=== PATIENT | female | born 1950 | race Caucasian/White ===

== ENCOUNTER 2020-01-21 17:21 | Inpatient (IN) | payer BC ==
[~2020-01-21] VITALS: Ht 154.9 cm; Wt 53.4 kg
[~2020-01-21 17:21] MED LIST: ADV250INH INH; AUGM875T27 PO; BISAC5TA PO; DOCU5LIQ PO; MAPA500T17 PO; MILK10SU PO; NICO21DI3 EXT; NO HISTORICAL MEDS; PERC5TAB PO; PROT1TAB2 PO; spiriva INH
[2020-01-21] MEDS ORDERED: methylPREDNISolone INJ 125 MG/2 ML VIAL (J2930) IV ONE (17:30)
[2020-01-21] MEDS: IPRATROPIUM 0.5MG/ALBUTEROL 2.5MG INH SOL UD 3ML (DUONEB)(J7620) NEB PRN ×2 (17:43→18:04)
[2020-01-21 17:52] LABS: HEMATOCRIT 43.1 % (36.0-47.0); HEMOGLOBIN 13.1 g/dl (12.0-15.5); MEAN CORPUSCULAR HEMOGLOBIN 28.8 pg (27.0-33.0); MEAN CORPUSCULAR HGB CONC 30.4 g/dl (32.0-36.5); MEAN CORPUSCULAR VOLUME 94.7 fl (80.0-96.0); PLATELET COUNT, AUTOMATED 448 10^3/uL (150-450); RED BLOOD COUNT 4.55 10^6/uL (4.00-5.40); WHITE BLOOD COUNT 15.3 10^3/uL (4.0-10.0)
[2020-01-21] MEDS: HumaLOG INSULIN (NovoLOG) PER UNIT SC SCH ×2 (18:00→23:24)
[2020-01-21] MEDS ORDERED: ETOMIDATE INJ 20MG/10ML VIAL IV STA (18:23)
[2020-01-21] MEDS ORDERED: SUCCINYLCHOLINE INJ 200 MG/10 ML VIAL (J0330) IV STA (18:23)
[2020-01-21 18:30] LABS: ALBUMIN 3.5 GM/DL (3.2-5.2); BILIRUBIN,DIRECT 0.1 MG/DL (0.0-0.2); BILIRUBIN,TOTAL 0.3 MG/DL (0.2-1.0); CALCIUM LEVEL 8.8 MG/DL (8.8-10.2); CK-MB VALUE MASS 3.2 NG/ML (<3.6); CREATININE FOR GFR 1.68 MG/DL (0.55-1.30); GLOMERULAR FILTRATION RATE 32.2 (>45); MB/CK RELATIVE INDEX 2.91 (< OR =4); POTASSIUM SERUM 4.9 MEQ/L (3.5-5.1); THYROID STIMULATING HORMONE 2.74 uIU/ML (0.358-3.740); TOTAL PROTEIN 7.4 GM/DL (6.4-8.2); TROPONIN I 0.06 NG/ML (< 0.10)
[2020-01-21] MEDS ORDERED: DOXYCYCLINE HYCLATE 100 MG in D5W MINI-BAG PLUS 100 ML IV ONE (18:30)
[2020-01-21] MEDS ORDERED: cefTRIAXone SOD 1 GM in D5W MINI-BAG PLUS 50 ML IV ONE (18:30)
[2020-01-21 18:41] LABS: LYMPHOCYTES 26 % (16-44); MONOCYTES 1 % (0-5); NEUTROPHILS 73 % (28-66)
[2020-01-21 18:42] LABS: PLATELET ESTIMATE INCREASED (NORMAL)
[2020-01-21] MEDS ORDERED: propofoL 1,000 MG in IV 1 EA IV SCH (18:45)
[2020-01-21] MEDS ORDERED: propofoL 200 MG/20 ML VIAL As Ordered ONE (18:52)
[2020-01-21] MEDS ORDERED: FUROSEMIDE 40MG/4ML VIAL (J1940) IV ONE (19:00)
[2020-01-21 19:13] LABS: ABG BASE EXCESS -9.4 (-2.0-2.0); ABG HCO3 19.8 MEQ/L (22.0-26.0); ABG O2 SATURATION 92.8 % (95.0-99.0); ABG PARTIAL PRESSURE O2 87.1 mmHg (75.0-100.0); ABG STANDARD HCO3 16.9 MEQ/L (22.0-26.0); ABG TOTAL CO2 21.5 MEQ/L (23.0-31.0)
[2020-01-21] MEDS ORDERED: propofoL 200 MG/20 ML VIAL IV ONE (19:15)
[2020-01-21 19:21] LABS: ABG pH (ARTERIAL) 7.158 UNITS (7.350-7.450)
[2020-01-21] MEDS ORDERED: DEXTROSE 50% 50 ML SYRINGE IV PRN (19:45)
[2020-01-21] MEDS ORDERED: GLUCAGON INJ 1MG VIAL SC PRN (19:45)
[2020-01-21] MEDS ORDERED: GLUCOSE 4GM CHEW TABLET PO PRN (19:45)
[2020-01-21 20:00] VITALS: BP 114/55
[2020-01-21] MEDS: propofoL 1,000 MG in IV 1 EA IV SCH (20:00)
[2020-01-21] MEDS: IPRATROPIUM 0.5MG/ALBUTEROL 2.5MG INH SOL UD 3ML (DUONEB)(J7620) NEB SCH (20:07)
[2020-01-21 20:15] VITALS: BP 113/58
[2020-01-21] MEDS: PANTOPRAZOLE 40MG VIAL (C9113 PER 1) IV SCH (20:20)
[2020-01-21] MEDS: CHLORHEXIDINE GLUCONATE 0.12 % 15ML UDC (PERIDEX ORAL RINSE) MT SCH (20:20)
[2020-01-21 20:30] VITALS: BP 112/57
[2020-01-21 21:00] VITALS: BP 127/64
[2020-01-21 21:08] LABS: ABG BASE EXCESS -6.4 (-2.0-2.0); ABG HCO3 19.7 MEQ/L (22.0-26.0); ABG PARTIAL PRESSURE CO2 41.5 mmHg (35.0-45.0); ABG PARTIAL PRESSURE O2 113.4 mmHg (75.0-100.0); ABG STANDARD HCO3 19.3 MEQ/L (22.0-26.0); ABG pH (ARTERIAL) 7.295 UNITS (7.350-7.450)
[2020-01-21 21:38] LABS: CK-MB VALUE MASS 4.7 NG/ML (<3.6); MB/CK RELATIVE INDEX 3.79 (< OR =4)
[2020-01-21] MEDS: HEPARIN SOD (PORCINE) 5000UNITS/ML VIAL (J1644 PER 1000UNITS) SC SCH (21:52)
[2020-01-21 22:00] VITALS: BP 159/76
[2020-01-21] MEDS ORDERED: FUROSEMIDE 40 MG TAB PO ONE (22:00)
[2020-01-21] MEDS ORDERED: FUROSEMIDE 100MG/10ML VIAL (J1940) IV ONE (22:00)
--- NOTE | 2020-01-21 22:58 | REP ---
CHEST, SINGLE VIEW: Single view of the chest is performed and compared to prior study of 11/14/2015. There are diffuse bilateral infiltrates. Heart is not enlarged. Mediastinal silhouette is grossly unremarkable. There is mild elevation of the left hemidiaphragm. IMPRESSION: Diffuse bilateral infiltrates. Electronically Signed by Aureliano Forman MD 01/22/2020 10:51 A
[2020-01-21 23:00] VITALS: BP 146/74
--- NOTE | 2020-01-21 23:01 | REP ---
CHEST, SINGLE VIEW: Single view of the chest is performed and compared to prior exam of the same day. Endotracheal tube has been placed, and the tip is approximately 1 cm above the rob. Diffuse bilateral infiltrates are unchanged. Heart is normal in size. Electronically Signed by Aureliano Forman MD 01/22/2020 10:52 A
[2020-01-21] MEDS ORDERED: metOLazone 2.5 MG TAB PO ONE (23:15)
[2020-01-22] VITALS (25 sets, daily range): BP systolic 131–172; BP diastolic 60–82; O2SAT 93–94
[2020-01-22] MEDS: propofoL 1,000 MG in IV 1 EA IV SCH ×4 (00:08→21:07)
[2020-01-22 05:01] LABS: BASO % 0.1 % (0.0-1.0); EOS % 0.1 % (0.0-3.0); HEMATOCRIT 38.2 % (36.0-47.0); HEMOGLOBIN 11.7 g/dl (12.0-15.5); LYMPH # 0.5 10^3/uL (1.5-5.0); LYMPH % 4.2 % (24.0-44.0); MEAN CORPUSCULAR HEMOGLOBIN 29.3 pg (27.0-33.0); MEAN CORPUSCULAR HGB CONC 30.6 g/dl (32.0-36.5); MEAN CORPUSCULAR VOLUME 95.7 fl (80.0-96.0); MONO # 0.3 10^3/uL (0.0-0.8); MONO % 2.3 % (0.0-5.0); NEUTROPHILS # 11.5 10^3/uL (1.5-8.5); NEUTROPHILS % 92.7 % (36.0-66.0); RED BLOOD COUNT 3.99 10^6/uL (4.00-5.40); WHITE BLOOD COUNT 12.4 10^3/uL (4.0-10.0)
[2020-01-22] MEDS: HEPARIN SOD (PORCINE) 5000UNITS/ML VIAL (J1644 PER 1000UNITS) SC SCH ×4 (05:11→22:00)
[2020-01-22] MEDS: HumaLOG INSULIN (NovoLOG) PER UNIT SC SCH ×4 (05:11→23:47)
[2020-01-22 05:37] LABS: ALBUMIN 3.2 GM/DL (3.2-5.2); BILIRUBIN,TOTAL 0.3 MG/DL (0.2-1.0); CALCIUM LEVEL 8.7 MG/DL (8.8-10.2); CREATININE FOR GFR 2.75 MG/DL (0.55-1.30); GLOMERULAR FILTRATION RATE 18.2 (>45); PHOSPHORUS LEVEL 4.9 MG/DL (2.5-4.9); POTASSIUM SERUM 4.3 MEQ/L (3.5-5.1); TOTAL PROTEIN 6.6 GM/DL (6.4-8.2)
[2020-01-22 06:18] LABS: ABG HCO3 21.4 MEQ/L (22.0-26.0); ABG O2 SATURATION 91.1 % (95.0-99.0); ABG PARTIAL PRESSURE O2 60.2 mmHg (75.0-100.0); ABG STANDARD HCO3 21.8 MEQ/L (22.0-26.0); ABG TOTAL CO2 22.5 MEQ/L (23.0-31.0); ABG pH (ARTERIAL) 7.391 UNITS (7.350-7.450)
--- NOTE | 2020-01-22 06:53 | REP ---
Clinical: Endotracheal tube placement. History of pulmonary edema. Comparison: 01/21/2020. Findings: Endotracheal tube 1.5 cm above the rob. Nasogastric tube courses below left hemidiaphragm. The lung arroyo demonstrate improved aeration with decreased bibasilar atelectasis. Small layering left effusion is suggested. No pneumothorax. Cardiac silhouette is normal. Skeletal structures are intact. Impression: 1. Endotracheal tube 1.5 cm above the rob. 2. Improved aeration with significantly decreased infiltrates and minimal residual basilar atelectasis now noted. 3. Small left pleural effusion suggested. Electronically Signed by Loc Gallagher MD 01/22/2020 06:44 A
[2020-01-22] MEDS: IPRATROPIUM 0.5MG/ALBUTEROL 2.5MG INH SOL UD 3ML (DUONEB)(J7620) NEB SCH ×4 (07:28→19:39)
[2020-01-22] MEDS: CHLORHEXIDINE GLUCONATE 0.12 % 15ML UDC (PERIDEX ORAL RINSE) MT SCH ×2 (07:52→20:01)
[2020-01-22] MEDS ORDERED: FUROSEMIDE 100MG/10ML VIAL (J1940) IV ONE (08:45)
[2020-01-22] MEDS ORDERED: metOLazone 5 MG TAB PO ONE (09:00)
--- NOTE | 2020-01-22 09:01 | ECGEPIP ---
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
[2020-01-22 09:46] LABS: TROPONIN I 8.03 NG/ML (< 0.10)
[2020-01-22] MEDS: MIDAZOLAM INJ 2MG/2ML VIAL (J2250 PER 1MG) IV PRN ×2 (11:25→20:00)
--- NOTE | 2020-01-22 11:26 | REP ---
URINARY TRACT SONOGRAPHY WITH RENAL ARTERY DOPPLER ASSESSMENT: HISTORY: Hypertension. Acute kidney insufficiency. Question arterial stenosis. Comparison renal sonography May 27, 2013 showed moderate left-sided hydronephrosis and bilateral intrarenal nephrolithiasis. SONOGRAPHIC FINDINGS: Scanning at the level of the urinary bladder shows that the bladder is empty with Shukla catheter in place. Renal cortical echogenicity pattern is increased bilaterally. Right kidney measures 8.6 x 4.6 x 4.3 cm. Left renal dimensions are 8.4 x 4.3 x 4.6 cm. The kidneys are felt to be somewhat atrophic. There is moderate hydronephrosis again noted on the left. No hydronephrosis is seen on the right. There is an 18 mm shadowing echogenic focus at the hilum of the left kidney consistent with a calculus. There is a 1.1 cm cyst in the upper pole of the right kidney. Renal artery Doppler Assessment: Exam quality is markedly diminished with the exam done portably in the OR and the patient on a ventilator. We were not able to measure Doppler flow velocity in the abdominal aorta. Main renal arteries are obscured bilaterally. A single intralobar are arterial wave form was acquired from the mid pole position of the right kidney showing increased resistive index of 0.85. This could correlate with renal artery stenosis but the study is quite suboptimal. This is the only Doppler data we could achieved. IMPRESSION: Moderate left-sided hydronephrosis with a large renal pelvic calculus on the left. Small cyst right kidney. Bilateral atrophic hyperechoic kidneys. Severely limited Doppler assessment data as above. Electronically Signed by Raymond Spivey MD 01/22/2020 03:20 P
--- NOTE | 2020-01-22 12:19 | REP ---
CT ABDOMEN AND PELVIS WITHOUT CONTRAST: CT abdomen and pelvis performed without oral or IV contrast. Sagittal and coronal reconstruction image are performed. Small bilateral pleural effusions and bibasilar atelectasis/infiltrate is noted. There is a small amount of pericardial fluid or thickening. The heart is not enlarged. There is a nasogastric tube traversing into the stomach. The liver is grossly unremarkable. The gallbladder is mild to moderately distended and contains as stone which measures about 2 cm in diameter. There is no evidence of gallbladder wall thickening. The spleen is normal in size with no gross abnormality. The adrenal glands are normal. Pancreas is grossly unremarkable. The right kidney demonstrates mild diffuse cortical thinning. There is no right hydroureteronephrosis. There are diffuse ill-defined calcifications throughout the cortical medullary region of the right kidney likely vascular. There may be an intrarenal calculus in the lower pole of the right kidney 5 mm in diameter. There are also a few cortical calcifications in the lower pole of the left kidney. Cystic structures are seen in both the upper and lower poles of the left kidney. There does appear to be at least mild dilatation of the left pelvicaliceal system. There is a large calculus in the left renal pelvis which measures 1.9 cm in diameter. Left ureter is not dilated. Urinary bladder contains a Shukla catheter with small amount of air and fluid. There is moderate atherosclerotic calcification of the abdominal aorta without aneurysm. There is no adenopathy. There is no free air or free fluid. The appendix is normal. There is no evidence of bowel wall thickening. No gross pelvic mass is seen. There are degenerative changes of the spine. IMPRESSION: There is a calculus in the left renal pelvis, 1.9 cm in diameter. There is at least mild and possibly moderate left hydronephrosis. There are cystic structures in the upper and lower poles of the left kidney but it is difficult to determine whether these represent cysts or dilated calices. In both lung bases, there are small effusions with mild adjacent atelectasis/infiltrate. There is a small amount of pericardial fluid/thickening. Gallstone in the gallbladder, which is mild to moderately distended with no definite gallbladder wall thickening or edema. Electronically Signed by Aureliano Forman MD 01/22/2020 12:37 P
--- NOTE | 2020-01-22 13:12 | CCN ---
DATE OF ADMISSION: 01/21/2020 The patient is seen in the intensive care unit intubated, mechanically ventilated, critically ill. Over the course of the evening, she was given high-dose diuretics. Little urine output resulted. Blood pressure has been better since admission due, no doubt, to sedation. At bedside, she is ill-appearing, sedate. Pemberton level 2-3. Temperature is 98, pulse rate 90, respirations 20, blood pressure 156/74. Intake and output (I and O): For the past 24 hours, 354 in, 0 out. Since midnight, 142 in, 5 out. On physical examination, HEENT: Her pupils are midplane and responsive. The neck is supple. There is an orogastric and endotracheal tube in good position, 22 cm at the lip line. Jugular veins do appear distended, perhaps 6 cm. The carotid upstroke is sluggish. Heart sounds are regular, somewhat distant. Breath sounds are diminished with some dullness in the bases. There is no accessory muscle use. She is taking occasional spontaneous breaths over the mechanically ventilated, mechanically delivered breaths. Abdomen: Soft with a prominent bruit. There is no palpable mass. Bowel sounds are appreciated. Extremities are cool. Pulses are diminished. DIAGNOSTIC STUDIES: Her white cell count is 12.4, hemoglobin is 11.7, hematocrit 38.2, platelet count was unable to be determined as the platelets clotted. It was felt to be elevated. Differential white cell count shows 92.7% neutrophils. Electrolytes are sodium 141, potassium 4.3, chloride 109, CO2 21, BUN is 38, creatinine is up to 2.75 from 1.68, glucose is 128, her lactic acid was 4.8 last evening, calcium is 8.7 with an albumin of 3.2, AST 62, ALT 27, LDH is 105, CPK is 347, the troponin was 8.03. Arterial blood gases show a pH of 7.39, PCO2 of 36, pO2 of 60. Chest x-ray shows significant improvement in the interstitial infiltrates appreciated yesterday. Blood cultures are pending times two. On medications review, she is receiving propofol drip to maintain sedation, DuoNebs, subcutaneous heparin, Protonix, and insulin coverage. She has received large doses of Lasix. The primary problem requiring critical attention is acute respiratory failure. Arterial blood gases are much improved. Will continue with intermittent mechanical ventilation (IMV) 400 times 20, PEEP of 5, PSV of 14, and follow gas exchange with oximetry and capnography. Pulmonary edema. Her chest x-ray has improved. I am questioning whether the episode was related to hypertension as her brain natriuretic peptide (BNP) was very high, and she has cleared no urine. Acute oliguric kidney failure. We will attempt additional doses of diuretics. I am, however, concerned about the possibility of renal artery stenosis as a precipitant, the event of admission. If no response is appreciated, we will consult with nephrology. Will also obtain a renal ultrasound to assess for renal artery stenosis and in light of a prior history of nephrolithiasis. Cardiac ischemic event. The electrocardiogram is nonspecific. Enzymes are positive. Will check an echocardiogram. Chronic obstructive pulmonary disease by history. The patient is receiving beta agonist by nebulized therapy. Nutritional support will be addressed with tube feedings. The patient's mixed acidosis has now resolved. Deep venous thrombosis (DVT) prophylaxis is being addressed with subcutaneous heparin. Ulcer prophylaxis is being addressed with Protonix. She is at high risk being critically ill and on mechanical ventilation. Glycemic control is acceptable. Will continue with fingerstick blood sugars and coverage as we are starting nutritional support. The patient's condition is critical. Prognosis is guarded. 1 hour and 29 minutes was spent in the provision of bedside critical care and coordination.
--- NOTE | 2020-01-22 13:37 | HPE ---
DATE: 01/20/2010 I was called to see this patient in the emergency department, a 69-year-old female with acute hypoxemic hypercarbic respiratory failure. She presented to the emergency department with dyspnea, deteriorated during her evaluation and required an endotracheal tube to be placed. On my arrival, she is sedate with an endotracheal tube in place on mechanical ventilation. She has a past history per the medical record of lung cancer, status post resection of her left upper lobe in 2013 for stage III A (T4N1) disease. She was lost to followup after that time. She has a 50 pack-year smoking history. At bedside, her temperature is 96, pulse rate 126, respirations 24, blood pressure 184/90. HEENT: Her pupils are small, sluggish. Neck is supple. No meningismus. Jugular veins are grossly distended. Carotid upstroke sluggish. Heart sounds are regular, somewhat distant. Breath sounds are diminished with diffuse rales bilaterally. Abdomen is soft, obese, with bowel sounds in the right lower quadrant. Extremities show muscle wasting. Pulses are palpable times four. Diagnostic Studies: Her white cell count is 15.3, hemoglobin 13.1, hematocrit 43.1, and platelet count is 448,000. Differential white cell count shows 73% neutrophils and 26% lymphocytes. Her sodium is 139, potassium 4.9, chloride 106, CO2 21, BUN 26, creatinine is 1.68, and glucose 335. Her calcium is 8.8 with an albumin is 3.5, bilirubin 0.3, AST 27, ALT 26, alkaline phosphatase is 123. A serum lactate is pending. Troponin I is 0.06. Beta natriuretic peptide 31,008. Her total protein is 7.3. The TSH is 2.74. An arterial blood gas performed on admission revealed a pH of 7.19, pCO2 52 and pO2 68. COVID-19 testing was negative. Her chest x-ray shows diffuse interstitial infiltrates consistent with pulmonary edema. Electrocardiogram shows a possible inferior injury. The primary problem requiring critical attention is acute hypoxic hypercarbic respiratory failure. Will initiate mechanical ventilation, increase minute ventilation and recheck arterial blood gas. Pulmonary edema. The patient has received a dose of IV Lasix. A Shukla catheter will be placed and will monitor ins and outs closely. Hypertension. If her blood pressure does not respond after sedation has had a chance to take effect, I will add intravenous nitroglycerin. Mixed acidosis. We will increase minute ventilation and check a serum lactate. Abnormal electrocardiogram. There is a possibility of an acute myocardial injury. Troponin is currently negative. Will recheck a troponin. The patient is not a candidate for transfer for cardiac intervention at this time. Advanced chronic obstructive pulmonary disease is suspected related to 50 pack-years of cigarette smoking. Will administer scheduled nebulized beta agonist anticholinergic therapy. Acute kidney injury. The patient's baseline creatinine was less than 1. Current creatinine is 1.6. This may reflect ongoing renal dysfunction. Deep vein thrombosis (DVT) prophylaxis will be addressed with subcutaneous heparin. Ulcer prophylaxis will be addressed with Protonix. Glycemic control will be addressed with fingerstick blood sugars and coverage. The patient's condition is very critical. Prognosis is guarded to poor. 2 hours and 17 minutes was spent in provision of bedside critical care and coordination in excess of any procedure time. I have reviewed the case now with the emergency department physicians and the ICU nursing team will facilitate transfer now to the intensive care unit for continued resuscitative efforts.
--- NOTE | 2020-01-22 15:42 | ECHO ---
DATE OF PROCEDURE: 01/22/2020 DATE OF : 1950 AGE: 69 GENDER: Female. HEIGHT: 61 inches WEIGHT: 125 pounds BODY SURFACE AREA: 1.55 m2 INPATIENT: ICU Room 3205 REFERRING PHYSICIAN: Nallely Xavier INDICATION: Heart failure. MEASUREMENTS: 2-D Measurements: RV: 2.8 cm LV: 4.8 cm Septum: 1.2 cm Posterior wall: 1.1 cm Aortic root: 3.2 cm LA: 3.6 cm LVEF: 25% Doppler Measurements: AV: 1.08 m/sec LVOT: 0.76 m/sec LVOT diameter: 1.8 cm MV: Superimposition of both early and late diastolic filling patterns, unable to evaluate LV diastolic function and LA pressure. PV: 0.6 m/sec Pulmonary artery acceleration time: 92 ms RVSP: 45-50 mmHg IVC: 1.8 cm COMMENTS: Sinus tachycardia without intraventricular conduction disturbance. M-mode and two-dimensional echocardiography was performed with pulsed, continuous wave, color flow and tissue Doppler studies. Borderline concentric left ventricular hypertrophy with global moderately-severe hypokinesis resulting in severe impairment of global systolic function. Left atrial size upper limits of normal. Unable to define LV diastolic function or estimate mean left atrial pressure in light of superimposition of both early and late diastolic filling patterns. Normal right heart chamber sizes and adequate right ventricular free wall motion with Doppler evidence of at least moderate pulmonary hypertension. IVC size upper limits of normal with markedly reduced respiratory collapse in keeping with elevated central venous pressure/right heart failure. Normal aortic dimensions. Mild to moderate aortic valvular sclerosis without stenosis and only trace insufficiency. Mild mitral annular calcification with very mild mitral insufficiency. Normal-appearing tricuspid valve with mild tricuspid insufficiency. No apparent intracardiac mass. Minuscule posterior pericardial effusion measuring 2 mm.
[2020-01-22 17:42] LABS: APPEARANCE, URINE CLOUDY (CLEAR); BACTERIA, URINE AUTO 3+ (NEGATIVE); BILIRUBIN, URINE AUTO NEGATIVE (NEGATIVE); BLOOD, URINE BLOOD 2+ (NEGATIVE); COLOR, URINE YELLOW (YELLOW); GLUCOSE, URINE (UA) AUTO NEGATIVE (NEGATIVE); KETONE, URINE AUTO NEGATIVE (NEGATIVE); LEUKOCYTE ESTERASE, URINE AUTO 3+ (NEGATIVE); MUCUS, URINE SMALL (NEGATIVE); NITRITE, URINE AUTO NEGATIVE (NEGATIVE); PROTEIN, URINE AUTO 2+ mg/dL (NEGATIVE); RBC, URINE AUTO 19 /HPF (0-3); SQUAMOUS EPITHELIAL CELL UR AU 0 /HPF (0-6); TRANSITIONAL EPITHELIAL AUTO <1 /HPF; UROBILINOGEN, URINE AUTO 0.2 mg/dL (0.0-2.0); WBC, URINE AUTO 80 /HPF (0-3)
--- NOTE | 2020-01-22 17:42 | CR ---
DATE OF CONSULTATION: 01/22/2020 REQUESTING PHYSICIAN: Dr. Bryan Fisher CONSULTING PHYSICIAN: Dr. Ryan REASON FOR CONSULTATION: Management of acute anuric renal failure. CHIEF COMPLAINT: The patient presented to the hospital yesterday with progressive shortness of breath. HISTORY OF PRESENT ILLNESS: Note, history was obtained from the medical team and from the patient's chart and previous records. The patient is unable to provide any reliable history because she is intubated. Nevaeh Saavedra she is a 69-year-old female with past medical history of kidney stones. Most likely she has chronic kidney disease, stage III; however, baseline renal function is not known. She does not follow up with nephrology service. Her baseline creatinine from 2013 was 0.9. She has history of chronic obstructive pulmonary disease (COPD), history of adenocarcinoma of the left upper lobe, status post left upper lobectomy many years ago. She presented to the hospital yesterday with progressive shortness of breath. In the emergency room, her shortness of breath got worse, and because of dyspnea she ended up getting intubated and placed on the ventilator. Imaging showed that the patient had diffuse pulmonary edema. It is not clear whether the patient has history of hypertension; however, yesterday in the emergency room the patient was very hypertensive with blood pressure 230/112. She was transferred to the intensive care unit (ICU) and admitted under pulmonary critical care service. Because of cholo pulmonary edema, the patient was given intravenous (IV) diuretics to diurese; however, the patient did not respond to the IV diuretic dose. The patient made minimal amount of urine. Her creatinine on admission was 1.6, which has bumped up to 2.7 today. Nephrology service was called for further help in the management of this patient. I saw and evaluated the patient today morning in the bedside. She is still intubated, sedated with propofol. Currently her blood pressures are better controlled, and she is not requiring any IV medications for her blood pressure. PAST MEDICAL HISTORY: 1. Kidney stones. Most likely has chronic kidney disease (CKD), stage III, at baseline. Not sure if the patient has hypertension. 2. 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 The patient was lost in followup. PAST SURGICAL HISTORY 1. Status post left upper lobe lung resection in [address] Canseco. 2. She has history of mild left-sided hydronephrosis with left-sided renal stone. She was supposed to followup with urology. I am not sure whether she had any procedure done to the left kidney or not. ALLERGIES: No known drug allergies. FAMILY HISTORY: No known family history. SOCIAL HISTORY: Patient has a 50 pack-year history of smoking as per previous records. It is not known whether the patient takes any drugs. REVIEW OF SYSTEMS: I was unable to do any reliable review of systems because the patient is intubated and sedated. PHYSICAL EXAMINATION: GENERAL: The patient is intubated, sedated, lying in bed. Eyes are closed. VITAL SIGNS: Temperature is 98.5 degrees Fahrenheit, blood pressure 145/67, pulse is 119, respiratory of 23, saturating 94% on the ventilator with 20% FiO2. Intake and output: Urine output recorded is only 25 mL since overnight. HEAD AND NECK: Pupils are equally round and reactive to light. Mucous membranes are moist. Patient has an endotracheal tube. Neck is supple. There is no jugular venous distention (JVD). CARDIOVASCULAR: S1, S2, tachycardia. No edema of the bilateral lower extremities. RESPIRATORY: Chest is clear to auscultation bilaterally. There are no rales or rhonchi. ABDOMEN: Soft. The patient has a bruit in the renal artery area. Right is worse than the left. GENITOURINARY: Patient has an indwelling Shukla catheter. A very small amount of urine, less than 10 mL on the bag, is noted. MUSCULOSKELETAL: No clubbing or cyanosis. Pulses are 2+. SKIN: No rashes or ulcers. CENTRAL NERVOUS SYSTEM: The patient is intubated and sedated. She moves extremities on painful stimuli. LABORATORY REVIEW: CBC showed WBC of 12.4, hemoglobin 11.7, platelets are 448. ABG done today morning showed pH of 7.39, pCO2 of 36, pO2 of 60.2, bicarbonate is 21.4, oxygen saturation is 91%. BMP showed sodium 141, potassium 4.3, chloride 109, bicarbonate 21, BUN 38, creatinine is 2.7; it was 1.6 yesterday. Glucose is 128. Lactic acid was 4.8 on arrival; it is 1.8 now. Calcium 8.7. LDH is 390. Total creatine kinase is 347, troponin is 8.03. Albumin 3.2. COVID-19 is negative. Microbiology: Blood cultures are pending. IMAGING STUDIES: CT scan of the abdomen and pelvis without contrast was done, which showed a calculus in the left renal pelvis. It was 1.9 cm in diameter. Mild to moderate left-sided hydronephrosis. Cystic structures in the upper and lower poles of the kidney. Not sure whether they are cysts or dilated calyces. Right kidney was mildly atrophic. There were small effusions in both lungs. There was gallstone in the gallbladder. Renal ultrasound was also done in the morning, which showed moderate left-sided hydronephrosis. Small cyst in the right kidney. Bilateral atrophic hyperechoic kidneys. Severely limited Doppler because of the bowel-gas pattern. Chest x-ray done today morning showed endotracheal tube above the rob. Improved aeration with significantly decrease infiltrates and minimal residual basilar active atelectasis. CURRENT INPATIENT MEDICATIONS: The patient is currently on IV doxycycline, IV propofol infusion. Rocephin 1 gram IV was given yesterday. DuoNebs for times a day. She was given three doses of Lasix 40 mg, 80 mg, 100 mg. She is on Solu-Medrol 125 mg IV times one dose yesterday. She was given two doses of metolazone as well. Prednisone 40 mg IV daily. ASSESSMENT: A 69-year-old female with history of kidney stones, most likely baseline chronic obstructive pulmonary disease (COPD) and chronic kidney disease (CKD) III, admitted at this time to intensive care unit (ICU) with acute hypoxic and hypercapnic respiratory failure. Currently ventilator dependent, and she has acute anuric renal failure. PLAN: 1. Acute anuric renal failure. Unknown etiology at this time. Urinalysis is not available. I have ordered the urinalysis to be done. Hydronephrosis on the left side is mild and is chronic, and the stone in the left pelvis is chronic and is not severe enough to cause acute oligoanuric renal failure. I have discussed the Dopplers and the CT scan findings with interventional radiology as well, and the decision was made to do a nuclear medicine scan with renal flow study, and if there is any evidence of severe renal artery stenosis, then the patient will get angiogram and stenting done. Patient is oliguric. I believe the creatinine will keep on going up, and if she remains anuric for the next 24-48 hours, we might have to start the patient on dialysis. At this point, volume status is optimal, and electrolytes are within the acceptable range. 2. Acute hypoxic and hypercapnic respiratory failure. The patient had flash pulmonary edema on arrival. There is a high likelihood that it might be associated with renal artery stenosis. After the intubation, chest x-ray is showing improvement in the aeration. Ventilator management is as per pulmonary team. The patient is getting empiric antibiotics as well. 3. Flash pulmonary edema. As mentioned above, there is a possibility it might be secondary to renal artery stenosis. A renal perfusion scan will be done tomorrow morning. The patient did not respond to the IV diuretics. 4. Elevated troponin. Most likely this is stress-induced ischemia secondary to flash pulmonary edema. Continue to cycle the troponins. 5. Left-sided intrarenal calculus with moderate hydronephrosis. The patient is known to have calculus previously as well. Not sure if she ever followed up with urology. This calculus in the left side is not obstructing the ureteropelvic junction. Unlikely that it is causing anuric renal failure at this time. Further decision to do any intervention will be done after the patient gets the nuclear renal scan tomorrow morning. Thank you for involving me in the care of this patient. I shall be happy to follow the patient along with you tomorrow morning. Total critical care time spent in the management of this patient today morning in the ICU was 1 hour and 15 minutes.
[2020-01-22] MEDS: PANTOPRAZOLE 40MG VIAL (C9113 PER 1) IV SCH (20:00)
[2020-01-22] MEDS: ACETAMINOPHEN 325 MG/10.15 ML UDC GT PRN (21:06)
[2020-01-23] VITALS (39 sets, daily range): BP systolic 128–185; BP diastolic 60–88; O2SAT 95–97
[2020-01-23] MEDS: MIDAZOLAM INJ 2MG/2ML VIAL (J2250 PER 1MG) IV PRN ×3 (03:28→22:19)
[2020-01-23] MEDS: propofoL 1,000 MG in IV 1 EA IV SCH ×4 (04:31→23:43)
[2020-01-23 05:12] LABS: BASO % 0.1 % (0.0-1.0); HEMATOCRIT 32.8 % (36.0-47.0); HEMOGLOBIN 10.8 g/dl (12.0-15.5); LYMPH # 1.6 10^3/uL (1.5-5.0); LYMPH % 6.5 % (24.0-44.0); MEAN CORPUSCULAR HEMOGLOBIN 29.3 pg (27.0-33.0); MEAN CORPUSCULAR HGB CONC 32.9 g/dl (32.0-36.5); MEAN CORPUSCULAR VOLUME 89.1 fl (80.0-96.0); MONO # 1.5 10^3/uL (0.0-0.8); MONO % 5.9 % (0.0-5.0); NEUTROPHILS # 21.2 10^3/uL (1.5-8.5); NEUTROPHILS % 86.8 % (36.0-66.0); PLATELET COUNT, AUTOMATED 274 10^3/uL (150-450); RED BLOOD COUNT 3.68 10^6/uL (4.00-5.40); WHITE BLOOD COUNT 24.4 10^3/uL (4.0-10.0)
[2020-01-23 05:34] LABS: ABG BASE EXCESS -2.2 (-2.0-2.0); ABG HCO3 21.5 MEQ/L (22.0-26.0); ABG O2 SATURATION 94.5 % (95.0-99.0); ABG PARTIAL PRESSURE O2 76.4 mmHg (75.0-100.0); ABG STANDARD HCO3 22.6 MEQ/L (22.0-26.0); ABG TOTAL CO2 22.5 MEQ/L (23.0-31.0); ABG pH (ARTERIAL) 7.431 UNITS (7.350-7.450)
[2020-01-23 05:55] LABS: ALBUMIN 2.9 GM/DL (3.2-5.2); ALT/SGPT 53 U/L (12-78); BILIRUBIN,TOTAL 0.3 MG/DL (0.2-1.0); BLOOD UREA NITROGEN 59 MG/DL (7-18); CALCIUM LEVEL 8.4 MG/DL (8.8-10.2); CARBON DIOXIDE LEVEL 24 MEQ/L (21-32); CHLORIDE LEVEL 103 MEQ/L (98-107); CHOLESTEROL LEVEL 162 MG/DL (< 200); CPK CREATINE PHOSPHOKINASE 1192 U/L (26-192); CREATININE FOR GFR 5.16 MG/DL (0.55-1.30); GLOMERULAR FILTRATION RATE 8.8 (>45); GLUCOSE, FASTING 140 MG/DL (70-100); LDH LACTATE DEHYDROGENASE 768 U/L (84-246); PHOSPHORUS LEVEL 4.6 MG/DL (2.5-4.9); POTASSIUM SERUM 4.4 MEQ/L (3.5-5.1); SODIUM LEVEL 138 MEQ/L (136-145); TOTAL PROTEIN 5.9 GM/DL (6.4-8.2); TRIGLYCERIDES LEVEL 195 MG/DL (<150)
[2020-01-23] MEDS: HEPARIN SOD (PORCINE) 5000UNITS/ML VIAL (J1644 PER 1000UNITS) SC SCH ×3 (06:06→22:11)
[2020-01-23] MEDS: HumaLOG INSULIN (NovoLOG) PER UNIT SC SCH ×4 (06:06→23:49)
--- NOTE | 2020-01-23 07:05 | REP ---
Clinical: Intubation. Pulmonary edema. Comparison: 01/22/2020. Findings: Endotracheal tube approximately 1 cm above the rob. Nasogastric tube courses below left hemidiaphragm. Mediastinum and cardiac silhouette are stable. Lung arroyo demonstrate chronic interstitial changes with possible retrocardiac atelectasis. No focal consolidation, obvious effusion or pneumothorax. Skeletal structures are stable. Impression: 1. Endotracheal tube 1 cm from the rob. 2. Trace left lower lobe/retrocardiac atelectasis. 3. Small pleural effusions identified on recent abdominal CT not visible by portable examination. Electronically Signed by Loc Gallagher MD 01/23/2020 06:56 A
[2020-01-23] MEDS: IPRATROPIUM 0.5MG/ALBUTEROL 2.5MG INH SOL UD 3ML (DUONEB)(J7620) NEB SCH ×4 (08:04→19:47)
--- NOTE | 2020-01-23 10:05 | REP ---
RENAL NUCLEAR SCAN WITH FLOW AND FUNCTION: Following the intravenous administration of 8.8 millicuries technetium 99M MAG3, flow images are obtained of the kidneys in the posterior projection. There relatively poor perfusion of the right kidney compared to the left. Delayed renal function images are performed every minute for a period of 30 minutes in the posterior projection. There is right renal atrophy. There is patchy parenchymal uptake bilaterally diffusely. Cortical uptake is gradual with no scintigraphic evidence of significant excretion into either pelvicaliceal system. Split function is 75.3% on the left and 24.7% on the right. Both renal function curves are type 3 with gradual cortical accumulation. There is a Shukla catheter in place. No significant activity is seen in the region of the urinary bladder. IMPRESSION: Poor flow to the right kidney may indicate renal artery stenosis. There is right renal atrophy. There is bilateral patchy, heterogeneous, cortical uptake diffusely with type 3 function curve and gradual cortical accumulation. No appreciable excretion is seen. Findings are compatible with renal failure. Electronically Signed by Aureliano Forman MD 01/23/2020 12:52 P
[2020-01-23] MEDS: CHLORHEXIDINE GLUCONATE 0.12 % 15ML UDC (PERIDEX ORAL RINSE) MT SCH ×2 (10:12→20:38)
[2020-01-23 10:50] LABS: HDL CHOLESTEROL 38 MG/DL (>40)
[2020-01-23] MEDS: MEROPENEM INJ 500 MG in IV 1 EA IV SCH (10:59)
[2020-01-23 11:04] LABS: HEMOGLOBIN A1c 6.4 %
[2020-01-23] MEDS ORDERED: SUCCINYLCHOLINE 100 MG/5 ML SYRINGE (J0330) ONE (11:38)
--- NOTE | 2020-01-23 12:10 | IPN ---
DATE OF SERVICE: 01/23/2020 SUBJECTIVE: Ms. Saavedra was seen and examined this morning during bedside rounds. She is resting comfortably in her bed. Early this morning, she went to nuclear medicine for a renal artery flow study. There were no overnight events reported. The patient continues not to have any urine output. They irrigated the bladder this morning to check for obstruction, which was negative. There were no other events were reported by nursing or tele changes. PHYSICAL EXAMINATION: Vitals: Temperature 98.0, pulse 103, blood pressure 163/74, pulse oximetry 95% on ventilator on FiO2 of 21. Intake and Output: For the last 24 hours, intake total 740 mL, output today 45 mL, balance of positive 695 mL. Weight on admission was 56.7 kg, current weight is 58.1 kg. General: This is a 69-year-old female who is laying comfortably with the head of the bed at a 30 degrees angle. HEENT: Atraumatic, normocephalic. Endotracheal (ET) tube at 22 cm at the lip. Poor dentition. Jugular vein noted about 7 cm from the sternal notch. Trachea is midline. Cardiovascular: Tachycardic rate, regular rhythm, with no audible murmurs, rubs or gallops. Carotid bruit appreciated bilaterally as well as abdominal bruit. Lungs: Clear to auscultate bilaterally. Breath sounds are equal bilaterally. No wheezing or rhonchi is appreciated. Abdomen: Hypoactive bowel sounds. Soft. Nontender. Nondistended. No rebound or guarding. Abdominal bruit is appreciated. No skin breakdown noted. Extremities: No lower extremity edema or calf tenderness noted. LABORATORIES: WBC 24.4, hemoglobin 10.8, hematocrit 32.8, platelets 274. Chemistries: Sodium 138, potassium 4.4, chloride 103, carbon dioxide 24, anion gap 11, BUN 59, creatinine 5.16, GFR 8.8, fasting glucose 140, calcium 8.4, phosphorus 4.6, total bilirubin 0.3, AST 99, ALT 53, alkaline phosphatase 89, lactate dehydrogenase 768, total creatinine kinase 1182. Troponin from yesterday 8.03. Total protein 5.9. Triglycerides 195. Blood Gas: ABG pH 7.431, pCO2 33.0, pO2 76.4. Microbiology: Blood culture time two negative for growth for 24 hours. IMAGING: Renal scan nuclear medicine study official report still pending. Draft states poor flow of the right kidney may indicate renal artery stenosis with right renal atrophy. There is bilateral patchy heterogeneous cortical uptake diffusely with type 3 function curve and gradual cortical accumulation. No appreciable excretion is seen. Findings are compatible with renal failure. Chest x-ray from this morning was reviewed by Dr. Fihser and I which shows the endotracheal tube is roughly about 1 vertebral body from the rob with trace atelectasis and possible small pleural effusion with blunting of the costophrenic angles. ASSESSMENT AND PLAN: This is a 69-year-old female who has not been to a provider for multiple years with a pertinent history of multiple kidney stones, history of a lobectomy multiple years prior, who was presented to our emergency room (ER) for shortness of breath. The patient was found to be in acute hypoxic and hypercarbic respiratory failure in the ER and was intubated for flash pulmonary edema on arrival. At the current time, she is day two of hospitalization and intubation. 1. Acute respiratory failure with hypoxia and hypercarbia. The patient has flash pulmonary edema possibly secondary to acute renal stenosis. She is currently on ventilator SIMV with a respiration rate of 20, tidal volumes of 400, with a PEEP of 5, pressure support of 14, with a FiO2 of 21%. Her ABG this morning shows that she is compensating very well and tolerating it. Our plan is to keep her intubated for another 24 hours pending if the patient is getting a possible angioplasty versus a dialysis catheter placement versus a nephrostomy tube based on recommendations from interventional radiology. 2. Acute oliguric kidney failure. Renal ultrasound yesterday did show multiple kidney stones with a right atrophic kidney as well as a kidney stone in the left renal pelvis causing a mild hydronephrosis. Nephrology and interventional radiology was consulted. Interventional radiology did request nuclear medicine kidney flow study this morning which shows that she does have renal artery stenosis. At the current time, she continues to make no urine so the plan is to possibly put in a dialysis catheter in to possibly start dialysis versus doing a renal artery angioplasty. We will refer to the nephrology and interventional radiologist for these recommendations. 3. Cardiac ischemic event with an elevated troponin. Troponin was 8.0. Will get a repeat cardiac marker this morning. Possibly exacerbated from the pulmonary edema event that she had upon admission. I do believe the troponin will still be elevated as the patient is not renally clearing anything. At the current time, will have to address the underlying problem of acute oliguric kidney failure. No antiplatelet therapy at this current time started on the fact of a possible catheter placement. 4. History of chronic obstructive pulmonary disease (COPD). Continue beta agonist by nebulizer. 5. Nutritional support. The patient does have tube feeds running. Will continue while intubated. 6. Deep vein thrombosis (DVT) prophylaxis. Heparin. 7. Gastrointestinal (GI) prophylaxis. Protonix. 8. Currently nothing by mouth because of mechanical ventilation. Have started her on tube feeds, so will have finger sticks and with insulin coverage while intubated. addendum: I was present and participated in the evaluation of this patient and examination. She remains very critically ill and her prognosis is guarded. CRITICAL CARE TIME: one hour and thirty seven minutes exclusive of procedure time. MTDD
--- NOTE | 2020-01-23 13:39 | ROOPDOC ---
[facility] Report Of Operation Report of Operation DATE OF PROCEDURE: 01/23/2020 PREPROCEDURE DIAGNOSES:Acute Renal Failure requiring Dialysis access POSTPROCEDURE DIAGNOSES: Acute Renal Failure requiring Dialysis access PROCEDURE: Right IJ Dialysis line placement Performed by: Dr. Nallely Mancini Attending: Dr. Bryan Fisher ANESTHESIA: Local ESTIMATED BLOOD LOSS: Approximately 0 mL. COMPLICATIONS: none PROCEDURE NOTE:Consent was obtained prior to the procedure but HCP over the phone. Procedure was performed at bedside in ICU. DESCRIPTION OF PROCEDURE: The patient was placed in the supine position. The right chest region and neck was prepped with chlorhexidine scrub. The patient was draped in the typical sterile fashion using a full drape. Ultrasonography was employed at bedside. A sterile probe cover was placed over the ultrasound. The medial and lateral head of the sternocleidomastoid were identified, as was the carotid pulse. The internal jugular vein was identified using ultrasound. Anesthesia was achieved over the internal jugular vein on the right using a 1% lidocaine solution. Once anesthetized, an introducer needle was inserted into the internal jugular vein. Venous blood was withdrawn, syringe was removed and a guidewire was advanced on to the introducer needle. The guidewire was visualized in the internal jugular vein by ultrasound. An incision was made in the skin surface with a scalpel, and the introducer needle was exchanged for a dilator over the guidewire. After appropriate dilation was obtained, the dilator was exchanged over the wire for a dialysis venous catheter. The wire was removed, and the catheter was sutured in place. A sterile bandage was placed over the catheter site. The patient tolerated the procedure well without any hemodynamic compromise. At the time of procedure completion, all ports were aspirated and flushed properly. Postprocedure x-ray was performed, which demonstrated adequate positioning of the dialysis venous catheter in the right internal jugular vein. NALLELY MANCINI DO January 23, 2020 13:39
--- NOTE | 2020-01-23 14:17 | REP ---
CHEST, SINGLE VIEW: Single view of the chest is performed and compared to a prior study of 01/23/2020 earlier today. There is right central venous catheter placed with the tip in the superior vena cava. There is no pneumothorax. Endotracheal tube and nasogastric tube are again seen. The lungs, heart and mediastinum are unchanged. Electronically Signed by Aureliano Forman MD 01/23/2020 03:40 P
--- NOTE | 2020-01-23 20:35 | ECGEPIP ---
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 MILD IVCD POSSIBLE LEFT ATRIAL ENLARGEMENT NONSPECIFIC ST/T-WAVE ABNORMALITY Possible prior anteroseptal infarct Right ventricular conduction delay Prior tracing on 01/21/2020 at 19:10. No significant changes Electronically Signed on 01-23-2020 20:35:35 EDT by Terrence Payne
[2020-01-23] MEDS: PANTOPRAZOLE 40MG VIAL (C9113 PER 1) IV SCH (20:38)
[2020-01-24] VITALS (36 sets, daily range): BP systolic 106–165; BP diastolic 53–81; O2SAT 94
[2020-01-24] MEDS: MIDAZOLAM INJ 2MG/2ML VIAL (J2250 PER 1MG) IV PRN ×3 (01:46→16:17)
[2020-01-24 05:14] LABS: BASO % 0.2 % (0.0-1.0); EOS % 0.1 % (0.0-3.0); HEMATOCRIT 31.5 % (36.0-47.0); HEMOGLOBIN 10.3 g/dl (12.0-15.5); LYMPH # 1.3 10^3/uL (1.5-5.0); LYMPH % 7.9 % (24.0-44.0); MEAN CORPUSCULAR HEMOGLOBIN 28.9 pg (27.0-33.0); MEAN CORPUSCULAR HGB CONC 32.7 g/dl (32.0-36.5); MEAN CORPUSCULAR VOLUME 88.5 fl (80.0-96.0); MONO % 6.2 % (0.0-5.0); NEUTROPHILS # 14.3 10^3/uL (1.5-8.5); PLATELET COUNT, AUTOMATED 244 10^3/uL (150-450); RED BLOOD COUNT 3.56 10^6/uL (4.00-5.40); WHITE BLOOD COUNT 16.9 10^3/uL (4.0-10.0)
[2020-01-24 05:38] LABS: ABG HCO3 22.1 MEQ/L (22.0-26.0); ABG O2 SATURATION 92.1 % (95.0-99.0); ABG PARTIAL PRESSURE CO2 35.2 mmHg (35.0-45.0); ABG PARTIAL PRESSURE O2 65.8 mmHg (75.0-100.0); ABG STANDARD HCO3 22.7 MEQ/L (22.0-26.0); ABG TOTAL CO2 23.2 MEQ/L (23.0-31.0); ABG pH (ARTERIAL) 7.416 UNITS (7.350-7.450)
[2020-01-24 05:58] LABS: ALBUMIN 2.7 GM/DL (3.2-5.2); BILIRUBIN,TOTAL 0.5 MG/DL (0.2-1.0); CALCIUM LEVEL 8.5 MG/DL (8.8-10.2); CREATININE FOR GFR 5.42 MG/DL (0.55-1.30); GLOMERULAR FILTRATION RATE 8.3 (>45); PHOSPHORUS LEVEL 4.9 MG/DL (2.5-4.9); POTASSIUM SERUM 4.5 MEQ/L (3.5-5.1); TOTAL PROTEIN 5.9 GM/DL (6.4-8.2)
--- NOTE | 2020-01-24 06:07 | IPN ---
DATE: 01/23/2020 SUBJECTIVE: Patient was seen and examined at the bedside today morning. She remains intubated and sedated. She is still anuric, and there is no improvement in the renal function. Patient actually had a nuclear medicine study done today morning, which is consistent with renal failure. Details are mentioned below. She did have a fever spike last night with a maximum temperature (Tmax) of 100.2 degrees Fahrenheit. Leukocytosis is getting worse. Blood cultures are negative so far. OBJECTIVE: Vital signs: Temperature is 99.4 degrees Fahrenheit, blood pressure 157/74, pulse is 107, respiratory rate of 22, saturating 92% on the vent with 21% FiO2. Intake and output: Urine output recorded is only 10 mL since overnight. Weight on the bed scale is 58.1 kg. PHYSICAL EXAMINATION: General: Patient is intubated, sedated, laying in the bed, saturating well on the vent with 21% FiO2. Head and neck exam: Pupils are equally round and reactive to light. Eyes are closed, and she has an endotracheal tube. Neck is supple. Mildly elevated jugular venous distention (JVD). Cardiovascular: S1, S2, regular rate. No edema of the bilateral lower extremities. Respiratory: Mildly decreased breath sounds at the bases. Otherwise, no active rales or rhonchi. Abdomen: Soft. Positive bowel sounds. Nontender. Genitourinary: She has an indwelling Shukla catheter. Musculoskeletal: No clubbing or cyanosis. Pulses are 2+. Central nervous system (MANAGER CARD): She is sedated. Otherwise, moves extremities to painful stimuli. LAB REVIEW: CBC showed a WBC of 24.4, hemoglobin is 10.8, platelets are 274. Urinalysis done yesterday showed it was cloudy with 2+ blood, 3+ leukocyte esterase, WBCs are 80, 3+ bacteria. ABG done today morning showed pH of 7.43, pCO2 of 33, pO2 of 76, bicarbonate is 21, oxygen saturation is 94%. BMP showed sodium 138, potassium 4.4, chloride 103, bicarbonate 24, BUN 59, creatinine is 5.1. A1c is 6.4. Calcium is 8.4, AST 99, ALT 53, LDH of 768, albumin is 2.9. Hepatitis B and C serologies pending. Microbiology: Blood cultures are negative so far in 24 hours. Urine culture is pending. IMAGING: A nuclear medicine renal scan was done, which showed poor flow to the right kidney, which may indicate renal artery stenosis. There is right renal atrophy, bilateral patchy heterogeneous cortical uptake diffusely with a type 3 function curve and gradual cortical accumulation. No appreciable excretion was seen. Findings are compatible with renal failure. Split renal function was 75% on the left and 24% on the right. CURRENT INPATIENT MEDICATIONS: Patient is currently getting intravenous (IV) propofol. I have started the patient on meropenem 500 mg IV daily because of leukocytosis. Assess patient for a stone-associated pyelonephritis on the left side. No other change in the medications today as compared with yesterday. ASSESSMENT AND PLAN: 1. Acute renal failure superimposed on chronic kidney disease, most likely secondary to combination of right renal artery stenosis, left-sided stone with chronic hydronephrosis, and possibility of left-sided pyelonephritis. Patient is anuric at this time. She will need placement of her dialysis catheter and initiation of hemodialysis today. I have talked to patient's daughter, Shanna, at phone number [phone], and she agreed for placement of dialysis catheter and initiation of hemodialysis. 2. Acute hypoxic and hypercapnic respiratory failure. Patient had pulmonary edema. I will try to remove at least 1 liter of fluid during dialysis and, if needed, she will get another session of dialysis tomorrow as well. I am hopeful that after dialysis, we should be able to extubate the patient. 3. Elevated troponin. Most likely, patient has stress-induced ischemia. There is no repeat troponin ordered. I am going to order another set of troponins. 4. Left-sided intrarenal calculus with moderate hydronephrosis. Hydronephrosis is chronic. However, urinalysis (UA) is dirty and patient had fever spike and she has leukocytosis as well. I have started the patient on meropenem 500 mg IV daily. If leukocytosis does not improve, patient might need left-sided percutaneous nephrostomy for stone-associated left-sided hydronephrosis. 5. Right renal artery stenosis. Patient is currently intubated in acute renal failure. Once patient is clinically more stable, she would be sent to interventional radiology to try renal angiogram and renal artery stenting if needed. That will help prevent future episodes of flash pulmonary edema. Total critical care time spent in the management of this patient today morning in the intensive care unit (ICU) was 50 minutes. This critical care time spent does not include any procedures.
[2020-01-24] MEDS: HEPARIN SOD (PORCINE) 5000UNITS/ML VIAL (J1644 PER 1000UNITS) SC SCH ×3 (06:25→22:33)
[2020-01-24] MEDS: HumaLOG INSULIN (NovoLOG) PER UNIT SC SCH ×4 (06:25→23:57)
[2020-01-24] MEDS: IPRATROPIUM 0.5MG/ALBUTEROL 2.5MG INH SOL UD 3ML (DUONEB)(J7620) NEB SCH ×4 (07:13→19:41)
--- NOTE | 2020-01-24 07:38 | REP ---
Clinical: Intubation. Comparison: 01/23/2020. Findings: Endotracheal tube approximately 3 cm above the rob. Nasogastric tube courses below left hemidiaphragm. Right IJ line with tip in the SVC. Mediastinum and cardiac silhouette are stable. Lung arroyo demonstrate chronic-appearing interstitial changes. No focal consolidation, obvious effusion or pneumothorax. Findings are essentially unchanged. Impression: 1. Lines and tubes in satisfactory position. 2. No significant change from prior examination. 3. No new acute mediastinal or pleuroparenchymal process appreciated. Electronically Signed by Loc Gallagher MD 01/24/2020 07:30 A
[2020-01-24] MEDS: CHLORHEXIDINE GLUCONATE 0.12 % 15ML UDC (PERIDEX ORAL RINSE) MT SCH ×2 (09:32→20:48)
[2020-01-24 09:56] LABS: HEPATITIS B SURFACE ANTIBODY NEGATIVE (POSITIVE)
[2020-01-24 10:06] LABS: HEPATITIS B SURFACE ANTIGEN NEGATIVE (NEGATIVE)
--- NOTE | 2020-01-24 10:11 | IPN ---
DATE OF SERVICE: 01/24/2020 SUBJECTIVE: Ms. Saavedra was seen and examined this morning during bedside rounds. She was on sedation vacation, tolerating 30 mcg of propofol really well. There were no overnight events reported. She currently has tube feeds running and is tolerating her meropenem. She had dialysis and had 1 liter removed yesterday. No telemetry changes noted. Her SIMV mode rate was reduced from 20 to 12, which she tolerated very well by breathing over with 17. PHYSICAL EXAMINATION: Vitals: Temperature 98.9, pulse 96, respiratory rate 22, blood pressure 159/74 (102), pulse oximetry 93% on SIMV with on FiO2 of 21. General: This is a very pleasant, 69-year-old female who does not appear in acute distress, laying comfortably in bed, currently intubated. HEENT: Atraumatic, normocephalic. Endotracheal (ET) tube at 22 cm at the lip. Poor dentition. Trachea midline. Cardiovascular: Tachycardic rate, regular rhythm. No audible murmurs, rubs or gallops. Carotid bruit appreciated bilaterally as well as an abdominal bruit more favorable on the right so possible renal artery bruit. Lungs: Clear to auscultate bilaterally. Breath sounds are equal bilaterally as well. No wheezing or rhonchi is appreciated. Abdomen: Soft. Nondistended. No rebound. No guarding. Extremities: No lower extremity edema, no wincing with calf palpation. LABORATORIES: WBC 16.9, hemoglobin 10.3, hematocrit 31.5, platelets 244. Chemistries: Sodium 135, potassium 4.5, chloride 101, carbon dioxide 23, anion gap 11, BUN 53, creatinine 5.83, hemoglobin A1c of 6.4, calcium 8.5, phosphorus 4.9, AST 66, ALT 45, alkaline phosphatase 81, lactate dehydrogenase 644, triglycerides 181. ABG: pH 7.416, pCO2 35.2, pO2 65.8, oxygen saturation 92.1. IMAGING: Chest x-ray was reviewed by me and Dr. Enciso which shows ET tube approximately 3 cm above the rob. Today the patient looks draped. Right IJ dialysis catheter in satisfactory position as well as NG tube below the left hemidiaphragm. 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 She is currently on day 3 of hospitalization and intubation. 1. Acute respiratory failure with hypoxia and hypercarbia. This is flash pulmonary secondary to possible acute renal stenosis. She is currently on ventilator SIMV with a respiration rate decreased down to 12, tidal volumes of 400, PEEP of 5, on a pressure support of 14, with a FiO2 of 21%. ABG continues to show compensating very well and tolerating her current mechanical ventilation settings. She will get another session of dialysis today so she will be intubated until after this dialysis and will plan to extubate her in the next 24 hours. Will continue with the current mechanical ventilation settings. 2. Urinary tract infection. Urinalysis (UA) showed 3+ leukocytes with WBCs. Urine culture is currently pending. Her WBC came down to 16 this morning. She was started on meropenem which is renally safe and she is tolerating it very well. We will deescalate antibiotics pending culture and her renal function. No pressors are needed at this current. 3. Acute oliguric kidney failure secondary to renal artery stenosis. Yesterday, she had a dialysis catheter placed and she tolerated one liter removed and will have another session today. At this current time, we will continue with nephrology's recommendations. For her underlying renal artery stenosis, when she is extubated and she is more stable, will refer to interventional radiology about possible renal artery angioplasty for her stenosis. 4. Cardiac ischemic event with elevated troponin. Initial troponin was elevated at 8.0. For some reason, there was no repeat. Will get a repeat this morning to see if it continues elevated. I believe it will be down for the fact that she did get dialysis yesterday and will have another dialysis session today. There are no telemetry changes noted since she has been admitted and will continue to monitor on telemetry. No antiplatelet therapy at this time as she did have a catheter placed yesterday and will possibly go for an angioplasty and so will continue to monitor. 5. History of chronic obstructive pulmonary disease (COPD). Currently stable. Will continue with nebulizer treatment. 6. History of Stage III A lung cancer status post lobectomy. 7. Nutritional support. Continue with tube feeds while intubated. 8. Deep vein thrombosis (DVT) prophylaxis. Heparin for she is at high risk for pulmonary embolism and DVT. 9. Gastrointestinal (GI) prophylaxis. Continue with Protonix. CRITICAL CARE TIME: I was physically present for the entire interview and exam.Agree with above assessment and plan Start time 0810 Stop time 0851 A total of 41 minutes of critical care time delivered at the bedside not including procedures MTDD
[2020-01-24 10:35] LABS: HEPATITIS B CORE ANTIBODY IGM NEGATIVE (NEGATIVE)
[2020-01-24 10:51] LABS: CHOLESTEROL LEVEL 162 MG/DL (<200)
[2020-01-24 10:52] LABS: CHOLESTEROL RISK RATIO 4.263 (<5); NON-HDL-C 124 MG/DL
[2020-01-24] MEDS: MEROPENEM INJ 500 MG in IV 1 EA IV SCH (13:02)
[2020-01-24] MEDS: propofoL 1,000 MG in IV 1 EA IV SCH ×2 (13:15→20:50)
[2020-01-24] MEDS: PANTOPRAZOLE 40MG VIAL (C9113 PER 1) IV SCH (20:48)
[2020-01-25] VITALS (18 sets, daily range): BP systolic 114–193; BP diastolic 62–89; O2SAT 96–97
[2020-01-25] MEDS: propofoL 1,000 MG in IV 1 EA IV SCH (04:52)
[2020-01-25 05:01] LABS: BASO # 0.1 10^3/uL (0.0-0.2); BASO % 0.5 % (0.0-1.0); EOS # 0.1 10^3/uL (0.0-0.5); EOS % 0.4 % (0.0-3.0); HEMATOCRIT 32.4 % (36.0-47.0); HEMOGLOBIN 10.6 g/dl (12.0-15.5); LYMPH # 1.8 10^3/uL (1.5-5.0); LYMPH % 11.9 % (24.0-44.0); MEAN CORPUSCULAR HEMOGLOBIN 29.1 pg (27.0-33.0); MEAN CORPUSCULAR HGB CONC 32.7 g/dl (32.0-36.5); MONO # 1.4 10^3/uL (0.0-0.8); MONO % 9.2 % (0.0-5.0); NEUTROPHILS # 11.3 10^3/uL (1.5-8.5); NEUTROPHILS % 76.8 % (36.0-66.0); PLATELET COUNT, AUTOMATED 262 10^3/uL (150-450); RED BLOOD COUNT 3.64 10^6/uL (4.00-5.40); WHITE BLOOD COUNT 14.7 10^3/uL (4.0-10.0)
[2020-01-25 05:36] LABS: ALBUMIN 2.8 GM/DL (3.2-5.2); BILIRUBIN,TOTAL 0.4 MG/DL (0.2-1.0); CALCIUM LEVEL 8.6 MG/DL (8.8-10.2); CREATININE FOR GFR 5.06 MG/DL (0.55-1.30); PHOSPHORUS LEVEL 6.3 MG/DL (2.5-4.9); TOTAL PROTEIN 6.3 GM/DL (6.4-8.2); TROPONIN I 3.28 NG/ML (< 0.10)
[2020-01-25] MEDS: HumaLOG INSULIN (NovoLOG) PER UNIT SC SCH (05:40)
[2020-01-25 05:44] LABS: ABG BASE EXCESS -2.8 (-2.0-2.0); ABG HCO3 20.2 MEQ/L (22.0-26.0); ABG O2 SATURATION 93.8 % (95.0-99.0); ABG PARTIAL PRESSURE CO2 29.7 mmHg (35.0-45.0); ABG PARTIAL PRESSURE O2 70.7 mmHg (75.0-100.0); ABG TOTAL CO2 21.1 MEQ/L (23.0-31.0); ABG pH (ARTERIAL) 7.451 UNITS (7.350-7.450)
[2020-01-25] MEDS: HEPARIN SOD (PORCINE) 5000UNITS/ML VIAL (J1644 PER 1000UNITS) SC SCH ×2 (05:46→16:08)
[2020-01-25] MEDS: IPRATROPIUM 0.5MG/ALBUTEROL 2.5MG INH SOL UD 3ML (DUONEB)(J7620) NEB SCH ×4 (07:35→19:59)
[2020-01-25] MEDS: CHLORHEXIDINE GLUCONATE 0.12 % 15ML UDC (PERIDEX ORAL RINSE) MT SCH (08:28)
--- NOTE | 2020-01-25 08:33 | IPN ---
DATE OF SERVICE: 01/24/2020 SUBJECTIVE: The patient was seen and examined at the bedside today morning. Last 24-hour events were noted. The patient is afebrile. She is hemodynamically stable. She is still intubated and sedated, requiring minimal oxygen at this time. The patient continues to be anuric. Her leukocytosis is significantly better after starting meropenem yesterday. She was dialyzed for the first time yesterday. She tolerated the hemodialysis procedure well, and the patient is being dialyzed again today at the bedside in the intensive care unit (ICU), and she is tolerating the second session of hemodialysis, as well. OBJECTIVE: Vital signs: Temperature is 98 degrees Fahrenheit, blood pressure 157/70, pulse is 97, respiratory rate of 18, saturating 98% on the vent with 21% FIO2. Intake and output: Urine output recorded since overnight is 40 mL. Ultrafiltration with hemodialysis was 1 liter. Weight in the bed scale is 58.5 kg. PHYSICAL EXAMINATION: General: The patient is intubated, sedated. Eyes are closed. She has a nasogastric tube (NGT) and endotracheal tube. Neck is supple. She has a right internal jugular (vein) (IJ) nontunneled hemodialysis catheter, which is being used for dialysis at this time. Cardiovascular: S1, S2, regular rate. No edema of the bilateral lower extremities. Respiratory: Chest is clear to auscultation bilaterally. Bilateral equal air entry. No rales or rhonchi. Abdomen: Soft. Positive bowel sounds. I cannot appreciate the renal bruit that I heard on the first day. Genitourinary: She has an indwelling Shukla catheter. A very small amount of dark urine is present in the bag. Musculoskeletal: No clubbing or cyanosis. Pulses are 2+. Central nervous system (RESTAURANT TEAM MEMBER): The patient is intubated and sedated. She moved extremities on painful stimuli. Skin: No rashes or ulcers. LABORATORY REVIEW: Complete blood count (CBC) showed a WBC of 16.9, hemoglobin is 10.3, platelets are 244. Arterial blood gas (ABG) done today morning showed a pH of 7.41, pCO2 of 35, pO2 of 65, bicarbonate 22, oxygen (O2) saturation is 92%. Basic metabolic profile (BMP) today morning showed sodium 135, potassium 4.5, chloride 101, bicarbonate 23, BUN 53, creatinine is 5.4, calcium 8.5, troponin is 5. IMAGING: A chest x-ray was done today morning, which showed lines and tubes in satisfactory position. No new acute mediastinal or pleuroparenchymal changes. CURRENT INPATIENT MEDICATIONS: The patient's medications were all reviewed by me. She continues to be on IV meropenem. She is on insulin sliding scale. No other significant change in the medications today as compared with yesterday. ASSESSMENT AND PLAN: 1. Acute anuric renal failure superimposed on chronic kidney disease. Baseline renal function is not known. The patient has right-sided renal artery stenosis and left-sided staghorn stone with chronic hydronephrosis. She is dialysis dependent. She was dialyzed for the first time yesterday. Second session is being done today. 2 liters of fluid will be removed. Electrolytes are within the acceptable range. 2. Acute hypoxic and hypercapnic respiratory failure. The patient is vent dependent. She had flash pulmonary edema on arrival. Fluid status is being optimized with dialysis. Hopefully, we should be able to extubate her over the next 24 hours. 3. Elevated troponin. It was secondary to stress-induced ischemia. Repeat troponin levels are improving. 4. Left-sided intrarenal calculus with moderate hydronephrosis. The patient has chronic hydronephrosis. Cultures are pending. Urinalysis (UA) was dirty. She is currently on IV meropenem. Leukocytosis is getting better. She will need to be evaluated by urology. 5. Right-sided renal artery stenosis. Once the patient is clinically stable and extubated, she will be sent down to interventional radiology (IR) for a renal angiogram. Total critical care time spent in the management of this patient today morning in the ICU was 45 minutes, excluding all the procedures.
[2020-01-25] MEDS ORDERED: CARVedilol 6.25 MG TAB PO SCH (09:00)
--- NOTE | 2020-01-25 11:03 | REP ---
REASON: Followup. COMPARISON: Multiple, the latest 01/24/2020. The technique utilized in obtaining the radiograph has magnified the cardiac silhouette and accentuated the interstitial markings. The nasogastric and endotracheal tubes remain in satisfactory position. The tip of the right-sided internal jugular central venous catheter remains in the superior vena cava. There is no change in appearance of the lung arroyo or imaged osseous structures. No acute patchy parenchymal opacities or pleural effusions have developed. IMPRESSION: No significant change. Electronically Signed by Ace Betancourt DO 01/25/2020 12:57 P
[2020-01-25] MEDS: **hydrALAZINE HCL** 25 MG TAB PO SCH ×3 (12:15→20:53)
[2020-01-25] MEDS: MEROPENEM INJ 500 MG in IV 1 EA IV SCH (12:16)
--- NOTE | 2020-01-25 13:17 | CR ---
DATE OF CONSULTATION: 01/24/2020 REFERRING PHYSICIAN: Marco Antonio Enciso MD REASON FOR THE CONSULTATION: Abnormal serum troponin. HISTORY OF PRESENT ILLNESS: A 69-year-old woman with a long history of smoking and has not been seeing a physician for a long time. She also has a history of lung cancer, left upper lobe, for which she had surgery in 2013 for stage IIIA/T4N1 disease, kidney stones involving the left kidney with mild hydronephrosis, chronic obstructive pulmonary disease (COPD). She presented to the emergency room (ER) 01/21/2020 with shortness of breath and was found to be in respiratory failure secondary to hypoxemic hypercapnic respiratory failure. Her blood pressure on arrival was 149/94. At one point, it was markedly elevated, reported up to 238/112. Her pulse was up 130-135 beats per minute, and her temperature on admission was 96.4 degrees Fahrenheit. She was intubated, then admitted to intensive care unit (ICU)/critical care unit (CCU) for further management and monitoring. Her laboratories initially revealed a blood urea nitrogen (BUN) and creatinine of 26 and 1.68, respectively; and her serum lactic acid level was up to 4.8, then decreased to 1.8 about 6 hours later. Her serum proBNP was up to 31,000, and her initial serum troponin was 0.06 with a CK of 110. She was not anemic but with a WBC of 15.3. She was tested negative for COVID-19 by PCR. Initial arterial blood gas (ABG) revealed a pH of 7.15 with a pCO2 of 57, and a pO2 of 87, with an oxygen saturation of 92%. She was then treated in the ER with intravenous (IV) Lasix. Serum creatinine on 01/22/2020 was reported to be 2.5; and on 01/23/2020, it was 5.16. She was started on hemodialysis. Subsequent serum troponin was 8.03 on 01/22/2020 and today 5.05. Her electrocardiogram (EKG) also was abnormal consistent with underlying structural heart disease. She had an echocardiogram on 01/22/2020, reported by Dr. Amaya, and the left ventricular ejection fraction (LVEF) was estimated at 25% and mild to moderate valvular heart disease. The inferior vena cava (IVC) was normal in size. There was moderate pulmonary hypertension. Cardiology consult was called earlier today because of the abnormal serum troponin. Also reported an abdominal bruit, and renal scan revealed poor flow to the right kidney that may indicate renal artery stenosis with underlying right renal atrophy. Split renal function was reported to be 75.3% on the left and 24.7% on the right. An abdominal CT without contrast was done, and it revealed a calculus in the left renal pelvis with mild to moderate left hydronephrosis and cystic structures in the left upper and lower poles of the left kidney. Incidentally, a small bilateral pleural effusion was noted associated with atelectasis/infiltrate and a small amount of pericardial fluid. There was a gallstone in the gallbladder, which was mildly to moderately distended with no definite gallbladder wall thickening or edema. Chest x-ray revealed diffuse bilateral infiltrates. When I saw Mrs. Nevaeh aSavedra this evening, she was intubated and sedated, not responding to questions; but according to her nurse earlier during the day, she was interacting. Vital signs were stable when I saw her, mildly tachycardiac, with a blood pressure of 114/64, pulse 108, and a respiratory rate that varied between 16 and 20 per minute. Temperature was 98.8 degrees Fahrenheit. Examination of the head: Atraumatic. Fundus examination was not done. Neck is supple, and I could not appreciate any carotid bruits. Neck examination did not reveal any jugular venous distention (JVD). The lungs revealed bilateral rhonchi but no wheezing. The heart examination revealed irregular heart sounds, mild tachycardia. The point of maximal impulse (PMI) is slightly displaced inferiorly. There is no rub. There is a systolic murmur grade 1/6 at the lower sternal border and at the apex without any significant radiation. Abdomen is soft, and there is a bruit noted just below the umbilicus. Extremities revealed no pedal edema. Peripheral pulses, dorsalis pedis was +1 at the ankle. Neurological examination was not done. CURRENT MEDICATIONS: - meropenem 500 mg IV every 24 hours - Tylenol suspension 650 mg every 6 hours as needed via nasogastric (NG) tube - heparin subcutaneous 5000 units every 8 hours - Peridex oral swab - pantoprazole 40 mg IV daily - propofol - DuoNeb - midazolam - regular insulin coverage with lispro - also on D50, glucose, and glucagon as needed Basic metabolic profile (BMP) this morning revealed a sodium of 135, potassium 4.5, chloride 101, CO2 23, BUN 53, creatinine 5.42, GFR 8.3, fasting glucose 159, and calcium 8.5. Liver enzymes reveal a total bilirubin of 0.5, AST 66, ALT 48, alkaline phosphatase 81, LDH 644, total protein 5.9, albumin 2.7. Serum troponin today was 5.05 with a total CPK of 1807. Lipid profile on 01/23/2020 revealed a total cholesterol of 162, LDL 85, HDL 38, and triglyceride 195. Total cholesterol/HDL ratio was 4.26. Serum TSH on admission was 2.74. CBC today revealed WBC of 16.9, hemoglobin 10.3, hematocrit 31.5, and platelet 244,000. Yesterday, CBC revealed WBC of 24.4. Arterial blood gas (ABG) this morning revealed a pH of 7.41, pCO2 35.2, pO2 65.8, with an oxygen saturation of 92.1, on ventilator. Urinalysis was cloudy with +3 leukocyte esterase, 80 WBC, and 19 RBCs, and +3 bacteria. COVID-19 PCR on admission was negative, 01/21/2020. Urine culture is pending. Blood culture appeared negative since 01/21/2020. Electrocardiogram (EKG) on 01/21/2020 at 1910 revealed sinus tachycardia at 108 beats per minute, left atrial abnormality, right ventricular conduction delay, LVH, and ST-T abnormalities, mild intraventricular conduction defect (IVCD). There is also poor R wave progression in the right precordial leads that may be related to prior anterior wall infarct. Prior tracing on 06/03/2014; and at that time, heart rate was 82 beats per minute, and there was better R wave progression. There were no ST-T abnormalities. EKG on 01/22/2020 at 915 revealed sinus tachycardia at 109 beats per minute, left atrial abnormalities, possible prior anteroseptal infarct, mild IVCD, and ST-T abnormalities has improved. Chest x-ray done today revealed no significant changes from prior studies. No focal consolidation but chronic-appearing interstitial changes. No pneumothorax. Echocardiogram, as stated above, revealed LVEF estimated at 25% and mild to moderate valvular heart disease. The study was reviewed, and there was diffuse hypokinesis. There was preserved left ventricular wall thickness. IMPRESSION: 1. Abnormal serum troponin, probably related to a cim-PB-ukfoheo myocardial infarction (non-STEMI) in this 69-year-old woman with a long history of smoking and hypertension. She probably had an event between 2013 and 2019 based on her EKG. There were significant changes. Her echocardiogram, however, revealed no focal abnormalities but diffuse hypokinesis but underlying coronary artery disease (CAD) cannot be ruled out. Blood pressure today has been good but mildly tachycardiac. She has been tolerating hemodialysis well. I doubt her serum troponin is related to only demand ischemia. I was about to start her on IV Lopressor this evening, but her blood pressure is running low on the low side and will wait until tomorrow when she is extubated. In that case, she may be started on a small dose of short-acting beta timmy with metoprolol tartrate such as 12.5 mg by mouth twice a day, aspirin, and long-acting nitrate with isosorbide mononitrate/Imdur starting at 30 mg by mouth daily. She can be loaded with Plavix at 300 mg on one day and the next day dropping to 75 mg by mouth daily. She should be on a statin, and she can be started on atorvastatin at 40 mg by mouth daily or generic Crestor/rosuvastatin at 20 mg by mouth daily. She is not a candidate at this present time for an angiotensin-converting enzyme (HERMINIA) inhibitor or angiotensin receptor timmy (ARB) or Entresto. I would stay away from hydralazine. She probably has some underlying CAD. Prognostic overall basically from a cardiac point of view is at this present time guarded, but hopefully she will turn the corner. Will continue with hemodialysis, and hopefully renal function will come back to normal, because at one point, she will benefit from the a cardiac catheterization. Regarding her renal artery stenosis, the case will be discussed with the vascular team in [place], [place], if nobody available in town. I doubt her pulmonary edema is related only to her renal artery stenosis. This most likely is multifactorial. 2. Respiratory failure, acute, secondary to hypercapnic hypoxemic respiratory failure and currently intubated and sedated, and she is being monitored by dray truck driver. 3. Acute renal failure, currently on hemodialysis. She probably will respond; that was probably related to the diuretics. She was not on HERMINIA inhibitor or ARB or Entresto. She is being monitored by nephrology, on hemodialysis. It was a pleasure to participate in the care of Mrs. Nevaeh Saavedra for her underlying cardiac condition. Dr. Amaya is second operator, and the case will be discussed with him for coverage over the weekend. On Monday, Dr. Jimenez will be seeing her when he is back. Please do not hesitate to call if any questions. SATURNINO
--- NOTE | 2020-01-25 15:02 | IPN ---
DATE OF SERVICE: 01/25/2020 SUBJECTIVE: The patient was seen and examined at the bedside today morning in the intensive care unit (ICU). The patient was extubated today morning. She was dialyzed yesterday, and 2 liters of fluid was removed. She tolerated the hemodialysis procedure well. The patient remains afebrile. Leukocytosis is improving. She remains oliguric. No significant improvement in the renal function. Her blood pressures are currently at elevated, and she is not on any antihypertensive regimen so far. The patient is otherwise awake and alert, and she is feeling thirsty, and she wants to start drinking and eating some food. OBJECTIVE: Vital signs: Temperature is 98.3 degrees Fahrenheit, blood pressure is 157/68, pulse is 105, respiratory rate of 18, saturating 96% on the aerosol mask. Intake and output: Urine output recorded is 49 mL since overnight. Ultrafiltration with hemodialysis was 2 liters. Weight in the bed scale was 58.5 kg yesterday. PHYSICAL EXAMINATION: General: The patient is awake, alert, oriented times two, laying in bed, no apparent distress. Head and neck examination: Extraocular muscles intact. Pupils equally round and reactive to light. Mucous membranes are moist. Neck is supple. There is no jugular venous distention (JVD). Cardiovascular: S1, S2, regular rate. Mildly elevated JVD. No edema of the bilateral lower extremities. Respiratory: Chest is clear to auscultation bilaterally. Bilateral equal air entry. No rales or rhonchi. Abdomen is soft. Positive bowel sounds. Nontender. No organomegaly. Genitourinary: She has an indwelling Shukla catheter. There is very cloudy urine in the bag at this time. Musculoskeletal: No clubbing or cyanosis. Pulses are 2+. Central nervous system (FURNACE FILLER): No focal deficit. Power is 5/5 in all extremities. Skin: No rashes or ulcers. LABORATORY REVIEW: Complete blood count (CBC) showed a WBC of 14.7, hemoglobin is 10.6, platelets are 262. Basic metabolic profile (BMP) today morning showed sodium 136, potassium 5, chloride 101, bicarbonate 25, BUN 42, creatinine is 5, calcium 8.6, phosphorus 6.3, AST 52, LDH is 568, total creatinine kinase is 1364, troponin has trended down to 3.2, albumin is 2.8. MICROBIOLOGY: Urine culture from 01/22/2020 came back positive for Escherichia (E.) coli which is sensitive to meropenem that the patient is receiving at this time. CURRENT INPATIENT MEDICATIONS: The patient continues to be on IV meropenem. I have started her on Coreg 6.25 mg by mouth twice a day and hydralazine 25 mg by mouth three times a day. No other significant change in the medications today as compared with yesterday. ASSESSMENT AND PLAN: 1. Acute oliguric renal failure superimposed on chronic kidney disease. The patient is still dialysis dependent. She has minimal urine output, which is very cloudy. She has left-sided pyelonephritis and right-sided renal artery stenosis. Continue antibiotics. Get urology on board for evaluation of left-sided stone and hydronephrosis. 2. Acute hypoxic and hypercapnic respiratory failure. It has resolved now. The patient was extubated successfully today morning. Fluid status will be managed with dialysis. 3. Elevated troponins. It was secondary to flash pulmonary edema and stress ischemia. Troponin level is improving. 4. Left-sided intrarenal calculus with moderate hydronephrosis. The patient has chronic hydronephrosis and stones on the left side. However, looks like the stone is the nidus of infection. She needs to be evaluated by urology for further management of the stone and hydronephrosis. 5. Right-sided renal artery stenosis. The patient will be referred to interventional radiology for a renal angiogram and possible stenting of the right renal artery if needed. 6. Left-sided pyelonephritis. The patient is growing E. coli in the urine cultures. She is currently getting meropenem, which adequately covers the infection. 7. Renovascular hypertension. Blood pressures are elevated. She has a global hypokinesis of the left ventricle. Left ventricle ejection fraction is 20%. I have started her on carvedilol and hydralazine. If needed, isosorbide will be added. I would avoid using angiotensin-converting enzyme (HERMINIA) inhibitors or angiotensin receptor blockers in this patient with renal artery stenosis and acute renal failure. 8. Chronic systolic congestive heart failure. The patient's latest echocardiogram showed a depressed left ventricle (LV) ejection fraction of 20%. Volume status will be managed with dialysis. Antihypertensive regimen is as mentioned above. Total critical care time spent in the management of this patient today morning in the ICU was 50 minutes, excluding all the procedures.
--- NOTE | 2020-01-25 15:53 | IPN ---
DATE: 01/25/2020 at 2:[address] Guillermo providing weekend coverage for Dr. Terrence Payne, who is the patient's toll patrolman. Patient's current electronic medical record (EMR) medical record from this hospitalization was reviewed. SUBJECTIVE: Patient was extubated this morning. At the moment, she has no shortness of breath or orthopnea in bed. She has not yet ambulated. No chest pain or chest discomfort. No leg or ankle swelling. PHYSICAL EXAMINATION: A pleasant woman who appears her chronologic age who is not in any respiratory or psychologic distress. Temperature 98.3, pulse 104 (regular), respiratory rate 15, blood pressure (BP) 180/73, oxygen saturation 96% on aerosol mask with FiO2 of 28%. Weight today not yet listed in the EMR. She was net negative 886.3 mL for the 24 hours of 01/24/2020. Jugular venous pulsations were at 3 cm. First heart sound normal. Second heart sound was physiologically split with a loud A2 and a loud P2. No S3 or S4 appreciated. Grade 1 systolic ejection murmur, right 2nd interspace. Respiratory expansion effort was fair. No crackles or wheezes. No peripheral edema. Abdomen was soft and nontender with normal bowel sounds. Speech was normal. Mood and affect were normal. Laboratory work 01/25/2020 was reviewed. WBC 14.7, hemoglobin 10.6, hematocrit 32.4, platelets 262. Sodium 136, potassium 5.0, chloride 101, CO2 of 25, BUN 42, creatinine 5.06, glucose 94, calcium 8.6, phosphorus 6.3. AST elevated at 52, ALT normal, alkaline phosphatase normal. LDH 568. CPK 1364. Troponin I 3.28. Total protein 6.3, albumin 2.8. Total cholesterol 168. ASSESSMENT AND PLAN: 1. Heart failure, acute on chronic. At this point, it is not known whether her cardiomyopathy is ischemic versus nonischemic cardiomyopathy. I suspect she has hypertensive cardiomyopathy. Certainly other etiologies are possible. Once she is stabilized, she should be considered for assessment of the coronary circulation, such as diagnostic coronary angiography to distinguish between ischemic verus nonischemic cardiomyopathy. I will leave that with Dr. Payne or Dr. Jimenez. She was just extubated this morning. I have independently visualized the patient's portable upright AP chest x-ray acquired 01/25/2020 at 6:43 a.m. It shows a right internal jugular central access line, a gastric tube, and endotracheal tube. No pulmonary vascular distribution. No interstitial or alveolar edema. Elevated left hemidiaphragm and reduced lung volume on the left. Costophrenic angles are clear. At this point, the patient continues to be in significant kidney failure and is under the care of nephrology with dialysis. Because of acute kidney failure, she is not a good candidate at the moment for use of angiotensin-converting enzyme (HERMINIA) inhibitor, angiotensin receptor timmy (ARB) or Entresto. Agree with carvedilol and hydralazine. Her blood pressure is significantly elevated, and her heart rate is over 70 beats per minute (BPM). Continue hydralazine at the current dosage. I will increase the dose of carvedilol to 12.5 mg twice a day. I will not use loop diuretic or mineralocorticoid receptor antagonist at this time because fluid balance is being managed with dialysis for fluid removal. 2. Diabetic cardiomyopathy. As per heart failure category above. 3. Acute non-IG-aakyhmlmr myocardial infarction (NSTEMI). I believe this is most likely a secondary phenomenon due to severe acute heart failure with hypoxic respiratory failure. She should at some point undergo cardiac catheterization to clarify between ischemic cardiomyopathy versus nonischemic cardiomyopathy. I will for now, at least, add a low dose of aspirin. 4. Abnormal ECG, stable. 5. Systemic hypertension. Uncontrolled systemic hypertension. Agree with hydralazine. I will increase the dosage of carvedilol to 12.5 mg twice a day.
[2020-01-25] MEDS: ASPIRIN 81 MG ENTERIC TAB PO SCH (16:07)
--- NOTE | 2020-01-25 17:47 | IPNPDOC ---
Text Note Date of Service The patient was seen on 01/25/20. NOTE Subjective: Patient was successfully extubated today. Now she complains of some mild hoarseness of her voice, no neck pain or swallowing difficulty. No chest pain or SOB. Physical Exam: VItals: as below General: appears her stated age, laying in bed at 30 degree in no acute d istress, alert and oriented HEENT: normocephalic and atraumatic, moist mucous membranes, anicteric eyes. Neck with Jugular venous pulsations were at 3 cm. CVS: Normal S1, S2, regular rhythm , soft systolic murmur in the second space, no gallop or rub Resp: Respiratory expansion effort was fair. No crackles or wheezes. Extremities: No peripheral edema. Abdomen : soft and nontender with normal bowel sounds. Abdominal bruit heard in right lumber region. Neuro: No focal neurodeficits, speech normal Psych: alert, oriented x3, mood normal. Labs and radiology: reviewed. Assessment and Plan: 69 year old female with PMH COPD, Emphysema, former smoker, renal stones, of Lung cncer of left upper lobe adenocarcinoma in 2012, stage III A (T4N1) disease s/p lobectomy, pulmonary artery resection and reconstruction was advised adjuvent radiation/chemo but was lost to followup, presented to the ED on 01/21/20 with sudden onset dyspnea which happened after she came back from work and was sitting in a chair at home. On presentation to the ED she was in hypertensive emergency with acute hypoxic respiratory failure and bilateral pulmonary edema. She was urgently intubated in the ED . She was also noted to have CATHERINE. She was admitted for Hypertensive emergency, flash pulmonary edema and acute hypoxic and hypercarbic respiratory failure. Echo done showed LVH, LVEF of 25%, moderate pulmonary hypertension Acute hypoxic and hypercarbic respiratory failure due to flash pulmonary edema felt to be due to right renal artery stenosis along with very low EF with acute CHF. resolved Acute anuric renal failure on chronic kidney disease. presumed to be due to renal artery stenosis left-sided pyelonephritis Renal ultrasound showed bilateral atrophic kidneys as well as a kidney stone in the left renal pelvis causing a mild hydronephrosis. Nuclear medicine kidney flow study shows right renal artery stenosis. Split function is 75.3% on the left and 24.7% on the right. Started on HD planned for renal artery angiogram and possible stenting Left sided complicated pyelonephritis left stone probably nidus of infection. urine culture with Ecoli On meropenem. will need urology evaluation for the left stone and hydronephrosis. Hypertensive emergency resolved has renovascular hypertension. restarted on coreg and hydralazine for blood pressure control. Acute Systolic congestive heart failure due to dilated cardiomyopathy ischemic vs nonischemic s/p flash pulmonary edema At present appears Euvolemic fluid status management with HD. Type 2 AMI due to demand ischemia from acute hypoxia and acute CHF. and some elevation may be due to CATHERINE peak troponin was 8.0 now at 3 She should at some point undergo cardiac catheterization to clarify between ischemic cardiomyopathy versus nonischemic cardiomyopathy. Dr Payne. Advanced COPD with emphysema wit moderated pulmonary hypertension duonebs not on any meds at home Left Intrarenal Nephrolithiasis mild left-sided hydronephrosis stone is 1.9 cm. will need urology evaluation. VS,Fishbone, I+O VS, Fishbone, I+O Laboratory Tests 01/25/20 04:33 Vital Signs Date Time Temp Pulse Resp B/P (MAP) Pulse Ox O2 Delivery O2 Flow Rate FiO2 01/25/20 12:16 104 180/73 01/25/20 12:04 97.3 19 93 Room Air 01/25/20 10:00 28 01/21/20 18:10 28.0 I&O- Last 24 Hours up to 6 AM 01/25/20 07:00 Intake Total 1014.7 ml Output Total 2095 ml Balance -1080.3 ml DIANA LARSON MD January 25, 2020 16:32
[2020-01-25] MEDS: PANTOPRAZOLE 40MG VIAL (C9113 PER 1) IV SCH (20:51)
[2020-01-25] MEDS: CARVedilol 12.5 MG TAB PO SCH (20:53)
[2020-01-26] VITALS (15 sets, daily range): BP systolic 119–166; BP diastolic 56–75
[2020-01-26] MEDS: HEPARIN SOD (PORCINE) 5000UNITS/ML VIAL (J1644 PER 1000UNITS) SC SCH ×4 (02:02→21:05)
[2020-01-26] MEDS: ACETAMINOPHEN 325 MG/10.15 ML UDC GT PRN (04:26)
[2020-01-26 04:35] LABS: BASO # 0.1 10^3/uL (0.0-0.2); BASO % 0.5 % (0.0-1.0); EOS # 0.2 10^3/uL (0.0-0.5); EOS % 1.7 % (0.0-3.0); HEMATOCRIT 31.3 % (36.0-47.0); HEMOGLOBIN 10.3 g/dl (12.0-15.5); LYMPH # 1.6 10^3/uL (1.5-5.0); LYMPH % 15.2 % (24.0-44.0); MEAN CORPUSCULAR HEMOGLOBIN 29.3 pg (27.0-33.0); MEAN CORPUSCULAR HGB CONC 32.9 g/dl (32.0-36.5); MEAN CORPUSCULAR VOLUME 89.2 fl (80.0-96.0); MONO # 0.9 10^3/uL (0.0-0.8); MONO % 8.9 % (0.0-5.0); NEUTROPHILS # 7.5 10^3/uL (1.5-8.5); NEUTROPHILS % 72.5 % (36.0-66.0); PLATELET COUNT, AUTOMATED 253 10^3/uL (150-450); RED BLOOD COUNT 3.51 10^6/uL (4.00-5.40); WHITE BLOOD COUNT 10.4 10^3/uL (4.0-10.0)
[2020-01-26 05:18] LABS: ALBUMIN 2.8 GM/DL (3.2-5.2); BILIRUBIN,TOTAL 0.5 MG/DL (0.2-1.0); CALCIUM LEVEL 8.5 MG/DL (8.8-10.2); CREATININE FOR GFR 6.76 MG/DL (0.55-1.30); GLOMERULAR FILTRATION RATE 6.5 (>45); PHOSPHORUS LEVEL 6.8 MG/DL (2.5-4.9); POTASSIUM SERUM 5.5 MEQ/L (3.5-5.1)
[2020-01-26 05:57] LABS: ABG BASE EXCESS -3.5 (-2.0-2.0); ABG HCO3 20.1 MEQ/L (22.0-26.0); ABG O2 SATURATION 95.3 % (95.0-99.0); ABG PARTIAL PRESSURE CO2 31.6 mmHg (35.0-45.0); ABG STANDARD HCO3 21.5 MEQ/L (22.0-26.0); ABG TOTAL CO2 21.1 MEQ/L (23.0-31.0); ABG pH (ARTERIAL) 7.422 UNITS (7.350-7.450)
[2020-01-26] MEDS: IPRATROPIUM 0.5MG/ALBUTEROL 2.5MG INH SOL UD 3ML (DUONEB)(J7620) NEB SCH ×4 (07:46→19:53)
[2020-01-26] MEDS: ASPIRIN 81 MG ENTERIC TAB PO SCH (08:21)
[2020-01-26] MEDS: **hydrALAZINE HCL** 25 MG TAB PO SCH ×3 (08:21→20:16)
[2020-01-26] MEDS: CARVedilol 12.5 MG TAB PO SCH ×2 (08:22→20:17)
--- NOTE | 2020-01-26 09:42 | ECGEPIP ---
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
[2020-01-26] MEDS: MEROPENEM INJ 500 MG in IV 1 EA IV SCH (10:07)
[2020-01-26] MEDS: ISOSORBIDE MONONITRATE 10MG TABLET PO SCH ×2 (10:29→18:54)
[2020-01-26] MEDS: CALCIUM ACETATE 667MG GELCAP PO SCH ×2 (12:30→18:53)
--- NOTE | 2020-01-26 12:33 | IPNPDOC ---
Text Note Date of Service The patient was seen on 01/26/20. NOTE Subjective: Patient was successfully extubated today. Now she complains of some mild hoarseness of her voice, no neck pain or swallowing difficulty. No chest pain or SOB. Does complain of some cough from last night and difficulty in bringing it up. Physical Exam: VItals: as below General: appears her stated age, laying in bed at 30 degree in no acute distress, alert and oriented HEENT: normocephalic and atraumatic, moist mucous membranes, anicteric eyes. Neck with Jugular venous pulsations were at 3 cm. CVS: Normal S1, S2, regular rhythm , soft systolic murmur in the second space, no gallop or rub Resp: Respiratory expansion effort was fair. No crackles or wheezes. Extremities: No peripheral edema. Abdomen : soft and nontender with normal bowel sounds. Abdominal bruit heard in right lumber region. Neuro: No focal neurodeficits, speech normal Psych: alert, oriented x3, mood normal. Labs and radiology: reviewed. Assessment and Plan: 69 year old female with PMH COPD, Emphysema, former smoker, renal stones, of Lung cncer of left upper lobe adenocarcinoma in 2012, stage III A (T4N1) disease s/p lobectomy, pulmonary artery resection and reconstruction was advised adjuvent radiation/chemo but was lost to followup, presented to the ED on 01/21/20 with sudden onset dyspnea which happened after she came back from work and was sitting in a chair at home. On presentation to the ED she was in hypertensive emergency with acute hypoxic respiratory failure and bilateral pulmonary edema. She was urgently intubated in the ED . She was also noted to have CATHERINE. She was admitted for Hypertensive emergency, flash pulmonary edema and acute hypoxic and hypercarbic respiratory failure. Echo done showed LVH, LVEF of 25%, moderate pulmonary hypertension Acute hypoxic and hypercarbic respiratory failure due to flash pulmonary edema felt to be due to right renal artery stenosis along with very low EF with acute CHF. resolved Acute anuric renal failure on chronic kidney disease. presumed to be due to renal artery stenosis left-sided pyelonephritis Renal ultrasound showed bilateral atrophic kidneys as well as a kidney stone in the left renal pelvis causing a mild hydronephrosis. Nuclear medicine kidney flow study shows right renal artery stenosis. Split function is 75.3% on the left and 24.7% on the right. Started on HD planned for renal artery angiogram and possible stenting Left sided complicated pyelonephritis left stone probably nidus of infection. urine culture with Ecoli On meropenem. will need urology evaluation for the left stone and hydronephrosis. Hypertensive emergency resolved has renovascular hypertension. restarted on coreg and hydralazine for blood pressure control. Acute Systolic congestive heart failure due to dilated cardiomyopathy ischemic vs nonischemic s/p flash pulmonary edema At present appears Euvolemic fluid status management with HD. Type 2 AMI due to demand ischemia from acute hypoxia and acute CHF. and some elevation may be due to CATHERINE peak troponin was 8.0 now at 3 She should at some point undergo cardiac catheterization to clarify between ischemic cardiomyopathy versus nonischemic cardiomyopathy. Dr Payne. Advanced COPD with emphysema wit moderated pulmonary hypertension duonebs not on any meds at home Left Intrarenal Nephrolithiasis mild left-sided hydronephrosis stone is 1.[address] Otto. Possible stenting today. VS,Fishbone, I+O VS, Fishbone, I+O Laboratory Tests 01/26/20 04:19 Vital Signs Date Time Temp Pulse Resp B/P (MAP) Pulse Ox O2 Delivery O2 Flow Rate FiO2 01/26/20 10:29 119/56 01/26/20 10:00 74 20 97 Room Air 01/26/20 08:00 99.2 01/25/20 10:00 28 01/21/20 18:10 28.0 I&O- Last 24 Hours up to 6 AM 01/26/20 06:00 Intake Total 760 ml Output Total 289 ml Balance 471 ml DIANA LARSON MD January 26, 2020 12:33
[2020-01-26] MEDS ORDERED: SOD POLYSTYRENE SULFONATE SUSP 15 GM/60 ML UD PO ONE (14:00)
[2020-01-26] MEDS ORDERED: MIDAZOLAM INJ 2MG/2ML VIAL (J2250 PER 1MG) As Ordered ONE (16:16)
[2020-01-26] MEDS ORDERED: LIDOCAINE 2% 100MG/5ML SDV (FOR ANES.) As Ordered ONE (16:16)
[2020-01-26] MEDS ORDERED: fentaNYL 100 MCG/2 ML INJECTION (J3010) As Ordered ONE (16:16)
[2020-01-26] MEDS ORDERED: propofoL 200 MG/20 ML VIAL As Ordered ONE (16:16)
[2020-01-26] MEDS ORDERED: CONRAY-60 60% 50ML VIAL (Q9961) As Ordered ONE (16:35)
--- NOTE | 2020-01-26 16:45 | SMCUROLCON ---
Urology Consultation General Date of Consultation 01/26/20 Reason For Consultation This patient is seen for Acute Respiratory Failure. History of Present Illness This is a 69 y/o F w/ a PMH significant for COPD, nephrolithiasis, lung Ca s/p left upper lobectomy, admitted to the hospital on 01/21/20 for flash pulmonary edema requiring intubation in the ED, hypertensive emergency, and CATHERINE. She has since been extubated and transferred to the [facility] today. Her CATHERINE has not improved and she has been requiring HD. Her w/u is notable for an atrophic R kidney likely due to renal artery stenosis and a L kidney w/ mild to moderate hydronephrosis due to a 1.5cm kidney stone. Her urine culture is grew E coli. Urology has been consulted given the obstructed L kidney w/ CATHERINE and possible L pyelonephritis. Past Medical History Medical History see HPI Surgical Hstory vascular surgery, left upper lobectomy Medications Current Medications Current Medications Medications (Trade) Dose Ordered Sig/Armando Route PRN Reason Start Time Stop Time Status Last Admin Dose Admin Acetaminophen (Tylenol Suspension) 650 mg Q6HP PRN GT PAIN OR FEVER 01/22/20 20:45 01/26/20 04:26 Albuterol/ Ipratropium (Duoneb (Ipr 0.5mg/Alb 2.5mg)) 3 ml Q20M PRN NEB SHORTNESS OF BREATH 01/21/20 17:30 01/21/20 20:16 DC 01/21/20 18:04 Albuterol/ Ipratropium (Duoneb (Ipr 0.5mg/Alb 2.5mg)) 3 ml RQID NEB 01/21/20 20:00 01/26/20 07:46 Aspirin (Ecotrin) 81 mg DAILY PO 01/25/20 09:00 01/26/20 08:21 Calcium Acetate (Phoslo) 667 mg WM PO 01/26/20 12:30 Carvedilol (COReg) 6.25 mg BID PO 01/25/20 09:00 01/25/20 14:25 DC 01/25/20 12:16 Carvedilol (COReg) 12.5 mg BID PO 01/25/20 21:00 01/26/20 08:22 Chlorhexidine Gluconate (Peridex Oral Rinse) SWAB/BRUSH ORAL CAVITY BID MT 01/21/20 21:00 01/25/20 21:10 DC 01/25/20 08:28 Dextrose (Dextrose 50%) 25 ml ASDIRECTED PRN IV SEE LABEL COMMENTS 01/21/20 19:45 01/25/20 12:12 DC Etomidate (Amidate) 20 mg STAT STAT IV 01/21/20 18:23 01/21/20 18:25 DC 01/21/20 18:40 Glucagon (Glucagon) 1 mg ASDIRECTED PRN SC SEE LABEL COMMENTS 01/21/20 19:45 01/25/20 12:12 DC Glucose (Glucose) 16 GM ASDIRECTED PRN PO SEE LABEL COMMENTS 01/21/20 19:45 01/25/20 12:12 DC Heparin Sodium (Porcine) (Heparin) 5,000 units Q8H SC 01/21/20 22:00 01/26/20 14:40 Home Med (Med Rec Complete!) ASDIRECTED XX 01/21/20 18:00 01/21/20 17:56 DC Hydralazine HCl (Apresoline) 25 mg TID PO 01/25/20 09:00 01/26/20 08:21 Insulin Human Lispro (HumaLOG INSULIN) SEE PROTOCOL TABLE Q6H SC 01/21/20 18:00 01/25/20 12:12 DC 01/24/20 23:57 Isosorbide Mononitrate (Ismo, Monoket) 10 mg BID@07,17 PO 01/26/20 09:30 01/26/20 10:29 Meropenem 500 mg/ IV Miscellaneous Supplies 50 ml @ 100 mls/hr Q24H IV 01/23/20 11:00 01/31/20 09:00 01/26/20 10:07 Midazolam HCl (Versed) 2 mg Q15MP PRN IV AGITATION 01/21/20 19:15 01/25/20 09:03 DC 01/24/20 16:17 Pantoprazole Sodium (Protonix) 40 mg DAILY@2100 IV 01/21/20 21:00 01/25/20 20:51 Propofol 1000 mg/ IV Miscellaneous Supplies 100 ml @ 3.402 mls/ hr Q24H IV 01/21/20 20:00 01/25/20 08:56 DC 01/25/20 04:52 Propofol 1000 mg/ IV Miscellaneous Supplies 100 ml @ 8.505 mls/ hr [id number] IV 01/21/20 18:45 01/21/20 19:59 DC 01/21/20 18:45 Succinylcholine Chloride (Quelicin) 75 mg STAT STAT IV 01/21/20 18:23 01/21/20 18:25 DC 01/21/20 18:40 Allergies Allergies: Coded Allergies: No Known Allergies (Unverified , 05/27/13) Review of Systems General: Denies: Chills, Night Sweats Constitutional: Denies: Fever Pulmonary: Reports: Dyspnea Gastrointestinal: Denies: Nausea, Vomiting, Abdominal Pain Genitourinary: Reports: Incontinence; Denies: Hematuria Musculoskeletal: Denies: Neck Pain, Back Pain Psych: Reports: Mood Normal Physical Examination General Exam: Alert, Cooperative, No Acute Distress Chest Exam: Normal air movement Heart Exam: Regular Rhythm Abdomen Exam: Soft; No: Tenderness Skin Exam: Nl turgor and temperature Neuro Exam: Normal Speech Psych Exam: Mental status NL, Mood NL Vital Signs/I&O Vital Signs Date Time Temp Pulse Resp B/P (MAP) Pulse Ox O2 Delivery O2 Flow Rate FiO2 01/26/20 14:00 98.0 76 22 134/74 (94) 96 01/26/20 10:00 Room Air 01/25/20 10:00 28 01/21/20 18:10 28.0 I&O- Last 24 Hours up to 6 AM 01/26/20 05:59 Intake Total 760 ml Output Total 289 ml Balance 471 ml Laboratory Data 24H Labs Laboratory Tests 2 01/26/20 04:19: Immature Granulocyte % (Auto) 1.2, Neutrophils (%) (Auto) 72.5H, Lymphocytes (%) (Auto) 15.2L, Monocytes (%) (Auto) 8.9H, Eosinophils (%) (Auto) 1.7, Basophils (%) (Auto) 0.5, Neutrophils # (Auto) 7.5, Lymphocytes # (Auto) 1.6, Monocytes # (Auto) 0.9H, Eosinophils # (Auto) 0.2, Basophils # (Auto) 0.1, Nucleated Red Blood Cells % (auto) 0.0, Anion Gap 11, Glomerular Filtration Rate 6.5L, Calcium Level 8.5L, Phosphorus Level 6.8H, Total Bilirubin 0.5, Aspartate Amino Transf (AST/SGOT) 46H, Alanine Aminotransferase (ALT/SGPT) 38, Alkaline Phosphatase 79, Lactate Dehydrogenase 565H, Total Creatine Kinase 826H, Total Protein 6.0L, Albumin 2.8L, Albumin/Globulin Ratio 0.88L, Triglycerides Level 206H, Cholest valentin Level 174 01/26/20 05:40: Blood Gas Bicarbonate Standard 21.5L, Arterial Blood pH 7.422, Arterial Blood Partial Pressure CO2 31.6L, Arterial Blood Partial Pressure O2 80.0, Arterial Blood Total CO2 21.1L, Arterial Blood HCO3 20.1L, Arterial Blood Base Excess - 3.5L, Arterial Blood Oxygen Saturation 95.3 CBC/BMP Laboratory Tests 01/26/20 04:19 Microbiology Microbiology 01/22/20 Urine Culture - Final, Complete Escherichia Coli 01/21/20 Blood Culture - Preliminary, Resulted No Growth after 72 hours. All specime... 01/21/20 Blood Culture - Preliminary, Resulted No Growth after 72 hours. All specime... Assessment This is a 69 y/o F admitted w/ flash pulmonary edema and CATHERINE requiring HD, found to have a 1.5cm obstructing L kidney stone and a UTI. I recommended taking her to the OR today for cystoscopy and L ureteral stent placement. After a discussion of the risks and benefits of surgery, informed consent was signed. Plan - informed consent signed for cystoscopy and L ureteral stent placement - meropenem given this morning at 10am - NPO - plan for OR now TRANG AMBROCIO MD January 26, 2020 16:45
[2020-01-26] MEDS ORDERED: LIDOCAINE 2% 5ML JELLY UROJET As Ordered ONE (16:51)
[2020-01-26] MEDS ORDERED: ONDANSETRON 4MG/2ML VIAL IV PRN (18:30)
[2020-01-26] MEDS ORDERED: fentaNYL 100 MCG/2 ML INJECTION (J3010) IV PRN (18:30)
[2020-01-26] MEDS ORDERED: METOCLOPRAMIDE INJ 10MG/2ML VIAL (J2765 PER 1) IV PRN (18:30)
[2020-01-26] MEDS ORDERED: PERCOCET 5MG/325MG TAB PO PRN (18:30)
[2020-01-26] MEDS ORDERED: LR 1,000 ML IV SCH (18:30)
[2020-01-26] MEDS: PANTOPRAZOLE 40MG VIAL (C9113 PER 1) IV SCH (20:17)
[2020-01-27] VITALS (8 sets, daily range): BP systolic 130–141; BP diastolic 65–71
--- NOTE | 2020-01-27 00:14 | IPN ---
DATE: 01/26/2020 SUBJECTIVE: Patient was seen and examined at the bedside today morning. She is afebrile, hemodynamically stable. No significant improvement in the renal function. However, her urine output is slowly improving. Patient denies any shortness of breath. I discussed the patient's case myself with urology in the morning because of her left-sided stone and left-sided pyelonephritis. OBJECTIVE: Vital signs: Temperature is 97.7 degrees Fahrenheit, blood pressure 140/73, pulse is 83, respiratory rate of 20, saturating 99% on room air. Intake and output: Urine output recorded is 164 mL yesterday, 265 mL so far today since overnight. Weight on the bed scale is 53.2 kg. PHYSICAL EXAM: General: Patient is awake, alert, oriented times three, sitting up in the bed, in no apparent distress. Head and neck exam: Extraocular muscles intact. Pupils equally round and reactive to light. Mucous membranes are moist. Neck is supple. She has a right internal jugular (IJ) nontunneled hemodialysis catheter. Cardiovascular: S1, S2, regular rate. No edema of the bilateral lower extremities. Respiratory: Chest is clear to auscultation bilaterally. Bilateral equal air entry. No rales or rhonchi. Abdomen: Soft. Positive bowel sounds. Nontender. No organomegaly. Genitourinary: She has an indwelling Shukla catheter. Musculoskeletal: No clubbing or cyanosis. Pulses are 2+. 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 Power is 5/5 in all extremities. LAB REVIEW: CBC showed WBC 10.4, hemoglobin is 10.3, platelets are 253. BMP showed sodium 134, potassium 5.5, chloride 100, bicarbonate 23, BUN 66, creatinine is 6.7, calcium 8.5, phosphorus 6.8. CURRENT INPATIENT MEDICATIONS: Patient's medications were all reviewed by me. Because of mild persistent leukocytosis, I have restarted meropenem at 500 mg intravenous (IV) daily. I have started the patient on calcium acetate 667 mg by mouth with meals. She was started on isosorbide mononitrate 10 mg by mouth twice a day by cardiology, and carvedilol dose was increased to 12.5 mg by mouth twice a day by cardiology as well. I also gave the patient a dose of Kayexalate 15 grams by mouth times one dose. ASSESSMENT AND PLAN: 1. Acute oliguric renal failure. Patient remains oliguric. However, urine output is very slowly improving. She is still dialysis dependent. I have discussed with urology, and they will tried to do retrograde pyelogram and possible left-sided ureteral stent placement in the left kidney. Renal failure secondary to combination of left-sided hydronephrosis and left kidney stone and right-sided renal artery stenosis. 2. Elevated troponins. Troponins are trending down. Patient is asymptomatic. 3. Left-sided hydronephrosis and left-sided pyelonephritis. Continue current dose of meropenem. As mentioned above, urology is going to do the left-sided retrograde pyelogram. 4. Right-sided renal artery stenosis. Patient's blood pressures are better controlled now. Once patient is stable and infection free, she will be sent to interventional radiology (IR) for right-sided renal angiogram. 5. Renovascular hypertension. Blood pressure is better controlled. Continue current dose of Coreg, hydralazine, and isosorbide. Avoid use of angiotensin-converting enzyme (HERMINIA) and ARB at this time. 6. Chronic systolic congestive heart failure. Patient has a left ventricle (LV) ejection fraction of 20%, ischemic versus hypertensive cardiomyopathy. Management is as per cardiology. Fluid status will be managed with dialysis until her renal function improves. 7. Hyperkalemia. Patient was given a dose of Kayexalate in the morning. She will be dialyzed tomorrow morning with a 2K bath.
--- NOTE | 2020-01-27 05:43 | CCN ---
DATE: 01/25/2020 I again attended Nevaeh Saavedra. Patient has been examined, chart reviewed. I have spoken at length with the nurse at the bedside. She was dialyzed yesterday and tolerated it well. Just shy of a liter was removed. Maximum temperature (Tmax) overnight 98.5. Blood pressure this morning 114-140s. Heart rate generally between 90 and 100 with a sinus mechanism. Respiratory rate 14-20 without accessory muscle use. She remains on 21% FiO2. Laboratories show white blood cell count of 14.7, hemoglobin 10.6, platelet count of 262,000, 76.8% segmented neutrophils; no bands. Sodium 136, potassium (K) of 5.0, chloride 101, CO2 of 25, BUN 42, creatinine 5.06, glucose of 94. Troponin down to 3.28 this morning. Blood gas done this morning on an SIMV of 12, tidal volume 400, PEEP of 5, pressure support of 14, and FiO2 of 21% has a pH of 7.451, pCO2 of 29.7, pO2 of 70.7. Chest x-ray shows lines and tubes in good position. No infiltrates and no edema. EKG this morning compared to priors again shows the mild ST changes laterally in V4, V5, and V6 with reciprocal changes in V1. Much less pronounced than on 01/21/2020. She was seen by Dr. Payne yesterday. His official consult is still pending in the dictation bank. No new orders. On exam, she is easily awake, alert, and arousable. Follows commands. Pupils react. Sclerae clear. Trachea is midline. Oral endotracheal tube and nasogastric tube are noted. Right internal jugular (IJ) dialysis catheter is in place. Chest is clear to both auscultation and percussion. Symmetric expansion, and no significant focal adventitious breath sounds are identified. Cardiac exam is regular. Peripheral pulses are diminished but palpable. Abdomen soft, nontender with active bowel sounds. Her bruit is easily audible. Extremities without cyanosis or clubbing. Neurologically, she is awake, alert, and appropriate and moves all extremities. The most pressing problems requiring my presence at the bedside: 1. Respiratory failure, most likely secondary to flash pulmonary edema. 2. Cardiac dysfunction. 3. Abnormal troponins. 4. Renal artery stenosis with renal failure. 5. Renal failure.. 6. Hypertension. 7. Obstructive lung disease. RECOMMENDATIONS: At this point, she appears ready for endotracheal extubation, and we proceeded with that. She was extubated without difficulty. There is no stridor. She is quite comfortable. Oxygen saturation was 96% on 40% aerosol face mask. We will allow her some clear liquids this morning. We await final word from cardiology. Dialysis schedule will be per nephrology. She still may benefit from further investigation and manipulation by interventional radiology. She remains with multiorgan dysfunction but has made some strides. We await the upcoming above interventions. She remains on ulcer and deep venous thrombosis (DVT) prophylaxis. We will continue her empiric antimicrobials. Further recommendations will be made in the progress record as new information becomes available. SATURNINO
[2020-01-27] MEDS: HEPARIN SOD (PORCINE) 5000UNITS/ML VIAL (J1644 PER 1000UNITS) SC SCH ×3 (05:56→21:52)
[2020-01-27] MEDS: ISOSORBIDE MONONITRATE 10MG TABLET PO SCH ×2 (05:57→16:54)
[2020-01-27 06:44] LABS: BASO # 0.1 10^3/uL (0.0-0.2); BASO % 0.5 % (0.0-1.0); EOS # 0.3 10^3/uL (0.0-0.5); EOS % 2.7 % (0.0-3.0); HEMATOCRIT 30.8 % (36.0-47.0); HEMOGLOBIN 10.1 g/dl (12.0-15.5); LYMPH # 1.4 10^3/uL (1.5-5.0); MEAN CORPUSCULAR HEMOGLOBIN 29.2 pg (27.0-33.0); MEAN CORPUSCULAR HGB CONC 32.8 g/dl (32.0-36.5); MONO # 0.9 10^3/uL (0.0-0.8); MONO % 9.4 % (0.0-5.0); NEUTROPHILS # 6.9 10^3/uL (1.5-8.5); NEUTROPHILS % 71.2 % (36.0-66.0); PLATELET COUNT, AUTOMATED 280 10^3/uL (150-450); RED BLOOD COUNT 3.46 10^6/uL (4.00-5.40); WHITE BLOOD COUNT 9.7 10^3/uL (4.0-10.0)
[2020-01-27 07:07] LABS: CALCIUM LEVEL 8.4 MG/DL (8.8-10.2); CREATININE FOR GFR 7.98 MG/DL (0.55-1.30); GLOMERULAR FILTRATION RATE 5.3 (>45); POTASSIUM SERUM 5.1 MEQ/L (3.5-5.1)
--- NOTE | 2020-01-27 07:41 | REP ---
Clinical: Status post ureteral stent placement. Technique: Intraoperative fluoroscopic imaging. Findings: Multiple images demonstrate moderate left-sided hydronephrosis along with presumed left lower pole calculi and satisfactory left ureteral stent placement. Total fluoroscopic time 16 seconds. Findings: Satisfactory left ureteral stent placement with evidence for large lower pole calculus and moderate hydronephrosis. Electronically Signed by Loc Gallagher MD 01/27/2020 07:32 A
[2020-01-27] MEDS: IPRATROPIUM 0.5MG/ALBUTEROL 2.5MG INH SOL UD 3ML (DUONEB)(J7620) NEB SCH ×4 (07:52→19:10)
--- NOTE | 2020-01-27 08:10 | IPNPDOC ---
Subjective Review oF Systems Chief Complaint The patient is a 69-year-old female admitted with a reason for visit of Acute Respiratory Failure. Events since Last Encounter No acute events o/n. Denies L flank pain. Notes mild suprapubic pressure from the stent. No n/v. No f/c/ns. Objective Physical Examination General Exam: Alert, Cooperative, No Acute Distress ABDOMEN EXAM: Soft Skin Exam: Nl turgor and temperature Neuro Exam: Normal Speech Psych Exam: Mental status NL, Mood NL Other physical findings catheter draining pink urine Vital Signs/I&O Vital Signs Date Time Temp Pulse Resp B/P (MAP) Pulse Ox O2 Delivery O2 Flow Rate FiO2 01/27/20 06:00 97.9 83 18 134/71 (92) 96 Nasal Cannula 2.0 01/25/20 10:00 28 I&O- Last 24 Hours up to 6 AM 01/27/20 06:00 Intake Total 925 ml Output Total 370 ml Balance 555 ml Laboratory Data Labs 24H Laboratory Tests 2 01/27/20 06:29: Immature Granulocyte % (Auto) 2.2, Neutrophils (%) (Auto) 71.2H, Lymphocytes (%) (Auto) 14.0L, Monocytes (%) (Auto) 9.4H, Eosinophils (%) (Auto) 2.7, Basophils (%) (Auto) 0.5, Neutrophils # (Auto) 6.9, Lymphocytes # (Auto) 1.4L, Monocytes # (Auto) 0.9H, Eosinophils # (Auto) 0.3, Basophils # (Auto) 0.1, Nucleated Red Blood Cells % (auto) 0.0, Anion Gap 15, Glomerular Filtration Rate 5.3L, Calcium Level 8.4L CBC/BMP Laboratory Tests 01/27/20 06:29 Microbiology Microbiology 01/22/20 Urine Culture - Final, Complete Escherichia Coli 01/21/20 Blood Culture - Final, Complete NO GROWTH AFTER 5 DAYS 01/21/20 Blood Culture - Final, Complete NO GROWTH AFTER 5 DAYS Assessment/Plan Date Seen The patient was seen on 01/27/20. Patient Summary This is a 69 y/o F admitted w/ flash pulmonary edema and CATHERINE requiring HD, found to have a 1.5cm obstructing L kidney stone and a UTI, POD1 s/p cysto w/ L ureteral stent placement. She feels well. Her UOP has picked up, but her Cr is still trending up, now 8 this morning. Plan/VTE VTE Prophylaxis Ordered?: Yes VTE Exclusion Mechanical Proph: N/A:VTE Prophy Ordered VTE Exclusion Pharmacological: N/A:VTE Prophy Ordered Plan - ok to d/c catheter from urologic standpoint - discussed w/ the patient the need for L ureteroscopy w/ laser lithotripsy in a few wks to clear her stone - my office will call once patient is ready for discharge to arrange outpatient f/u to get patient set up for surgery TRANG AMBROCIO MD January 27, 2020 08:10
[2020-01-27] MEDS: ASPIRIN 81 MG ENTERIC TAB PO SCH (08:30)
[2020-01-27] MEDS: **hydrALAZINE HCL** 25 MG TAB PO SCH ×3 (08:30→21:52)
[2020-01-27] MEDS: CALCIUM ACETATE 667MG GELCAP PO SCH ×3 (08:30→16:54)
[2020-01-27] MEDS: CARVedilol 12.5 MG TAB PO SCH ×2 (08:31→21:51)
--- NOTE | 2020-01-27 08:32 | IPN ---
DATE: 01/27/2020 Mrs. Saavedra tells me that she is feeling great. She denies any significant dyspnea as long as he stays in bed. There has been no paroxysmal nocturnal dyspnea (PND). No chest pain. Telemetry monitoring also revealed no arrhythmias. She remained in sinus rhythm. There was single 6-beat run of supraventricular rhythm, possibly some form of atrial tachycardia. Vital signs this morning: Blood pressure was recorded as 134/71, heart rate has been in 70s and 80s. She is afebrile. Saturation is 96% on 2 liters of nasal cannula. Weight was recorded at 53.2 kg. She is alert and oriented appropriate. Her jugular venous pulse (JVP) does not look elevated. Lungs are relatively clear to auscultation even especially on the right side, there are occasional crackles and rhonchi. I do not appreciate any wheezing and air movement seems to be good. Heart exam reveals regular rhythm. I would do not appreciate any distinct gallop, rub or murmur. Abdomen is soft and nontender. Extremities are free of edema. Peripheral pulses are palpable. Neurologically she is intact. LABORATORY: Basic metabolic panel: Sodium 136, potassium 5.1, BUN 85, creatinine 8.0, glucose 97. CBC: Hemoglobin 10.1, hematocrit 30.8 and platelet count 280,000 ASSESSMENT/PLAN: Mrs. Saavedra is a 69-year-old female who is essentially a lifelong smoker with history of nephrolithiasis and Chronic obstructive pulmonary disease (COPD) and lung cancer treated with surgery only. She presented with fairly sudden onset of respiratory distress leading to respiratory failure and intubation. She, based on the history, was relatively asymptomatic, even few hours prior to the her intubation. Her troponin peaked at 8.0, we do not have any serial ECGs but there were only fairly nonspecific repolarization abnormalities on her initial ECGs. An echocardiogram revealed global left ventricular systolic dysfunction. The situation was complicated by development on acute on chronic renal failure. She had hydronephrosis and underwent urologic procedure. At this point from cardiac perspective, she is treated for underlying congestive heart failure (CHF) with combination of isosorbide, carvedilol, hydralazine. She is also on aspirin. She is not currently anticoagulated. She does not have Plavix on board I suspect due to underlying urologic intervention and still presence of blood in her urine but once that ceases we should put her back on dual antiplatelet therapy. As far as the heart failure is concerned, her blood pressure is well-controlled and she appears euvolemic but it is thanks to the dialysis. She was not dialyzed for two days in a row. The urine output on Monday was fairly minimal with only 164 mL of urine. She made about 510 mL of urine yesterday. I am hoping that there will be further increase in urine output. There is approximately 300 mL in her bag of bloody urine currently, but obviously management of this issue will remain with urology. From a cardiac perspective, she seems to be relatively stable but she will need coronary angiography once her condition stabilizes. I do believe it most likely will be arranged on outpatient basis. The most important variable is renal function. Depending on the trend, the timing will be arranged. I did not make any medication changes today but I requested followup electrocardiogram. I do not see her being on statin so I am going to add that to her medications.
[2020-01-27 10:26] LABS: PTH INTACT 219.8 PG/ML (18.5-88.0)
[2020-01-27] MEDS: MEROPENEM INJ 500 MG in IV 1 EA IV SCH (11:38)
--- NOTE | 2020-01-27 14:38 | IPNPDOC ---
Text Note Date of Service The patient was seen on 01/27/20. NOTE Subjective: Patient does complain of some cough and difficulty in bringing it up. denies any sore throat or chest pain or sob. No swelling. Could not get HD today as Shiley cath not functioning. Planned for Permcath by IR this afternoon then HD tomorrow. Physical Exam: VItals: as below General: appears her stated age, sitting up in bed, alert and oriented HEENT: normocephalic and atraumatic, moist mucous membranes, anicteric eyes. Neck with Jugular venous pulsations were at 3 cm. CVS: Normal S1, S2, regular rhythm , soft systolic murmur in the second space, no gallop or rub Resp: Respiratory expansion effort was fair. No crackles or wheezes. Extremities: No peripheral edema. Abdomen : soft and nontender with normal bowel sounds. Abdominal bruit heard in right lumber region. Neuro: No focal neurodeficits, speech normal Psych: alert, oriented x3, mood normal. Labs and radiology: reviewed. 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 On presentation to the ED she was in hypertensive emergency with acute hypoxic respiratory failure and bilateral pulmonary edema. She was urgently intubated in the ED . She was also noted to have CATHERINE. She was admitted for Hypertensive emergency, flash pulmonary edema and acute hypoxic and hypercarbic respiratory failure. Echo done showed LVH, LVEF of 25%, moderate pulmonary hypertension Acute hypoxic and hypercarbic respiratory failure due to flash pulmonary edema felt to be due to right renal artery stenosis along with very low EF with acute CHF. resolved Acute anuric renal failure on chronic kidney disease. On HD at present. presumed to be due to renal artery stenosis and left-sided pyelonephritis with obstruction Renal ultrasound showed bilateral atrophic kidneys as well as a kidney stone in the left renal pelvis causing a mild hydronephrosis. Nuclear medicine kidney flow study shows right renal artery stenosis. Split function is 75.3% on the left and 24.7% on the right. No improvement on renal function yet remains HD dependent planned for renal artery angiogram and possible stenting PermCath placement by IR. Left sided complicated pyelonephritis left stone probably nidus of infection. urine culture with Ecoli On meropenem. Hypertensive emergency resolved has renovascular hypertension. restarted on coreg and hydralazine for blood pressure control. Acute Systolic congestive heart failure EF 25% due to dilated cardiomyopathy ischemic vs nonischemic s/p flash pulmonary edema At present appears Euvolemic fluid status management with HD. Type 2 AMI due to demand ischemia from acute hypoxia and acute CHF. and some elevation may be due to CATHERINE peak troponin was 8.0 now at 3 She should at some point undergo cardiac catheterization to clarify between ischemic cardiomyopathy versus nonischemic cardiomyopathy. Dr Payne. Advanced COPD with emphysema wit moderated pulmonary hypertension duonebs not on any meds at home Left Intrarenal Nephrolithiasis mild to moderate left-sided hydronephrosis stone is 1.9 cm. Had cysto and ureteral stent placement on 01/26/20 VS,Harry, I+O VS, Harry, I+O Laboratory Tests 01/27/20 06:29 Vital Signs Date Time Temp Pulse Resp B/P (MAP) Pulse Ox O2 Delivery O2 Flow Rate FiO2 01/27/20 06:00 97.9 83 18 134/71 (92) 96 Nasal Cannula 2.0 01/25/20 10:00 28 I&O- Last 24 Hours up to 6 AM 01/27/20 06:00 Intake Total 925 ml Output Total 370 ml Balance 555 ml DIANA LARSON MD January 27, 2020 07:32
[2020-01-27] MEDS ORDERED: LIDOCAINE 1% MDV 20ML VIAL As Ordered ONE (15:10)
[2020-01-27] MEDS ORDERED: fentaNYL 100 MCG/2 ML INJECTION (J3010) As Ordered ONE (15:10)
[2020-01-27] MEDS ORDERED: MIDAZOLAM INJ 2MG/2ML VIAL (J2250 PER 1MG) As Ordered ONE (15:10)
[2020-01-27] MEDS ORDERED: diphenhydrAMINE 50MG/ML VIAL (J1200) As Ordered ONE (15:12)
[2020-01-27] MEDS ORDERED: ceFAZolin 1GM VIAL (J0690 PER 500MG) As Ordered ONE (15:26)
--- NOTE | 2020-01-27 16:09 | POST-OPPD ---
Postoperative Procedure Note Date Of Procedure: January 27, 2020 Time Of Procedure: 16:08 PREOPERATIVE DIAGNOSIS: RF POSTOPERATIVE DIAGNOSIS: same FINDINGS: patent right IJ PROCEDURE: right sided permacath placed. Ready to use. vascath removed. SURGEON: scar ANESTHESIA: mod sed ESTIMATED BLOOD LOSS: < 5 ml COMPLICATIONS: none POSTOPERATIVE CONDITION: stable TONYA CHILEL MD January 27, 2020 16:09
--- NOTE | 2020-01-27 16:13 | IRMSE ---
[facility] IR Moderate Sedation Eval. Date and Time Date: January 27, 2020 Time: 14:31 ASA Classification ASA Classification: III-Severe systemic dis. Mallampati Score: II, III NPO: Yes Obstructive Sleep Apnea: No Interval Plan: moderate sedation TONYA CHILEL MD January 27, 2020 16:13
[2020-01-27] MEDS: ATORVASTATIN 20 MG TAB PO SCH (21:50)
[2020-01-27] MEDS: PANTOPRAZOLE 40MG VIAL (C9113 PER 1) IV SCH (21:53)
--- NOTE | 2020-01-27 23:15 | RO ---
DATE OF PROCEDURE: 01/26/2020 PREPROCEDURE DIAGNOSIS: Left kidney stone. POSTPROCEDURE DIAGNOSIS: Left kidney stone. PROCEDURE: Cystoscopy, left ureteral stent placement, left retrograde pyelogram with intraoperative interpretation of images. SURGEON: Dr. Nathaniel Otto FLAME HARDENER: None. ANESTHESIA: Monitored anesthesia care (MAC). OPERATIVE INDICATIONS: This is a 69-year-old female who was found to have an obstructing 1-1/2 cm left kidney stone, as well as acute kidney injury requiring dialysis. She was brought to the operating room today for left ureteral stent placement. DESCRIPTION OF PROCEDURE: The patient was brought to the operating room and MAC anesthesia was administered. Culture-specific antibiotics had already been infused earlier in the day. She was then placed in the dorsal lithotomy position and prepped and draped in the usual sterile fashion. At this point, a rigid cystoscope was inserted into the urethral meatus and advanced into the bladder. A guidewire was advanced up the left collecting system. I then advanced a #5-Zimbabwean open-ended ureteral catheter over the wire into the left collecting system. The wire was removed, and then I aspirated approximately 30-40 mL of cloudy urine from the left kidney. This urine was sent for culture. After that was done, a retrograde pyelogram was performed and is notable for mild or moderate left hydronephrosis, as well as a large stone in the renal pelvis. I then advanced a wire back up the left collecting system. The ureteral catheter was removed, and then I utilized the wire to advance a #7-Zimbabwean x 22-32 cm JJ ureteral stent into the left collecting system. The wire was removed, and there were adequate curls of the stent in the left renal pelvis and in the bladder. The cystoscope was removed, and then I inserted a #16-Zimbabwean Shukla catheter into the bladder. The balloon was filled with 10 mL of sterile water, and the catheter was connected to gravity drainage. This marked the conclusion of the procedure. The patient was taken out of the dorsal lithotomy position, awakened from anesthesia and transported to the recovery room in stable condition. Estimated blood loss: 5 mL. Complications: None. Specimens: Urine from left kidney to culture. PLAN: The patient will be treated for acute kidney injury, as well as a urinary tract infection. We will ultimately bring her back to the operating room in a few weeks for cystoscopy, left ureteroscopy, laser lithotripsy, and basket extraction of her stones.
[2020-01-28] VITALS (8 sets, daily range): BP systolic 83–148; BP diastolic 44–70
[2020-01-28] MEDS: ISOSORBIDE MONONITRATE 10MG TABLET PO SCH ×2 (05:30→17:50)
[2020-01-28] MEDS: HEPARIN SOD (PORCINE) 5000UNITS/ML VIAL (J1644 PER 1000UNITS) SC SCH ×3 (05:30→20:56)
[2020-01-28] MEDS: ASPIRIN 81 MG ENTERIC TAB PO SCH (05:30)
[2020-01-28] MEDS: CARVedilol 12.5 MG TAB PO SCH ×2 (05:31→20:56)
[2020-01-28] MEDS: **hydrALAZINE HCL** 25 MG TAB PO SCH ×3 (05:31→20:56)
[2020-01-28 06:30] LABS: BASO # 0.1 10^3/uL (0.0-0.2); BASO % 0.6 % (0.0-1.0); EOS # 0.3 10^3/uL (0.0-0.5); EOS % 2.9 % (0.0-3.0); HEMATOCRIT 29.9 % (36.0-47.0); HEMOGLOBIN 9.8 g/dl (12.0-15.5); LYMPH # 1.4 10^3/uL (1.5-5.0); LYMPH % 13.5 % (24.0-44.0); MEAN CORPUSCULAR HEMOGLOBIN 29.2 pg (27.0-33.0); MEAN CORPUSCULAR HGB CONC 32.8 g/dl (32.0-36.5); MONO # 0.9 10^3/uL (0.0-0.8); MONO % 8.9 % (0.0-5.0); NEUTROPHILS # 7.4 10^3/uL (1.5-8.5); PLATELET COUNT, AUTOMATED 307 10^3/uL (150-450); RED BLOOD COUNT 3.36 10^6/uL (4.00-5.40); WHITE BLOOD COUNT 10.3 10^3/uL (4.0-10.0)
[2020-01-28] MEDS: CALCIUM ACETATE 667MG GELCAP PO SCH ×3 (06:44→17:45)
--- NOTE | 2020-01-28 06:59 | IPN ---
DATE OF SERVICE: 01/27/2020 SUBJECTIVE: Nevaeh was seen and examined this afternoon in the hemodialysis unit. Unfortunately, we could not complete her maintenance hemodialysis treatment because of the temporary hemodialysis catheter not working. She will be rescheduled for hemodialysis tomorrow. She denies any overnight events or complaints. She remains afebrile. OBJECTIVE: Vital Signs: Temperature 96.7, pulse 80, respiratory rate 19, blood pressure 141/69, saturating 93% on room air. Intake yesterday was 1265. Urine output yesterday was 510. Urine output thus far today is 550 mL. Weight in the bed scale today was not recorded. General: The patient is seen in the hemodialysis unit awake, alert, oriented, in no apparent distress. Extraocular muscles are intact. Sclerae are clear. Temporary dialysis catheter in the right internal jugular (IJ) is nonfunctional. Jugular veins are not elevated. Heart sounds S1, S2. Soft systolic murmur. There is trace leg edema. Lungs show symmetric air entry. No crackle or rale. Abdomen is soft and nontender. There is a Shukla catheter draining blood tinged urine present. Skin: Normal turgor and temperature. Psychiatric: Appropriate mood and affect. LABS: White count 9.7, hemoglobin 10.1, platelets 280, sodium 136, potassium 5.1, bicarbonate 21, BUN 85, creatinine 7.9, PTH 219. INPATIENT MEDICATIONS: Reviewed by myself. She was started on Lipitor 40 mg by mouth at bedtime by cardiology. Her remainder of medications are unchanged from prior. PROBLEMS: 1. Acute oliguric renal failure. The patient remains dialysis dependent at this time. She is status post left ureteral stent placement and urine output is only modestly improved. Her hemodialysis treatment today was not completed due to malfunctioning temporary dialysis catheter. She is planned for Perma-Cath placement this afternoon and we will dialyze her on Monday morning. We will continue to watch for signs of recovering renal function. 2. Status post flash pulmonary edema in this patient with right renal artery stenosis and congestive heart failure (CHF). She would probably benefit from renal artery stenting given the flash pulmonary edema on admission and the concomitant acute kidney injury. Blood pressures are nicely improved and will discuss with interventional radiology regarding renal artery stenting. 3. Left sided complicated pyelonephritis with moderate hydronephrosis. She is status post left ureteral stent placement and will need lithotripsy as an outpatient. Urine output is mildly improved. She continues on meropenem for E-coli pyelonephritis. 4. Hypertension. In this patient with a unilateral renal artery stenosis, blood pressures are well controlled on hydralazine, Imdur and carvedilol. 5. Systolic congestive heart failure, ejection fraction 25%, status post flash pulmonary edema. Fluid status regulated via hemodialysis. Will try to take off 1.5-2 liters tomorrow.
[2020-01-28 07:01] LABS: CALCIUM LEVEL 8.5 MG/DL (8.8-10.2); CREATININE FOR GFR 8.35 MG/DL (0.55-1.30); GLOMERULAR FILTRATION RATE 5.1 (>45); POTASSIUM SERUM 5.1 MEQ/L (3.5-5.1)
[2020-01-28] MEDS: IPRATROPIUM 0.5MG/ALBUTEROL 2.5MG INH SOL UD 3ML (DUONEB)(J7620) NEB SCH ×4 (07:13→19:27)
--- NOTE | 2020-01-28 08:11 | IPN ---
DATE: 01/28/2020 Mrs. Saavedra had a good night. She says she slept without difficulty. She denies any chest pain or shortness of breath. She had attempted dialysis yesterday, but apparently the dialysis catheter was not functioning properly and consequently it was abolished. She is scheduled to have dialysis this morning after tunneled catheter was placed by Dr. Hook yesterday afternoon. Vital Signs: Her blood pressure this morning is 134/70 and has been in this range or slightly higher overnight. She is afebrile. Saturation is 98% on room air. Heart rate is in 70s and 80s, sinus rhythm. She did not have any arrhythmias overnight. She made about 800 mL of urine yesterday and already about 300 mL today. She is alert, oriented and appropriate. I do not appreciate any distinct jugular venous pulse (JVP) elevation. Lungs are clear. Heart exam reveals a regular rhythm. There is a murmur at the apex, relatively faint. I do not appreciate any gallop. Abdomen is soft and nontender. Extremities are free of edema. Laboratories: WBC count 10.3, hemoglobin 9.8, hematocrit 29.9, platelet count 307,000. Basic metabolic panel with sodium 137, potassium 5.1, BUN 90, creatinine 8.3 and glucose 80. ASSESSMENT/PLAN: Mrs. Saavedra is a 69-year-old female who has cardiomyopathy of undetermined etiology that was further complicated by development of acute renal failure leading to respiratory failure. She is now hemodynamically well compensated. She is on appropriate medications for LV dysfunction. Unfortunately, because of renal failure she is not on any ARB/HERMINIA inhibitors or ARNI. Because there is I hope still a good chance of recovery of renal function, we will stay away from these medications for the foreseeable future. Her blood pressure is slightly elevated, but I am not going to advance her medications because she is due for dialysis today and it is likely that after the volume is removed that her blood pressure will actually be low. In the long horizon, she will need to have further cardiac evaluation as outlined in my note yesterday. No medication changes from me today. Dr. Payne should be back tomorrow.
[2020-01-28] MEDS: MEROPENEM INJ 500 MG in IV 1 EA IV SCH (12:12)
--- NOTE | 2020-01-28 19:06 | ECGEPIP ---
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
[2020-01-28] MEDS: PANTOPRAZOLE 40MG VIAL (C9113 PER 1) IV SCH (20:56)
[2020-01-28] MEDS: ATORVASTATIN 20 MG TAB PO SCH (20:56)
[2020-01-29 06:00] VITALS: BP 135/67
[2020-01-29] MEDS: ISOSORBIDE MONONITRATE 10MG TABLET PO SCH ×2 (06:07→17:00)
[2020-01-29] MEDS: HEPARIN SOD (PORCINE) 5000UNITS/ML VIAL (J1644 PER 1000UNITS) SC SCH ×3 (06:07→22:13)
[2020-01-29 06:34] LABS: BASO # 0.1 10^3/uL (0.0-0.2); BASO % 0.5 % (0.0-1.0); EOS # 0.2 10^3/uL (0.0-0.5); EOS % 2.4 % (0.0-3.0); HEMATOCRIT 27.4 % (36.0-47.0); LYMPH # 1.6 10^3/uL (1.5-5.0); LYMPH % 16.3 % (24.0-44.0); MEAN CORPUSCULAR HEMOGLOBIN 29.3 pg (27.0-33.0); MEAN CORPUSCULAR HGB CONC 32.8 g/dl (32.0-36.5); MEAN CORPUSCULAR VOLUME 89.3 fl (80.0-96.0); MONO # 1.2 10^3/uL (0.0-0.8); MONO % 11.9 % (0.0-5.0); NEUTROPHILS # 6.5 10^3/uL (1.5-8.5); NEUTROPHILS % 66.4 % (36.0-66.0); PLATELET COUNT, AUTOMATED 263 10^3/uL (150-450); RED BLOOD COUNT 3.07 10^6/uL (4.00-5.40); WHITE BLOOD COUNT 9.7 10^3/uL (4.0-10.0)
[2020-01-29 06:54] LABS: CALCIUM LEVEL 8.2 MG/DL (8.8-10.2); CREATININE FOR GFR 4.94 MG/DL (0.55-1.30); GLOMERULAR FILTRATION RATE 9.3 (>45); POTASSIUM SERUM 4.2 MEQ/L (3.5-5.1)
[2020-01-29] MEDS: IPRATROPIUM 0.5MG/ALBUTEROL 2.5MG INH SOL UD 3ML (DUONEB)(J7620) NEB SCH ×4 (07:09→19:57)
[2020-01-29] MEDS: **hydrALAZINE HCL** 25 MG TAB PO SCH ×3 (08:57→20:05)
[2020-01-29] MEDS: ASPIRIN 81 MG ENTERIC TAB PO SCH (08:57)
[2020-01-29] MEDS: CALCIUM ACETATE 667MG GELCAP PO SCH ×3 (08:57→17:11)
[2020-01-29] MEDS: CARVedilol 12.5 MG TAB PO SCH ×2 (08:57→20:06)
--- NOTE | 2020-01-29 09:30 | IPN ---
DATE: 01/29/2020 Mrs. Saavedra has been doing well. She had dialysis yesterday. She tolerated it without difficulty. There were no arrhythmias. She denies any chest pain or shortness of breath. On her vital signs this morning, blood pressure is 135/67. Heart rate has been in the 80s. She is afebrile. Saturation 94% on room air. Her fluid balance yesterday was recorded negative 200. She made about 850 mL of urine and 500 mL were dialyzed out. She already made 600 mL of urine today. She is alert, oriented and appropriate. Her lungs are clear. Heart exam reveals a regular rhythm. I do not appreciate any gallop, rub or murmur. Abdomen is soft. She is free of edema. Laboratories: Basic metabolic panel with sodium 136, potassium 4.2, BUN 39, creatinine 4.9 and glucose 82. ASSESSMENT/PLAN: Mrs. Saavedra is a 69-year-old female who presented with heart failure and developed acute renal failure. Unfortunately, she is dialyzed and so far it does not seem that there has been a marked improvement in renal function even though she is making sufficient amount of urine. I am still somewhat hopeful that there will be recovery of renal function and she will avoid long-term dialysis. From a cardiac perspective, she is on appropriate medications for left ventricle (LV) dysfunction. We are holding off administration of HERMINIA inhibitors, ARBs or ARNIs because I am still hopeful that renal function will get better. I did not make any medication changes. She will remain in the hospital awaiting outpatient dialysis arrangements. In the long run, she will need heart catheterization to evaluate her underlying coronary anatomy, but it very likely will be on an outpatient basis.
[2020-01-29] MEDS: MEROPENEM INJ 500 MG in IV 1 EA IV SCH (11:55)
--- NOTE | 2020-01-29 12:35 | IPN ---
DATE OF SERVICE: 01/28/2020 SUBJECTIVE: The patient denies any dyspnea, lightheadedness, chest pain, pressure or tightness, shortness of breath, despite blood pressure of 83/47. Currently on dialysis lying supine. Afebrile. No complaints of chills. No dysuria, urgency or frequency. Wondering if the bag can be removed. OBJECTIVE: PHYSICAL EXAMINATION: VITALS; Temperature 97.9, pulse 68, respiratory rate 23, blood pressure 83/47, 96% on room air. Generally, awake, alert, and oriented times three, answering questions appropriately. No use of respiratory accessory muscles. The patient has no jugular venous distention (JVD). Lungs are clear to auscultation. No wheezing, rales or rhonchi. Heart: S1, S2. Sinus rhythm. Abdomen: Soft. Nontender. Nondistended. Positive bowel sounds. No hepatosplenomegaly. No abdominal bruit. Extremities: No cyanosis, clubbing or pitting edema. LABORATORY DATA: White count 10.3, hemoglobin 9.8, hematocrit 29.9, platelet count 307. Sodium 137, potassium 5.1, chloride 101, bicarbonate 21, BUN 90, creatinine 0.35, glucose 80. E. Coli in the urine. ASSESSMENT AND PLAN: This is a 69-year-old female with history of left upper lobe adenocarcinoma in 2012, stage III A disease, with lobectomy, pulmonary artery resection and reconstruction, and status post adjuvant radiation and chemotherapy, lost to followup, former smoker, with emphysema, chronic obstructive pulmonary disease, and renal stones who presented 01/21/2020 with sudden onset of dyspnea found to have acute hypoxic respiratory failure with flash pulmonary edema, urgently intubated, found to have acute kidney injury secondary to renal artery stenosis. IMPRESSION: 1. Acute renal failure on chronic kidney disease. Requiring hemodialysis which is new secondary to renal artery stenosis, left sided pyelonephritis with obstructive uropathy. Renal ultrasound showed mild hydronephrosis, kidney stone in the left renal pelvis, bilateral atrophic kidney and right renal artery stenosis with function 7.3% on left and 24.7% on the right. The patient had no improvement and remains dialysis dependent. PermaCath placement by interventional radiology (IR) as well as renal artery stenting planned by interventional radiology. Urology consulted, Dr. Otto, status post cystoscopy, left ureteral stent placement, left retrograde pyelogram with intraoperative interpretation of images on 01/26/2020. 2. Flash pulmonary edema due to hypertensive emergency due to renal artery stenosis, resolved with dialysis. Patient has clear lungs currently. 3. Hypertensive emergency. On Coreg, hydralazine, isosorbide. Managed by cardiology. Because of renal failure, not on ARB or HERMINIA inhibitor or ARNI candidate. 4. Cardiomyopathy of unknown etiology. Hemodynamically stable currently. Holding parameters have been placed on her blood pressure medications. Patient will need angiogram at some point in the future to evaluate her coronary arteries. 5. Acute hypoxic hypercarbic respiratory failure due to flash pulmonary edema. Emergently intubated on admission. Currently stable on supplemental oxygen. Due to renal artery stenosis with low ejection fraction (EF) and acute congestive heart failure (CHF). 6. Congestive heart failure, systolic dysfunction, unknown etiology. Ejection fraction 25%. Outpatient followup for angiogram. Managed by cardiology. Appreciate Dr. Jimenez and Dr. Payne's input and management. 7. Type 2 acute myocardial infarction due to mediated ischemia from hypoxia and congestive heart failure with systolic dysfunction, low EF 25%, as well as slight elevation due to renal failure. Peak troponin was 8. Cardiac cath as outpatient. 8. Advanced COPD with emphysema and moderate pulmonary hypertension, currently on DuoNeb, not having any acute exacerbation. 9. Left intrarenal nephrolithiasis with stone measuring 1.9 cm, status post cystoscopy and ureteral stent placement on 01/26/2020. DISPOSITION:pending further cardiology and nephrology recommendations. SATURNINO
--- NOTE | 2020-01-29 13:16 | IPN ---
DATE OF SERVICE: 01/28/2020 SUBJECTIVE: Nevaeh was seen and examined this morning in the hemodialysis unit receiving her maintenance treatment. Yesterday, her temporary dialysis catheter was removed and a Perma-Cath was placed, which is in good use. Additionally, since her ureteral stent was placed her urine output does seem to be improving and she had minimal fluid removed with hemodialysis today. She denies any shortness of breath, nausea, vomiting, or diarrhea. She requests that the Shukla catheter be removed. Temperature 97.9, pulse 79, respiratory rate 16, blood pressure 134/70, saturating 98% on room air. Intake yesterday was 1125. Urine output was 800 mL. Net positive 300 mL. Weight in the bed scale today is not recorded. General: The patient is seen in the hemodialysis unit awake, alert, oriented, comfortable, in no apparent distress, receiving her maintenance treatment. Extraocular muscles are intact. Tongue is moist. Neck is supple. Jugular veins are not elevated. Lungs are clear to auscultation bilaterally. She is comfortable on room air. Heart sounds are regular, S1, S2. There is no edema in the extremities. There is a PermaCath in the right chest wall. Abdomen is soft and nontender. Extremities are negative for clubbing, cyanosis, or edema. Neurologic: Oriented times three, interactive and conversational. LABS: White count 10.3, hemoglobin 9.8, platelets 307. Sodium 137, potassium 5.1, bicarbonate 21, BUN 90, creatinine 8.3. INPATIENT MEDICATIONS: No medication changes are noted in the past 24 hours. PROBLEMS: 1. Acute renal failure. Patient has now converted from oliguric renal failure to nonoliguric renal failure. Since she had the left ureteral stent placed, her urine output has picked up. She made 800 mL in the past 24 hours. She was dialyzed today mostly for clearance with minimal fluid removal. She continues to have rise in interdialytic creatinine and as of yet remains hemodialysis dependent. We will continue to assess daily for ongoing signs of recovering renal function. Her newly placed PermaCath is in good use. 2. Left-sided complicated pyelonephritis with calculus and moderate hydronephrosis. She is receiving meropenem for Escherichia (E) coli pyelonephritis. White count has come down. She is afebrile. She is status post left ureteral stent placement with improving urine output and will need to followup with urology as an outpatient for subsequent lithotripsy and stone extraction. Her Shukla catheter can be discontinued. 3. Hypertension with unilateral renal artery stenosis. Blood pressures are adequately controlled and at present, I would hold off on angiogram and stenting in the hopes that her renal function will continue to recover. Continue hydralazine, Imdur, and Carvedilol. 4. Systolic congestive heart failure. Ejection fraction 25%. Fluid status is well optimized. Urine output is improving. Today, she had minimal fluid removed with dialysis and was dialyzed mainly for clearance.
--- NOTE | 2020-01-29 13:24 | REP ---
IR Permcath placement. IR ultrasound of the right neck. IR Permcath insertion under fluoroscopy and ultrasound guidance. IR moderate sedation. Clinical information: Renal failure. Needs residential dialysis. Physician: Dr. Licea. Procedure: The patient was advised of the benefits, risks and alternatives of the procedure and informed consent was obtained. The time-out was performed with verification of the patient's name, MRN, site of procedure and type of procedure to be performed. The patient was positioned in the supine position on the angiographic table. The site was prepped and draped in the usual sterile fashion. Moderate sedation was performed by the physician including the presence of an independent trained observer that assisted in monitoring the patient's level of consciousness and physiologic status. Following the administration of fentanyl and Versed , the physician spent 45 minutes of continuous face to face time with the patient. Ultrasound of the right neck reveals a patent and compressible right internal jugular vein. There is a temporary dialysis catheter in place. A government teacher radiograph reveals right-sided temporary dialysis catheter. The neck and anterior chest wall were anesthetized with lidocaine. The right internal jugular vein was accessed under ultrasound guidance, using a micro introducer needle, via a lateral approach. An 018 cope wire was advanced into the inferior vena cava. The right IJ temporary dialysis catheter was removed, pressure held and hemostasis achieved. Incision at the new internal jugular access site and anterior chest wall were made using a scalpel. The needle was removed and the tract was serially dilated under fluoroscopy guidance. A peel away sheath was advanced over the wire under fluoroscopy guidance into the Superior vena cava. The catheter was inserted through the subcutaneous tissues of the chest wall with a tunneling device. The catheter was then advanced through the peel-away sheath under fluoroscopy guidance to the right atrium. The peel-away sheath was removed. The catheter was positioned with the tip in the right atrium. The puncture site was closed. The catheter was secured in place using 2-0 Prolene. Both sites were cleansed and sterile dressings applied. At the conclusion of the procedure, the ports of the catheter aspirate and flush freely. The catheter was locked with high-dose heparin. The patient tolerated the procedure well and was returned to the PRU in stable condition. EBL: < 5 ml. Complications: None. Conclusion: 1. Successful placement of right sided Palindrome Permcath for dialysis. The catheter is ready for immediate use. 2. Successful removal of temporary dialysis catheter. Thank you this referral. Electronically Signed by Mercedes Licea MD 01/29/2020 01:23 P
[2020-01-29 14:00] VITALS: BP 119/49
--- NOTE | 2020-01-29 16:52 | IPN ---
DATE: 01/29/2020 Patient denies chest pain, pressure, or tightness, shortness of breath. Anxious to go home. "I feel really good today." Patient had dialysis yesterday. There was 500 mL removed. Blood pressure medications have holding parameters due to blood pressure of 83/47 yesterday but was asymptomatic. Per cardiology, patient is to be kept for 1-2 more days for titration of medications. At this time, she remains dialysis dependent. Dialysis has been arranged for Monday, Monday, Monday and according to social work may be discharged home on Monday. Creatinine remains at 4.94. Patient's urine output overnight was 850 and since midnight was 750 mL. VITAL SIGNS: Temperature 97.9, pulse 80, respiratory rate 17, blood pressure 135/67, 94% on room air. Intake and output: 1125 input, output 1350, -225 balance, 850 urine output. Dialysis was 500 mL. Two voids and two bowel movements. Since midnight patient has had 750 mL output. GENERAL: Patient is awake, alert, oriented times three. No jugular venous distention (JVD). No thyromegaly. No cervical lymphadenopathy. LUNGS: Diminished but clear to auscultation. No wheezes, rales, or rhonchi. HEART: S1, S2, sinus rhythm. ABDOMEN: Soft, nontender, nondistended. Positive bowel sounds. EXTREMITIES: No pitting edema. SKIN: Temporary dialysis catheter, right internal jugular. LABORATORY DATA: White count 9.7, hemoglobin 9, hematocrit 27, platelet count 263. Sodium 136, potassium 4.2, chloride 100, bicarbonate 26, BUN 39, creatinine 4.94, glucose 82. ASSESSMENT AND PLAN: This is a 69-year-old female with medical noncompliance, history of chronic obstructive pulmonary disease (COPD), emphysema, former smoker, left upper lobe adenocarcinoma with lung cancer in 2012, renal stones. Had lobectomy, pulmonary resection, and reconstruction. Received radiation and chemotherapy. Was lost to followup until January 20, when she had sudden onset of dyspnea. Patient was admitted for acute hypoxic respiratory failure and flash pulmonary edema with hypertensive emergency. Subsequently intubated in the emergency room (ER). Was noted to have acute kidney injury and was found to have renal artery stenosis and an obstructive stone. Echo showed ejection fraction (EF) of 25% with moderate pulmonary hypertension. She had worsened to the point where fluid status was managed by hemodialysis, which is new. IMPRESSION: 1. Cardiomyopathy of undetermined etiology, ejection fraction of 25%. Due to renal failure requiring hemodialysis, patient is unable to receive an angiotensin receptor timmy (ARB) or angiotensin-converting enzyme (HERMINIA) inhibitor. Blood pressure managed by cardiology. Still on isosorbide, carvedilol, and hydralazine, aspirin 81 daily, and atorvastatin 40 at bedtime. 2. Dialysis catheter placement on 01/27/2020 for new-onset acute renal failure requiring hemodialysis, new onset. Patient was anuric, requiring dialysis for fluid management. Presumed to be due to left-sided pyelonephritis with obstruction and renal artery stenosis. Renal ultrasound showed bilateral atrophic kidneys and kidney stone in left renal pelvis, causing mild hydronephrosis. Nuclear medicine kidney flow study showed a right renal artery stenosis. No improvement in renal function and remains hemodialysis dependent. Social work has been consulted for outpatient dialysis needs, which will be available on Monday. 3. Acute hypoxic hypercarbic respiratory failure secondary to flash pulmonary edema and heart failure. Systolic dysfunction due to right renal artery stenosis has resolved. 4. Left-sided complicated pyelonephritis with left stone. Urine culture grew out Escherichia (E) coli. Currently afebrile. Normal white count, on meropenem. 5. Hypertensive emergency, resolved, due to renovascular hypertension. Currently managed by cardiology. 6. Acute systolic congestive heart failure, resolved. EF of 25%. Unknown etiology. Cardiology to followup as outpatient. 7. Type 2 acute myocardial infarction (VA) due to demand-mediated ischemia from acute hypoxia and congestive heart failure (CHF). Defer to cardiology regarding timing of coronary angiogram. 8. Chronic obstructive pulmonary disease (COPD) with emphysema. History of moderate pulmonary hypertension and lung cancer (CA) status post lobectomy. Currently on DuoNeb. Status post extubation. Stable and currently at baseline. 9. Left-sided nephrolithiasis. Urology had been consulted. Currently on IV meropenem for Escherichia (E) coli in the urine with complicated pyelonephritis.
[2020-01-29] MEDS: PANTOPRAZOLE 40MG VIAL (C9113 PER 1) IV SCH (20:03)
[2020-01-29] MEDS: ATORVASTATIN 20 MG TAB PO SCH (20:03)
[2020-01-29 22:00] VITALS: BP 160/70
[2020-01-30 06:00] VITALS: BP 153/70
[2020-01-30 06:40] LABS: BASO # 0.1 10^3/uL (0.0-0.2); BASO % 0.5 % (0.0-1.0); EOS # 0.2 10^3/uL (0.0-0.5); HEMATOCRIT 27.7 % (36.0-47.0); HEMOGLOBIN 9.1 g/dl (12.0-15.5); LYMPH # 1.6 10^3/uL (1.5-5.0); LYMPH % 14.2 % (24.0-44.0); MEAN CORPUSCULAR HEMOGLOBIN 29.3 pg (27.0-33.0); MEAN CORPUSCULAR HGB CONC 32.9 g/dl (32.0-36.5); MEAN CORPUSCULAR VOLUME 89.1 fl (80.0-96.0); MONO # 1.3 10^3/uL (0.0-0.8); MONO % 11.9 % (0.0-5.0); NEUTROPHILS # 7.5 10^3/uL (1.5-8.5); NEUTROPHILS % 68.2 % (36.0-66.0); PLATELET COUNT, AUTOMATED 292 10^3/uL (150-450); RED BLOOD COUNT 3.11 10^6/uL (4.00-5.40)
[2020-01-30] MEDS: CALCIUM ACETATE 667MG GELCAP PO SCH ×3 (06:45→16:58)
[2020-01-30] MEDS: ASPIRIN 81 MG ENTERIC TAB PO SCH (06:45)
[2020-01-30] MEDS: HEPARIN SOD (PORCINE) 5000UNITS/ML VIAL (J1644 PER 1000UNITS) SC SCH ×3 (06:47→21:50)
[2020-01-30] MEDS: ISOSORBIDE MONONITRATE 10MG TABLET PO SCH ×2 (06:47→16:58)
[2020-01-30 07:01] LABS: CALCIUM LEVEL 8.2 MG/DL (8.8-10.2); CREATININE FOR GFR 5.99 MG/DL (0.55-1.30); GLOMERULAR FILTRATION RATE 7.4 (>45); POTASSIUM SERUM 4.4 MEQ/L (3.5-5.1)
--- NOTE | 2020-01-30 07:18 | IPN ---
DATE OF SERVICE: 01/29/2020 SUBJECTIVE: The patient was seen and examined at the bedside today morning. She is afebrile, hemodynamically stable. Her urine output is improving. She was dialyzed yesterday. She tolerated the hemodialysis procedure well. She denies any active complaints at this time. OBJECTIVE: Vital Signs: Temperature is 98.7 degrees Fahreneheit, blood pressure 136/64, pulse is 83, respiratory of 17, saturating 96% on room air. Intake and Output: Urine output recorded as 1 liter since overnight. Ultrafiltration hemodialysis was 500 mL. Weight in the bed scale is not available. PHYSICAL EXAMINATION: General: The patient is awake, alert, oriented x3, sitting up in the sofa, in no apparent distress. Head and Neck Exam: Extraocular muscles intact. Pupils equally round and reactive to light. Mucous membranes are moist. Neck is supple. There is no jugular venous distention (JVD). She has a right internal jugular (IJ) tunneled hemodialysis catheter. Cardiovascular: S1, S2. Regular rate. No edema of the bilateral lower extremities. Respiratory: Chest is clear to auscultation bilaterally. Bilateral equal air entry. No rales or rhonchi. Abdomen: Soft. Positive bowel sounds. Nontender. No organomegaly. Genitourinary: Shukla catheter has been removed. Musculoskeletal: No clubbing or cyanosis. Pulses are 2+. MINING CAPTAIN: No focal deficit. Power is 5/5 in all extremities. LAB REVIEW: CBC showed a WBC of 9.7, hemoglobin 9 and platelets are 263. BMP showed sodium 136, potassium 4.2, chloride 100, bicarb 26, BUN 39, creatinine 4.9. CURRENT INPATIENT MEDICATIONS: The patient's medications were all reviewed by myself. She continues to be on IV meropenem, last dose will be on January 29. No other significant change in the medications today as compared with yesterday. ASSESSMENT/PLAN: 1. Acute renal failure. The patient is nonoliguric at this time. She got a left-sided ureteral stent placed recently, urine output is improving. She is still dialysis dependent, last dialysis was done yesterday. Next hemodialysis will be done tomorrow morning and we will keep on following her labs to look for renal recovery 2. Acute left-sided pyelonephritis with left renal pelvic stone. The patient is status post left-sided ureteral stent placement. She is currently on meropenem for E-coli pyelonephritis. The rest of the stone removal will be done as outpatient by urology. 3. Hypertension with hypertensive heart disease. Blood pressure is very well-controlled with current dose of Coreg, hydralazine and isosorbide. 4. Right-sided renal artery stenosis. If needed, the patient will get renal angiogram as outpatient once the renal function improves. 5. Systolic congestive heart failure. Volume status is being optimized with dialysis. She continues to be on Coreg, hydralazine and isosorbide. 6. Secondary hyperparathyroidism. PTH is 219, which is optimal at this time. No need of calcitriol.
[2020-01-30] MEDS: IPRATROPIUM 0.5MG/ALBUTEROL 2.5MG INH SOL UD 3ML (DUONEB)(J7620) NEB SCH ×4 (07:30→19:17)
[2020-01-30] MEDS ORDERED: IRON SUCROSE 100MG 5ML VIAL (J1756 PER 1MG) IV SCH (09:00)
[2020-01-30] MEDS ORDERED: DARBEPOETIN 100 MCG/0.5 ML *DIALYSIS* SYRINGE (J0882) IV SCH (09:00)
[2020-01-30] MEDS ORDERED: CARV12.5 PO (11:41)
[2020-01-30] MEDS ORDERED: CALC1CAP PO (11:41)
[2020-01-30] MEDS ORDERED: HYDR25TA PO (11:41)
[2020-01-30] MEDS ORDERED: ISOS10TAB PO (11:41)
[2020-01-30] MEDS ORDERED: ATOR1TAB21 PO (11:41)
[2020-01-30] MEDS ORDERED: ASPI81TAEC PO (11:41)
[2020-01-30] MEDS ORDERED: SELF1KIT MC (11:42)
[2020-01-30] MEDS ORDERED: AUGM875T28 PO (11:49)
[2020-01-30] MEDS ORDERED: BACI1CAP PO (11:50)
[2020-01-30] MEDS: MEROPENEM INJ 500 MG in IV 1 EA IV SCH (12:22)
[2020-01-30] MEDS: CARVedilol 12.5 MG TAB PO SCH ×2 (12:23→20:40)
[2020-01-30] MEDS: **hydrALAZINE HCL** 25 MG TAB PO SCH ×3 (12:23→20:39)
[2020-01-30] MEDS ORDERED: ATOR40TA75 PO (12:41)
[2020-01-30 14:00] VITALS: BP 123/56
--- NOTE | 2020-01-30 19:24 | IPN ---
DATE: 01/30/2020 The patient has no new complaints. Denies fever, chills, flank pain, dysuria, urgency, frequency. Anxious to go home. Dialysis chair has been finalized. Patient will have outpatient dialysis Monday, Monday, Monday. She is concerned about not having transportation as her boyfriend works in the evening, and she will be unable to be dropped off and picked up when she gets outpatient dialysis. knockdown worker has been asked to assist in this matter. She currently denies any nausea, vomiting, abdominal pain. No shortness of breath, chest pain, pressure, tightness or cough. Temperature 99.2, pulse 87, respiratory rate 17, blood pressure is 153/70, 93% on room air. Generally, patient is awake, alert, oriented to person, place and time. Anicteric sclerae. No jaundice. No jugular venous distention (JVD) or thyromegaly. Patient has poor dentition with missing teeth, dental caries. No cervical lymphadenopathy or thyromegaly. Lungs are clear to auscultation. No wheezing, rales or rhonchi. Heart: S1, S2, sinus rhythm. Abdomen is soft, nontender, nondistended. Extremities: No cyanosis or clubbing. Skin: Right internal jugular tunneled hemodialysis catheter. No erythema, tenderness. LABORATORY DATA: White count 11, hemoglobin 9.1, hematocrit 27, platelet count 292. Sodium 133, potassium 4.4, chloride 98, bicarbonate 23, BUN 54, creatinine 5.99. Input 1220, output 1220 overnight. Current weight is 54.5 kg, admission weight of 56.7 kg. Microbiology: Urine culture - Escherichia (E) coli resistant to Levaquin, resistant to Bactrim, sensitive to ampicillin, ampicillin/sulbactam, cefazolin, nitrofurantoin, gentamicin. ASSESSMENT AND PLAN: This is a 69-year-old female with a history of left upper lobe adenocarcinoma 2012, status post radiation and chemotherapy, lobectomy with reconstruction, chronic obstructive pulmonary disease (COPD), emphysema, former smoker, medical noncompliance and was lost to followup, presented with sudden onset of dyspnea, admitted for acute hypoxic respiratory failure and flash pulmonary edema with hypertensive emergency. Patient's pulse was 130-135 beats per minute, emergency intubated and admitted to the intensive care unit (ICU), at which point she was found to have troponin leak due to demand-mediated ischemia and type 2 non-ST elevation myocardial infarction. Echocardiogram performed on 01/22/2020, read by Dr. Corona Amaya, showed ejection fraction of 25% with mild to moderate valvular heart disease, moderate pulmonary hypertension. Renal scan shows renal artery stenosis with underlying right renal atrophy with renal function of 75.3% on the left, 24.[address] abdomen and pelvis showed a calculus in the left renal pelvis with mild to moderate left hydronephrosis and cystic structure left upper and lower poles of the left kidney with small bilateral pleural effusions with associated atelectasis/infiltrate and gallstone in the gallbladder, which was mild to moderately distended with no definite gallbladder wall thickening. Patient was seen by both cardiology, pulmonary and nephrology during this admission. She required hemodialysis and was not a candidate for Entresto. Patient continued to have hemodialysis with resolution of her fluid overload and congestive heart failure, and was successfully extubated without difficulty on 01/25/[address] Enciso and was transferred to progressive care unit (PCU). Urology was consulted on 01/26/2020 as her acute kidney injury had not improved, notably with atrophy in the right kidney, most likely due to renal artery stenosis. Urology was consulted for obstructive left kidney with acute kidney injury and possible left-sided pyelonephritis. Urine culture grew out Escherichia coli and on 01/23/2020, she was started on intravenous meropenem. For her blood pressure, she was continued on Coreg 12.5 mg twice a day and isosorbide mononitrate 10 mg twice a day with hydralazine 25 mg three times a day. Remained stable with episodes of hypotension, holding parameters had been placed. She continued dialysis and had episode of hypernatremia, potassium of 5.5 on 01/26/2020. Patient underwent cystoscopy with left ureteral stent placement and left retrograde pyelogram with intraoperative interpretation of images on 01/26/2020 on the left kidney without significant improvement in patient's renal function. ACTIVE ISSUES: 1. Non-oliguric acute renal failure with right-sided renal artery stenosis, left ureteral stent placed by urology for left hydronephrosis but no significant improvement in patient's creatinine, but currently urinating more than a liter daily. Dialysis has been set up for Monday, Monday, Monday, but the patient is concerned that she will not be able to have transportation to and from as her boyfriend works in the evening. PFS has been consulted to assist in this matter. Patient has not had any episodes of hyperkalemia, currently comfortable with clear lungs. 2. Acute left-sided pyelonephritis with left renal pelvic stone and status post ureteral stent by urology, Dr. Otto. Patient has received meropenem, 7th day will be on 01/31/2020. We will continue for a 10-day course with outpatient Augmentin once she is released from the hospital. White count is slightly increased to 11,000 today. If she becomes febrile, may need to consider extending to 14 days total, to continue as an outpatient. 3. Hypertensive heart disease with hypertensive emergency and fluid overload with heart failure, currently on Coreg, hydralazine, isosorbide, unable to give angiotensin-converting enzyme (HERMINIA) inhibitor due to renal failure, right-sided renal artery stenosis. Renal angiogram as outpatient with Vinayak once renal function improves. At this time, she is requiring hemodialysis. 4. Systolic congestive heart failure. Appears to be euvolemic, which is optimized by dialysis. She is currently managed by cardiology who will decide when to evaluate her for ischemic cardiomyopathy. 5. Secondary hyperparathyroidism. Managed by nephrology. 6. History of adenocarcinoma of the lung, status post chemo, resection with lobectomy and radiation. Outpatient followup with her oncologist. 7. Type 2 acute MS due to demand-mediated ischemia from acute hypoxia and congestive heart failure (CHF).Patient is currently on aspirin, Coreg. Unable to give HERMINIA inhibitor due to renal dysfunction requiring dialysis for fluid management. DISPOSITION: Discharge home in the morning. PFS to assist in dialysis needs. [facility]
[2020-01-30] MEDS: PANTOPRAZOLE 40MG VIAL (C9113 PER 1) IV SCH (20:39)
[2020-01-30] MEDS: ATORVASTATIN 20 MG TAB PO SCH (20:40)
[2020-01-30] MEDS ORDERED: ACETAMINOPHEN TAB 650MG DOSE (2X325MG) PO PRN (21:30)
[2020-01-30 22:00] VITALS: BP 135/63
--- NOTE | 2020-01-31 04:51 | IPN ---
DATE: 01/30/2020 SUBJECTIVE: Patient was seen and examined at the bedside today morning. She is afebrile, hemodynamically stable. She is tolerating the hemodialysis procedure. She denies any active complaints. Her urine output is also improving now. OBJECTIVE: Vital signs: Temperature is 99.7 degrees Fahrenheit, blood pressure 123/56, pulse is 85, respiratory rate of 18, saturating 99% on room air. Intake and output: Urine output recorded is 1200 mL yesterday, 800 mL so far today since overnight. Weight on the bed scale is 54.5 kg. PHYSICAL EXAMINATION: General: Patient is awake, alert, oriented times three, laying in bed, in no apparent distress. Head and neck exam: Extraocular muscles are intact. Pupils equally round and reactive to light. Mucous membranes are moist. Neck is supple. She has a right internal jugular (IJ) tunneled hemodialysis catheter being used for dialysis. Cardiovascular: S1, S2, regular rate. No edema of the bilateral lower extremities. Respiratory: Chest is clear to auscultation bilaterally. Bilateral equal air entry. No rales. No rhonchi. Abdomen: Is soft. Positive bowel sounds. Nontender. No organomegaly. Genitourinary: There is no Shukla catheter noted. Musculoskeletal: No clubbing or cyanosis. Pulses are 2+. Central nervous system (BULLET ASSEMBLY PRESS SETTER OPERATOR): No focal deficit. Power is 5/5 in all extremities. LAB REVIEW: CBC showed a WBC of 11, hemoglobin 9.1, platelets are 292. BMP showed sodium 133, potassium 4.4, chloride 98, bicarbonate 23, BUN 54, creatinine is 5.9. CURRENT INPATIENT MEDICATIONS: Patient's medications were all reviewed by myself. Meropenem is going to end today. I have started the patient on Aranesp 100 mcg intravenous (IV) with hemodialysis and Venofer 100 mg IV with dialysis. No other change in the medications today. ASSESSMENT AND PLAN: 1. Acute renal failure. Patient is dialysis dependent. She is being dialyzed today. Ultrafiltration goal is 1 liter. Patient's urine output is improving. I am hopeful that patient's renal function will improve over the next few weeks. 2. Acute left-sided pyelonephritis with left renal pelvic stone. Patient is status post stent placement in the left ureter. 7 days of antibiotic is finishing today. She will need to followup with urology as outpatient. 3. Hypertension with hypertensive heart disease. Continue current dose of Coreg, hydralazine, and isosorbide. 4. Systolic congestive heart failure. Volume status is optimized. She is making urine, and blood pressure is controlled with Coreg, hydralazine, and isosorbide. 5. Anemia on renal failure. Patient has been started on Aranesp and Venofer with dialysis.
[2020-01-31 06:00] VITALS: BP 130/61
[2020-01-31] MEDS: ISOSORBIDE MONONITRATE 10MG TABLET PO SCH (06:24)
[2020-01-31] MEDS: HEPARIN SOD (PORCINE) 5000UNITS/ML VIAL (J1644 PER 1000UNITS) SC SCH (06:24)
[2020-01-31 07:17] LABS: BASO # 0.1 10^3/uL (0.0-0.2); BASO % 0.6 % (0.0-1.0); EOS # 0.2 10^3/uL (0.0-0.5); EOS % 2.2 % (0.0-3.0); HEMOGLOBIN 9.3 g/dl (12.0-15.5); LYMPH # 1.6 10^3/uL (1.5-5.0); LYMPH % 15.5 % (24.0-44.0); MEAN CORPUSCULAR HEMOGLOBIN 30.2 pg (27.0-33.0); MEAN CORPUSCULAR HGB CONC 33.2 g/dl (32.0-36.5); MEAN CORPUSCULAR VOLUME 90.9 fl (80.0-96.0); MONO # 1.2 10^3/uL (0.0-0.8); MONO % 12.2 % (0.0-5.0); NEUTROPHILS # 6.6 10^3/uL (1.5-8.5); NEUTROPHILS % 66.5 % (36.0-66.0); PLATELET COUNT, AUTOMATED 282 10^3/uL (150-450); RED BLOOD COUNT 3.08 10^6/uL (4.00-5.40)
[2020-01-31 07:42] LABS: CALCIUM LEVEL 8.6 MG/DL (8.8-10.2); CREATININE FOR GFR 4.48 MG/DL (0.55-1.30); GLOMERULAR FILTRATION RATE 10.4 (>45); POTASSIUM SERUM 4.7 MEQ/L (3.5-5.1)
[2020-01-31] MEDS: IPRATROPIUM 0.5MG/ALBUTEROL 2.5MG INH SOL UD 3ML (DUONEB)(J7620) NEB SCH (07:50)
[2020-01-31] MEDS: CALCIUM ACETATE 667MG GELCAP PO SCH (07:53)
[2020-01-31] MEDS: ASPIRIN 81 MG ENTERIC TAB PO SCH (07:53)
[2020-01-31 07:56] VITALS: BP 109/49
[2020-01-31] MEDS: **hydrALAZINE HCL** 25 MG TAB PO SCH (07:56)
[2020-01-31] MEDS: CARVedilol 12.5 MG TAB PO SCH (07:56)
--- NOTE | 2020-02-02 16:12 | DSES ---
DATE OF ADMISSION: 01/21/2020 DATE OF DISCHARGE: 01/31/2020 CONSULTANTS DURING THIS ADMISSION: Dr. Ryan, terminal make up operator, Dr. Catherine Antony DO, urologist, Dr. Nathaniel Otto, interventional radiologist, Dr. Mercedes Licea, addiction counselor, Dr. Terrence Payne, Dr. Jason Jimenez, Dr. Bryan Fisher, diamond polisher PRIMARY DISCHARGE DIAGNOSES: 1. Acute systolic congestive heart failure with moderately severe systolic function, ejection fraction 25%. 2. Moderate pulmonary hypertension. 3. Acute anuric renal failure require hemodialysis. 4. Acute hypoxic and hypercapnic respiratory failure requiring intubation and mechanical ventilation. 5. Demand mediated type 2 non-ST segment elevation myocardial infarction secondary to flash pulmonary edema. 6. Left-sided intrarenal calculus with moderate hydronephrosis. PROCEDURES DURING THIS ADMISSION: 1. Intubation with mechanical ventilation 01/26/2020, cystoscopy with left stent with pyelogram 01/27/2020, right-sided PermCath placement for dialysis, vascular catheter removed. 2. Dialysis catheter placement 01/27/2020 HOSPITAL COURSE: This is a 69-year-old female with history of left upper lobe adenocarcinoma in 2012, status post radiation chemotherapy, lobectomy with reconstruction, chronic obstructive pulmonary disease (COPD), emphysema, former smoker was lost to followup due to medical noncompliance, presented to the emergency room with acute hypoxic and hypercapnic respiratory failure, flash pulmonary edema with hypertensive emergency and acute systolic heart failure. The patient's pulse was 130 to 135 per minute. She was emergently intubated and admitted to the intensive care unit (ICU), managed by Dr. Bryan Fisher, pulmonary animal control specialist, for mechanical ventilation, was found to have a troponin leak due to demand mediated ischemia and type 2 non-ST segment elevation myocardial infarction. Echocardiogram performed on 01/22/[address] Corona Amaya, showed ejection fraction 25% with mild to moderate valvular heart disease, moderate pulmonary hypertension. The patient had acute auric renal failure for which terminal make up operator, Dr. Catherine Antony and Dr. yRan had been consulted. Renal scan showed renal artery stenosis with underlying right renal atrophy with renal function of 75.3% on the left and 24.7% on the right. CT abdomen and pelvis showed a calculus in the left renal pelvis with mild to moderate left hydronephrosis in cystic structure of left upper and lower poles in the left kidney with small bilateral pleural effusions, associated atelectasis, infiltrating gallstone in the gallbladder, which was mild to moderately distended with no definite gallbladder wall thickening. Urology was consulted for obstructive left kidney with acute kidney injury and possible left-sided pyelonephritis and the patient underwent a stent placement. Urine culture grew out Escherichia coli on 01/23/2020 and she was started on intravenous meropenem. Due to oliguric acute renal failure, the patient had a vascular dialysis catheter placed for emergent dialysis needs. Her blood pressure was managed with Coreg 12.5 mg twice a day, isosorbide 10 mg twice a day and hydralazine 25 mg three times a day. Despite stent placement in the left ureter, the patient's creatinine did not significantly improve and she was maintained on hemodialysis with signs of returning renal function and urine output of about a liter over the next few days. The patient was successfully extubated without difficulty on 01/25/[address] Enciso. The patient's addiction counselor managed her blood pressure. Fluid balance was managed by the terminal make up operator. She was continued on full supportive care until hospital discharge on 01/31/2020. She is to have dialysis Monday, Monday, Monday, which has arranged by [facility] as outpatient and continue Augmentin for her left-sided pyelonephritis, complicated by left renal pelvis stone, status post ureteral stent by urology. HERMINIA inhibitor and ARB could not be given for her systolic heart failure due to renal failure requiring hemodialysis. DISCHARGE INSTRUCTIONS: 1. The patient will need to be evaluated for ischemic cardiomyopathy in light of acute onset of systolic heart failure. Defer this to her addiction counselor, Dr. Terrence Payne as outpatient. 2. Renal artery stenosis. Dr. Mercedes Licea and Dr. Ryan will coordinate depending on the patient's renal function when a stent can be placed into the renal artery. 3. Hypertensive emergency requiring secondary to renal artery stenosis. She is currently on three different medications, hydralazine, Coreg and isosorbide. HERMINIA inhibitor could not be given due to renal artery stenosis. The patient does not want home care referral. She says that she will be going to dialysis three times weekly and will be monitored for blood pressure there. PHYSICAL EXAMINATION ON DISCHARGE: Temperature 97.9, pulse 85, respiratory rate 18, blood pressure 109/49, 96% on room air. GENERAL: The patient is awake, alert, and oriented times 3, answers questions appropriately in no respiratory distress. No cyanosis. No jugular venous distension (JVD). Right internal jugular tunnel hemodialysis catheter appears clean and dry without erythema or tenderness. Heart: S1, S2 sinus rhythm. Lungs are clear to auscultation. No wheezing, rales or rhonchi. Air entry is equal bilaterally. No rales. Inspiratory and expiratory ratio is 1:3. No conversational dyspnea. No tracheal deviation. No cyanosis. Abdomen: Soft, nontender, nondistended. Positive bowel sounds in all four quadrants. Extremities: No cyanosis, clubbing. LABORATORY DATA: On discharge, white count 10, hemoglobin 9.3, hematocrit 28, platelet count 282. Sodium 139, potassium 4.7, chloride 103, bicarbonate 27, BUN 28, creatinine 4.48, glucose of 87. MICROBIOLOGY: 01/21/2020, Escherichia coli resistance to Levaquin and Bactrim, sensitive to ampicillin, ampicillin sulbactam, aztreonam, cephazolin, cefepime, ceftazidime and ceftriaxone, ertapenem, gentamicin, meropenem, nitrofurantoin, Zosyn, tigecycline and tobramycin. TIME SPENT ON DISCHARGE: 30 minutes.
== END 2020-01-31 08:30 | disposition home or self-care (01) | DRG 130 ==
LOC: M ED 17:21 → EDBD 17:21 → M ED INP 19:03 → ENRESERV 19:17 → M ICU 19:55 → M MSPAV 01-26 11:41
PROVIDERS: ADMIT Internal Medicine Pulmonary Disease; ATTEND General Practice
PROC: 02HV33Z Insertion of Infusion Device into Superior Vena Cava, Percutaneous Approach (ICD-10-PCS; 2020-01-23)
PROC: 0JH63XZ Insertion of Tunneled Vascular Access Device into Chest Subcutaneous Tissue and Fascia, Percutaneous Approach (ICD-10-PCS; 2020-01-23)
PROC: 5A1955Z Respiratory Ventilation, Greater than 96 Consecutive Hours (ICD-10-PCS; 2020-01-25)
PROC: 0T778DZ Dilation of Left Ureter with Intraluminal Device, Via Natural or Artificial Opening Endoscopic (ICD-10-PCS; principal; 2020-01-26 11:45)
DX: J96.02 Acute respiratory failure with hypercapnia (principal); I21.A1 Myocardial infarction type 2; J81.0 Acute pulmonary edema; I50.23 Acute on chronic systolic (congestive) heart failure; N17.9 Acute kidney failure, unspecified; E87.4 Mixed disorder of acid-base balance; I70.1 Atherosclerosis of renal artery; I11.0 Hypertensive heart disease with heart failure; I27.20 Pulmonary hypertension, unspecified; E87.5 Hyperkalemia; N10 Acute pyelonephritis; J44.9 Chronic obstructive pulmonary disease, unspecified; I15.0 Renovascular hypertension; N18.3 Chronic kidney disease, stage 3 (moderate); I16.1 Hypertensive emergency; N13.2 Hydronephrosis with renal and ureteral calculous obstruction; Z87.891 Personal history of nicotine dependence; Z85.118 Personal history of other malignant neoplasm of bronchus and lung; Z91.19 Patient's noncompliance with other medical treatment and regimen; B96.29 Other Escherichia coli [E. coli] as the cause of diseases classified elsewhere; J96.01 Acute respiratory failure with hypoxia

== ENCOUNTER → 2020-02-11 | Outpatient (POV) | payer BC ==
[~2020-02-11] MED LIST changes: +ASPI81TAEC PO; +ATOR1TAB21 PO; +ATOR40TA75 PO; +AUGM875T28 PO; +BACI1CAP PO; +CALC1CAP PO; +CARV12.5 PO; +HYDR25TA PO; +ISOS10TAB PO; +SELF1KIT MC
--- NOTE | 2020-02-12 10:45 | IRCOV ---
[facility] IR Consult Office Visit IR Consult Office Visit DATE: February 11, 2020 Consent was given by the patient for this telephone call. Length of call was 20 minutes. REASON FOR CONSULTATION/CHIEF COMPLAINT: renal artery stenosis HISTORY OF PRESENT ILLNESS: 69 year old female recently admitted to the hospital acutely short of breath. She was diagnosed with and treated for acute respiratory failure, flash pulmonary edema, acute renal failure and possible NSTEMI. Her blood pressure was fluctuating between 150 to 210 systolic. Since discharge her breathing is improved and mentation is improved. However, her blood pressure remains around 154/80 despite compliance with therapy. She denies chest pain, shortness of breath, headache or vision changes. She is currently receiving hemodialysis and now making urine. She is hopeful she may get off dialysis. Denies leg swelling, orthopnea or PND. She is on hydralazine, ISMN and coreg for HTN. ALLERGIES: Please see below. HOME MEDICATIONS: Please see below. PAST MEDICAL HISTORY: lung cancer COPD left kidney stone HTN [place] RF PAST SURGICAL HISTORY: right permcath left lung lobectomy FAMILY HISTORY: non contributory SOCIAL HISTORY: smoker, quit within past month. denies alcohol or drugs REVIEW OF SYSTEMS: Otherwise negative PHYSICAL EXAMINATION: no video on patient side LABORATORY DATA: 01/31/20 hgb 9.3 hct 28 wbc 10 plt 282 Na 139 K 4.7 BUN 28 Cr 4.48 GFR 10.4 Imaging: I personally reviewed the CT abdomen without contrast from 01/22/20. Bilateral renal atrophy. Calcification proximal left renal artery. Bilateral renal stones. I personally reviewed the nuclear mag3 scan study performed in january 2020. Both kidneys function left > right. Report suggests right renal artery stenosis. ASSESSMENT/PLAN: 69 female with refractory hypertension and renal failure with recent flash pulmonary edema. I agree patient would benefit from renal angiogram and intervention if appropriate. We will schedule the patient for the procedure. I spent 25 minutes in consultation with the patient. Thank you for this referral. cc Dr. Ryan Allergies Coded Allergies: No Known Allergies (Unverified , 05/27/13) Home Medications Scheduled Amoxicillin/Potassium Clav (Augmentin 875-125 Tablet), 1 TAB PO BID Aspirin (Aspirin EC), 81 MG PO DAILY Atorvastatin Calcium (Atorvastatin Calcium), 40 MG PO DAILY Bacillus Coagulans (Bacid with Lactospore), 1 CAP PO WMHS Calcium Acetate (Calcium Acetate), 667 MG PO WM Carvedilol (Carvedilol), 12.5 MG PO BID Hydralazine HCl (Hydralazine HCl), 25 MG PO TID Isosorbide Mononitrate (Isosorbide Mononitrate), 10 MG PO BID@07,17 Durable Medical Equipment Blood Pressure Test Kit-Large (Self-Taking Blood Pressure), EACH MC BID, (DME) TONYA CHILEL MD February 12, 2020 10:45
== END ==
LOC: M TMIRPOV 14:23
PROVIDERS: ATTEND Radiology Diagnostic Radiology
DX: N20.0 Calculus of kidney (principal); I10 Essential (primary) hypertension; I25.2 Old myocardial infarction; N26.1 Atrophy of kidney (terminal); Z72.0 Tobacco use

== ENCOUNTER 2020-02-24 10:32 | Inpatient (IN) | payer BC, MEDICARE ==
[~2020-02-24] VITALS: Ht 160 cm; Wt 54.0 kg
[2020-02-24] MEDS: CARVedilol 12.5 MG TAB PO SCH ×2 (09:00→20:17)
[2020-02-24] MEDS ORDERED: dexameTHASONE 20MG/5ML VIAL (J1100 PER 1MG) IV ONE (11:00)
[2020-02-24] MEDS: IPRATROPIUM 0.5MG/ALBUTEROL 2.5MG INH SOL UD 3ML (DUONEB)(J7620) NEB PRN ×3 (11:02→11:55)
[2020-02-24 11:26] LABS: BASO # 0.2 10^3/uL (0.0-0.2); BASO % 0.7 % (0.0-1.0); EOS # 0.1 10^3/uL (0.0-0.5); EOS % 0.3 % (0.0-3.0); HEMATOCRIT 31.9 % (36.0-47.0); HEMOGLOBIN 9.9 g/dl (12.0-15.5); LYMPH % 14.5 % (24.0-44.0); MEAN CORPUSCULAR HEMOGLOBIN 29.8 pg (27.0-33.0); MEAN CORPUSCULAR VOLUME 96.1 fl (80.0-96.0); MONO # 1.2 10^3/uL (0.0-0.8); MONO % 5.8 % (0.0-5.0); NEUTROPHILS # 15.8 10^3/uL (1.5-8.5); NEUTROPHILS % 77.6 % (36.0-66.0); PLATELET COUNT, AUTOMATED 290 10^3/uL (150-450); RED BLOOD COUNT 3.32 10^6/uL (4.00-5.40); WHITE BLOOD COUNT 20.3 10^3/uL (4.0-10.0)
[2020-02-24] MEDS ORDERED: FUROSEMIDE 100MG/10ML VIAL (J1940) IV ONE (11:45)
[2020-02-24 11:58] LABS: ALBUMIN 3.5 GM/DL (3.2-5.2); BILIRUBIN,DIRECT 0.2 MG/DL (0.0-0.2); BILIRUBIN,TOTAL 0.6 MG/DL (0.2-1.0); CALCIUM LEVEL 8.8 MG/DL (8.8-10.2); CREATININE FOR GFR 3.25 MG/DL (0.55-1.30); POTASSIUM SERUM 5.6 MEQ/L (3.5-5.1); THYROID STIMULATING HORMONE 1.93 uIU/ML (0.358-3.740); TOTAL PROTEIN 7.4 GM/DL (6.4-8.2)
[2020-02-24] MEDS ORDERED: CALC1CAP PO (12:31)
[2020-02-24] MEDS ORDERED: SENN-52 PO (12:31)
[2020-02-24] MEDS ORDERED: HYDR25TA PO (12:31)
[2020-02-24] MEDS ORDERED: ASPI81TA85 PO (12:31)
[2020-02-24] MEDS ORDERED: ATOR40TA75 PO (12:31)
[2020-02-24] MEDS ORDERED: ISOS1TAB12 PO (12:31)
[2020-02-24] MEDS ORDERED: CARV12.5 PO (12:31)
[2020-02-24] MEDS ORDERED: IPRATROPIUM 0.5MG/ALBUTEROL 2.5MG INH SOL UD 3ML (DUONEB)(J7620) NEB PRN (13:00)
[2020-02-24] MEDS ORDERED: ACETAMINOPHEN TAB 650MG DOSE (2X325MG) PO PRN (13:00)
--- NOTE | 2020-02-24 13:24 | HPEPDOC ---
General Date of Admission 02/24/2020 Date of Service: Feb 24, 2020 Chief Complaint The patient is a 69-year-old female Who presented to the hospital with complaints of shortness of breath History of Present Illness Patient is a 69-year-old female with PMHx of COPD (not oxygen dependent), Systolic CHF (EF: 25%), HTN, DLP, CKD3 (recently progressed to ESRD on HD [MWF]), Hx of Kidney stones, Adenocarcinoma of the Lung (s/p Left upper lobectomy with Dr. Canseco) who was presented to the hospital with complaints of shortness of breath. Patient was recently admitted on 01/20 to 01/30 for shortness of breath, fluid overload, hypertensive emergency and was intubated and placed on mechanical ventilation. General hospitalization, patient was found to have renal artery stenosis (75% function on left and 25% on right) and was advised for outpatient follow up with Dr. Licea. Patient also was found to have CHF (EF: 25%) with NSTEMI Type II, was advised to follow up with Dr. Payne. Patient was also found to have moderate left-sided hydronephrosis and had a stent placed on 01/25. Urine cultures grew Escherichia coli, and she was placed on Meropenem. Patient has been continued with dialysis as scheduled Monday, Monday, Monday. She reported that on Monday she had worsening lower extremity edema that had resolved on Monday.. She had a repeated this to excessive ambulation. On Monday night, patient had difficulty sleeping because of her shortness of breath that progressed into Monday morning. This morning patient reported that her shortness of breath, but her to come to the emergency room for further evaluation. Patient denies any leg swelling at the moment, and denies chest pain, palpitations or productive cough. She does report a dry cough. Patient has not experienced any fevers or chills. However, at that time she had symptoms this morning. She did report excessive sweating. Patient denies any nausea, vomiting, abdominal pain, constipation, diarrhea, or urinary discomfort. Patient does report continuing to make urine. Upon arrival to emergency room, patient was found to be hypoxic and hypercapnic respiratory failure and was placed on BiPAP. Repeat ABG has shown normalization. Nephrology was contacted and she will be going for dialysis today. Hospice service was contacted for evaluation. Home Medications Scheduled Aspirin (Aspir 81) 81 Mg Tablet.dr, 81 MG PO DAILY, (Reported) Atorvastatin Calcium (Atorvastatin Calcium) 40 Mg Tablet, 40 MG PO QHS, (Reported) Calcium Acetate (Calcium Acetate) 667 Mg Capsule, 667 MG PO WM, (Reported) Carvedilol (Carvedilol) 12.5 Mg Tablet, 12.5 MG PO BID, (Reported) Hydralazine HCl (Hydralazine HCl) 25 Mg Tablet, 25 MG PO TID, (Reported) Isosorbide Mononitrate (Isosorbide Mononitrate) 10 Mg Tablet, 20 MG PO BID, (Reported) TAKES AT 0700/1700 Scheduled PRN Sennosides/Docusate Sodium (Senna Plus Tablet) 1 Each Tablet, 1 TAB PO 2XW PRN for CONSTIPATION, (Reported) Allergies Coded Allergies: No Known Allergies (Unverified , 05/27/13) Past Medical History Medical History COPD (not oxygen dependent), Systolic CHF (EF: 25%), HTN, DLP, CKD3 (recently progressed to ESRD on HD [MWF]), Hx of Kidney stones, Adenocarcinoma of the Lung (s/p Left upper lobectomy with Dr. Canseco) Surgical History Left upper lobectomy completed by Dr. 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 Review of Systems Other systems 10 point review of systems complete, all negative otherwise stated in HPI Vital Signs - Vitals: BP 109/49, HR 85, RR 18, Sat 96%RA, Temp 97.9F - General: Sitting up in bed, CPAP in place, speaking in full sentences, AAOx3 - HEENT: NC, AT, PERRLA, EOMI - CVS: Tachycardic, +S1S2, - Lungs: Fair air entry bilaterally, No wheezing / rhonchi, bilateral crackles can be appreciated - Abdomen: Soft, Non-distended, Non-tender - Extremities: No lower extremity edema, No calf tenderness - Neuro: No focal motor or sensory deficit - Skin: No visible rashes Laboratory Data Labs 24H Laboratory Tests 2 02/24/20 10:49: POC pH (Misc Panel) 7.224*L, POC Base Excess (Misc Panel) -5.0L, POC Saturated Percent O2 (Misc) 91L, POC pO2 (Misc Panel) 72.0L, POC pCO2 (Misc Panel) 54.5H, POC HCO3 (Misc Panel) 22.5, POC Total CO2 (Misc Panel) 24.0 02/24/20 10:51: POC Total CO2 (Misc Panel) 24.0, Immature Granulocyte % (Auto) 1.1, Neutrophils (%) (Auto) 77.6H, Lymphocytes (%) (Auto) 14.5L, Monocytes (%) (Auto) 5.8H, Eosinophils (%) (Auto) 0.3, Basophils (%) (Auto) 0.7, Neutrophils # (Auto) 15.8H, Lymphocytes # (Auto) 3.0, Monocytes # (Auto) 1.2H, Eosinophils # (Auto) 0.1, Basophils # (Auto) 0.2, Nucleated Red Blood Cells % (auto) 0.0, POC Glucose (Misc Panel) 174H, POC Sodium (Misc Panel) 136, POC Potassium (Misc Panel) 5.4H, POC Chloride (Misc Panel) 103, POC Blood Urea Nitrogen (Misc Panel 43H, POC Ionized Calcium (Misc Panel) 4.7, POC Creatinine (Misc Panel) 3.4H, POC Hematocrit (Misc Panel) 32.0L, Anion Gap 12, Glomerular Filtration Rate 15.0L, Calcium Level 8.8, Total Bilirubin 0.6, Direct Bilirubin 0.2, Aspartate Amino Transf (AST/SGOT) 35, Alanine Aminotransferase (ALT/SGPT) 27, Alkaline Phosphatase 92, Total Protein 7.4, Albumin 3.5, Albumin/Globulin Ratio 0.9L, Thyroid Stimulating Hormone (TSH) 1.930 02/24/20 10:56: POC Lactate (Misc Panel) 3.11*H 02/24/20 10:59: POC Troponin I (Misc) 0.03 02/24/20 12:13: POC pH (Misc Panel) 7.395, POC Base Excess (Misc Panel) -3.0L, POC Saturated Percent O2 (Misc) 98, POC pO2 (Misc Panel) 96.0, POC pCO2 (Misc Panel) 35.9, POC HCO3 (Misc Panel) 22.0, POC Total CO2 (Misc Panel) 23.0 CBC/BMP Laboratory Tests 02/24/20 10:51 Microbiology Microbiology 02/24/20 Blood Culture, Received Pending 02/24/20 Respiratory Virus Panel (PCR) (KONG) - Final, Complete 02/24/20 Blood Culture, Received Pending Plan / VTE VTE Prophylaxis Ordered?: Yes Plan Plan Acute hypoxic and hypercapnic respiratory failure - likely 2/2 pulmonary vascular congestion - possibly 2/2 decompensated systolic CHF (EF: 25%) in the setting of ESRD on HD (MWF) - Presented to the ER with complaints of shortness of breath - Was placed on BiPAP initially; ABG has shown resolution of hypoxia and hypercapnia - Currently, patient reports significant improvement of her breathing - Physical with bilateral crackles appreciated at lower lung arroyo - She is hemodynamically stable and afebrile - Leukocytosis noted; mild lactic acidosis at 3.11 - CXR 02/23: interstitial infiltrates/edema - Patient has received a dose of furosemide 100 mg in the emergency room - Nephrology, Dr. Antony has been contacted for likely dialysis today Decompensated systolic CHF (EF: 25%) - Patient reports that she is compliant with her medications and dialysis - EKG was reviewed with some T-wave inversions noted in V4, 5, 6 - Troponin first set negative; will continue to trend - c/w Telemetry monitoring; will repeat EKG - c/w ASA, Atorvastatin Lactic acidosis - Possibly 2/2 work of breathing, less likely 2/2 infectious etiology - Appears fluid overloaded on imaging - Will be going for HD today Leukocytosis - possibly 2/2 reactive etiology, less likely 2/2 infectious etiology - Review of systems is negative - Hemodynamically stable / afebrile - Will check Blood cultures / UA with reflex culture - Will hold off on antibiotics at this time Hyperkalemia - Will go for HD today Macrocytic anemia - Hg appears to be at baseline - No evidence of bleeding COPD - Patient is not oxygen dependent - Auscultation is without any wheezing - c/w inhaled therapy as ordered HTN - BP moderately elevated - Will receive HD today - Will c/w Isosorbide Mononitrate, Carvedilol and Hydralazine with holding parameters DLP - c/w ASA, Atorvastatin Hx of Kidney stones Adenocarcinoma of the Lung - s/p Left upper lobectomy with Dr. Canseco - Patient reported that she had refused chemotherapy and radiation - As failed to follow up with any providers as an outpatient DVT prophylaxis - Will start Heparin PHAN SMITH MD Feb 24, 2020 13:24
[2020-02-24] MEDS ORDERED: SENOKOT S TAB PO PRN (13:30)
[2020-02-24] MEDS: HEPARIN SOD (PORCINE) 5000UNITS/ML VIAL (J1644 PER 1000UNITS) SC SCH ×2 (14:00→21:15)
[2020-02-24] MEDS: IPRATROPIUM 0.5MG/ALBUTEROL 2.5MG INH SOL UD 3ML (DUONEB)(J7620) NEB SCH ×2 (14:01→20:01)
[2020-02-24 14:27] LABS: CK-MB VALUE MASS 4.2 NG/ML (<3.6); MB/CK RELATIVE INDEX 6.36 (< OR =4); TROPONIN I 1.36 NG/ML (< 0.10)
--- NOTE | 2020-02-24 14:49 | REP ---
CHEST, SINGLE VIEW: Single view of the chest is performed and compared to prior study of 01/25/2020. There are diffuse bilateral interstitial infiltrates which may represent pulmonary edema. Heart is not significantly enlarged. Mediastinal silhouette is unremarkable. Right central venous catheter is seen with the tip at the junction of the superior vena cava and right atrium. Electronically Signed by Aureliano Forman MD 02/24/2020 11:02 P
[2020-02-24] MEDS: **hydrALAZINE HCL** 25 MG TAB PO SCH ×2 (16:00→20:17)
[2020-02-24 18:00] VITALS: BP 139/66
[2020-02-24] MEDS ORDERED: SLF 3 ML SYR IV PRN (18:30)
[2020-02-24] MEDS: cefTRIAXone SOD 2 GM in D5W MINI-BAG PLUS 50 ML IV SCH (18:38)
[2020-02-24] MEDS: ASPIRIN 81 MG ENTERIC TAB PO SCH (18:38)
[2020-02-24 18:52] LABS: BASO % 0.2 % (0.0-1.0); HEMATOCRIT 32.2 % (36.0-47.0); HEMOGLOBIN 10.6 g/dl (12.0-15.5); LYMPH # 0.7 10^3/uL (1.5-5.0); LYMPH % 3.5 % (24.0-44.0); MEAN CORPUSCULAR HEMOGLOBIN 29.9 pg (27.0-33.0); MEAN CORPUSCULAR HGB CONC 32.9 g/dl (32.0-36.5); MEAN CORPUSCULAR VOLUME 90.7 fl (80.0-96.0); MONO # 0.2 10^3/uL (0.0-0.8); MONO % 0.9 % (0.0-5.0); NEUTROPHILS % 94.7 % (36.0-66.0); PLATELET COUNT, AUTOMATED 238 10^3/uL (150-450); RED BLOOD COUNT 3.55 10^6/uL (4.00-5.40)
[2020-02-24] MEDS: CALCIUM ACETATE 667MG GELCAP PO SCH (19:23)
[2020-02-24 19:38] LABS: CALCIUM LEVEL 8.6 MG/DL (8.8-10.2); CK-MB VALUE MASS 6.6 NG/ML (<3.6); CREATININE FOR GFR 1.46 MG/DL (0.55-1.30); GLOMERULAR FILTRATION RATE 37.8 (>45); MAGNESIUM LEVEL 1.9 MG/DL (1.8-2.4); MB/CK RELATIVE INDEX 7.76 (< OR =4); POTASSIUM SERUM 3.6 MEQ/L (3.5-5.1); TROPONIN I 2.36 NG/ML (< 0.10)
[2020-02-24 20:00] VITALS: BP 122/62
[2020-02-24] MEDS ORDERED: CLOPIDOGREL 300 MG TAB (PLAVIX) PO STA (20:02)
[2020-02-24] MEDS: ISOSORBIDE MONONITRATE 10MG TABLET PO SCH (20:17)
[2020-02-24] MEDS: ATORVASTATIN 20 MG TAB PO SCH (20:17)
--- NOTE | 2020-02-24 21:04 | ECGEPIP ---
[facility] - ED Test Date: 2020-02-24 Pat Name: JAY JAY KEATING Department: Room: - Gender: Female Sensory Scientist: kristina : 1950 Requested By: Wisam Singh Order Number: [id number] Reading MD: Jackelyn Santiago Measurements Intervals [place] Rate: 97 P: 68 RI: 132 QRS: 47 QRSD: 90 T: 124 QT: 343 QTc: 437 Interpretive Statements SINUS RHYTHM POSSIBLE LEFT ATRIAL ENLARGEMENT POSSIBLE RIGHT VENTRICULAR CONDUCTION DELAY ST DEVIATION AND MODERATE T-WAVE ABNORMALITY, CONSIDER ISCHEMIA INCREASED RATE 01/27/20 Electronically Signed on 02-24-2020 21:04:01 EDT by Jackelyn Santiago
[2020-02-24] MEDS: SLF 3 ML SYR IV SCH (21:16)
--- NOTE | 2020-02-24 22:06 | REPVR ---
PROCEDURE INFORMATION: Exam: US Retroperitoneal Limited, Kidneys Exam date and time: 02/24/2020 9:47 PM Age: 69 years old Clinical indication: Condition or disease; Kidney or ureter condition; Calculus (stone) in kidney; Additional info: Evaluate for hydronephrosis TECHNIQUE: Imaging protocol: Real-time ultrasound of the retroperitoneum with image documentation. Examination was focused on the kidneys. COMPARISON: RENAL US 01/22/2020 9:46 AM FINDINGS: Right kidney: Right kidney measures 9.6 x 4.1 x 4.6 cm. Echogenic renal parenchyma. Two small exophytic right renal cysts in the upper pole measure 1.2 x 0.8 x 0.8 cm and 1.1 x 0.9 x 0.9 cm. No follow-up suggested. Multiple echogenic shadowing foci likely correspond to calcifications demonstrated in the cortical medullary junction on prior CT most likely vascular. Thinning of the renal parenchyma. Left kidney: Left kidney measures 10.9 x 5.2 x 5.2 cm. Echogenic renal parenchyma. Stent demonstrated in the left kidney. Shadowing focus in the mid left kidney measuring 1.2 cm consistent with a nonobstructive calculus. Previously demonstrated cyst in the upper pole of the left kidney not visualized. Thinning of the renal parenchyma. Bladder: Urinary bladder unremarkable. Distal component of the ureteral stent demonstrated within the urinary bladder. IMPRESSION: 1. Two small exophytic right renal cysts in the upper pole measure 1.2 x 0.8 x 0.8 cm and 1.1 x 0.9 x 0.9 cm. No follow-up suggested. 2. Stent demonstrated in the left kidney. 3. Distal component of the ureteral stent demonstrated within the urinary bladder. 4. Shadowing focus in the mid left kidney measuring 1.2 cm consistent with a nonobstructive calculus. 5. Echogenic renal parenchyma bilaterally consistent with age related changes versus an underlying medical renal disorder. Renal cortical atrophy. Electronically signed by: Martín Smith On 02/24/2020 22:06:40 PM
[2020-02-25] VITALS: BP 132/62
--- NOTE | 2020-02-25 00:36 | ECGEPIP ---
[facility] Test Date: 2020-02-24 Pat Name: JAY JAY KEATING Department: Room: 01 Gender: Female Computer Operations Specialist: DENILSON : 1950 Requested By: PHAN SMITH Order Number: [id number] Reading MD: Bryan Romero Measurements Intervals [place] Rate: 93 P: 51 NE: 160 QRS: 51 QRSD: 94 T: 126 QT: 363 QTc: 453 Interpretive Statements SINUS RHYTHM POSSIBLE LEFT ATRIAL ENLARGEMENT LEFT VENTRICULAR HYPERTROPHY AND ST-T CHANGE Baseline artifact but similar to tracing done same day at 12:23 Electronically Signed on 02-25-2020 0:35:45 EDT by Bryan Romero
[2020-02-25 01:09] LABS: CK-MB VALUE MASS 4.8 NG/ML (<3.6); MB/CK RELATIVE INDEX 7.16 (< OR =4); TROPONIN I 2.03 NG/ML (< 0.10)
[2020-02-25] MEDS: IPRATROPIUM 0.5MG/ALBUTEROL 2.5MG INH SOL UD 3ML (DUONEB)(J7620) NEB SCH ×4 (01:17→19:24)
[2020-02-25 04:00] VITALS: BP 142/67
[2020-02-25] MEDS: HEPARIN SOD (PORCINE) 5000UNITS/ML VIAL (J1644 PER 1000UNITS) SC SCH ×3 (05:09→21:01)
[2020-02-25] MEDS: SLF 3 ML SYR IV SCH ×3 (05:09→21:01)
[2020-02-25 05:41] LABS: BASO % 0.2 % (0.0-1.0); HEMATOCRIT 26.5 % (36.0-47.0); HEMOGLOBIN 8.5 g/dl (12.0-15.5); LYMPH % 5.2 % (24.0-44.0); MEAN CORPUSCULAR HEMOGLOBIN 28.9 pg (27.0-33.0); MEAN CORPUSCULAR HGB CONC 32.1 g/dl (32.0-36.5); MEAN CORPUSCULAR VOLUME 90.1 fl (80.0-96.0); MONO # 1.1 10^3/uL (0.0-0.8); MONO % 5.7 % (0.0-5.0); NEUTROPHILS # 16.4 10^3/uL (1.5-8.5); PLATELET COUNT, AUTOMATED 211 10^3/uL (150-450); RED BLOOD COUNT 2.94 10^6/uL (4.00-5.40); WHITE BLOOD COUNT 18.6 10^3/uL (4.0-10.0)
[2020-02-25 06:14] LABS: CALCIUM LEVEL 7.9 MG/DL (8.8-10.2); CK-MB VALUE MASS 3.8 NG/ML (<3.6); CREATININE FOR GFR 2.56 MG/DL (0.55-1.30); GLOMERULAR FILTRATION RATE 19.8 (>45); MAGNESIUM LEVEL 2.1 MG/DL (1.8-2.4); MB/CK RELATIVE INDEX 6.44 (< OR =4); POTASSIUM SERUM 3.9 MEQ/L (3.5-5.1); TROPONIN I 1.76 NG/ML (< 0.10)
[2020-02-25] MEDS: ISOSORBIDE MONONITRATE 10MG TABLET PO SCH ×2 (06:26→16:33)
[2020-02-25 08:00] VITALS: BP 145/78
[2020-02-25 08:57] LABS: PERCENT SATURATION 14.9 % (13.2-45.0)
[2020-02-25] MEDS: CALCIUM ACETATE 667MG GELCAP PO SCH ×3 (09:21→16:34)
[2020-02-25] MEDS: ASPIRIN 81 MG ENTERIC TAB PO SCH (09:21)
[2020-02-25] MEDS: **hydrALAZINE HCL** 25 MG TAB PO SCH ×3 (09:21→21:00)
[2020-02-25] MEDS: CARVedilol 12.5 MG TAB PO SCH ×2 (09:21→21:00)
[2020-02-25] MEDS ORDERED: MIRALAX *UNIT DOSE* 17GM PACKET PO PRN (09:30)
--- NOTE | 2020-02-25 09:39 | CR ---
DATE OF CONSULTATION: 02/24/2020 REASON FOR CONSULTATION: Shortness of breath in this lady with end-stage renal disease. HISTORY OF PRESENT ILLNESS: Mrs. Saavedra is a 69-year-old female with known history of chronic obstructive pulmonary disease (COPD), systolic congestive heart failure with ejection fraction 25%, hypertension, dyslipidemia, renal disease leading to end-stage renal disease, history of kidney stones and history of adenocarcinoma of the lung, status post left upper lobectomy in 2012. The patient presented to the emergency room today with shortness of breath and was found to be cyanosed on admission. She was felt to be volume overloaded in the setting of COPD and end-stage renal disease. She was placed on BiPap in the emergency room with improvement in her symptoms. She did receive her last dialysis on Monday and was due dialysis today. A nephrology consultation was requested for need for urgent dialysis. PAST MEDICAL HISTORY (Significant for): 1. COPD. 2. Systolic congestive heart failure with ejection fraction 25%. 2. Hypertension 3. Hyperlipidemia. 4. History of end-stage renal disease, recently started dialysis. 5. History of kidney stones. 6. History of adenocarcinoma of the lung, status post left upper lobectomy. 7. History of anemia. 8. History of possible coronary artery disease. PAST SURGICAL HISTORY (Significant for): 1. Left upper lobectomy. 2. Left ureteral stent placement. MEDICATIONS (Her home medications include): - aspirin 81 mg daily - atorvastatin 40 mg daily - calcium acetate 667 mg three times a day with meals - carvedilol 12.5 mg twice a day - hydralazine 25 mg three times a day - isosorbide 20 mg twice a day ALLERGIES: NO KNOWN DRUG ALLERGIES. PERSONAL AND SOCIAL HISTORY: The patient denies any alcohol or illicit drug use. She is an ex-smoker. FAMILY HISTORY: Significant for diabetes. There is no family history for end-stage renal disease. REVIEW OF SYSTEMS: At the time of my visit to the emergency room, the patient is on BiPap. She is able to talk through the mask. She reports shortness of breath that started on Monday night which progressed over last few hours and she was unable to breathe and became cyanosed. She denies any fever or chills. Ears, nose and throat are unremarkable. Cardiovascular system is significant for known history of systolic congestive heart failure with ejection fraction 25%. She denies any chest pain. She did have some mild leg edema reportedly on Monday, but no edema today. GI system is negative for vomiting or diarrhea. system is negative for dyspnea or hematuria. She has known history of kidney stones and ureteral stent in the past. Psychosocial system is negative for depression or anxiety. Neurological system is negative for seizures or stroke. Hematological system is negative for any long-term anticoagulation. Endocrine system is negative for diabetes or thyroid problems. PHYSICAL EXAMINATION: The patient is using BiPap at the time of my visit in the emergency room. Temperature is 98.6 degrees Fahrenheit, heart rate 95 per minute and respiratory rate 24 per minute. Blood pressure 153/75 mmHg and oxygen saturation 92%. Her head is atraumatic. Neck is supple and jugular venous distention (JVD) is markedly elevated. Oral mucosa is somewhat dry. Pupils equal and reactive to light and sclera is anicteric. Heart sounds are somewhat tachycardiac. Lungs have bibasilar rales. Abdomen: Soft and nontender. Bowel sounds are normal. Extremities: Without any cyanosis or clubbing. Neurologically, she is awake and able to answer simple questions. LABORATORY DATA: Shows WBC count 20.3, hemoglobin 9.9 and hematocrit 30.19, platelets 290. Sodium 137, potassium 5.6, CO2 21, BUN 47 and creatinine 3.25. Total protein 7.4 and albumin 3.5. TSH level is 1.93. Urinalysis showed 3+ leukocyte esterase, too numerous to count WBCs and 13 RBCs. Chest x-ray done in the emergency room showed diffuse bilateral interstitial infiltrates consistent with pulmonary edema. Right-sided central venous catheter with the tip at the junction of the superior vena cava and right atrium. PROBLEMS: 1. Shortness of breath. Seems to be mostly volume overload. She does have history of COPD and prior left upper lobectomy. Chest x-ray did not show any acute consolidation, but mostly pulmonary edema. The patient is due for dialysis today and we are arranging for urgent hemodialysis for her today. We will try to remove about 2.5 liters fluid as tolerated. She is likely to come off the BiPap once her volume status is corrected. 2. End-stage renal disease. The patient is on maintenance dialysis and she is due for dialysis today. Dialysis will be arranged as soon as it gets up on the floor. 3. Hyperkalemia. She has mild hyperkalemia related to end-stage renal disease. We will dialyze her with 2.0 mEq potassium bath which is likely to correct her hyperkalemia. 4. Anemia. Her anemia is mild and stable at baseline. No urgent intervention is indicated. 5. Elevated troponin. Her initial troponin was slightly elevated at 1.36. A repeat one is still pending. She does not seem to be in any acute distress and denies any chest pain at present. Thank you for involving me in the care of Ms. Saavedra. I will follow her along with you.
--- NOTE | 2020-02-25 10:17 | CR ---
DATE OF CONSULTATION: 02/25/2020 HISTORY OF PRESENT ILLNESS: Nevaeh Saavedra is a 69-year-old female with a past medical history of chronic obstructive pulmonary disease (COPD), systolic congestive heart failure (CHF) with a last known ejection fraction (EF) of 25%, in January of 2020 end-stage renal disease with recent initiation of dialysis on Monday, Monday, Monday, hypertension, and history of adenocarcinoma of the lung who presented to the hospital with complaints of shortness of breath. Of note, the patient was recently admitted from 01/21/2020 to 01/31/2020 for shortness of breath. She was found to be hypoxic and was intubated and placed on mechanical ventilation. During that hospitalization, the patient was found to have renal artery stenosis and had a type 2 non-ST elevation myocardial infarction (NSTEMI). In addition, she was seen by Dr. Payne. She also had a dialysis line placed and was started on three times weekly dialysis. On this hospitalization, the patient reports that she went home on 01/31/2020 and was feeling well. She had followed up with Dr. Payne in the outpatient setting for a stress test, which will be explained below. She also was going to dialysis regularly and had not missed any sessions. She reported to the emergency department (ED) yesterday with profound shortness of breath found to be hypoxic and hypercapnic and was placed on bilevel positive airway pressure (BiPAP). Today, she denies any shortness of breath or dysuria symptoms. She reports that she is feeling much better. She denies any nausea, vomiting, diarrhea, or constipation at this time. HOME MEDICATIONS: Include: - aspirin 81 mg daily - atorvastatin 40 mg daily - calcium acetate 667 mg daily with meals - carvedilol 12.5 mg twice daily - hydralazine 25 mg three times a day - isosorbide mononitrate 20 mg twice a day ALLERGIES: NO KNOWN ALLERGIES. PAST MEDICAL HISTORY: Is significant for COPD not oxygen dependent, systolic congestive heart failure with an EF of 25%, type 2 NSTEMI on last hospitalization, hypertension, dyslipidemia, end-stage renal disease on hemodynamic Monday, Monday, Monday, history of kidney stones, history of adenocarcinoma of the lung, status post left upper lobectomy. SURGICAL HISTORY: Left upper lobectomy in 2102, left ureteral stent placement and dialysis catheter line placement. FAMILY HISTORY: Is significant for a mother with diabetes. SOCIAL HISTORY: The patient has a significant history of smoking more than 50 years at one pack per day, recently quit about a month ago. Denies any alcohol. No recent travel or sick contacts. Lives at home with her boyfriend. 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 REVIEW OF SYSTEMS: 10-point review of systems was completed and all were negative unless otherwise stated in the HPI. PHYSICAL EXAMINATION: Her vitals are temperature 97.7, pulse of 57, respiratory rate of 20, blood pressure of 145/78, pulse oximetry of 97% on room air. GENERAL: She is sitting up in bed. She is calm, cooperative, very pleasant. No acute distress. HEENT EXAM: She has moist mucous membranes. Pupils equally round and reactive to light. The extraocular movements are intact. NECK: Is supple with no thyromegaly, no lymphadenopathy. There is no elevated jugular venous distention (JVD) appreciated. RESPIRATORY: She has faint crackles at the bases bilaterally. Otherwise, no adventitious breath sounds are appreciated. CARDIOVASCULAR: She has a 3/6 crescendo-decrescendo murmur appreciated best at the right upper sternal border radiating to the apex. Otherwise, no other murmurs, rubs or gallops. She is regular rate and rhythm this morning. ABDOMEN: Is soft and nontender to palpation. Positive bowel sounds. No organomegaly. No lymphadenopathy. EXTREMITIES: She has no clubbing, cyanosis or edema in both upper and lower extremities. SKIN: She has chronic skin changes in her back and her leg. No new rashes or ulcers. LYMPHATICS: She has no enlarged lymph nodes in the neck or the groin. PSYCHIATRIC: She has a normal mood and normal affect. NEUROLOGIC: Her cranial nerves II-XII are intact with no obvious focal deficits. LABORATORY DATA: On admission, she was found to have a white blood cell count of 20.3, which has come to down 18.6. Her hemoglobin is 8.5 this morning with a recent baseline of about 10 or 11. Her hematocrit today is 26.5. Her platelet count is 211. On chemistries, she has a sodium of 135, a BUN of 33 and a creatinine of 2.56. She did have cardiac enzymes drawn on admission. Her troponin has trended from 1.36 up to 2.36 at its peak, down to 2.03 and now 1.76. In addition, her TSH was found to be 1.93. A procalcitonin is pending. Her urine was found to have too many to count white blood cells and 3+ leukocyte esterase. A urine and blood culture times two are pending. Respiratory viral panel is negative. INS AND OUTS: She did have 2000 mL removed with hemodialysis yesterday, and her current weight is 51.6 kg. On imaging, she did have a chest x-ray done on admission with the finding of diffuse bilateral interstitial infiltrate possibly representing pulmonary edema. The heart is not significantly enlarged. The mediastinal silhouette is unremarkable and there is a right central venous catheter in place. In the evening yesterday she did have a renal ultrasound done, which showed two small exophytic right renal cysts, a stent in the left kidney, distal component of the ureteral stent demonstrated in the urinary bladder, a shadowing focus in the mid left kidney and echogenic renal parenchyma bilaterally consistent with age-related changes. In addition, the patient's last echo was done on 01/22/2020, which demonstrated an left ventricular ejection fraction (LVEF) of 25%, RVSP of 45-50 mmHg. Was found to have borderline concentric left ventricular hypertrophy with global moderately-severe hypokinesis resulting in severe impairment of global systolic function. Her right-sided chamber sizes were normal with adequate right ventricle free wall motion with Doppler evidence of at least moderately pulmonary hypertension. She had a normal-appearing tricuspid valve with mild tricuspid insufficiency and she had a miniscule posterior pericardial effusion measuring 2 mm. In the outpatient setting, the patient underwent a stress test on 02/05/2020, which demonstrated an EF of 39%. There were findings of inferior and inferolateral infarct with ischemia, also anterolateral ischemia, which was read by Dr. Payne, who recommended the patient undergo heart catheterization. ASSESSMENT: This is a 69-year-old female with a history of chronic obstructive pulmonary disease, end-stage renal disease on dialysis, recent non-ST elevation myocardial infarction and congestive heart failure with an ejection fraction of 25% who presented with shortness of breath, found to have flipped T waves on EKG and elevated troponin concerning for type 2 myocardial infarction (PR). At this time, the patient will need to be transferred to [place] for heart catheterization. PLAN: Given that the patient's hemoglobin is low, I have ordered stool occult and iron studies to better determine whether this is an acute blood loss anemia versus anemia of chronic disease. As her white blood cell count was found to be 20,000 on admission, there is concern for acute infection. Therefore, we will wait and see what the blood and urine cultures grow to better identify the proper antibiotic. It is good that her white blood cell count has been trending down. In regards to her elevated troponins, this is most likely due to her findings of inferior and inferolateral ischemia as well as anterolateral ischemia found on her stress test, and we have discussed the possibility with her regarding the possible need for stent as I do believe that she ischemia in her coronary arteries. In addition, I have spoken with nephrology who will coordinate with us regarding her transfer to [place] for this catheterization. Otherwise, the patient's heart rate and blood pressure have been within normal limits. We will not make any medication changes at this time. She will be continued on the current regimen, continue the telemetry monitoring and we will continue to follow this patient. Addendum MD Trey: Patient was seen and examined with . We discussed the management. I agree with her note. SATURNINO
[2020-02-25 10:21] LABS: PERCENT SATURATION 20.3 % (13.2-45.0)
--- NOTE | 2020-02-25 10:42 | REP ---
CHEST, SINGLE VIEW: Single view of the chest is performed and compared to a prior study of 02/24/2020. Previously noted interstitial infiltrates significantly improved and has essentially resolved. There is a mild underlying interstitial fibrotic change, particularly in the left lung base, with mild elevation of the left hemidiaphragm. The heart is not enlarged. There is calcification of the thoracic aorta. Metallic clips are seen in the left hilar region. Right central venous catheter is again noted with the tip in the superior vena cava. Electronically Signed by Aureliano Forman MD 02/26/2020 10:12 P
[2020-02-25] MEDS: SENOKOT S TAB PO SCH ×2 (11:28→21:00)
[2020-02-25] MEDS: PANTOPRAZOLE 40MG TAB (PROTONIX) PO SCH ×2 (11:30→21:00)
[2020-02-25] MEDS: SUCRALFATE 1 GM TAB PO SCH ×2 (11:30→21:01)
[2020-02-25 12:00] VITALS: BP 149/78
[2020-02-25 14:41] LABS: CK-MB VALUE MASS 2.8 NG/ML (<3.6); MB/CK RELATIVE INDEX 4.67 (< OR =4); TROPONIN I 1.13 NG/ML (< 0.10)
[2020-02-25 16:00] VITALS: BP 144/67
--- NOTE | 2020-02-25 16:51 | IPN ---
DATE: 02/25/2020 Patient complaints of increasing shortness of breath this morning. Says that it is much more difficult to breathe. No chest pain, pressure or tightness, palpitations, lightheadedness, dizziness, or near syncope. Telemetry: Sinus rhythm, ventricular rate of 57 to 100. No nausea, vomiting, diaphoresis. PHYSICAL EXAM: Vital Signs: Temperature 97.7, pulse 57, respiratory rate 20, blood pressure 145/78, 97% on room air. Generally, patient is awake, alert, oriented to person, place and time, appears her stated age. No jugular venous distention (JVD) or thyromegaly. No cervical lymphadenopathy. Lungs: Air entry is equal bilaterally. Clear to auscultation with some crackles at the bilateral bases. Heart: S1, S2, sinus rhythm. Abdomen is soft, nontender, nondistended. Positive bowel sounds. Extremities: No cyanosis or clubbing. No lower extremity edema. LABORATORY DATA: White count 18.6, hemoglobin 8.5, hematocrit 26.5, platelet count 211. Sodium 135, potassium 3.9, chloride 99, bicarbonate 27, BUN 33, creatinine 2.56, glucose of 138. Total CK 3.8, relative index 6.44, troponin is 1.76. Urine culture pending. Blood culture pending. Respiratory panel negative. Renal ultrasound 02/24/2020: Two right renal cysts 1.2 x 0.8 x 0.8 cm, 1.1 x 0.9 x 0.9. No followup suggested. Distal ureteral stent within the urinary bladder, shadowing focus consistent with nonobstructive calculus 1.2 cm in mid left kidney. Age related medical renal disease and renal cortical atrophy. Chest x-ray 02/24/2020: Diffuse bilateral infiltrates representing pulmonary edema, right central venous catheter is seen at the tip of the superior vena cava. ASSESSMENT AND PLAN: This is a 69-year-old female with a history of end-stage renal disease requiring hemodialysis, systolic heart failure, ejection fraction (EF) 25%, follows with Dr. Terrence Payne, chronic obstructive pulmonary disease (COPD), not oxygen dependent, dyslipidemia, hypertension, history of kidney stones and left upper lobectomy due to adenocarcinoma of the lung, presented to the emergency room on 02/24/2020 due to worsening shortness of breath, found to be in fluid overload. She had a similar episode 01/21/2020 to 01/31/2020 due to hypertensive emergency, intubated, mechanically ventilated at that time, and was found to have renal artery stenosis. She also had type 2 non-ST elevation myocardial infarction (VA) and was asked to followup with Dr. Payne. She had a stress test done as an outpatient. Dr. Jimenez has been consulted due to abnormal cardiac markers. CURRENT ISSUES: 1. Urinary tract infection present on hospital admission - currently on IV ceftriaxone/sepsis. White count on admission was 20,000. She is currently 18.6, awaiting urine culture results. Blood cultures have also been sent. 2. Fluid overload congestive heart failure, acute on chronic exacerbation, systolic dysfunction, ejection fraction 25% with abnormal cardiac markers. The patient had a stress test that was done a week ago, reviewed by Dr. Jimenez with recommendations to transfer to [facility], after evaluation of severe anemia. Patient will need dialysis to be continued Mondays, Wednesdays, Fridays once transferred to [facility]. 3. Anemia. Patient is currently constipated, has not had a bowel movement. Will obtain a stool sample, place on anticoagulation, aspirin and Plavix. 4. Hypertension, stable. Hydralazine 25 mg three times a day, isosorbide 20 mg twice a day. DISPOSITION: Patient may be transferred to [facility] per Dr. Jimenez's recommendations. She is to have nephrology consulted for dialysis as she is expected to have a catheterization done. Continue to monitor cardiac markers. [facility] MEDICAL CENTERMikayla
--- NOTE | 2020-02-25 17:05 | IPN ---
DATE OF VISIT: 02/25/2020 Mrs. Saavedra is seen this morning on her bedside. She was admitted yesterday with severe shortness of breath, which was almost sudden. She was in pulmonary edema and improved with dialysis and fluid removal. She also had a slight increase in her troponin. Her symptoms are suggestive off coronary artery disease and she has been already seen by cardiology and being considered for cardiac cath tomorrow. This morning she feels much better and denies any dyspnea or chest pain. She has no fever or chills. On physical exam, temperature 97.7 degrees Fahrenheit, heart rate 58 per minute and respiratory rate 20 per minute. Blood pressure 145/78 mmHg and oxygen saturation 97% on room air. Head is atraumatic. Neck supple and without jugular venous distention (JVD) or thyroid enlargement. Heart sounds are regular and lungs with a few fine crackles at the bases. Abdomen soft and nontender and bowel sounds are normal. Extremities without any cyanosis or clubbing. Neurologically, she is awake, alert and oriented times three. Today's labs show WBC count down to 18.6, hemoglobin is 8.5 and hematocrit 26.5. Platelets are 211. Sodium 135, potassium 3.9, CO2 27, BUN 33 and creatinine 2.56. Glucose 138 and calcium 7.59. Iron level 29, saturation 14.9 and ferritin 868. Troponin was 2.36, 2.03 and now 1.76. PROBLEMS: 1. Shortness of breath related to acute pulmonary edema. Her volume status has improved with dialysis and 2.5 liters fluid removal. At this point, I do not feel that she needs another dialysis today. We are going to watch her and see how she does. 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 2. End-stage renal disease. Patient was dialyzed yesterday and next dialysis will be scheduled for tomorrow. We can try to dialyze her before she gets transferred to [place]. 3. Coronary artery disease. Patient is being considered for transfer to [facility] for cardiac cath tomorrow. I do not think we need to worry too much about her kidney function at this point as she is already on dialysis. We will dialyze her prior to procedure in order to optimize her volume status and certainly she can be dialyzed even after cardiac cath in order to remove the dye. 4. Anemia. Anemia did get worse. Probably this is all related to her acute pulmonary edema and congestive heart failure. I do not feel that she has any gastrointestinal (GI) bleed at this point. Iron deficiency is most likely chronic. Her stool can be certainly checked for occult blood. 5. Hypertension. Blood pressure is very well controlled at this time and does not need any change in her medications.
[2020-02-25] MEDS: cefTRIAXone SOD 2 GM in D5W MINI-BAG PLUS 50 ML IV SCH (18:58)
[2020-02-25 20:00] VITALS: BP 160/68
--- NOTE | 2020-02-25 20:51 | CR ---
DATE OF CONSULTATION: 02/25/2020 Addendum to the consultation that was dictated earlier today by Rufina Knight MD I was asked by Dr. Rodríguez to see Mrs. Saavedra for new ECG abnormalities, pulmonary edema and troponin elevation. Please see Dr. Knight's note for details of the patient's history. I saw the patient with Dr. Knight. We reviewed her prior records, examined her and formulated the plan. Briefly, she is a very pleasant, 69-year-old female who has likely underlying COPD, history of lung cancer and also newly diagnosed with renal failure for which she has been on dialysis for several weeks. She presented with pulmonary edema that was associated with no significant fluid retention by physical exam. She did not have any chest discomfort but did have ischemic abnormalities on ECG and had elevated troponin. Her recent hospitalization in January of this year revealed severe left ventricular systolic dysfunction by echocardiogram that was felt to be global. She subsequently underwent a pharmacologic SPECT on 02/06/[address] Payne. It revealed left ventricle ejection fraction of 38%, inferolateral infarct with surrounding ischemia and also possible anterolateral ischemia. In this setting the presentation with pulmonary edema without obvious systemic volume overload is highly suspicious for ischemic etiology. The suspicion is further aggravated by elevated troponin, transient ECG abnormalities and also evidence for vascular disease in the other territories. I recommend that the patient pursues coronary angiography. I explained the rationale, potential scenarios including potential open heart surgery resulting from results of coronary angiography to the patient. She wants to proceed. We did not transfer the patient today because she has an extremely elevated white cell count, even though she does not give any symptoms of systemic infection. In my opinion it is most likely urinary tract infection. She already received ceftriaxone and cultures so far have been negative but it is a little too soon. Provided her white cell count is trending down tomorrow and she will not have any fever, there will be tentative plan to transfer her tomorrow. We coordinated the plan with Dr. Coleman and it was discussed with Dr. Antony by Dr. Knight. SATURNINO
[2020-02-25] MEDS: ATORVASTATIN 20 MG TAB PO SCH (21:00)
[2020-02-25 22:20] LABS: MB/CK RELATIVE INDEX 4.55 (< OR =4); TROPONIN I 0.91 NG/ML (< 0.10)
[2020-02-26] VITALS: BP 176/89
[2020-02-26 01:00] VITALS: BP 162/80
[2020-02-26] MEDS: IPRATROPIUM 0.5MG/ALBUTEROL 2.5MG INH SOL UD 3ML (DUONEB)(J7620) NEB SCH ×3 (01:23→13:09)
[2020-02-26 04:00] VITALS: BP 167/77
[2020-02-26 05:09] LABS: BASO # 0.1 10^3/uL (0.0-0.2); BASO % 0.5 % (0.0-1.0); EOS # 0.1 10^3/uL (0.0-0.5); EOS % 0.5 % (0.0-3.0); HEMATOCRIT 25.4 % (36.0-47.0); HEMOGLOBIN 8.3 g/dl (12.0-15.5); LYMPH # 2.1 10^3/uL (1.5-5.0); LYMPH % 16.3 % (24.0-44.0); MEAN CORPUSCULAR HEMOGLOBIN 29.6 pg (27.0-33.0); MEAN CORPUSCULAR HGB CONC 32.7 g/dl (32.0-36.5); MEAN CORPUSCULAR VOLUME 90.7 fl (80.0-96.0); MONO % 7.6 % (0.0-5.0); NEUTROPHILS # 9.6 10^3/uL (1.5-8.5); NEUTROPHILS % 74.4 % (36.0-66.0); PLATELET COUNT, AUTOMATED 228 10^3/uL (150-450)
[2020-02-26 05:48] LABS: CK-MB VALUE MASS 2.3 NG/ML (<3.6); CREATININE FOR GFR 3.04 MG/DL (0.55-1.30); GLOMERULAR FILTRATION RATE 16.2 (>45); MB/CK RELATIVE INDEX 5.48 (< OR =4); POTASSIUM SERUM 3.7 MEQ/L (3.5-5.1); TROPONIN I 0.87 NG/ML (< 0.10)
[2020-02-26] MEDS: ISOSORBIDE MONONITRATE 10MG TABLET PO SCH (06:04)
[2020-02-26] MEDS: SLF 3 ML SYR IV SCH (06:05)
[2020-02-26] MEDS: HEPARIN SOD (PORCINE) 5000UNITS/ML VIAL (J1644 PER 1000UNITS) SC SCH (06:05)
[2020-02-26] MEDS ORDERED: PANT40TA3 PO (07:23)
[2020-02-26] MEDS ORDERED: SUCR1TA PO (07:23)
[2020-02-26] MEDS ORDERED: FLEET ENEMA PR ONE (07:30)
[2020-02-26 07:31] VITALS: BP 145/67
[2020-02-26] MEDS: CALCIUM ACETATE 667MG GELCAP PO SCH ×2 (08:00→12:13)
[2020-02-26 08:28] LABS: HEMATOCRIT 25.1 % (36.0-47.0); HEMOGLOBIN 8.3 g/dl (12.0-15.5)
--- NOTE | 2020-02-26 09:09 | IPN ---
DATE OF SERVICE: 02/26/2020 Ms. Saavedra was seen and examined today at the bedside. She was getting ready to go to dialysis. She denies any shortness of breath or difficulty ambulating. She reports that she was urinating a lot yesterday and she feels as though she has been urinating more than usual. She denies any dysuria symptoms. I spoke with her about the plan for today for transfer to [facility] for heart catheterization as soon as a bed becomes available and she was in agreement with this plan. All of her questions were answered. Otherwise, no new issues. No issues overnight. No further complaints. OBJECTIVE: Her vitals are temperature 97.7, pulse of 83 - regular, respiratory rate of 18, blood pressure of 145/67, pulse oximetry 99% on room air. Ins and Outs: She currently has an overall net negative balance of 200 mL. Yesterday, she urinated 550 mL and had 1 bowel movement. As far as her weight, she was admitted with the weight of 50 kg and is now weighing at 54 kg. PHYSICAL EXAMINATION: Generally, she is sitting up in the wheelchair. She is calm, cooperative and very pleasant, in no acute distress. HEENT EXAM: She has moist mucous membranes. Pupils equally round and reactive to light. Extraocular movements are intact. NECK: Supple with no thyromegaly. No lymphadenopathy. There is no elevated jugular venous distention (JVD) appreciated. RESPIRATORY: She has faint crackles at the bases bilaterally. Otherwise, no adventitious breath sounds appreciated. CARDIOVASCULAR: She has a 3/6 crescendo-decrescendo murmur appreciated best at the right upper sternal border radiating to the apex. Otherwise, no other murmurs, rubs or gallops. She has a regular rate and rhythm this morning. ABDOMEN: Soft and nontender to palpation. Positive bowel sounds. No organomegaly. No lymphadenopathy. EXTREMITIES: She has no clubbing, cyanosis or edema in both upper and lower extremities. SKIN: She has chronic skin changes in her back and her legs. No new rashes or ulcers. LYMPHATICS: She has no enlarged lymph nodes in the neck or the groin. PSYCHIATRIC: She has a normal mood and normal affect. NEUROLOGIC: Cranial nerves II-XII are intact with no obvious focal deficits. LABORATORY DATA: Today, white blood cell count is 13,000, hemoglobin 8.3, hematocrit 25.4, platelet count 228. She did have a reticulocyte percentage measured at 1.4 and reticulocyte hemoglobin equivalent of 34.2, which were both normal. On chemistries, her sodium was 139, potassium 3.7, chloride 102, BUN 52, and creatinine 3.04. Glucose is 88. Troponins ended up trending down from yesterday, 1.76 to 1.13, 0.91 and now it is 0.87. On microbiology, she did not grow anything in her blood cultures or her urine culture thus far. She did have a peripheral smear done yesterday which showed normocytic, normochromic anemia, leukocytosis associated with an increase in neutrophils and monocytes. Otherwise, she also had a chest x-ray that was done yesterday which showed previously noted interstitial infiltrates significantly improved and essentially resolved. ASSESSMENT: This is a 69-year-old female with history of chronic obstructive pulmonary disease (COPD), end stage renal disease on dialysis, recent NSTEMI, and congestive heart failure with an ejection fraction of 25% who presented with shortness of breath and found to have flipped T waves on her electrocardiogram, and elevated troponins concerning for type 2 myocardial infarction. At this time, the patient will be transferred to [place] for heart catheterization. PLAN: The patient will undergo dialysis this morning and pending availability of a bed in [place] she will be transferred down to [place] to [facility] for a heart catheterization to further characterize her coronary artery disease. Will continue to follow this patient. Feel free to call us with any questions. Addendum MD Trey: Patient was seen and examined with . She is doing well and will be transferred later today for coronary angiography. [facility]ITAL[facility]
[2020-02-26 12:00] VITALS: BP 143/72
[2020-02-26] MEDS: ASPIRIN 81 MG ENTERIC TAB PO SCH (12:13)
[2020-02-26] MEDS: SENOKOT S TAB PO SCH (12:13)
[2020-02-26 12:14] VITALS: BP 143/72
[2020-02-26] MEDS: SUCRALFATE 1 GM TAB PO SCH (12:14)
[2020-02-26] MEDS: CARVedilol 12.5 MG TAB PO SCH (12:14)
[2020-02-26] MEDS: PANTOPRAZOLE 40MG TAB (PROTONIX) PO SCH (12:14)
[2020-02-26] MEDS: **hydrALAZINE HCL** 25 MG TAB PO SCH (12:14)
--- NOTE | 2020-02-26 14:43 | IPN ---
DATE OF VISIT: 02/26/2020 Mrs. Saavedra is seen this morning during hemodialysis. She is feeling well and denies any dyspnea or chest pain. She does have some cough but denies any fever or chills. She slept well last night. On physical exam, temperature 97.7 degrees Fahrenheit, heart rate 82 per minute and respiratory rate 18 per minute. Blood pressure 145/67 mmHg and oxygen saturation 99% on room air. Head is atraumatic. Neck is supple and jugular venous distention (JVD) not abnormally elevated. Hemodialysis catheter in right internal jugular vein is intact. Heart sounds are regular and lungs sound clear to auscultation. Abdomen soft and nontender. Bowel sounds are normal. Extremities without any cyanosis or clubbing. Neurologically, she is awake, alert and oriented times three. Today's labs show WBC count 13.0, hemoglobin 8.3 and hematocrit 25.4. Platelets of 228. Sodium 139, potassium 3.7, CO2 of 26, BUN 52 and creatinine 3.04. Calcium 8.0 and magnesium 2.0. Troponin is 0.87. Her CPK has been 59, 60, 44 and 42 respectively. PROBLEMS: 1. End-stage renal disease. Patient was dialyzed on Monday and she is being dialyzed again today. She is tolerating dialysis treatment very well. Electrolytes are within normal range. 2. Congestive heart failure. Her volume status is reasonably well-compensated and we are trying to remove 1.5 liters of fluid today. She does not have any peripheral edema or elevated neck veins at this time. 3. Anemia. Her anemia seems to be stable and there was no obvious bleeding noted at all. This is probably related to her end-stage renal disease. 4. Cough and leukocytosis. She is being treated with antibiotic and currently afebrile. Probably she has bronchitis. 5. Hypertension. Blood pressure has been reasonably well-controlled and she remains her chronic antihypertensive meds.
--- NOTE | 2020-02-26 17:49 | DSES ---
DATE OF ADMISSION: 02/24/2020 DATE OF DISCHARGE: 02/26/2020 She has been transferred to [facility] in [place]. Please call [facility] to fax the patient's discharge summary. Phone number to [facility] is [phone] transfer center. The patient has been transferred to [facility] for coronary angiogram. CONSULTANTS DURING THIS ADMISSION: 1. Lock Fitter, Dr. Guadalupe Antony. 2. Dental Associate, Dr. Jason Jimenez. PRIMARY DISCHARGE DIAGNOSES: 1. Acute systolic congestive heart failure, ejection fraction of 30%. 2. Newly diagnosed oliguric renal failure requiring hemodialysis. 3. History of lung cancer. 4. Chronic obstructive pulmonary disease (COPD). 5. Urinary tract infection. 6. Anemia of chronic disease with negative hemoccult positive stool. 7. Hypertension. DISCHARGE MEDICATIONS: - Protonix 40 twice a day - Carafate 1 gram twice a day - aspirin 81 daily - atorvastatin 40 at bedtime - calcium 667 mg with meals - Coreg 12.5 twice a day - hydralazine 25 three times a day - isosorbide 20 mg twice a day - Senokot one tablet two times weekly as needed for constipation HOSPITAL COURSE: This is a 69-year-old female with history of chronic obstructive pulmonary disease (COPD) and lung cancer, non-oxygen dependent, recent diagnosis of systolic heart failure, ejection fraction 25%, dyslipidemia, hypertension, chronic kidney disease which progressed over the past few weeks into end-stage renal disease on maintenance dialysis now on Monday, Monday and Monday, history of kidney stones, left upper lobectomy due to adenocarcinoma of the lung who presented to the emergency room on 02/24/2020 with complaints with worsening shortness of breath. The patient had a previous admission on 01/21/2020 until 01/31/2020 for fluid overload and hypertensive emergency and was intubated and mechanically ventilated. She was found to have renal artery stenosis, 75% function on the left, 25% on the right, and was advised to followup with Dr. Licea as outpatient, interventional radiology. The patient was found to have left-sided hydronephrosis. Stent was placed on 01/26/2020. She had a urinary tract infection with Escherichia (E) coli which was treated with meropenem. Despite stent placement, she continued to have worsening renal dysfunction, subsequently succumbing to end-stage renal disease requiring hemodialysis, for which she receives maintenance dialysis Monday, Monday, Monday. The patient had worsening shortness of breath on Monday with dyspnea on exertion prompting her to come into the emergency room. In the emergency room (ER), she was found to have acute hypoxic hypercapnic respiratory failure and treated with bilevel positive airway pressure (BiPAP). Lock Fitter was consulted for dialysis needs with significant improvement. Dr. Jimenez was consulted due to abnormal cardiac markers. She peaked with a troponin of 2.36, chest pain-free but complained of shortness of breath as well as a relative index of 7.76. EKG showed left atrial enlargement, left ventricular hypertrophy (LVH). Due to severe systolic dysfunction, ischemic heart disease was to be ruled out by transferring to [facility] for coronary angiogram. The patient was found to be anemic with presenting hemoglobin of 9.9, down to 8.3 without overt gastrointestinal (GI) bleed. She had two episodes of hematuria which did not persist. She did not require red blood cell (RBC) transfusion. Urine culture was contaminated. She was treated with IV ceftriaxone with decrease in white blood cell count from a peak of 20.3 on hospital admission to 13,000 on hospital discharge. The patient's admission weight was 50.9 kg, discharge weight is 54 kg. She was dialyzed on 02/24/2020, two liters out and again on 03/07/2020 with one and a half liters out. She had no metabolic acidosis or any hyperkalemia. The patient is transferred in stable condition to rule out ischemic heart disease as a cause for her acute onset of systolic congestive heart failure. PHYSICAL EXAMINATION ON DISCHARGE: Temperature 97.9, pulse 91, respiratory rate 18, blood pressure 143/72, 97% on room air. GENERAL: Awake, alert and oriented to person, place and time, answering questions appropriately. She has a dialysis catheter without any erythema on the right internal jugular. No jugular venous distention is noted. HEART: S1, S2, sinus rhythm. No murmurs, rubs, or gallops. LUNGS: Clear to auscultation. No wheezing, rales, or rhonchi. ABDOMEN: Soft, nontender, nondistended. EXTREMITIES: No clubbing, cyanosis, or any pitting edema. DISCHARGE LABORATORY DATA: White count 13, hemoglobin 8.3, hematocrit 25, platelet count is 228. Iron of 39, TIBC 192, ferritin 868. Sodium 139, potassium 3.7, chloride 102, bicarbonate 26, BUN 52, creatinine 3.04, glucose of 88, troponin 0.87, relative index 5.48, MB-fraction 2.3, and total CK of 42. Hemoccult stool was negative on 02/25/2020. Urine culture contaminated. Two sets of blood cultures negative. Respiratory panel was negative for COVID-19 and negative for all viruses. Chest x-ray on 02/25/2020: Previously noted interstitial infiltrates improved, essentially resolved, heart is not enlarged, mild elevation of left hemidiaphragm, metallic clips in the left hilar region, right central venous catheter noted at the tip of the superior vena cava. Renal ultrasound 02/24/2020: Two small exophytic right renal cysts in the upper pole. No followup suggested. Nonobstructive calculus in the mid left kidney, age-related bilateral medical renal disease, renocortical atrophy. TIME SPENT ON DISCHARGE: 30 minutes. [facility]
== END 2020-02-26 14:00 | disposition short-term general hospital (02) | DRG 194 ==
LOC: EDBD 10:32 → M ED 10:32 → M ED INP 12:53 → ENRESERV 13:05 → M PCU 18:19
PROVIDERS: ADMIT Internal Medicine; ATTEND Internal Medicine
DX: I13.2 Hypertensive heart and chronic kidney disease with heart failure and with stage 5 chronic kidney disease, or end stage renal disease (principal); N17.9 Acute kidney failure, unspecified; E87.2 Acidosis; Z99.81 Dependence on supplemental oxygen; N18.6 End stage renal disease; I70.1 Atherosclerosis of renal artery; E87.5 Hyperkalemia; J44.9 Chronic obstructive pulmonary disease, unspecified; N39.0 Urinary tract infection, site not specified; Z87.442 Personal history of urinary calculi; E78.5 Hyperlipidemia, unspecified; Z79.899 Other long term (current) drug therapy; Z79.82 Long term (current) use of aspirin; Z85.118 Personal history of other malignant neoplasm of bronchus and lung; Z99.2 Dependence on renal dialysis; D53.9 Nutritional anemia, unspecified; D72.829 Elevated white blood cell count, unspecified; I25.10 Atherosclerotic heart disease of native coronary artery without angina pectoris; I25.2 Old myocardial infarction; Z87.891 Personal history of nicotine dependence; K59.00 Constipation, unspecified; I50.21 Acute systolic (congestive) heart failure

== ENCOUNTER → 2020-03-13 | Outpatient (REF) | payer BC ==
[~2020-03-13] MED LIST changes: +ASPI81TA85 PO; +ISOS1TAB12 PO; +PANT40TA3 PO; +SENN-52 PO; +SUCR1TA PO
[2020-03-13 15:16] LABS: CREATININE, SERUM 2.9 MG/DL (0.6-1.0)
[2020-03-13 15:45] LABS: CREATININE CLEARANCE, URINE 15.3 ML/MIN (75-115); CREATININE, URINE 45.7 MG/DL
== END ==
LOC: M LAB REF 12:42
PROVIDERS: ATTEND Internal Medicine Nephrology
DX: N17.9 Acute kidney failure, unspecified (principal)

== ENCOUNTER → 2020-03-18 | Outpatient (REF) | payer BC ==
[~2020-03-18] MED LIST changes: +CLOP75TA2; +HYDR-3911 PO; +TORS20TA2
== END ==
LOC: M LAB REF 16:52
PROVIDERS: ATTEND Internal Medicine Nephrology
DX: N13.2 Hydronephrosis with renal and ureteral calculous obstruction (principal)

== ENCOUNTER → 2020-03-26 | Outpatient (CLI) | payer BC ==
[~2020-03-26] MED LIST changes: -ASPI81TA85 PO; +ASPI81TA86 PO; +CLONI1TA PO; -CLOP75TA2; +CLOP75TA2 PO; +HYDR-3910 PO; +LIDOCAINE 1% MDV 20ML VIAL As Ordered ONE; +NITR100C2 PO; +PANT40TA29 PO; -PANT40TA3 PO; -TORS20TA2; +TORS20TA2 PO
--- NOTE | 2020-03-26 12:27 | POST-OPPD ---
Postoperative Procedure Note Date Of Procedure: Mar 26, 2020 Time Of Procedure: 12:26 PREOPERATIVE DIAGNOSIS: RF improved. No further dialysis. POSTOPERATIVE DIAGNOSIS: same FINDINGS: right sided PermCath PROCEDURE:The PermCath site was prepped and draped in the usual sterile fashion. Lidocaine was used for local anesthesia. The catheter cuff was dissected out of the soft tissues using blunt dissection. The catheter was removed in it's entirety. Patient tolerated the procedure well, hemostasis achieved and a sterile dressing was applied to the site. This is the entire report of procedure. SURGEON: Vinayak ANESTHESIA: local ESTIMATED BLOOD LOSS: < 5 ml COMPLICATIONS: none POSTOPERATIVE CONDITION: stable TONYA CHILEL MD Mar 26, 2020 12:27
[2020-03-26 12:30] VITALS: BP 172/76
== END ==
LOC: M IRPRO 11:37
PROVIDERS: ATTEND Radiology Diagnostic Radiology
DX: Z45.2 Encounter for adjustment and management of vascular access device (principal); N17.9 Acute kidney failure, unspecified

== ENCOUNTER 2020-04-06 12:56 | Emergency (ER) | payer BC ==
[~2020-04-06] VITALS: Ht 160 cm; Wt 51.7 kg
[~2020-04-06 12:56] MED LIST changes: -CLONI1TA PO; -CLOP75TA2 PO; -HYDR-3910 PO; -HYDR-3911 PO; -LIDOCAINE 1% MDV 20ML VIAL As Ordered ONE; -NITR100C2 PO; -TORS20TA2 PO
[2020-04-06] MEDS ORDERED: CLOP75TA2 PO (13:08)
[2020-04-06] MEDS ORDERED: TORS20TA2 PO (13:08)
[2020-04-06 13:28] LABS: BASO % 0.5 % (0.0-1.0); EOS # 0.2 10^3/uL (0.0-0.5); EOS % 2.3 % (0.0-3.0); HEMATOCRIT 37.9 % (36.0-47.0); HEMOGLOBIN 12.1 g/dl (12.0-15.5); LYMPH # 1.2 10^3/uL (1.5-5.0); LYMPH % 14.8 % (24.0-44.0); MEAN CORPUSCULAR HEMOGLOBIN 29.2 pg (27.0-33.0); MEAN CORPUSCULAR HGB CONC 31.9 g/dl (32.0-36.5); MEAN CORPUSCULAR VOLUME 91.3 fl (80.0-96.0); MONO # 0.5 10^3/uL (0.0-0.8); MONO % 6.4 % (0.0-5.0); NEUTROPHILS % 75.5 % (36.0-66.0); PLATELET COUNT, AUTOMATED 328 10^3/uL (150-450); RED BLOOD COUNT 4.15 10^6/uL (4.00-5.40); WHITE BLOOD COUNT 7.9 10^3/uL (4.0-10.0)
--- NOTE | 2020-04-06 13:35 | REP ---
Clinical: Chest pain . Comparison: 02/25/2020 . Findings: The mediastinum and cardiac silhouette are stable and within normal limits for portable technique. The lung arroyo demonstrate chronic emphysematous changes and postsurgical changes without acute consolidation, effusion, or pneumothorax. Skeletal structures are intact. Impression: No acute cardiopulmonary process appreciated. Electronically Signed by Loc Gallagher MD 04/06/2020 01:26 P
[2020-04-06 13:58] LABS: CK-MB VALUE MASS 4.8 NG/ML (<3.6); MB/CK RELATIVE INDEX 6.58 (< OR =4); TROPONIN I 0.04 NG/ML (< 0.10)
[2020-04-06] MEDS ORDERED: HYDR-3911 PO (16:21)
[2020-04-06 16:45] VITALS: BP 157/70
--- NOTE | 2020-04-07 07:30 | ECGEPIP ---
[facility] - ED Test Date: 2020-04-06 Pat Name: JAY JAY KEATING Department: Room: - Gender: Female Torch Brazer: carmella stoll : 1950 Requested By: Wisam Singh Order Number: [id number] Reading MD: Bryan Romero Measurements Intervals [place] Rate: 69 P: 74 NC: 152 QRS: 48 QRSD: 94 T: 152 QT: 408 QTc: 439 Interpretive Statements SINUS RHYTHM POSSIBLE LEFT ATRIAL ENLARGEMENT POSSIBLE RIGHT VENTRICULAR CONDUCTION DELAY Nonspecific T wave abnormality Similar to tracing done 02-24-20 Electronically Signed on 04-07-2020 7:30:19 EDT by Bryan Romero
--- NOTE | 2020-04-07 07:51 | ECGEPIP ---
[facility] - ED Test Date: 2020-04-06 Pat Name: JAY JAY KEATING Department: Room: - Gender: Female Medical Practice Assistant: : 1950 Requested By: Wisam Singh Order Number: [id number] Reading MD: Bryan Romero Measurements Intervals [place] Rate: 69 P: 72 DE: 162 QRS: 46 QRSD: 93 T: 145 QT: 413 QTc: 444 Interpretive Statements SINUS RHYTHM Possible Left atrial enlargement POSSIBLE RIGHT VENTRICULAR CONDUCTION DELAY MODERATE T-WAVE ABNORMALITY, CONSIDER LATERAL ISCHEMIA Similar to tracing done 13:15 on same date Electronically Signed on 04-07-2020 7:51:34 EDT by Bryan Romero
== END 2020-04-06 16:58 | disposition home or self-care (01) ==
LOC: M ED 12:56
DX: R07.89 Other chest pain (principal); I13.2 Hypertensive heart and chronic kidney disease with heart failure and with stage 5 chronic kidney disease, or end stage renal disease; R94.31 Abnormal electrocardiogram [ECG] [EKG]; E78.5 Hyperlipidemia, unspecified; I25.10 Atherosclerotic heart disease of native coronary artery without angina pectoris; Z79.82 Long term (current) use of aspirin; Z79.899 Other long term (current) drug therapy

== ENCOUNTER → 2020-04-27 | Outpatient (CLI) | payer BC ==
[~2020-04-27] MED LIST changes: +CLONI1TA PO; +CLOP75TA2 PO; +HYDR-3910 PO; +HYDR-3911 PO; +NITR100C2 PO; +TORS20TA2 PO
== END ==
LOC: M LABSMTC 12:10
PROVIDERS: ATTEND Anesthesiology
DX: Z01.812 Encounter for preprocedural laboratory examination (principal); Z20.828 Contact with and (suspected) exposure to other viral communicable diseases

== ENCOUNTER → 2020-04-27 | Outpatient (CLI) | payer BC | LOC: M LABSMTC 12:10 | PROVIDERS: ATTEND Anesthesiology | DX: Z01.818 Encounter for other preprocedural examination (principal); Z11.59 Encounter for screening for other viral diseases | CPT/HCPCS: C9803; U0002 ==

== ENCOUNTER 2020-04-30 13:20 | Day surgery (SDC) | payer BC ==
[~2020-04-30 13:20] MED LIST changes: -CLONI1TA PO; -HYDR-3910 PO; -NITR100C2 PO
[2020-04-30] MEDS ORDERED: ceFAZolin 2 GM/D5W 50 ML IV BAG (J0690 PER 500MG) As Ordered ONE (14:04)
[2020-04-30] MEDS ORDERED: ceFAZolin 2 GM/D5W 50 ML IV BAG (J0690 PER 500MG) ONE (14:04)
[2020-04-30] MEDS ORDERED: propofoL 200 MG/20 ML VIAL As Ordered ONE (15:16)
[2020-04-30] MEDS ORDERED: MIDAZOLAM INJ 2MG/2ML VIAL (J2250 PER 1MG) As Ordered ONE (15:16)
[2020-04-30] MEDS ORDERED: LIDOCAINE 2% 100MG/5ML SDV (FOR ANES.) As Ordered ONE (15:16)
[2020-04-30] MEDS ORDERED: fentaNYL 100 MCG/2 ML INJECTION (J3010) As Ordered ONE (15:16)
[2020-04-30] MEDS ORDERED: CONRAY-60 60% 50ML VIAL (Q9961) As Ordered ONE (16:32)
[2020-04-30] MEDS ORDERED: KETOROLAC 60MG 2ML VIAL As Ordered ONE (16:43)
[2020-04-30] MEDS ORDERED: dexameTHASONE 4 MG/ML 1ML VIAL (J1100 PER 1MG) As Ordered ONE (16:43)
[2020-04-30] MEDS ORDERED: ONDANSETRON 4MG/2ML VIAL As Ordered ONE (16:43)
[2020-06-10 15:12] LABS: CA Oxalate Dihy 20 % (.); Ca Ox Monohydrate 70 % (.)
--- NOTE | 2020-06-12 10:30 | REP ---
C-ARM VIEWS DURING LEFT URETERAL STENT PLACEMENT TECHNIQUE: Three C-arm views performed of abdomen and pelvis during placement of a left ureteral stent. FINDINGS: Contrast partially opacifies a dilated left pelvicalyceal system. Left ureteral stent is placed. The proximal end is coiled in the left lower pole collecting system. The distal end is coiled in the urinary bladder. There were 31 seconds of fluoroscopy time utilized. MTDD
--- NOTE | 2020-06-25 14:00 | RO ---
DATE OF OPERATION: April 30, 2020 PRE-PROCEDURE DIAGNOSIS: Left kidney stone. POST-PROCEDURE DIAGNOSIS: Left kidney stone. PROCEDURES: * Cystoscopy. * Left ureteroscopy with laser lithotripsy and basket extraction of stone. * Left retrograde pyelogram with intraoperative interpretation of images. * Left ureteral stent exchange. SURGEON: Nathaniel Otto MD. PATIENT SUPPORT SPECIALIST: None. ANESTHESIA: General. OPERATIVE INDICATIONS: This is a 69-year-old female who was seen approximately three months ago for an obstructing, greater than 2 cm, left ureteropelvic junction stone and a UTI. She had a left ureteral stent placed at that time. She is brought back to the operating room today to fragment and remove her stone. DESCRIPTION OF PROCEDURE: The patient was brought to the operating room and general anesthesia was induced. Prophylactic antibiotics were infused. She was placed in the dorsal lithotomy position, prepped, and draped in the usual sterile fashion. A rigid cystoscope was inserted into the urethral meatus and advanced to the bladder. The previously placed left ureteral stent was seen and grasped. It was withdrawn until the end was protruding from the urethral meatus. A guidewire was then advanced up to the left collecting system up the stent. The stent was then removed intact. A ureteral access sheath was advanced up the left collecting system. I then went up the access sheath with the flexible ureteroscope and within the left renal pelvis, a large stone was seen. The stone was then fragmented into smaller pieces using an Excalibur laser fiber. The majority of the stone was dusted so that the stone fragments could pass. Once that was done, a basket was inserted and was utilized to retrieve some of the stones and this was sent for analysis. After that, I confirmed that her remaining stone fragments were all small enough to pass. At this point, a retrograde pyelogram was performed and was notable for [id number] left hydronephrosis with no extravasation. I then withdrew the ureteroscope along with the access sheath and no distal stones were seen inside the ureter. I then utilized the wire to advance a 7-Honduran x 22-32 cm JJ ureteral stent into the left collecting system. The wire was removed with an adequate curl of the stent in the left renal pelvis and in the bladder. The bladder was emptied of all fluids. This marked the conclusion of the procedure. The patient was then taken out of the dorsal lithotomy position, awakened from anesthesia, and transferred to the recovery room in stable condition. ESTIMATED BLOOD LOSS: 5 mL. COMPLICATIONS: None. SPECIMEN: Kidney stone fragments. PLAN: The patient will follow up in the clinic in approximately 3-4 weeks for cystoscopy and stent removal. I will get a KUB prior to removing her stent. SATURNINO
== END 2020-04-30 19:40 | disposition home or self-care (01) ==
LOC: M SDC 13:20
PROVIDERS: ATTEND Urology
DX: N20.0 Calculus of kidney (principal); I10 Essential (primary) hypertension; E78.5 Hyperlipidemia, unspecified; N18.9 Chronic kidney disease, unspecified; Z79.82 Long term (current) use of aspirin; Z79.01 Long term (current) use of anticoagulants; Z79.899 Other long term (current) drug therapy; Z85.118 Personal history of other malignant neoplasm of bronchus and lung; J44.9 Chronic obstructive pulmonary disease, unspecified; Z87.891 Personal history of nicotine dependence; Z98.61 Coronary angioplasty status; I25.2 Old myocardial infarction
CPT/HCPCS: 52356; 74420; 82365; 88300; C1769; C1894; C2617; J0690; J1100; J1885; J2250; J2405; J3010; Q9961

== ENCOUNTER 2020-05-14 18:56 | Emergency (ER) | payer BC ==
[~2020-05-14] VITALS: Ht 154.9 cm; Wt 53.1 kg
[2020-05-14] MEDS ORDERED: **hydrALAZINE** 50 MG TAB PO ONE (20:30)
[2020-05-14 22:10] VITALS: BP 201/94
[2020-05-14] MEDS ORDERED: cloNIDine 0.2 MG TAB PO ONE (22:15)
--- NOTE | 2020-05-14 22:27 | ED PDOC ---
Post-Departure Follow-Up Addendum Note: Pt upset that there were no magazines in the room and the TV didn 't work. Pt was yelling at nurse over this. Her recorded Sys BP would go from 170 to 200 when this occurred. She was given a dose of Clonidine to address this. CHRISTOPHER HORNE DO May 14, 2020 22:27
[2020-05-14 23:03] VITALS: BP 166/82
== END 2020-05-14 23:04 | disposition home or self-care (01) ==
LOC: M ED 18:56
DX: I11.0 Hypertensive heart disease with heart failure (principal); I50.9 Heart failure, unspecified; N18.9 Chronic kidney disease, unspecified; J44.9 Chronic obstructive pulmonary disease, unspecified; Z79.82 Long term (current) use of aspirin; Z79.899 Other long term (current) drug therapy; Z87.891 Personal history of nicotine dependence

== ENCOUNTER 2020-05-27 21:08 | Emergency (ER) | payer BC ==
[~2020-05-27] VITALS: Ht 160 cm; Wt 52.6 kg
[2020-05-27] MEDS ORDERED: HYDR-3910 PO (21:15)
[2020-05-27 22:17] LABS: BASO # 0.1 10^3/uL (0.0-0.2); BASO % 0.6 % (0.0-1.0); EOS # 0.4 10^3/uL (0.0-0.5); EOS % 3.7 % (0.0-3.0); HEMATOCRIT 34.5 % (36.0-47.0); HEMOGLOBIN 11.1 g/dl (12.0-15.5); LYMPH # 1.5 10^3/uL (1.5-5.0); LYMPH % 14.6 % (24.0-44.0); MEAN CORPUSCULAR HEMOGLOBIN 29.1 pg (27.0-33.0); MEAN CORPUSCULAR HGB CONC 32.2 g/dl (32.0-36.5); MEAN CORPUSCULAR VOLUME 90.6 fl (80.0-96.0); MONO # 0.8 10^3/uL (0.0-0.8); MONO % 8.1 % (0.0-5.0); NEUTROPHILS # 7.3 10^3/uL (1.5-8.5); NEUTROPHILS % 72.6 % (36.0-66.0); PLATELET COUNT, AUTOMATED 280 10^3/uL (150-450); RED BLOOD COUNT 3.81 10^6/uL (4.00-5.40)
[2020-05-27 22:28] LABS: INR 1.06; PROTHROMBIN TIME 14.1 SECONDS (11.8-14.0)
[2020-05-27 22:29] LABS: PARTIAL THROMBOPLASTIN TIME 34.9 SECONDS (25.0-38.4)
--- NOTE | 2020-05-27 22:31 | REPVR ---
PROCEDURE INFORMATION: Exam: XR Chest, 1 View Exam date and time: 05/27/2020 10:07 PM Age: 69 years old Clinical indication: Other: Chest pain TECHNIQUE: Imaging protocol: XR of the chest Views: 1 view. COMPARISON: CR PORTABLE CHEST X-RAY 04/06/2020 1:14 PM FINDINGS: Lungs: There is no evidence of localized infiltrate. Pleural space: There is no evidence of pneumothorax or pleural effusion. Heart/Mediastinum: The heart is normal in size. Vasculature: There are surgical clips at the aortic arch. Bones/joints: There is no evidence of bony abnormality. IMPRESSION: Clear appearing lungs. Electronically signed by: Kalin Palacios On 05/27/2020 22:31:00 PM
[2020-05-27 22:58] LABS: ALBUMIN 3.6 GM/DL (3.2-5.2); ALT/SGPT 15 U/L (12-78); BILIRUBIN,DIRECT < 0.1 MG/DL (0.0-0.2); BILIRUBIN,TOTAL 0.3 MG/DL (0.2-1.0); BLOOD UREA NITROGEN 35 MG/DL (7-18); CALCIUM LEVEL 8.7 MG/DL (8.8-10.2); CARBON DIOXIDE LEVEL 25 MEQ/L (21-32); CHLORIDE LEVEL 107 MEQ/L (98-107); CPK CREATINE PHOSPHOKINASE 71 U/L (26-192); CREATININE FOR GFR 1.94 MG/DL (0.55-1.30); GLOMERULAR FILTRATION RATE 27.2 (>45); GLUCOSE, FASTING 87 MG/DL (70-100); LIPASE 221 U/L (73-393); MB/CK RELATIVE INDEX 5.63 (< OR =4); NT-PRO BNP 9272 PG/ML (<125); POTASSIUM SERUM 3.1 MEQ/L (3.5-5.1); SODIUM LEVEL 140 MEQ/L (136-145); TROPONIN I 0.04 NG/ML (< 0.10)
[2020-05-27 23:15] VITALS: BP 160/72
--- NOTE | 2020-06-02 20:48 | ECGEPIP ---
[facility] - ED Test Date: 2020-05-27 Pat Name: JAY JAY KEATING Department: Room: - Gender: Female Marketing Communications Leader: nancy : 1950 Requested By: ESTEBAN ZAMARRIPA Order Number: [id number] Reading MD: Wisam Rodriguez Measurements Intervals [place] Rate: 67 P: 75 NC: 170 QRS: 51 QRSD: 103 T: 117 QT: 419 QTc: 443 Interpretive Statements SINUS RHYTHM INC. RBBB PRIOR INFERIOR INFARCCT NSTTW CHANGES SEE SCANNED DOWNTIME REPORT
== END 2020-05-27 23:41 | disposition home or self-care (01) ==
LOC: M ED 21:08
DX: I11.0 Hypertensive heart disease with heart failure (principal); N18.9 Chronic kidney disease, unspecified; E78.5 Hyperlipidemia, unspecified; F41.9 Anxiety disorder, unspecified; I25.2 Old myocardial infarction; Z79.82 Long term (current) use of aspirin; Z79.899 Other long term (current) drug therapy

== ENCOUNTER → 2020-06-04 | Outpatient (CLI) | payer BC ==
[~2020-06-04] MED LIST changes: +CLONI1TA PO; +HYDR-3910 PO; +NITR100C2 PO
[2020-06-04 15:22] LABS: HEMATOCRIT 38.3 % (36.0-47.0); HEMOGLOBIN 12.3 g/dl (12.0-15.5); MEAN CORPUSCULAR HEMOGLOBIN 29.1 pg (27.0-33.0); MEAN CORPUSCULAR HGB CONC 32.1 g/dl (32.0-36.5); MEAN CORPUSCULAR VOLUME 90.8 fl (80.0-96.0); PLATELET COUNT, AUTOMATED 313 10^3/uL (150-450); RED BLOOD COUNT 4.22 10^6/uL (4.00-5.40)
[2020-06-04 15:28] LABS: CALCIUM LEVEL 9.7 MG/DL (8.8-10.2); CREATININE FOR GFR 2.12 MG/DL (0.55-1.30); GLOMERULAR FILTRATION RATE 24.6 (>45); POTASSIUM SERUM 3.6 MEQ/L (3.5-5.1)
== END ==
LOC: M PLALAB 12:33
PROVIDERS: ATTEND Urology
DX: Z01.818 Encounter for other preprocedural examination (principal); N20.0 Calculus of kidney; N39.0 Urinary tract infection, site not specified

== ENCOUNTER → 2020-06-06 | Outpatient (CLI) | payer BC | LOC: M LABSMTC 11:11 | PROVIDERS: ATTEND Anesthesiology | DX: Z20.828 Contact with and (suspected) exposure to other viral communicable diseases (principal) | CPT/HCPCS: C9803; U0003 ==

== ENCOUNTER 2020-06-18 19:04 | Emergency (ER) | payer BC ==
[~2020-06-18] VITALS: Ht 160 cm; Wt 52.1 kg
[~2020-06-18 19:04] MED LIST changes: -CLONI1TA PO; -NITR100C2 PO
[2020-06-18] MEDS ORDERED: NITR100C2 PO (19:18)
[2020-06-18 20:01] LABS: BASO # 0.1 10^3/uL (0.0-0.2); BASO % 0.6 % (0.0-1.0); EOS # 0.2 10^3/uL (0.0-0.5); EOS % 2.5 % (0.0-3.0); HEMATOCRIT 35.7 % (36.0-47.0); HEMOGLOBIN 11.6 g/dl (12.0-15.5); LYMPH # 1.4 10^3/uL (1.5-5.0); LYMPH % 14.8 % (24.0-44.0); MEAN CORPUSCULAR HEMOGLOBIN 29.2 pg (27.0-33.0); MEAN CORPUSCULAR HGB CONC 32.5 g/dl (32.0-36.5); MEAN CORPUSCULAR VOLUME 89.9 fl (80.0-96.0); MONO # 0.8 10^3/uL (0.0-0.8); MONO % 8.5 % (0.0-5.0); NEUTROPHILS # 6.9 10^3/uL (1.5-8.5); NEUTROPHILS % 73.3 % (36.0-66.0); PLATELET COUNT, AUTOMATED 262 10^3/uL (150-450); RED BLOOD COUNT 3.97 10^6/uL (4.00-5.40); WHITE BLOOD COUNT 9.3 10^3/uL (4.0-10.0)
[2020-06-18 20:20] LABS: INR 1.07; PARTIAL THROMBOPLASTIN TIME 30.4 SECONDS (24.2-38.5); PROTHROMBIN TIME 14.1 SECONDS (12.5-14.3)
[2020-06-18 20:46] LABS: ALBUMIN 3.9 GM/DL (3.2-5.2); ALT/SGPT 18 U/L (12-78); BILIRUBIN,DIRECT < 0.1 MG/DL (0.0-0.2); BILIRUBIN,TOTAL 0.4 MG/DL (0.2-1.0); BLOOD UREA NITROGEN 33 MG/DL (7-18); CALCIUM LEVEL 9.4 MG/DL (8.8-10.2); CARBON DIOXIDE LEVEL 29 MEQ/L (21-32); CHLORIDE LEVEL 102 MEQ/L (98-107); CK-MB VALUE MASS 3.8 NG/ML (<3.6); CPK CREATINE PHOSPHOKINASE 112 U/L (26-192); CREATININE FOR GFR 2.02 MG/DL (0.55-1.30); GLUCOSE, FASTING 104 MG/DL (70-100); LIPASE 201 U/L (73-393); MB/CK RELATIVE INDEX 3.39 (< OR =4); NT-PRO BNP 10505 PG/ML (<125); SODIUM LEVEL 138 MEQ/L (136-145); TOTAL PROTEIN 7.1 GM/DL (6.4-8.2)
--- NOTE | 2020-06-18 22:06 | REPVR ---
PROCEDURE INFORMATION: Exam: XR Chest, 1 View Exam date and time: 06/18/2020 8:42 PM Age: 69 years old Clinical indication: Other: Chest pain TECHNIQUE: Imaging protocol: XR of the chest Views: 1 view. COMPARISON: CR PORTABLE CHEST X-RAY 05/27/2020 10:07 PM FINDINGS: Lungs: Well inflated lungs consistent with COPD. Pleural space: Unremarkable. No pleural effusion. No pneumothorax. Heart/Mediastinum: Unremarkable. No cardiomegaly. Bones/joints: Osteoporosis. IMPRESSION: 1. Well inflated lungs consistent with COPD. 2. No acute findings. Electronically signed by: Martín Smith On 06/18/2020 22:06:10 PM
[2020-06-18 23:28] VITALS: BP 168/64
--- NOTE | 2020-06-19 09:18 | ECGEPIP ---
[facility] - ED Test Date: 2020-06-18 Pat Name: JAY JAY KEATING Department: Room: - Gender: Female End Worker: brenna : 1950 Requested By: ESTEBAN ZAMARRIPA Order Number: [id number] Reading MD: Jackelyn Santiago Measurements Intervals [place] Rate: 70 P: 65 SD: 166 QRS: 47 QRSD: 98 T: 117 QT: 405 QTc: 437 Interpretive Statements SINUS RHYTHM POSSIBLE RIGHT VENTRICULAR CONDUCTION DELAY POSSIBLE INFERIOR MYOCARDIAL INFARCTION, PROBABLY OLD MODERATE T-WAVE ABNORMALITY, CONSIDER LATERAL ISCHEMIA LIMITED COMPARISON DUE TO ARTIFACT Electronically Signed on 06-19-2020 9:18:13 EDT by Jackelyn Santiago
--- NOTE | 2020-06-19 09:19 | ECGEPIP ---
[facility] - ED Test Date: 2020-06-18 Pat Name: JAY JAY KEATING Department: Room: - Gender: Female Well Drill Operator: LOREN : 1950 Requested By: ESTEBAN ZAMARRIPA Order Number: [id number] Reading MD: Jackelyn Santiago Measurements Intervals [place] Rate: 71 P: 65 [place]: 165 QRS: 35 QRSD: 102 T: 120 QT: 396 QTc: 430 Interpretive Statements SINUS RHYTHM POSSIBLE RIGHT VENTRICULAR CONDUCTION DELAY INFERIOR MYOCARDIAL INFARCTION, PROBABLY OLD MODERATE T-WAVE ABNORMALITY, CONSIDER LATERAL ISCHEMIA SIMILAR 20:01 Electronically Signed on 06-19-2020 9:19:42 EDT by Jackelyn Santiago
== END 2020-06-19 01:24 | disposition home or self-care (01) ==
LOC: M ED 19:04
DX: F43.0 Acute stress reaction (principal); E78.5 Hyperlipidemia, unspecified; J44.9 Chronic obstructive pulmonary disease, unspecified; F17.200 Nicotine dependence, unspecified, uncomplicated; K21.9 Gastro-esophageal reflux disease without esophagitis; I25.2 Old myocardial infarction; I11.0 Hypertensive heart disease with heart failure; I70.1 Atherosclerosis of renal artery; Z79.82 Long term (current) use of aspirin; Z79.899 Other long term (current) drug therapy

== ENCOUNTER → 2020-06-19 | Outpatient (CLI) | payer BC ==
[~2020-06-19] MED LIST changes: +CLONI1TA PO; +NITR100C2 PO
== END ==
LOC: M LABSMTC 10:39
PROVIDERS: ATTEND Anesthesiology
DX: Z01.812 Encounter for preprocedural laboratory examination (principal); Z20.828 Contact with and (suspected) exposure to other viral communicable diseases
CPT/HCPCS: C9803; U0003

== ENCOUNTER 2020-06-24 12:33 | Day surgery (SDC) | payer BC ==
[~2020-06-24] VITALS: Ht 160 cm; Wt 51.8 kg
[~2020-06-24 12:33] MED LIST changes: -CLONI1TA PO; +CONRAY-60 60% 50ML VIAL (Q9961) As Ordered ONE; +LR 1,000 ML IV ONE; +ceFAZolin SOD 2 GM in IV 1 EA IV ONE
[2020-06-24] MEDS ORDERED: LIDOCAINE 2% 100MG/5ML SDV (FOR ANES.) As Ordered ONE (12:46)
[2020-06-24] MEDS ORDERED: MIDAZOLAM INJ 2MG/2ML VIAL (J2250 PER 1MG) As Ordered ONE (12:46)
[2020-06-24] MEDS ORDERED: fentaNYL 100 MCG/2 ML INJECTION (J3010) As Ordered ONE (12:46)
[2020-06-24] MEDS ORDERED: propofoL 200 MG/20 ML VIAL As Ordered ONE (12:46)
[2020-06-24] MEDS ORDERED: CLONI1TA PO (13:01)
[2020-06-24] MEDS ORDERED: dexameTHASONE 4 MG/ML 1ML VIAL (J1100 PER 1MG) As Ordered ONE (13:30)
[2020-06-24] MEDS ORDERED: ACETAMINOPHEN 1000MG 100ML IV BTL (OFIRMEV) (J0131 PER 10MG) As Ordered ONE (13:32)
[2020-06-24] MEDS ORDERED: ONDANSETRON 4MG/2ML VIAL As Ordered ONE (13:40)
[2020-06-24] MEDS ORDERED: ePHEDrine SULFATE 25 MG/5 ML(5MG/ML) SYRINGE As Ordered ONE (13:52)
[2020-06-24] MEDS ORDERED: fentaNYL 100 MCG/2 ML INJECTION (J3010) IV PRN (15:00)
[2020-06-24] MEDS ORDERED: oxyCODONE 5MG TAB PO PRN (15:00)
[2020-06-24] MEDS ORDERED: ACETAMINOPHEN TAB 650MG DOSE (2X325MG) PO PRN (15:00)
[2020-06-24] MEDS ORDERED: LR 1,000 ML IV SCH (15:00)
[2020-06-24] MEDS ORDERED: ONDANSETRON 4MG/2ML VIAL IV PRN (15:00)
[2020-06-24 15:35] VITALS: BP 149/67
--- NOTE | 2020-06-29 09:49 | REP ---
RETROGRADE PYELOGRAM: 5-VIEWS HISTORY: Left ureteral stent. FLUROSCOPY TIME: 5 seconds reported. FINDINGS: A sequence of five [id number] fluoroscopically obtained spot radiographs of the abdomen document left ureteral cannulation, contrast injection, and double pigtail stent placement. MTDD
--- NOTE | 2020-06-30 09:49 | RO ---
DATE OF OPERATION: 06/24/2020. PREOPERATIVE DIAGNOSIS: Left kidney stones. POSTOPERATIVE DIAGNOSIS: Left kidney stones. PROCEDURES: Cystoscopy, left ureteroscopy with laser lithotripsy and basket extraction of stones, left retrograde pyelogram with intraoperative interpretation of images, left ureteral stent exchange. SURGEON: Nathaniel Otto MD. FUEL PILOT ENGINEER: None. ANESTHESIA: General. OPERATIVE INDICATIONS: This is a 69-year-old female who was brought to the Operating Room about two months ago for left ureteroscopy with laser lithotripsy and a stent was placed at the time. Follow-up KUB was done, which showed a residual stone along side the stent in the mid ureter. She was brought to the Operating Room to remove the remainder of her stones. DESCRIPTION OF PROCEDURE: The patient was brought to the operating room and general anesthesia was induced. Prophylactic antibiotics were infused. She was then placed in the dorsal lithotomy position, prepped and draped in the usual sterile fashion. A rigid cystoscope was inserted into the urethral meatus and advanced into the bladder. The previously placed left ureteral stent was seen. The stent was withdrawn until the distal end was protruding from the urethral meatus. A guidewire was advanced up the stent into the left collecting system. The stent was then removed. I then went up the left collecting system with a short semi- rigid ureteroscope and within the mid ureter an approximately 5 to 6 mm size stone fragment was seen. The stone fragment was removed using a basket. I then withdrew the ureteroscope and advanced a ureteral access sheath over the wire. I went up the access sheath with flexible ureteroscope and then examined the proximal ureter, and no additional stones were seen. I then examined the left kidney thoroughly. Of note; inside a mid pole calyx, an approximately 8-9 mm stone fragment was seen. The stone was fragmented into smaller pieces using the 272 micron laser fiber. All the fragments were then removed using a basket. I then examined all the calyxes. The patient had a moderate amount of smaller stone fragments in the lower pole calyx. The majority of these stones were removed using a basket. Once satisfied that only stone fragments small enough to pass remained, then she had a retrograde pyelogram. It was notable for moderate left hydronephrosis with no extravasation. I then withdrew the ureteroscope along with the access sheath and no additional stones were seen inside the ureter. I then utilized the guidewire to advance a 7-Lithuanian x 22-32 cm JJ ureteral stent into the left collecting system. The wire was removed and adequate curl of the stent in left renal pelvis and in the bladder. The bladder was emptied of all fluids and this marked conclusion of the procedure. The patient was taken out of the dorsal lithotomy position, awakened from anesthesia, and transferred to the recovery room in stable condition. ESTIMATED BLOOD LOSS: 5 mL. COMPLICATIONS: None. SPECIMEN: Kidney stones fragments. PLAN: Patient will follow-up in urology clinic in a few weeks for stent removal. SATURNINO
[2020-07-04 14:08] LABS: Ca Ox Monohydrate 80 % (.)
== END 2020-06-24 15:35 | disposition home or self-care (01) ==
LOC: M SDC 12:33
PROVIDERS: ATTEND Urology
DX: N20.0 Calculus of kidney (principal); I10 Essential (primary) hypertension; I25.2 Old myocardial infarction; I25.10 Atherosclerotic heart disease of native coronary artery without angina pectoris; Z98.61 Coronary angioplasty status; E78.5 Hyperlipidemia, unspecified; Z79.82 Long term (current) use of aspirin; Z79.02 Long term (current) use of antithrombotics/antiplatelets; J44.9 Chronic obstructive pulmonary disease, unspecified; Z85.118 Personal history of other malignant neoplasm of bronchus and lung; F17.218 Nicotine dependence, cigarettes, with other nicotine-induced disorders
CPT/HCPCS: 52356; 74420; 82365; 88300; C1769; C1894; C2617; J0131; J0690; J1100; J2250; J2405; J3010; Q9961

== ENCOUNTER 2020-07-09 23:29 | Emergency (ER) | payer BC ==
[~2020-07-09] VITALS: Ht 160 cm; Wt 52.1 kg
[~2020-07-09 23:29] MED LIST changes: +CLONI1TA PO; -CONRAY-60 60% 50ML VIAL (Q9961) As Ordered ONE; -LR 1,000 ML IV ONE; -ceFAZolin SOD 2 GM in IV 1 EA IV ONE
[2020-07-10 01:52] LABS: HEMATOCRIT 32.1 % (36.0-47.0); HEMOGLOBIN 10.4 g/dl (12.0-15.5); MEAN CORPUSCULAR HEMOGLOBIN 29.1 pg (27.0-33.0); MEAN CORPUSCULAR HGB CONC 32.4 g/dl (32.0-36.5); MEAN CORPUSCULAR VOLUME 89.7 fl (80.0-96.0); PLATELET COUNT, AUTOMATED 281 10^3/uL (150-450); RED BLOOD COUNT 3.58 10^6/uL (4.00-5.40); WHITE BLOOD COUNT 7.2 10^3/uL (4.0-10.0)
[2020-07-10 02:22] LABS: CALCIUM LEVEL 8.6 MG/DL (8.8-10.2); CREATININE FOR GFR 1.92 MG/DL (0.55-1.30); GLOMERULAR FILTRATION RATE 27.6 (>45); POTASSIUM SERUM 3.2 MEQ/L (3.5-5.1)
[2020-07-10 03:06] VITALS: BP 178/77
== END 2020-07-10 03:07 | disposition home or self-care (01) ==
LOC: M ED 23:29
DX: I10 Essential (primary) hypertension (principal); I25.10 Atherosclerotic heart disease of native coronary artery without angina pectoris; E78.5 Hyperlipidemia, unspecified; J44.9 Chronic obstructive pulmonary disease, unspecified; K21.9 Gastro-esophageal reflux disease without esophagitis; I25.2 Old myocardial infarction; Z79.82 Long term (current) use of aspirin; Z79.899 Other long term (current) drug therapy

== ENCOUNTER → 2020-07-21 | Outpatient (REF) | payer BC | LOC: M LAB REF 16:57 | PROVIDERS: ATTEND Internal Medicine Nephrology | DX: N13.2 Hydronephrosis with renal and ureteral calculous obstruction (principal) ==

== ENCOUNTER 2020-10-02 18:56 | Emergency (ER) | payer BC, MEDICARE ==
[~2020-10-02] VITALS: Ht 160 cm; Wt 53.6 kg
--- OUTSIDE RECORDS SUMMARY | 2020-10-02 19:05 | CCD ---
Author Author [facility] Organization [facility] Address Unknown Phone Unavailable Care Team Providers Care Overlay Plastician Name Role Phone Ryan Street Unavailable PROBLEMS Type Condition ICD9-CM Code [id number] Code Onset Dates Condition S tatus SNOMED Code Notes Problem Renal stones 592.0 Active 97008600 Problem COPD (chronic obstructive pulmonary disease) 496 Active 19342031 Problem History of tobacco use V15.82 Active 026541473 9103 Problem Adenocarcinoma, lung 162.9 Active 394916601 Problem Kidney stone N20.0 Active 40321117 Problem S/P lobectomy of lung V45.89 Active 19928627 Problem Renovascular hypertension I15.0 Active 430264 005 Problem Smoking F17.200 Active 05692057 Problem Chronic obstructive pulmonary disease, unspecified COPD ty pe J44.9 Active 28483823 Problem ASCVD (arteriosclerotic cardiovascular disease) I2 5.10 Active 07254653 Problem End stage renal disease N18.6 Active 32612558 4 Problem Chronic systolic congestive heart failure I50.22 Active 667357752 Problem Dependence on renal dialysis Z99.2 Active 105 968174 Problem Constipation, unspecified constipation type K59.00 Active 72127763 Problem Acute systolic congestive heart failure I50.21 Active 425964047 Problem History of adenocarcinoma of lung Z85.118 Active 142826856 Problem Stage 4 chronic kidney disease N18.4 Active 4 97304907 ALLERGIES No Known Allergies ENCOUNTERS from 1950 to 2020-07-23 Encounter Location Date Provider Diagnosis [facility] GME Resident [address] [facility] [place] [address] Jul, [address] IMMUNIZATIONS Vaccine Route Administration Date Status Pneumococcal Adult 0.5mL (Pneumovax 23) IM Intramuscular Jun 25, 2013 Administered Influenza (6mo & up) Fluzone IM Intramuscular Jun 25, 2013 Ad ministered SOCIAL HISTORY Tobacco Use: Social History Observation Description Date Details (start date - stop date) Former Smoker Sex Assigned At : Social History Observation Description Sex Assigned At Unknown Audit Question Answer Notes Total Score: 0 Interpretation: Alcohol Education Sexual Hx: Question Answer Notes Had sex in the last 12 months (vaginal, oral, or anal)? No Have you ever had an STD? No Drug and Alcohol Question Answer Notes Total Score: 0 Interpretation: No problems reported Tobacco Use: Question Answer Notes Are you a: former smoker How long has it been since you last smoked? < 1 month REASON FOR REFERRAL No Information VITAL SIGNS No information MEDICATIONS Medication SIG (Take, Route, Frequency, Duration) Start Date En d Date Status Plavix 75 MG 1 tablet Orally Once a day A ctive Tessalon Perles 100 mg 1 capsule as needed Orally T hree times a day for 15 day(s) Oct, Not-Taking Aspirin EC 81 MG 1 tablet Orally Once a day Active Bactrim DS 800-160 MG 1 tablet for your cystoscopy today Ora llvickie as directed Jun, Active Torsemide 10 MG 1 tablet Orally Once a day for 30 day(s) Active Isosorbide Mononitrate 10 MG 2 tablets Orally Twice a day for 30 Da ys Active CloNIDine 0.1 MG/24HR 1 patch to skin Transdermal Active HydrALAZINE HCl 50 MG 1 tablet with food Orally Three times a day Active Lipitor 40 MG 1 tablet Orally Once a day Active Carvedilol 12.5 MG 1 tablet with food Orally Twice a day Active Senna 8.6 MG 2 tablets at bedtime as needed Orally On ce a day for 30 day(s) January, Active Colace 100 MG 1 capsule as needed Orally Once a day for 30 day(s) Active PROCEDURES No Information RESULTS No Results REASON FOR VISIT stuffy nose MEDICAL (GENERAL) HISTORY Type Description Date Medical History Former Smoker Medical History COPD/ Emphysema Pulm- [facility] F/U 08/30 Medical History renal stones/nephrolithiasis-urology Dr Turner Medical History left upper lobe biopsy 05/31- moderately differentiated adenocarcinoma. S/P ALLISON Lobectomy with Pulmonary Artery resection and reconstruction 07/31. Lymph nodes neg. Stage [address] Paredes/Jazmín mei for adjuvant Radiation/chemotherapy which was recommended but Pt decided against. Medical History PET scan June 06, 2013- confluent multifocal hypermetabolic uptake left upper lobe lung mass consistent with neoplasm Medical History echocardiogram 05/31/13 kemar l LV size and systolic function, diastolic function ejection fraction 65% Medical History EKG 06/25/13 SR/ST-t abn, no priors. Medical History SPirometry Pulm 06/19/13 FVC 2.38/FEV1 1.48, moderate obstruction. Dr Brock Medical History 06/30 LDL 128. ASCVD Risk 6.2% Surgical History CT guided left lung biopsy- Dr Canseco 0 05/2013 Surgical History renal stent-to be removed next week 02/05 20 Surgical History CYSTO STENT 07/03/2020 Hospitalization History left upper lobe biopsy indic ating moderately differentiated adenocarcinoma 05/31 Hospitalization History CHF ([facility]) 01/2020 Hospitalization History heart stent and kidney stent at [facility]- clammped right kidney february Goals Section No Information Health Concerns No Information MEDICAL EQUIPMENT No Information MENTAL STATUS No Information FUNCTIONAL STATUS No Information ASSESSMENTS No Information PLAN OF TREATMENT Medication Medication Name Sig Start Date Stop Date Bactrim DS 800-160 MG 1 tablet for your cystoscopy today Ora lly as directed Jun, Next Appt Details Provider Name:Ryan Street, 03:15:00 PM, [address] [facility], [place], [address], Provider Name:Nathaniel Otto, 01:30:00 PM, [address], [place], [address], Insurance Providers Payer Name Payer Address Payer Phone Insured Name Patient Relati onship to Insured Coverage Start Date Coverage End Date BCBS [place] PPO [phone] [facility] [place] [address] JAY JAY KEATING self
--- OUTSIDE RECORDS SUMMARY | 2020-10-02 19:05 | CCD ---
Author Author [facility] Organization [facility] Address Unknown Phone Unavailable Care Team Providers Care Flight Test Shop Mechanic Name Role Phone Ryan Street Unavailable PROBLEMS Type Condition ICD9-CM Code [id number] Code Onset Dates Condition S tatus SNOMED Code Notes Problem Renal stones 592.0 Active 22125764 Problem COPD (chronic obstructive pulmonary disease) 496 Active 64211343 Problem History of tobacco use V15.82 Active 381917174 9103 Problem Adenocarcinoma, lung 162.9 Active 350153972 Problem Kidney stone N20.0 Active 46902331 Problem S/P lobectomy of lung V45.89 Active 75770575 Problem Renovascular hypertension I15.0 Active 178509 005 Problem Smoking F17.200 Active 95125361 Problem Chronic obstructive pulmonary disease, unspecified COPD ty pe J44.9 Active 43815771 Problem ASCVD (arteriosclerotic cardiovascular disease) I2 5.10 Active 65087672 Problem End stage renal disease N18.6 Active 40187858 4 Problem Chronic systolic congestive heart failure I50.22 Active 190199032 Problem Dependence on renal dialysis Z99.2 Active 105 440571 Problem Constipation, unspecified constipation type K59.00 Active 11960262 Problem Acute systolic congestive heart failure I50.21 Active 783415508 Problem History of adenocarcinoma of lung Z85.118 Active 078067048 Problem Stage 4 chronic kidney disease N18.4 Active 4 55666764 ALLERGIES No Known Allergies ENCOUNTERS from 1950 to 2020-07-11 Encounter Location Date Provider Diagnosis [address] [address] Jun, Ryan [address] IMMUNIZATIONS Vaccine Route Administration Date [...] Information RESULTS No Results REASON FOR VISIT clonidine and BP readings MEDICAL (GENERAL) HISTORY Type Description Date Medical History Former Smoker Medical History COPD/ Emphysema Pulm- [facility] F/U 08/30 Medical History renal stones/nephrolithiasis-urology Dr Turner Medical History left upper lobe biopsy 05/31- moderately differentiated adenocarcinoma. S/P ALLISON Lobectomy with Pulmonary Artery resection and reconstruction 11/13. Lymph nodes neg. Stage 3 disease. Seen [...] moderately differentiated adenocarcinoma 05/31 Hospitalization History CHF ([facility]) 01/2020 Hospitalization History heart stent and kidney stent at [facility]- clammped right kidney february Goals Section No Information Health Concerns No Information MEDICAL EQUIPMENT No Information MENTAL STATUS No Information FUNCTIONAL STATUS No Information ASSESSMENTS No Information PLAN OF TREATMENT Medication Medication Name Sig Start Date Stop Date Bactrim DS 800-160 MG 1 tablet for your cystoscopy today Ora lly as directed Jun, Next Appt Details Provider Name:Ryan Street, 03:15:00 PM, [address] [facility], [place], [address], Provider Name:Nathaniel Otto, 01:30:00 PM, [address], [place], [address], Insurance Providers Payer Name Payer Address Payer Phone Insured Name Patient Relati onship to Insured Coverage Start Date Coverage End Date [place]BS [place] PPO [phone] [facility] [place] [address] JAY JAY KEATING self
--- OUTSIDE RECORDS SUMMARY | 2020-10-02 19:05 | CCD ---
Author Author [facility] Organization [facility] Address Unknown Phone Unavailable Care Team Providers Care Internet Programmer Name Role Phone Ryan Street Unavailable PROBLEMS Type Condition ICD9-CM Code FIV09-ST Code Onset Dates Condition S tatus SNOMED Code Notes Problem COPD (chronic obstructive pulmonary disease) 496 Active 72058105 Problem Adenocarcinoma, lung 162.9 Active 541599557 Problem Renal stones 592.0 Active 39322472 Problem S/P lobectomy of lung V45.89 Active 59168570 Problem History of tobacco use V15.82 Active 523500443 9103 Problem Dependence on renal dialysis Z99.2 Active 105 224974 Problem Kidney stone N20.0 Active 19283993 Problem Smoking F17.200 Active 03869521 Problem Chronic obstructive pulmonary disease, unspecified COPD ty pe J44.9 Active 33316905 Problem Constipation, unspecified constipation type K59.00 Active 98709823 Problem Chronic systolic congestive heart failure I50.22 Active 023814769 Problem Renovascular hypertension I15.0 Active 139320 005 Problem Anxiety F41.9 Active 55103715 Problem End stage renal disease N18.6 Active 50898129 4 Problem Acute systolic congestive heart failure I50.21 Active 933869979 Problem History of adenocarcinoma of lung Z85.118 Active 806864481 Problem Stage 4 chronic kidney disease N18.4 Active 4 14086199 Problem ASCVD (arteriosclerotic cardiovascular disease) I2 5.10 Active 89693413 ALLERGIES No Known Allergies ENCOUNTERS from 1950 to 2020-09-02 Encounter Location Date Provider Diagnosis [facility] [address] [address] Aug, Ryan [address] ASCVD (arteriosclerotic cardiovascular d isease) I25.10 IMMUNIZATIONS Vaccine Route Administration Date Status Pneumococcal [...] MEDICATIONS Medication SIG (Take, Route, Frequency, Duration) Notes Start Da te End Date Status Aspirin EC 81 MG 1 tablet Orally Once a day Active HydrALAZINE HCl 50 MG 1 tablet with food Orally Three times a day Active Senna 8.6 MG 2 tablets at bedtime as needed Orally Once a day for 30 day(s) January, Active Plavix 75 MG 1 tablet Orally Once a day Active Torsemide 10 MG 1 tablet Orally Once a day for 30 day(s) Active Colace 100 MG 1 capsule as needed Orally Once a day for 30 day(s) Active Isosorbide Mononitrate ER 60 MG 1 tablet in the mornin g Orally Once a day for 30 day(s) Active Tessalon Perles 100 mg 1 capsule as needed Orally T hree times a day for 15 day(s) Oct, Not-Taking HydrOXYzine HCl 25 MG 1 tablet as needed Orally every 8 hrs for 30 day(s) Jul, Active Bactrim DS 800-160 MG 1 tablet for your cystoscopy today Orally as directed Jun, Active CloNIDine 0.1 MG/24HR 1 patch to skin Transdermal Active Lipitor 40 MG 1 tablet Orally Once a day for 30 Days Active Carvedilol 12.5 MG 1 tablet with food Orally Twice a day Active PROCEDURES No Information RESULTS No Results REASON FOR VISIT refill-lipitor MEDICAL (GENERAL) HISTORY Type Description Date Medical [...] moderately differentiated adenocarcinoma 05/31 Hospitalization History CHF ([facility]) 01/2020 Hospitalization History heart stent and kidney stent at [facility]- clammped right kidney february Goals Section No Information Health Concerns No Information MEDICAL EQUIPMENT No Information MENTAL STATUS No Information FUNCTIONAL STATUS No Information ASSESSMENTS Encounter Date Diagnosis Assessment Notes Treatment Notes Treatm ent Clinical Notes Aug, ASCVD (arteriosclerotic cardiovascular d isease) (ICD-10 - I25.10) PLAN OF TREATMENT Medication Medication Name Sig Start Date Stop Date HydrOXYzine HCl 25 MG 1 tablet as needed Orally every 8 hrs for 30 day(s) Jul, Lipitor 40 MG 1 tablet Orally Once a day for 30 Days Next Appt Details Provider Name:Nathaniel Otto, 01:30:00 PM, [address], [place], [address], Insurance Providers Payer Name Payer Address Payer Phone Insured Name Patient Relati onship to Insured Coverage Start Date Coverage End Date BCBS [place] PPO [phone] [facility] [place] [facility] [place] [address] JAY JAY KEATING
--- OUTSIDE RECORDS SUMMARY | 2020-10-02 19:05 | CCD ---
Author Author [facility] Organization [facility] Address Unknown Phone Unavailable Care Team Providers Care Slot Shift Manager Name Role Phone Ryan Street Unavailable PROBLEMS Type Condition ICD9-CM Code WKG80-SW Code Onset Dates Condition S tatus SNOMED Code Notes Problem Renal stones 592.0 Active 11046052 Problem COPD (chronic obstructive pulmonary disease) 496 Active 58151348 Problem History of tobacco use V15.82 Active 765067433 9103 Problem Adenocarcinoma, lung 162.9 Active 244813432 Problem Kidney stone N20.0 Active 96855459 Problem S/P lobectomy of lung V45.89 Active 80795661 Problem Renovascular hypertension I15.0 Active 847833 005 Problem Smoking F17.200 Active 17382395 Problem Chronic obstructive pulmonary disease, unspecified COPD ty pe J44.9 Active 52786547 Problem ASCVD (arteriosclerotic cardiovascular disease) I2 5.10 Active 64737884 Problem End stage renal disease N18.6 Active 90981179 4 Problem Chronic systolic congestive heart failure I50.22 Active 478246296 Problem Dependence on renal dialysis Z99.2 Active 105 386666 Problem Constipation, unspecified constipation type K59.00 Active 05157740 Problem Acute systolic congestive heart failure I50.21 Active 133506670 Problem History of adenocarcinoma of lung Z85.118 Active 470842740 Problem Stage 4 chronic kidney disease N18.4 Active 4 91116115 ALLERGIES No Known Allergies ENCOUNTERS from 1950 to 2020-07-08 Encounter Location Date Provider Diagnosis [address] [place] [address] Jun, [address] Renovascular hypertension I15.0 IMMUNIZATIONS Vaccine Route Administration Date Status Pneumococcal [...] RESULTS No Results REASON FOR VISIT clonidine MEDICAL (GENERAL) HISTORY Type Description Date Medical [...] moderately differentiated adenocarcinoma 05/31 Hospitalization History CHF ([facility]) 01/2020 Hospitalization History heart stent and kidney stent at [facility]- clammped right kidney february Goals Section No Information Health Concerns No Information MEDICAL EQUIPMENT No Information MENTAL STATUS No Information FUNCTIONAL STATUS No Information ASSESSMENTS Encounter Date Diagnosis Notes Jun, Renovascular hypertension (ICD-10 - I15. 0) PLAN OF TREATMENT Medication Medication Name Sig Start Date Stop Date Bactrim DS 800-160 MG 1 tablet for your cystoscopy today Orgracie shaffer as directed Jun, Next Appt Details Provider Name:Nathaniel Talbert Fam, 01:30:00 PM, [address], [place], [address], Insurance Providers Payer Name Payer Address Payer Phone Insured Name Patient Relati onship to Insured Coverage Start Date Coverage End Date BCBS [place] PPO [phone] [facility] [place] [address] JAY JAY KEATING self
--- OUTSIDE RECORDS SUMMARY | 2020-10-02 19:05 | CCD ---
Author Author [facility] Organization [facility] Address Unknown Phone Unavailable Care Team Providers Care Decal Cutter Name Role Phone Nathaniel Otto Unavailable PROBLEMS Type Condition ICD9-CM Code IWN22-XQ Code Onset Dates Condition S tatus SNOMED Code Notes Problem Renal stones 592.0 Active 37440759 Problem COPD (chronic obstructive pulmonary disease) 496 Active 55670870 Problem History of tobacco use V15.82 Active 963493331 9103 Problem Adenocarcinoma, lung 162.9 Active 399789098 Problem Kidney stone N20.0 Active 96387436 Problem S/P lobectomy of lung V45.89 Active 95773992 Problem Renovascular hypertension I15.0 Active 510289 005 Problem Smoking F17.200 Active 14477828 Problem Chronic obstructive pulmonary disease, unspecified COPD ty pe J44.9 Active 98468169 Problem ASCVD (arteriosclerotic cardiovascular disease) I2 5.10 Active 51326214 Problem End stage renal disease N18.6 Active 69145556 4 Problem Chronic systolic congestive heart failure I50.22 Active 139370703 Problem Dependence on renal dialysis Z99.2 Active 105 848472 Problem Constipation, unspecified constipation type K59.00 Active 59587609 Problem Acute systolic congestive heart failure I50.21 Active 764109260 Problem History of adenocarcinoma of lung Z85.118 Active 655235585 Problem Stage 4 chronic kidney disease N18.4 Active 4 69457099 ALLERGIES No Known Allergies ENCOUNTERS from 1950 to 2020-07-14 Encounter Location Date Provider Diagnosis [facility] Urology [address] [place] [address] Jun Nathaniel Otto Kidney stone N20.0 IMMUNIZATIONS Vaccine Route Administration Date Status Pneumococcal [...] REASON FOR REFERRAL No Information VITAL SIGNS Weight 117 lbs Jun, Height 62 in Jun, BMI 21.40 kg/m2 Jun, Heart Rate 72 /min Jun, Respiratory Rate 17 /min Jun, Temperature 97.8 degrees Fahrenheit Jun, Oximetry 99 Jun, Blood pressure systolic 122 mm Hg Jun, Blood pressure diastolic 68 MANUAL mm Hg Jun, MEDICATIONS Medication SIG (Take, Route, Frequency, Duration) [...] MG 1 tablet for your cystoscopy today Opal shaffer as directed Jun, Active Torsemide 10 MG [...] Information RESULTS No Results REASON FOR VISIT S/P L URS w. stent removal MEDICAL (GENERAL) HISTORY Type Description Date Medical History Former Smoker Medical History COPD/ Emphysema Pulm- Delmy F/U 08/30 Medical History renal stones/nephrolithiasis-urology Dr [...] moderately differentiated adenocarcinoma 05/31 Hospitalization History CHF ([facility]) 01/2020 Hospitalization History heart stent and kidney stent at [facility] right kidney february Goals Section No Information Health Concerns No Information MEDICAL EQUIPMENT No Information MENTAL STATUS No Information FUNCTIONAL STATUS No Information ASSESSMENTS Encounter Date Diagnosis Notes Jun, Kidney stone (ICD-10 - N20.0) PLAN OF TREATMENT Medication Medication Name Sig Start Date Stop Date Bactrim DS 800-160 MG 1 tablet for your cystoscopy today Ora lly as directed Jun, Treatment Notes Test Name Order Date Medication: Lidocaine HCl 2% Jelly 5mL Intravesically 2020-07-14 Future Test Test Name Order Date SMT ABDOMEN 1 VIEW (KUB) [id number] Next Appt Details 6 Months w/ KUB prior Reason:kidney ston es Provider Name:Ryan Street, 03:15:00 PM, [address] [place] [address], [place], [address], Provider Name:Nathaniel Otto 01:30:00 PM, [address], [place], [address], Follow Up:6 Months juan burch Insurance Providers Payer Name Payer Address Payer Phone Insured Name Patient Relati onship to Insured Coverage Start Date Coverage End Date BCBS [place] [facility] [id number] [facility] [place] [address] JAY JAY KEATING self
--- OUTSIDE RECORDS SUMMARY | 2020-10-02 19:06 | CCD ---
Author Author [facility] Organization [facility] Address Unknown Phone Unavailable Care Team Providers Care [facility] Name Role Phone Jad Ryan Unavailable PROBLEMS Type Condition ICD9-CM Code [id number] Code Onset Dates Condition S tatus SNOMED Code Notes Problem Renal stones 592.0 Active 16818906 Problem COPD (chronic obstructive pulmonary disease) 496 Active 65527641 Problem History of tobacco use V15.82 Active 304051389 9103 Problem Adenocarcinoma, lung 162.9 Active 753037311 Problem Kidney stone N20.0 Active 95554305 Problem S/P lobectomy of lung V45.89 Active 41474639 Problem Renovascular hypertension I15.0 Active 794132 005 Problem Smoking F17.200 Active 25887898 Problem Chronic obstructive pulmonary disease, unspecified COPD ty pe J44.9 Active 53181784 Problem ASCVD (arteriosclerotic cardiovascular disease) I2 5.10 Active 76815677 Problem End stage renal disease N18.6 Active 58971486 4 Problem Chronic systolic congestive heart failure I50.22 Active 779072851 Problem Dependence on renal dialysis Z99.2 Active 105 801408 Problem Constipation, unspecified constipation type K59.00 Active 43711111 Problem Acute systolic congestive heart failure I50.21 Active 086258902 Problem History of adenocarcinoma of lung Z85.118 Active 431240558 Problem Stage 4 chronic kidney disease N18.4 Active 4 76098153 ALLERGIES No Known Allergies ENCOUNTERS from 1950 to 2020-07-04 Encounter Location Date Provider Diagnosis [facility] Resident [address] [place] [address] Jun, [address] History of adenocarcinoma of lung Z85.118 ; Chronic systolic congestive heart failure I50.22 ; Stage 4 chronic kidney disease N18.4 ; Renovascular hypertension I15.0 ; ASCVD (arteriosclerotic cardiovascular disease) I25.10 ; Encounter for screening for malignant neoplasm of rectum Z12.12 and Encounter for screening for malignant neoplasm of colon Z12.11 IMMUNIZATIONS Vaccine Route Administration Date Status Pneumococcal [...] FOR REFERRAL No Information VITAL SIGNS Weight 116.6 lbs Jun, Height 62 in Jun, BMI 21.32 kg/m2 Jun, Heart Rate 75 /min Jun, Respiratory Rate 18 /min Jun, Temperature 98.1 degrees Fahrenheit Jun, Oximetry 98 Jun, Blood pressure systolic 186 mm Hg Jun, Blood pressure diastolic 88 mm Hg Jun, MEDICATIONS Medication SIG (Take, [...] Information RESULTS No Results REASON FOR VISIT 2 week follow up MEDICAL (GENERAL) HISTORY Type Description Date Medical [...] moderately differentiated adenocarcinoma 05/31 Hospitalization History CHF ([facility]) 01/2020 Hospitalization History heart stent and kidney stent at [facility]- clammped right kidney february Goals Section No Information Health Concerns No Information MEDICAL EQUIPMENT No Information MENTAL STATUS No Information FUNCTIONAL STATUS No Information ASSESSMENTS Encounter Date Diagnosis Notes Jun, Encounter for screening for malignant neoplasm of colon (ICD-10 - Z12.11) Jun, Renovascular hypertension (ICD-10 - I15. 0) Jun, Encounter for screening for malignant neoplasm of rectum (ICD-10 - Z12.12) Jun, ASCVD (arteriosclerotic cardiovascular d isease) (ICD-10 - I25.10) Jun, History of adenocarcinoma of lung (ICD-1 0 - Z85.118) Jun, Stage 4 chronic kidney disease (ICD-10 - N18.4) Jun, Chronic systolic congestive heart failur e (ICD-10 - I50.22) PLAN OF TREATMENT Medication Medication Name Sig Start Date Stop Date Bactrim DS 800-160 MG 1 tablet for your cystoscopy today Harshilgracie domínguezvickie as directed Jun, Treatment Notes Assessment Notes Clinical Notes History of adenocarcinoma of lung Patien serenity is a history of adenocarcinoma the lung status post lobe resection. She continues to smoke she stated that she has not had any low-dose CT lung cancer screening since her lobectomy. Due to her s moking history and current ongoing tobacco abuse patient is recommended for lung cancer screening. Patient was counseled on the risks and benefits of low-dose lung cancer screening. At this time the patient has declined low-dose CT lung cancer screening. She states that she would revisit this idea later on this year after she has her repeat echocardiogram in July. Chronic systolic congestive heart failure Patient systolic congestive heart failure. She had suffered an HI and had stents placed previously. She had originally developed hypertensive emergency and went into renal failure rquiring dialysis. She is currently off of dialysis. Most recent GFR is 29. Due to her reduced GFR she is not a candidate for ACEI or ARB. Patient had echocardiogram completed previously which demonstrated a LVEF of 25-29%. She is due for a repeat echocardiogram in [facility]. Patient currently follows with Dr. Jimenez Stage 4 chronic kidney disease Patient geraldine roberts with Nephrology. She has an appointment in [facility]. Most recent GFR 29. At this time will continue to avoid nephrotoxic drugs. 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 Her le ft kidney has renal artery stenosis which has failed stenting. Renovascular hypertension Patient has hy pertension which is at least in part due to her renal artery stenosis. Her BP has been labile. In the office previously her systolic BP was >180. She was started on a clonidine patch previously however has not been using this. Today in the office her SBP is 185. Patient is currently taking 50mg of hydralazine 3 times a day indoor 10 mg 2 tab lets twice a day and torsemide 10 mg once a day. Patient was advised to begin her clonidine patch. Goal blood pressure less than 140 over less than 90. Patient was advised take her blood pressure home she'll follow-up in 2 weeks for recheck. ASCVD (arteriosclerotic cardiovascular disease) Patient has a history of ASCVD. We'll continue her current therapy. She is not able to be on HERMINIA inhibitor or angiotensin receptor timmy due to her reduced GFR. Encounter for screening for malignant neoplasm of rectum Patient is due for a colonoscopy for colon cancer screening. She has declined this and states that she'll revisit this at a later date. Next Appt Details 2 Weeks; 3 months Reason:BP check; chron ic medical conditions Provider Name:Nathaniel Nitish Otto, 01:30:00 PM, [address], [place], [phone], Follow Up:2 Weeks; 3 monthsBP check; chronic medical conditions Insurance Providers Payer Name Payer Address Payer Phone Insured Name Patient Relati onship to Insured Coverage Start Date Coverage End Date BCBS MURALI DAWKINS PPO [phone] [facility] [id number]
--- OUTSIDE RECORDS SUMMARY | 2020-10-02 19:06 | CCD ---
Author Author [facility] Organization [facility] Address Unknown Phone Unavailable Care Team Providers Care Game Room Attendant Name Role Phone Andrea Canseco MD Unavailable Unavailable Andrea Canseco MD Unavailable Unavailable Andrea Canseco MD Unavailable Unavailable Andrea Canseco MD Unavailable Unavailable Andrea Canseco MD Unavailable Unavailable Andrea Canseco MD Unavailable Unavailable Ajith, Andrea Jose MD Unavailable Unavailable Ajith, Andrea Jose MD Unavailable Unavailable Ajith, Andrea Jose MD Unavailable Unavailable Ajith, Andrea Jose MD Unavailable Unavailable Ajith, Andrea Jose MD Unavailable Unavailable Ajith, Andrea Jose MD Unavailable Unavailable Ajith, Andrea Jose MD Unavailable Unavailable Ajith, Andrea Jose MD Unavailable Unavailable Ajith, Andrea Jose MD Unavailable Unavailable Ajith, Andrea Jose MD Unavailable Unavailable Ajith, Andrea Jose MD Unavailable Unavailable Ajith, Andrea Jose MD Unavailable Unavailable Ajith, Andrea Jose MD Unavailable Unavailable Ajith, Andrea Jose MD Unavailable Unavailable Ajith, Andrea Jose MD Unavailable Unavailable Ajith, Andrea Jose MD Unavailable Unavailable Ajith, Andrea Jose MD Unavailable Unavailable Ajith, Andrea Jose MD Unavailable Unavailable Ajith, Andrea Jose MD Unavailable Unavailable Ajith, Andrea Jose MD Unavailable Unavailable Ajith, Andrea Jose MD Unavailable Unavailable Ajith, Andrea Jose MD Unavailable Unavailable Ajith, Andrea Jose MD Unavailable Unavailable Ajith, Andrea Jose MD Unavailable Unavailable Ajith, Andrea Jose MD Unavailable Unavailable Ajith, Andrea Jose MD Unavailable Unavailable Ajith, Andrea Jose MD Unavailable Unavailable Ajith, Andrea Jose MD Unavailable Unavailable Ajith, Andrea Jose MD Unavailable Unavailable Ajith, Andrea Jose MD Unavailable Unavailable Ajith, Andrea Jose MD Unavailable Unavailable Ajith, Anrdea Jose MD Unavailable Unavailable JUANIS LYLES MD Unavailable Unavailable TRUPTI, JUANIS BRADLEY Unavailable Unavailable TRUPTI, JUANIS BRADLEY Unavailable Unavailable TRUPTIJUANIS MD Unavailable Unavailable TRUPTI, JUANIS BRADLEY Unavailable Unavailable TRUPTIJUANIS MD Unavailable Unavailable TRUPTIJUANIS MD Unavailable Unavailable TRUPTI, JUANIS BRADLEY Unavailable Unavailable TRUPTI, JUANIS BRADLEY Unavailable Unavailable TRUPTI, JUANIS BRADLEY Unavailable Unavailable TRUPTI, JUANIS BRADLEY Unavailable Unavailable TRUPTIJUANIS MD Unavailable Unavailable TRUPTIJUANIS MD Unavailable Unavailable TRUPTI, JUANIS BRADLEY Unavailable Unavailable TRUPTIJUANIS MD Unavailable Unavailable TRUPTIJUANIS MD Unavailable Unavailable TRUPTIJUANIS MD Unavailable Unavailable TRUPTIJUANIS MD Unavailable Unavailable TRUPTIJUANIS MD Unavailable Unavailable TRUPTI, JUANIS BRADLEY Unavailable Unavailable TRUPTIJUANIS MD Unavailable Unavailable TRUPTIJUANIS MD Unavailable Unavailable TRUPTIJUANIS MD Unavailable Unavailable TRUPTIJUANIS MD Unavailable Unavailable TRUPTIJUANIS MD Unavailable Unavailable TRUPTIJUANIS MD Unavailable Unavailable TRUPTIJUANIS MD Unavailable Unavailable TRUPTIJUANIS MD Unavailable Unavailable TRUPTIJUANIS MD Unavailable Unavailable TRUPTIJUANIS MD Unavailable Unavailable TRUPTIJUANIS MD Unavailable Unavailable TRUPTIJUANIS MD Unavailable Unavailable TRUPTIJUANIS MD Unavailable Unavailable TRUPTIJUANIS MD Unavailable Unavailable JUANIS LYLES MD Unavailable Unavailable TRUPTIJUANIS MD Unavailable Unavailable TRUPTI, JUANIS BRADLEY Unavailable Unavailable TRUPTI, JUANIS BRADLEY Unavailable Unavailable TRUPTI, JUANIS BRADLEY Unavailable Unavailable TRUPTI, JUANIS BRADLEY Unavailable Unavailable TRUPTI, OLIVAREZ MD Unavailable Unavailable TRUPTI, OLIVAREZ MD Unavailable Unavailable TRUPTI, OLIVAREZ MD Unavailable Unavailable TRUPTI, OLIVAREZ MD Unavailable Unavailable TRUPTI, OLIVAREZ MD Unavailable Unavailable TRUPTI, OLIVAREZ MD Unavailable Unavailable TRUPTI, OLIVAREZ MD Unavailable Unavailable TRUPTI, OLIVAREZ MD Unavailable Unavailable TRUPTI, OLIVAREZ MD Unavailable Unavailable TRUPTI, OLIVAREZ MD Unavailable Unavailable TRUPTI, OLIVAREZ MD Unavailable Unavailable TRUPTI, OLIVAREZ MD Unavailable Unavailable TRUPTI, OLIVAREZ MD Unavailable Unavailable TRUPTI, OLIVAREZ MD Unavailable Unavailable El-Khally, A Ziad MD Unavailable Unavailable El-Khally, A Ziad MD Unavailable Unavailable El-Khally, A Ziad MD Unavailable Unavailable El-Khally, A Ziad MD Unavailable Unavailable El-Khally, A Ziad MD Unavailable Unavailable El-Khally, A Ziad MD Unavailable Unavailable El-Khally, A Ziad MD Unavailable Unavailable El-Khally, A Ziad MD Unavailable Unavailable El-Khally, A Ziad MD Unavailable Unavailable El-Khally, A Ziad MD Unavailable Unavailable El-Khally, A Ziad MD Unavailable Unavailable El-Khally, A Ziad MD Unavailable Unavailable El-Khally, A Ziad MD Unavailable Unavailable El-Khally, A Ziad MD Unavailable Unavailable El-Khally, A Ziad MD Unavailable Unavailable El-Khally, A Ziad MD Unavailable Unavailable El-Khally, A Ziad MD Unavailable Unavailable El-Khally, A Ziad MD Unavailable Unavailable El-Khally, A Ziad MD Unavailable Unavailable El-Khally, A Ziad MD Unavailable Unavailable El-Khally, A Ziad MD Unavailable Unavailable El-Khally, A Ziad MD Unavailable Unavailable El-Khally, A Ziad MD Unavailable Unavailable El-Khally, A Ziad MD Unavailable Unavailable El-Khally, A Ziad MD Unavailable Unavailable El-Khally, A Ziad MD Unavailable Unavailable El-Khally, A Ziad MD Unavailable Unavailable El-Khally, A Ziad MD Unavailable Unavailable El-Khally, A Ziad MD Unavailable Unavailable El-Khally, A Ziad MD Unavailable Unavailable El-Khally, A Ziad MD Unavailable Unavailable El-Khally, A Ziad MD Unavailable Unavailable El-Khally, A Ziad MD Unavailable Unavailable El-Khally, A Ziad MD Unavailable Unavailable El-Khally, A Ziad MD Unavailable Unavailable El-Khally, A Ziad MD Unavailable Unavailable El-Khally, A Ziad MD Unavailable Unavailable El-Khally, A Joycelyn BRADLEY Unavailable Unavailable El-Khally, A Joycelyn BRADLEY Unavailable Unavailable Re-disclosure Warning The records that you are about to access may contain information from federally-assisted alcohol or drug abuse programs. If such information is present, then the following federally mandated warning applies: This information has been disclosed to you from records protected by federal confidentiality rules (42 CFR part 2). The federal rules prohibit you from making any further disclosure of this information unless further disclosure is expressly permitted by the written consent of the person to whom it pertains or as otherwise permitted by 42 CFR part 2. A general authorization for the release of medical or other information is NOT sufficient for this purpose. The Federal rules restrict any use of the information to criminally investigate or prosecute any alcohol or drug abuse patient.The records that you are about to access may contain highly sensitive health information, the redisclosure of which is protected by Article 27-F of the [facility] Public Health law. If you continue you may have access to information: Regarding HIV / AIDS; Provided by facilities licensed or operated by the [facility] Office of Mental Health; or Provided by the [facility] Office for People With Developmental Disabilities. If such information is present, then the following [facility] mandated warning applies: This information has been disclosed to you from confidential records which are protected by state law. State law prohibits you from making any further disclosure of this information without the specific written consent of the person to whom it pertains, or as otherwise permitted by law. Any unauthorized further disclosure in violation of state law may result in a fine or detention sentence or both. A general authorization for the release of medical or other information is NOT sufficient authorization for further disc losure. Encounters Encounter Providers Location Date Indications Data Source(s ) Unknown [address] [facility] [id number] 08/27/2020 12:00:00 AM EST eCW1 (Formerly [facility]) Unknown [address] [facility] [id number] 07/22/2020 12:00:00 AM EST eCW1 (Formerly [facility]) (Cysto1) Urology [address] [place] [address] 07/03/2020 12:00:00 AM EDT eCW1 ([facility]) [place] [address] [facility] [address] 07/02/2020 12:00:00 AM EDT eCW1 ([facility]) [place] [address] [facility] [address] 07/02/2020 12:00:00 AM EDT eCW1 ([facility]) [place] [address] [facility] [address] 06/22/2020 12:00:00 AM EDT eCW1 ([facility]) [place] [address] [facility] [address] 06/18/2020 12:00:00 AM EDT eCW1 ([facility]) Outpatient Attender: JUANIS LYLES MD SJP.NATHALIE-SJP.NATHALIE 0 12:00:00 AM EDT - 04/22/2020 11:35:42 AM EDT [facility] Unknown [address] [facility] [address] 04/08/2020 12:00:00 AM EDT eCW1 ([facility]) [place] [address] [facility] [address] 04/03/2020 12:00:00 AM EDT eCW1 ([facility]) [place] [address] [facility] [address] 03/30/2020 12:00:00 AM EDT eCW1 ([facility]) Outpatient Referrer: Jose Canseco MD 03/11/2020 06:12:00 AM EDT [facility] Outpatient Attender: JUANIS LYLES MD SJP.NATHALIE-SJP.NATHALIE 0 12:00:00 AM EDT - 03/11/2020 11:57:41 AM EDT [facility] Unknown [address] [facility] [address] 03/04/2020 12:00:00 AM EDT eCW1 ([facility]) Inpatient Attender: Joycelyn Gomez MDAdmitter: Joycelyn shaffer MD [id number] 02/26/2020 03:36:43 PM EDT - 02/29/2020 12:56:00 PM EDT [facility] Patient discharged. [place] [address] [facility] [address] 02/25/2020 12:00:00 AM EDT eCW1 ([facility]) [place] [address] [facility] [address] 02/25/2020 12:00:00 AM EDT eCW1 ([facility]) Outpatient [address] [facility] [place] [address] 02/17/2020 12:00:00 AM EDT eCW1 ([facility]) Outpatient Referrer: JUANIS LYLES MD SJELINA-SJP.NATHALIE 0 12:00:00 AM EDT - 02/14/2020 11:26:29 AM EDT [facility] Outpatient [address] [facility] [address] 02/13/2020 12:00:00 AM EDT eCW1 ([facility]) Outpatient Attender: JUANIS OWEN.NATHALIE-SJP.NATHALIE 0 12:00:00 AM EDT - 02/05/2020 09:30:35 AM EDT [facility] Outpatient Referrer: Jose Canseco MD 02/04/2020 06:04:00 AM EDT [facility] Radiology Imaging Medications Medication Brand Name Start Date Product Form Dose Route Admi nistrative Instructions Pharmacy Instructions Status Indications Reaction Description Data Source(s) 0.1 mg/24 hr 09/29/2020 12:00:00 AM EST patch weekly 4 APPLY 1 PATCH TO THE SKIN WEEKLY APPLY 1 PATCH TO THE SKIN WEEKLY SOLD: 09/30/2020 [facility] atorvastatin 40 MG Oral Tablet ATORVASTATIN CALCIUM 08/27/2020 1 2:00:00 AM EST tablet 30 TAKE 1 TABLET BY MOUTH NIGHTLY TAKE 1 TAB LET BY MOUTH NIGHTLY SOLD: 09/28/2020 [facility] atorvastatin 40 MG Oral Tablet ATORVASTATIN CALCIUM 08/27/2020 1 2:00:00 AM EST tablet 30 TAKE 1 TABLET BY MOUTH NIGHTLY TAKE 1 TAB LET BY MOUTH NIGHTLY SOLD: 08/30/2020 [facility] 25 mg 07/31/2020 12:00:00 AM EST tablet 90 TAKE ONE TABLET BY MOUTH EVERY 8 HOURS NEEDED TAKE ONE TABLET BY MOUTH EVERY 8 HOURS NEEDED SOLD: 08/01/2020 [facility] 25 mg 07/31/2020 12:00:00 AM EST tablet 90 TAKE ONE TABLET BY MOUTH EVERY 8 HOURS NEEDED TAKE ONE TABLET BY MOUTH EVERY 8 HOURS NEEDED SOLD: 09/21/2020 [facility] Hydroxyzine Hydrochloride 25 MG Oral Tablet HydrOXYzin e HCl 25 MG HydrOXYzine HCl 25 MG 07/30/2020 12:00:00 AM EST 1.0 {tablet_as_needed} active HydrOXYzine HCl 25 MG eCW1 ([facility]) 300 mg 07/23/2020 12:00:00 AM EST capsule 7 TAKE ONE CAPSULE BY MOUTH EVERY DAY FOR 7 DAYS TAKE ONE CAPSULE BY MOUTH EVERY DAY FOR 7 DAYS SOLD: 020 [facility] 60 mg 07/22/2020 12:00:00 AM EST tablet extended release 24 hr 90 TAKE ONE TABLET BY MOUTH EVERY DAY TAKE ONE TABLET BY MOUTH EVERY DAY SOLD: 07/23/2020 [facility] 20 mg 07/04/2020 12:00:00 AM EDT tablet 30 TAKE ONE TABLET BY MOUTH EVERY DAY TAKE ONE TABLET BY MOUTH EVERY DAY SOLD: 07/07/2020 [facility] 20 mg 07/04/2020 12:00:00 AM EDT tablet 30 TAKE ONE TABLET BY MOUTH EVERY DAY TAKE ONE TABLET BY MOUTH EVERY DAY SOLD: 08/07/2020 [facility] Sulfamethoxazole 800 MG / Trimethoprim 1 60 MG Oral Tablet [Bactrim] Bactrim DS 800-160 MG Bactrim DS 800-160 MG 07/03/2020 12:00:00 AM EDT active Bactrim DS 800-160 MG eCW1 ([facility]) Sulfamethoxazole 800 MG / Trimethoprim 1 60 MG Oral Tablet [Bactrim] Bactrim DS 800-160 MG Bactrim DS 800-160 MG 07/03/2020 12:00:00 AM EDT active Bactrim DS 800-160 MG eCW1 ([facility]) Sulfamethoxazole 800 MG / Trimethoprim 160 MG Oral Tab let 800-160 mg SULFAMETHOXAZOLE/TRIMETHOPRIM 07/03/2020 12:00:00 AM EDT tablet 1 TAKE ONE TABLET BY MOUTH FOR YOUR CYSTOSCOPY TODAY DIRECTED TAKE ONE TABLET BY MOUTH FOR YOUR CYSTOSCOPY TODAY DIRECTED SOLD: 07/03/2020 [facility] Sulfamethoxazole 800 MG / Trimethoprim 1 60 MG Oral Tablet [Bactrim] Bactrim DS 800-160 MG Bactrim DS 800-160 MG 07/03/2020 12:00:00 AM EDT active Bactrim DS 800-160 MG eCW1 ([facility]) Sulfamethoxazole 800 MG / Trimethoprim 1 60 MG Oral Tablet [Bactrim] Bactrim DS 800-160 MG Bactrim DS 800-160 MG 07/03/2020 12:00:00 AM EDT active Bactrim DS 800-160 MG eCW1 ([facility]) Sulfamethoxazole 800 MG / Trimethoprim 1 60 MG Oral Tablet [Bactrim] Bactrim DS 800-160 MG Bactrim DS 800-160 MG 07/03/2020 12:00:00 AM EDT active Bactrim DS 800-160 MG eCW1 ([facility]) Sulfamethoxazole 800 MG / Trimethoprim 1 60 MG Oral Tablet [Bactrim] Bactrim DS 800-160 MG Bactrim DS 800-160 MG 07/03/2020 12:00:00 AM EDT active Bactrim DS 800-160 MG eCW1 ([facility]) 10 mg 06/19/2020 12:00:00 AM EDT tablet 180 TAKE TWO TABLETS BY MOUTH TWICE A DAY TAKE TWO TABLETS BY MOUTH TWICE A DAY SOLD: 06/22/2020 [facility] 100 mg 06/10/2020 12:00:00 AM EDT capsule 28 TAKE ONE CAPSULE BY MOUTH TWICE A DAY TAKE ONE CAPSULE BY MOUTH TWICE A DAY SOLD: 06/10/2020 [facility] Hydralazine Hydrochloride 50 MG Oral Tablet HYDRALAZINE HCL 06/05/2020 12:00:00 AM EDT tablet 90 TAKE ONE TABLET BY MOUTH THR EE TIMES A DAY TAKE ONE TABLET BY MOUTH THREE TIMES A DAY SOLD: 08/07/2020 [facility] Hydralazine Hydrochloride 50 MG Oral Tablet HYDRALAZINE HCL 06/05/2020 12:00:00 AM EDT tablet 90 TAKE ONE TABLET BY MOUTH THR EE TIMES A DAY TAKE ONE TABLET BY MOUTH THREE TIMES A DAY SOLD: 09/21/2020 [facility] 50 mg 06/05/2020 12:00:00 AM EDT tablet 90 TAKE ONE TABLET BY MOUTH THREE TIMES A DAY TAKE ONE TABLET BY MOUTH THREE TIMES A DAY SOLD: 07/07/2020 [facility] 0.1 mg/24 hr 06/05/2020 12:00:00 AM EDT patch weekly 4 APPLY ONE PATCH TO THE SKIN ONCE WEEKLY APPLY ONE PATCH TO THE SKIN ONCE WEEKLY SOLD: 06/06/2020 [facility] 50 mg 06/05/2020 12:00:00 AM EDT tablet 90 TAKE ONE TABLET BY MOUTH THREE TIMES A DAY TAKE ONE TABLET BY MOUTH THREE TIMES A DAY SOLD: 06/06/2020 [facility] 0.1 mg/24 hr 06/05/2020 12:00:00 AM EDT patch weekly 4 APPLY ONE PATCH TO THE SKIN ONCE WEEKLY APPLY ONE PATCH TO THE SKIN ONCE WEEKLY SOLD: 09/03/2020 [facility] 0.1 mg/24 hr 06/05/2020 12:00:00 AM EDT patch weekly 4 APPLY ONE PATCH TO THE SKIN ONCE WEEKLY APPLY ONE PATCH TO THE SKIN ONCE WEEKLY SOLD: 07/07/2020 [facility] 0.1 mg/24 hr 06/05/2020 12:00:00 AM EDT patch weekly 4 APPLY ONE PATCH TO THE SKIN ONCE WEEKLY APPLY ONE PATCH TO THE SKIN ONCE WEEKLY SOLD: 08/07/2020 [facility] 20 mg 05/06/2020 12:00:00 AM EDT tablet 30 TAKE ONE TABLET BY MOUTH EVERY DAY TAKE ONE TABLET BY MOUTH EVERY DAY SOLD: 06/06/2020 [facility] 20 mg 05/06/2020 12:00:00 AM EDT tablet 30 TAKE ONE TABLET BY MOUTH EVERY DAY TAKE ONE TABLET BY MOUTH EVERY DAY SOLD: 05/07/2020 [facility] 250 mg 04/20/2020 12:00:00 AM EDT tablet 5 TAKE 1 TABLET BY MOUTH DAILY START 5 DAYS BEFORE THE UROLOGY PROCEDURE TAKE 1 TABLET BY MOUTH DAILY START 5 DAYS BEFORE THE UROLOGY PROCEDURE SOLD: 04/22/2020 [facility] 50 mg 04/06/2020 12:00:00 AM EDT tablet 90 TAKE ONE TABLET BY MOUTH THREE TIMES A DAY TAKE ONE TABLET BY MOUTH THREE TIMES A DAY SOLD: 04/08/2020 [facility] 250 mg 03/23/2020 12:00:00 AM EDT tablet 14 TAKE ONE TABLET BY MOUTH TWICE A DAY FOR 7 DAYS TAKE ONE TABLET BY MOUTH TWICE A DAY FOR 7 DAYS SOLD: 03/23/2020 [facility] 10 mg 03/10/2020 12:00:00 AM EDT tablet 180 TAKE TWO TABLETS BY MOUTH TWICE A DAY TAKE TWO TABLETS BY MOUTH TWICE A DAY SOLD: 03/10/2020 [facility] 10 mg 03/10/2020 12:00:00 AM EDT tablet 180 TAKE TWO TABLETS BY MOUTH TWICE A DAY TAKE TWO TABLETS BY MOUTH TWICE A DAY SOLD: 05/07/2020 [facility] 20 mg 03/10/2020 12:00:00 AM EDT tablet 30 TAKE ONE TABLET BY MOUTH EVERY DAY TAKE ONE TABLET BY MOUTH EVERY DAY SOLD: 04/08/2020 [facility] 20 mg 03/10/2020 12:00:00 AM EDT tablet 30 TAKE ONE TABLET BY MOUTH EVERY DAY TAKE ONE TABLET BY MOUTH EVERY DAY SOLD: 03/10/2020 [facility] calcium acetate 667 MG Oral Capsule CALCIUM ACETATE 03/05/2020 1 2:00:00 AM EDT capsule 90 TAKE ONE CAPSULE BY MOUTH THREE TIMES A DAY TAKE ONE CAPSULE BY MOUTH THREE TIMES A DAY SOLD: 03/06/2020 [facility] carvedilol 12.5 MG Oral Tablet carvedilol (COREG) tabl et 12.5 mg carvedilol (COREG) tablet 12.5 mg 02/29/2020 09:00:00 AM EDT 12.5 mg Oral active 12.5 mg, Oral, 2 times daily, First dose on 02/29/20 at 0900 [facility] Medication administered onsite carvedilol 12.5 MG Oral Tablet CARVEDILOL 02/29/2020 12:00:00 AM EDT tablet 60 TAKE ONE TABLET BY MOUTH TWICE A DAY TAKE ONE TABLET BY MOUT H TWICE A DAY SOLD: 09/28/2020 [facility] Hydralazine Hydrochloride 25 MG Oral Tablet HYDRALAZINE HCL 02/29/2020 12:00:00 AM EDT tablet 90 TAKE ONE TABLET BY MOUTH THR EE TIMES A DAY TAKE ONE TABLET BY MOUTH THREE TIMES A DAY SOLD: 02/29/2020 [facility] 40 mg 02/29/2020 12:00:00 AM EDT tablet 30 TAKE ONE TABLET BY MOUTH EVERY EVENING TAKE ONE TABLET BY MOUTH EVERY EVENING SOLD: 02/29/2020 [facility] 75 mg 02/29/2020 12:00:00 AM EDT tablet 30 TAKE ONE TABLET BY MOUTH EVERY DAY TAKE ONE TABLET BY MOUTH EVERY DAY SOLD: 03/23/2020 [facility] 75 mg 02/29/2020 12:00:00 AM EDT tablet 30 TAKE ONE TABLET BY MOUTH EVERY DAY TAKE ONE TABLET BY MOUTH EVERY DAY SOLD: 05/22/2020 [facility] Hydralazine Hydrochloride 25 MG Oral Tablet HYDRALAZINE HCL 02/29/2020 12:00:00 AM EDT tablet 90 TAKE ONE TABLET BY MOUTH THR EE TIMES A DAY TAKE ONE TABLET BY MOUTH THREE TIMES A DAY SOLD: 04/20/2020 [facility] carvedilol 12.5 MG Oral Tablet CARVEDILOL 02/29/2020 12:00:00 AM EDT tablet 60 TAKE ONE TABLET BY MOUTH TWICE A DAY TAKE ONE TABLET BY MOUT H TWICE A DAY SOLD: 08/30/2020 [facility] carvedilol 12.5 MG Oral Tablet CARVEDILOL 02/29/2020 12:00:00 AM EDT tablet 60 TAKE ONE TABLET BY MOUTH TWICE A DAY TAKE ONE TABLET BY MOUT H TWICE A DAY SOLD: 05/03/2020 [facility] carvedilol 12.5 MG Oral Tablet CARVEDILOL 02/29/2020 12:00:00 AM EDT tablet 60 TAKE ONE TABLET BY MOUTH TWICE A DAY TAKE ONE TABLET BY MOUT H TWICE A DAY SOLD: 08/01/2020 [facility] carvedilol 12.5 MG Oral Tablet CARVEDILOL 02/29/2020 12:00:00 AM EDT tablet 60 TAKE ONE TABLET BY MOUTH TWICE A DAY TAKE ONE TABLET BY MOUT H TWICE A DAY SOLD: 02/29/2020 [facility] 75 mg 02/29/2020 12:00:00 AM EDT tablet 30 TAKE ONE TABLET BY MOUTH EVERY DAY TAKE ONE TABLET BY MOUTH EVERY DAY SOLD: 04/20/2020 [facility] carvedilol 12.5 MG Oral Tablet CARVEDILOL 02/29/2020 12:00:00 AM EDT tablet 60 TAKE ONE TABLET BY MOUTH TWICE A DAY TAKE ONE TABLET BY MOUT H TWICE A DAY SOLD: 07/03/2020 [facility] 75 mg 02/29/2020 12:00:00 AM EDT tablet 30 TAKE ONE TABLET BY MOUTH EVERY DAY TAKE ONE TABLET BY MOUTH EVERY DAY SOLD: 02/29/2020 [facility] clopidogrel 75 MG Oral Tablet clopidogrel (PLAVIX) 75 MG tablet clopidogrel (PLAVIX) 75 MG tablet 02/29/2020 12:00:00 AM EDT 75 mg Oral active Take 1 tablet (75 mg total) by mouth daily [facility] atorvastatin 40 MG Oral Tablet ATORVASTATIN CALCIUM 02/29/2020 1 2:00:00 AM EDT tablet 30 TAKE ONE TABLET BY MOUTH EVERY E VENING TAKE ONE TABLET BY MOUTH EVERY EVENING SOLD: 07/02/2020 [facility] atorvastatin 40 MG Oral Tablet ATORVASTATIN CALCIUM 02/29/2020 1 2:00:00 AM EDT tablet 30 TAKE ONE TABLET BY MOUTH EVERY E VENING TAKE ONE TABLET BY MOUTH EVERY EVENING SOLD: 07/30/2020 [facility] 75 mg 02/29/2020 12:00:00 AM EDT tablet 30 TAKE ONE TABLET BY MOUTH EVERY DAY TAKE ONE TABLET BY MOUTH EVERY DAY SOLD: 08/19/2020 [facility] Hydralazine Hydrochloride 25 MG Oral Tablet HYDRALAZINE HCL 02/29/2020 12:00:00 AM EDT tablet 90 TAKE ONE TABLET BY MOUTH THR EE TIMES A DAY TAKE ONE TABLET BY MOUTH THREE TIMES A DAY SOLD: 05/22/2020 [facility] 75 mg 02/29/2020 12:00:00 AM EDT tablet 30 TAKE ONE TABLET BY MOUTH EVERY DAY TAKE ONE TABLET BY MOUTH EVERY DAY SOLD: 09/21/2020 [facility] 75 mg 02/29/2020 12:00:00 AM EDT tablet 30 TAKE ONE TABLET BY MOUTH EVERY DAY TAKE ONE TABLET BY MOUTH EVERY DAY SOLD: 06/22/2020 [facility] 40 mg 02/29/2020 12:00:00 AM EDT tablet 30 TAKE ONE TABLET BY MOUTH EVERY EVENING TAKE ONE TABLET BY MOUTH EVERY EVENING SOLD: 03/30/2020 [facility] 40 mg 02/29/2020 12:00:00 AM EDT tablet 30 TAKE ONE TABLET BY MOUTH EVERY EVENING TAKE ONE TABLET BY MOUTH EVERY EVENING SOLD: 04/27/2020 [facility] atorvastatin 40 MG Oral Tablet ATORVASTATIN CALCIUM 02/29/2020 1 2:00:00 AM EDT tablet 30 TAKE ONE TABLET BY MOUTH EVERY E VENING TAKE ONE TABLET BY MOUTH EVERY EVENING SOLD: 05/29/2020 [facility] carvedilol 12.5 MG Oral Tablet CARVEDILOL 02/29/2020 12:00:00 AM EDT tablet 60 TAKE ONE TABLET BY MOUTH TWICE A DAY TAKE ONE TABLET BY MOUT H TWICE A DAY SOLD: 06/04/2020 [facility] carvedilol 12.5 MG Oral Tablet CARVEDILOL 02/29/2020 12:00:00 AM EDT tablet 60 TAKE ONE TABLET BY MOUTH TWICE A DAY TAKE ONE TABLET BY MOUT H TWICE A DAY SOLD: 04/04/2020 [facility] 75 mg 02/29/2020 12:00:00 AM EDT tablet 30 TAKE ONE TABLET BY MOUTH EVERY DAY TAKE ONE TABLET BY MOUTH EVERY DAY SOLD: 07/21/2020 [facility] normal saline flush 0.9 % injection 3 mL [id number] 02/28/2020 10:00:00 PM EDT 3 mL Intravenous active 3 mL , Intravenous, PROTOCOL, First dose on Mon02/28/20 at 2200, Pre-op
flush per protocol, D/C Main IV fluid if appropriate
[facility] Medication administered onsite Hydralazine Hydrochloride 25 MG Oral Tab let hydrALAZINE (APRESOLINE) tablet 25 mg hydrALAZINE (APRESOLINE) tablet 25 mg 02/28/2020 10:00:00 PM EDT 25 mg Oral active 25 mg, Oral, E very 8 hours (scheduled), First dose on Mon02/28/20 at 2200 [facility] Medication administered onsite sodium chloride 0.9% (NS) infusion 2082-1838-42 02/28/2020 05:00:00 P M EDT Intravenous completed at 100 mL/hr, Intravenous, Continuous, Starting Mon02/28/20 at 1700, For 3 hours, Post-op [facility] Medication administered onsite Nitroglycerin 0.4 MG Sublingual Tablet n itroglycerin (NITROSTAT) SL tablet 0.4 mg nitroglycerin (NITROSTAT) SL tablet 0.4 mg 02/28/2020 04:28:14 P M EDT 0.4 mg Sublingual active 0.4 mg, S ublingual, Every 5 min PRN, chest pain, Starting Mon02/28/20 at 1628, Post-op
May administer every 5 minutes for 3 doses and call cardio lab MD.
[facility] Medication administered onsite iopamidol (ISOVUE-370) 76 % [id number] 02/28/2020 03:59:11 PM EDT active As needed, Starting Mon02/28/20 at 1559, Intra-Procedu re [facility] Medication administered onsite 1 ML heparin sodium, porcine 1000 UNT/ML Injection hep colin (porcine) injection heparin (porcine) injection 02/28/2020 03:36:44 PM EDT active As needed, Starting Mon02/28/20 at 1536, Intra-Procedure [facility] Medication administered onsite lidocaine 1 % injection [id number] 02/28/2020 03:26:45 PM EDT active As needed, Starting Mon02/28/20 at 1526, Intra-Procedure [facility] Medication administered onsite 2 ML Midazolam 1 MG/ML Injection midazolam (VERSED) in jection midazolam (VERSED) injection 02/28/2020 03:16:12 PM EDT active As needed, Starting Mon02/28/20 at 1516, Intra-Procedure [facility] Medication administered onsite fentaNYL Citrate (PF) (SUBLIMAZE) injection [id number] 02/28/2020 03:16:02 PM EDT active As neede d, Starting Mon02/28/20 at 1516, Intra-Procedure [facility] Medication administered onsite sodium chloride 0.9% (NS) infusion 4903-3380-91 02/28/2020 03:00:00 PM EDT 100 mL/h Intravenous aborted at 100 m L/hr, 100 mL/hr, Intravenous, Continuous, Starting Mon02/28/20 at 1500, Pre-op
Start two hours prior to scheduled start time
[facility] Medication administered onsite 10 ML Atropine Sulfate 0.1 MG/ML Prefill ed Syringe atropine sulfate injection 0.5 mg atropine sulfate injection 0.5 mg 02/28/2020 01:52:50 PM EDT 0.5 mg active 0.5 mg, Intrave nous Push, Every 5 min PRN, other, As needed, for heart rate less than 60 BPM and the patient is hemodynamically unstable and/or SBP is less than 90mmHg, Starting Mon02/28/20 at 1352, For 1 day, Pre-op
Not to exceed a total of 3 mg or 0.04 mg/kg.Max of 6 doses
[facility] Medication administered onsite Aspirin 81 MG Chewable Tablet aspirin chewable tablet 81 mg aspirin chewable tablet 81 mg 02/28/2020 09:00:00 AM EDT 81 mg Oral activ e 81 mg, Oral, Daily, First dose on Mon02/28/20 at 0900 [facility] Medication administered onsite atorvastatin 40 MG Oral Tablet atorvastatin (LIPITOR) 40 MG tablet atorvastatin (LIPITOR) 40 MG tablet 02/28/2020 12:00:00 AM EDT 40 mg Oral active Take 1 tablet (40 mg total) by mouth nightly [facility] Isosorbide Mononitrate 10 MG Oral Tablet isosorbide mononitrate (ISMO,MONOKET) 10 MG tablet isosorbide mononitrate (ISMO,MONOKET) 10 MG tablet 08/2020 12:00:00 AM EDT 20 mg Oral active Take 2 tablets (20 mg total) by mouth 2 (two) times a day [facility] carvedilol 12.5 MG Oral Tablet carvedilol (COREG) 12.5 MG tablet carvedilol (COREG) 12.5 MG tablet 02/28/2020 12:00:00 AM EDT 12.5 mg Oral active Take 1 tablet (12.5 mg total) by mouth 2 (two) times a day [facility] Hydralazine Hydrochloride 25 MG Oral Tab let hydrALAZINE (APRESOLINE) 25 MG tablet hydrALAZINE (APRESOLINE) 25 MG tablet 02/28/2020 12:00:00 AM EDT 25 mg Oral active Take 1 tablet (25 mg total) by mouth 3 (three) times a day [facility] Aspirin 325 MG Oral Tablet aspirin tablet 325 mg aspirin tab let 325 mg 02/27/2020 11:00:00 PM EDT 325 mg Oral completed 325 mg, Oral, Once, [facility] 02/27/20 at 2300, For 1 dose, Pre-op
Give if scheduled for cardiac or peripheral angioplasty/stent or carotid stenting.Administer AM dose prior to procedure if NOT taken at home.Max of 1 dose per day.
[facility] Medication administered onsite carvedilol 25 MG Oral Tablet carvedilol (COREG) tablet 25 mg carvedilol (COREG) tablet 25 mg 02/27/2020 09:00:00 PM EDT 25 mg Oral abort ed 25 mg, Oral, 2 times daily, First dose on Evelin 02/27/20 at 2100 [facility] Medication administered onsite carvedilol 12.5 MG Oral Tablet carvedilol (COREG) tabl et 12.5 mg carvedilol (COREG) tablet 12.5 mg 02/27/2020 01:00:00 PM EDT 12.5 mg Oral completed 12.5 mg, Oral, Once, Evelin 02/27/20 at 1300 , For 1 dose [facility] Medication administered onsite Acetaminophen 325 MG Oral Tablet acetaminophen (TYLENO L) 325 MG tablet 650 mg acetaminophen (TYLENOL) 325 MG tablet 650 mg 02/27/2020 10:41:55 AM EDT 650 mg Oral active 650 mg, Or al, Every 4 hours PRN, headaches, and non cardiac pain, Starting Evelin 02/27/20 at 1041, Post-op
"Maximum dose of acetaminophen is 4,000 mg from all sources in 24 hours."
[facility] Medication administered onsite clopidogrel 75 MG Oral Tablet clopidogrel (PLAVIX) tab let 75 mg clopidogrel (PLAVIX) tablet 75 mg 02/27/2020 09:00:00 AM EDT 75 mg Oral active 75 mg, Oral, Daily, First dose on Evelin 02/27/20 at 0900 [facility] Medication administered onsite Aspirin 325 MG Delayed Release Oral Tablet aspirin EC tablet 325 mg aspirin EC tablet 325 mg 02/27/2020 09:00:00 AM EDT 325 mg Oral comp leted 325 mg, Oral, Once, Evelin 02/27/20 at 0900, For 1 dose [facility] Medication administered onsite Magnesium Hydroxide 80 MG/ML Oral Suspen aubrey magnesium hydroxide (MILK OF MAGNESIA) 400 MG/5ML suspension 30 mL magnesium hydroxide (MILK OF MAGNESIA) 4 00 MG/5ML suspension 30 mL 02/27/2020 12:00:00 AM EDT 30 mL Oral active 30 mL, Oral, Daily PRN, constipation, Starting Evelin 02/27/20 at 0000
If senna- docusate is not effective
[facility] Medication administered onsite normal saline flush 0.9 % injection 3 mL [id number] 02/26/2020 10:00:00 PM EDT 3 mL Intravenous aborted 3 mL , Intravenous, PROTOCOL, First dose on Mon02/26/20 at 2200, Pre-op
flush per protocol, D/C Main IV fluid if appropriate
[facility] Medication administered onsite Docusate Sodium 100 MG Oral Capsule docusate sodium (C OLACE) capsule 100 mg docusate sodium (COLACE) capsule 100 mg 02/26/2020 09:00:00 PM EDT 100 mg Oral active 100 mg, Oral, 2 times daily, First dose on Mon02/26/20 at 2100
hold for loose stools
[facility] Medication administered onsite carvedilol 12.5 MG Oral Tablet carvedilol (COREG) tabl et 12.5 mg carvedilol (COREG) tablet 12.5 mg 02/26/2020 09:00:00 PM EDT 12.5 mg Oral aborted 12.5 mg, Oral, 2 times daily, First dose on Mon 0 at 2100 [facility] Medication administered onsite Isosorbide Mononitrate 20 MG Oral Tablet isosorbide mononitrate (ISMO,MONOKET) tablet 10 mg isosorbide mononitrate (ISMO,MONOKET) tablet 10 mg 06/2020 09:00:00 PM EDT 10 mg Oral active 10 mg, Oral, 2 times daily, First dose on Mon02/26/20 at 2100 [facility] Medication administered onsite atorvastatin 40 MG Oral Tablet atorvastatin (LIPITOR) tablet 40 mg atorvastatin (LIPITOR) tablet 40 mg 02/26/2020 09:00:00 PM EDT 40 mg Oral active 40 mg, Oral, Nightly, First dose on Mon02/26/20 at 2100 [facility] Medication administered onsite Albuterol 0.833 MG/ML / Ipratropium Brom karishma 0.167 MG/ML Inhalant Solution ipratropium-albuterol (DUO-NEB) 0.5-2.5 mg/mL nebulizer solution 3 mL ipratropium-albuterol (DUO-NEB) 0.5-2.5 mg/mL nebulizer solution 3 mL 02/26/2020 08:00:00 PM EDT 3 mL Inhalation active 3 mL, Inhalation, 3 times daily, First dose on Mon02/26/20 at 2000 [facility] Medication administered onsite sodium chloride 0.9% (NS) infusion [id number] 02/26/2020 06:00:00 PM EDT 100 mL/h Intravenous aborted at 100 m L/hr, 100 mL/hr, Intravenous, Continuous, Starting Mon02/26/20 at 1800, Pre-op
Start two hours prior to scheduled start time
[facility] Medication administered onsite normal saline flush 0.9 % injection 3 mL [id number] 02/26/2020 06:00:00 PM EDT 3 mL Intravenous active 3 mL , Intravenous, Every 8 hours (scheduled), First dose on Mon02/26/20 at 1800, Pre-op
Rapid push positive pressure flushing shall be performed with a 10 cc normal saline syringe to check the PATENCY of a PIV site prior to any infusion therapy initiation unless resistance is met.
[facility] Medication administered onsite clopidogrel 75 MG Oral Tablet clopidogrel (PLAVIX) tab let 75 mg clopidogrel (PLAVIX) tablet 75 mg 02/26/2020 06:00:00 PM EDT 75 mg Oral completed 75 mg, Oral, Once, Mon02/26/20 at 1800, For 1 dose [facility] Medication administered onsite Ceftriaxone 1000 MG Injection cefTRIAXone (ROCEPHIN) i njection 1 g cefTRIAXone (ROCEPHIN) injection 1 g 02/26/2020 06:00:00 PM EDT 1 g active Urinary Tract Infection 1 g, Intravenous Push, Every 24 hours (relative), 5 doses, First dose on Mon02/26/20 at 1800, Last dose on Mon03/01/20 at 1800 [facility] Urinary Tract Infection Medication administered onsite Hydralazine Hydrochloride 20 MG/ML Injec table Solution hydrALAZINE (APRESOLINE) injection 10 mg hydrALAZINE (APRESOLINE) injection 10 mg 02/26/2020 05 :04:47 PM EDT 10 mg Intravenous active 10 m g, Intravenous, Every 6 hours PRN, high blood pressure, SBP >160, Starting Mon02/26/20 at 1704
Tele II: May only be given by MD/clinical affiliate
Tele I and critical care units: May be giv en by nursing
[facility] Medication administered onsite ondansetron (ZOFRAN) injection 4 mg [id number] 02/26/2020 04:50:2 4 PM EDT 4 mg Intravenous active 4 mg, In travenous, Every 4 hours PRN, nausea, vomiting, Starting Mon02/26/20 at 1650 [facility] Medication administered onsite Bisacodyl 10 MG Rectal Suppository bisacodyl (DULCOLAX ) suppository 10 mg bisacodyl (DULCOLAX) suppository 10 mg 02/26/2020 04:49:55 PM EDT 10 mg Rectal active 10 mg, Rectal, Daily PRN, constipation, Starting Mon02/26/20 at 1649
Hold for BM.If senna-docusate and milk of magnesia are not effective
[facility] Medication administered onsite Senna 8.6 MG Senna 8.6 MG 02/13/2020 12:00:00 AM EDT 2 .0 {tablets_at_bedtime_as_needed} active S rodrigo 8.6 MG eCW1 ([facility]) Senna 8.6 MG Senna 8.6 MG 02/13/2020 12:00:00 AM EDT 2 .0 {tablets_at_bedtime_as_needed} active S rodrigo 8.6 MG eCW1 ([facility]) Senna 8.6 MG Senna 8.6 MG 02/13/2020 12:00:00 AM EDT 2 .0 {tablets_at_bedtime_as_needed} active S rodrigo 8.6 MG eCW1 ([facility]) Senna 8.6 MG Senna 8.6 MG 02/13/2020 12:00:00 AM EDT 2 .0 {tablets_at_bedtime_as_needed} active S rodrigo 8.6 MG eCW1 ([facility]) Senna 8.6 MG Senna 8.6 MG 02/13/2020 12:00:00 AM EDT 2 .0 {tablets_at_bedtime_as_needed} active S rodrigo 8.6 MG eCW1 ([facility]) Senna 8.6 MG Senna 8.6 MG 02/13/2020 12:00:00 AM EDT 2 .0 {tablets_at_bedtime_as_needed} active S rodrigo 8.6 MG eCW1 ([facility]) Senna 8.6 MG Senna 8.6 MG 02/13/2020 12:00:00 AM EDT 2 .0 {tablets_at_bedtime_as_needed} active S rodrigo 8.6 MG eCW1 ([facility]) Senna 8.6 MG Senna 8.6 MG 02/13/2020 12:00:00 AM EDT 2 .0 {tablets_at_bedtime_as_needed} active S rodrigo 8.6 MG eCW1 ([facility]) Senna 8.6 MG Senna 8.6 MG 02/13/2020 12:00:00 AM EDT 2 .0 {tablets_at_bedtime_as_needed} active S rodrigo 8.6 MG eCW1 ([facility]) Senna 8.6 MG Senna 8.6 MG 02/13/2020 12:00:00 AM EDT 2 .0 {tablets_at_bedtime_as_needed} active S rodrigo 8.6 MG eCW1 ([facility]) Senna 8.6 MG Senna 8.6 MG 02/13/2020 12:00:00 AM EDT 2 .0 {tablets_at_bedtime_as_needed} active S rodrigo 8.6 MG eCW1 ([facility]) Senna 8.6 MG Senna 8.6 MG 02/13/2020 12:00:00 AM EDT 2 .0 {tablets_at_bedtime_as_needed} active S rodrigo 8.6 MG eCW1 ([facility]) Senna 8.6 MG Senna 8.6 MG 02/13/2020 12:00:00 AM EDT 2 .0 {tablets_at_bedtime_as_needed} active S rodrigo 8.6 MG eCW1 ([facility]) Senna 8.6 MG Senna 8.6 MG 02/13/2020 12:00:00 AM EDT 2 .0 {tablets_at_bedtime_as_needed} active S rodrigo 8.6 MG eCW1 ([facility]) Senna 8.6 MG Senna 8.6 MG 02/13/2020 12:00:00 AM EDT 2 .0 {tablets_at_bedtime_as_needed} active S rodrigo 8.6 MG eCW1 ([facility]) Hydralazine Hydrochloride 25 MG Oral Tablet HYDRALAZINE HCL 01/31/2020 12:00:00 AM EDT tablet 90 TAKE 1 TABLET [25MG] BY MOUT H THREE TIMES A DAY TAKE 1 TABLET [25MG] BY MOUTH THREE TIMES A DAY SOLD: 01/31/2020 [facility] 1 billion cell 01/31/2020 12:00:00 AM EDT capsule 12 TAKE 1 CAPSULE BY MOUTH WITH MEAL, AT BEDTIME TAKE 1 CAPSULE BY MOUTH WITH MEAL, AT BEDTIME SOLD: 01/31/2020 [facility] 81 mg 01/31/2020 12:00:00 AM EDT tablet,delayed release (DR/EC) 30 TAKE 1 TABLET [81MG] BY MOUTH DAILY TAKE 1 TABLET [81MG] BY MOUTH DAILY SOLD: 01/31/2020 [facility] 40 mg 01/30/2020 12:00:00 AM EDT tablet 30 TAKE 1 TABLET [40MG] BY MOUTH DAILY TAKE 1 TABLET [40MG] BY MOUTH DAILY SOLD: 01/31/2020 [facility] carvedilol 12.5 MG Oral Tablet carvedilol (COREG) 12.5 MG tablet carvedilol (COREG) 12.5 MG tablet 01/30/2020 12:00:00 AM EDT 12.5 mg Oral aborted Take 12.5 mg by mouth 2 (two) times a day [facility] Hydralazine Hydrochloride 25 MG Oral Tab let hydrALAZINE (APRESOLINE) 25 MG tablet hydrALAZINE (APRESOLINE) 25 MG tablet 01/30/2020 12:00:00 AM EDT 25 mg Oral aborted Take 25 mg by mouth 3 (three) times a day [facility] calcium acetate 667 MG Oral Capsule Calcium Acetate, P hos Binder, 667 MG CAPS Calcium Acetate, Phos Binder, 667 MG CAPS 01/30/2020 12:00:00 AM EDT 667 mg Oral active Take 667 mg by mouth 3 (three) times a day with meals [facility] calcium acetate 667 MG Oral Capsule CALCIUM ACETATE 01/30/2020 1 2:00:00 AM EDT capsule 90 TAKE 1 CAPSULE [667MG] BY MOUTH WITH MEALS TAKE 1 CAPSULE [667MG] BY MOUTH WITH MEALS SOLD: 01/31/2020 [facility] Isosorbide Mononitrate 10 MG Oral Tablet isosorbide mononitrate (ISMO,MONOKET) 10 MG tablet isosorbide mononitrate (ISMO,MONOKET) 10 MG tablet 12:00:00 AM EDT 20 mg Oral aborted Take 20 mg by mouth 2 (two) times a day [facility] 10 mg 01/30/2020 12:00:00 AM EDT tablet 60 TAKE 1 TABLET [10MG] BY MOUTH TWO TIMES A DAY AT 7:00AM AND 5:00PM TAKE 1 TABLET [10MG] BY MOUTH TWO TIMES A DAY AT 7:00AM AND 5:00PM SOLD: 01/31/2020 [facility] 875-125 mg 01/30/2020 12:00:00 AM EDT tablet 6 TAKE 1 TABLET BY MOUTH TWO TIMES A DAY TAKE 1 TABLET BY MOUTH TWO TIMES A DAY SOLD: 01/31/2020 [facility] carvedilol 12.5 MG Oral Tablet CARVEDILOL 01/30/2020 12:00:00 AM EDT tablet 60 TAKE 1 TABLET [12.5MG] BY MOUTH TWO TIMES A DAY TAKE 1 TABLET [12.5MG] BY MOUTH TWO TIMES A DAY SOLD: 01/31/2020 [facility] atorvastatin 40 MG Oral Tablet atorvastatin (LIPITOR) 40 MG tablet atorvastatin (LIPITOR) 40 MG tablet 01/30/2020 12:00:00 AM EDT 40 mg Oral aborted Take 40 mg by mouth nightly [facility] Insurance Providers Payer name Policy type / Coverage type Policy ID Covered libertarian ID Covered libertarian's relationship to espinoza Policy Espinoza Plan Information [employer] [place] 302/307 [id number] SP [id number] [employer] [place]/307 [id number] SP [id number] [employer]CELLUS BCBS B [id number] S VYA MEDICARE C [id number] S [id number] [employer]BS [id number] Berta VYA [id number] INSURANCE COVID-19 COVID Berta C OVID MEDICARE [id number] Berta [id number] MEDICARE [id number] SP [id number] INSURANCE COVID-19 COVID Berta C OVID EXCELLUS H [id number] Self [id number] EXCELLUS BCBS [id number] MEDICARE [id number] MEDICARE [id number] SP [id number] [employer] [place] 302/307 [id number] SP [id number] EXCELLUS BCBS P [id number] S [id number] Problems, Conditions, and Diagnoses Code Display Name Description Problem Type Effective Dates Data Source(s) F41.9 [id number] Anxiety Problem 07/30/2020 12:00:00 AM ES T eCW1 ([facility]) I25.10 [id number] ASCVD (arteriosclerotic cardiovascular di sease) Problem 06/18/2020 12:00:00 AM EDT eCW1 ([facility]) N18.4 [id number] Stage 4 chronic kidney disease Problem 06/18/2020 12:00:00 AM EDT eCW1 ([facility]) I50.22 [id number] Chronic systolic congestive heart failure Problem 06/18/2020 12:00:00 AM EDT eCW1 ([facility]) Z85.118 [id number] History of adenocarcinoma of lung Problem 03/24/2020 12:00:00 AM EDT eCW1 ([facility]) I50.21 [id number] Acute systolic congestive heart failure P goran 03/24/2020 12:00:00 AM EDT eCW1 ([facility]) N18.6 [id number] End stage renal disease Problem 03/24/2020 1 2:00:00 AM EDT eCW1 ([facility]) J44.9 51996304 Chronic obstructive pulmonary di sease, unspecified COPD type Problem 03/24/2020 12:00:00 AM EDT eCW1 ([facility]) F17.200 [id number] Smoking Problem 03/24/2020 12:00:00 AM ED T eCW1 ([facility]) Z99.2 [id number] Dependence on renal dialysis Problem 020 12:00:00 AM EDT eCW1 ([facility]) R79.89 Elevated troponin Elevated troponin [id number] 02/26/2020 12:00:00 AM EDT [facility] I25.10 Coronary artery disease Coronary artery disease [id number] 02/26/2020 12:00:00 AM EDT [facility] N18.6 End stage renal disease End stage renal disease [id number] 02/26/2020 12:00:00 AM EDT [facility] N20.0 Kidney stone Kidney stone Problem 02/17/2020 12:00:00 A M EDT eCW1 ([facility]) I15.0 [id number] Renovascular hypertension Problem 02/13/2020 12:00:00 AM EDT eCW1 ([facility]) K59.00 [id number] Constipation, unspecified constipation ty pe Problem 02/13/2020 12:00:00 AM EDT eCW1 ([facility]) E78.5 Hyperlipidemia Hyperlipidemia [id number] 02/05/2020 12:00: 00 AM EDT [facility] I10 Essential hypertension Essential hypertension [id number] 02/05/2020 12:00:00 AM EDT [facility] C34.90 Adenocarcinoma of lung Adenocarcinoma of lung 18053270 02/04/2020 12:00:00 AM EDT [facility] J44.9 COPD (chronic obstructive pulmonary dise ase) COPD (chronic obstructive pulmonary disease) [id number] 02/04/2020 12:00:00 AM EDT [facility] I21.A1 Myocardial infarction type 2 Myocardial infarction typ e 2 [id number] 02/04/2020 12:00:00 AM EDT [facility] N13.30 Hydronephrosis Hydronephrosis [id number] 02/04/2020 12:00: 00 AM EDT [facility] N17.9 Acute renal failure Acute renal failure [id number] 0 02/04/2020 12:00:00 AM EDT [facility] I27.20 Pulmonary hypertension Pulmonary hypertension [id number] 02/04/2020 12:00:00 AM EDT [facility] I50.20 Systolic congestive heart failure Systolic conge stive heart failure [id number] 02/04/2020 12:00:00 AM EDT [facility] Z01.810 Encounter for preprocedural cardiovascul ar examination Encounter for preprocedural cardiovascul Diagnosis 04/22/2020 10:34:53 AM EDT [facility] I50.20 Unspecified systolic (congestive) heart failure Unspecified systolic (congestive) heart Diagnosis 04/22/2020 10:34:53 AM EDT [facility] I25.10 Atherosclerotic heart diseas e of algaaciq coronary artery without angina pectoris Atherosclerotic heart disease of algaaciq Diagnosis 04/22/2020 10:34:53 AM EDT [facility] I73.9 Peripheral vascular disease, unspecified Peripheral vascular disease, unspecified Diagnosis 03/11/2020 10:38:48 AM EDT [facility] N18.6 End stage renal disease End stage renal disease Diagno sis 03/11/2020 10:38:48 AM EDT [facility] C34.92 Malignant neoplasm of unspecified part o f left bronchus or lung Malignant neoplasm of unspecified part o Diagnosis 03/11/2020 10:38:48 AM EDT [facility] J44.9 Chronic obstructive pulmonary disease, u nspecified Chronic obstructive pulmonary disease, u Diagnosis 03/11/2020 10:38:48 AM EDT [facility] I27.20 Pulmonary hypertension, unspecified Pulmonary hy pertension, unspecified Diagnosis 03/11/2020 10:38:48 AM EDT [facility] E78.2 Mixed hyperlipidemia Mixed hyperlipidemia Diagnosis 03/11/2020 10:38:48 AM EDT [facility] I10 Essential (primary) hypertension Essential (primary) h ypertension Diagnosis 03/11/2020 10:38:48 AM EDT [facility] R79.89 Other specified abnormal findings of blo od chemistry Other specified abnormal findings of blo Diagnosis 02/26/2020 03:36:43 PM EDT [facility] I21.4 Non-ST elevation (NSTEMI) myocardial inf arction Non-ST elevation (NSTEMI) myocardial inf Diagnosis 02/26/2020 03:36:43 PM EDT [facility] N17.9 Acute kidney failure, unspecified Acute kidney f ailure, unspecified Diagnosis 02/05/2020 08:55:07 AM EDT [facility] E78.5 Hyperlipidemia, unspecified Hyperlipidemia, unspecifie d Diagnosis 02/05/2020 08:55:07 AM EDT [facility] I21.A1 Myocardial infarction type 2 Myocardial infarction typ e 2 Diagnosis 02/05/2020 08:55:07 AM EDT [facility] I50.22 Chronic systolic (congestive) heart fail ure Chronic systolic (congestive) heart fail Diagnosis 02/05/2020 08:55:07 AM EDT [facility] Surgeries/Procedures Procedure Description Date Indications Data Source(s) BLOOD COUNT COMPLETE AUTOMATED CBC Routine 02/29/2020 2:17 A M EDT 02/29/2020 06:17:00 AM EDT [facility] BASIC METABOLIC PANEL CALCIUM TOTAL BASIC METABOLIC PANEL Routi ne 02/29/2020 2:17 AM EDT 02/29/2020 06:17:00 AM EDT [facility] ECG ROUTINE ECG W/LEAST 12 LDS TRCG ONLY W/O I&R ECG 12-LEAD Routine 02/28/2020 4:31 PM EDT 02/28/2020 08:31:22 PM EDT [facility] CARDIAC CATHETERIZATION CARDIAC CATHETERIZATION Routine 02/28/2020 3:59 PM EDT End stage renal disease 02/28/2020 07:59:23 PM EDT End stage alonzo al disease [facility] End stage renal disease THROMBOPLASTIN TIME PARTIAL PLASMA/WHOLE BLOOD APTT Routine 02/28/2020 2:42 PM EDT 02/28/2020 06:42:00 PM EDT [facility] PROTHROMBIN TIME PROTIME-INR Routine 02/28/2020 2:42 PM EDT 02/28/2020 06:42:00 PM EDT [facility] BASIC METABOLIC PANEL CALCIUM TOTAL BASIC METABOLIC PANEL Routi ne 02/28/2020 2:42 PM EDT 02/28/2020 06:42:00 PM EDT [facility] KU2 PANEL KU2 PANEL STAT 02/28/2020 7:08 AM EDT 02/28/2020 11:08:00 AM EDT [facility] BLOOD COUNT COMPLETE AUTOMATED CBC STAT 02/28/2020 7:08 A M EDT 02/28/2020 11:08:00 AM EDT [facility] PHOSPHORUS INORGANIC PHOSPHORUS STAT 02/28/2020 7:08 AM EDT 02/28/2020 11:08:00 AM EDT [facility] ECG ROUTINE ECG W/LEAST 12 LDS TRCG ONLY W/O I&R ECG 12-LEAD Routine 02/28/2020 4:58 AM EDT 02/28/2020 08:58:41 AM EDT [facility] Hemodialysis (procedure) HEMODIALYSIS INPATIENT TX Routine 02/27/2020 6:00 PM EDT 02/27/2020 10:00:11 PM EDT [facility] Hemodialysis (procedure) HEMODIALYSIS INPATIENT TX Routine 02/27/2020 3:29 PM EDT 02/27/2020 07:29:22 PM EDT [facility] Hemodialysis (procedure) HEMODIALYSIS INPATIENT TX Routine 02/27/2020 3:29 PM EDT 02/27/2020 07:29:22 PM EDT [facility] ECG ROUTINE ECG W/LEAST 12 LDS TRCG ONLY W/O I&R ECG 12-LEAD Routine 02/27/2020 10:55 AM EDT 02/27/2020 02:55:27 PM EDT [facility] Hemodialysis (procedure) HEMODIALYSIS INPATIENT TX Routine 02/27/2020 10:43 AM EDT 02/27/2020 02:43:58 PM EDT [facility] CARDIAC CATHETERIZATION CARDIAC CATHETERIZATION Routine 02/27/2020 10:20 AM EDT Elevated troponin 02/27/2020 02:20:45 PM EDT Elevated troponin [facility] Elevated troponin BLOOD COUNT COMPLETE AUTOMATED CBC Routine 02/27/2020 2:21 A M EDT 02/27/2020 06:21:00 AM EDT [facility] BASIC METABOLIC PANEL CALCIUM TOTAL BASIC METABOLIC PANEL Routi ne 02/27/2020 2:21 AM EDT 02/27/2020 06:21:00 AM EDT [facility] ECG ROUTINE ECG W/LEAST 12 LDS TRCG ONLY W/O I&R ECG 12-LEAD Routine 02/26/2020 5:52 PM EDT 02/26/2020 09:52:15 PM EDT [facility] PROCALCITONIN (PCT) PROCALCITONIN Routine 02/26/2020 5:46 PM EDT 02/26/2020 09:46:00 PM EDT [facility] THROMBOPLASTIN TIME PARTIAL PLASMA/WHOLE BLOOD APTT Routine 02/26/2020 5:46 PM EDT 02/26/2020 09:46:00 PM EDT [facility] PROTHROMBIN TIME PROTIME-INR Routine 02/26/2020 5:46 PM EDT 02/26/2020 09:46:00 PM EDT [facility] [facility] HEMOGLOBIN GLYCOSYLATED A1C HEMOGLOBIN A1C Add-On 02/26/2020 5:46 PM EDT 02/26/2020 09:46:00 PM EDT [facility] LIPID PANEL LIPID PANEL Add-On 02/26/2020 5:46 PM EDT 02/26/2020 09:46:00 PM EDT [facility] LACTATE LACTIC ACID Timed 02/26/2020 5:45 PM EDT 02/26/2020 09:45:00 PM EDT [facility] 2019 NCOV AMPLIFIED 2019 NCOV AMPLIFIED STAT 02/26/2020 3:20 PM EDT 02/26/2020 07:20:00 PM EDT [facility] Results ID Date Data Source [id number] 06/19/2020 11:00:00 AM EDT [facility] Name Value Range Interpretation Code Description Data Mari rce(s) Supporting Document(s) SARS coronavirus 2 RNA [facility] This lab was ordered by [facility] and reported by [facility]. ID Date Data Source [id number] 06/06/2020 11:10:00 AM EDT [facility] Name Value Range Interpretation Code Description Data Mari rce(s) Supporting Document(s) SARS coronavirus 2 RNA [facility] This lab was ordered by [facility] and reported by [facility]. ID Date Data Source [id number] 05/22/2020 12:00:00 AM EDT [facility] oly Imaging Jason VANG Patient Name: JAY JAY [id number] Date [facility] : 1950[facility] [place] [address] Date of Exam: 05/22/2020#: Fax: [phone] EXAM: ABDOMEN AP (KUB) X-RAYCLINICAL INFORMATION: Renal calculi.There is a left ureteral stent. There is no right ureteral stent. There aremultiple calcifications in the left kidney adjacent to the proximal stentpigtail.There is a 5 mm calculus adjacent to the distal shaft of the stent.There are two tiny faintly visible calcifications projected over the rightrenal fossa. This could be superimposed bowel artifact.No other calcifications are identified. The bowel gas pattern is normal.Skeletal structures and soft-tissue otherwise are unremarkable.Aureliano oVra, MARIOJGeorgina/slmTruth you for referring JAY JAY SAAVEDRA to our office. Electronically Signed - AURELIANO VORA MD 05/22/20 14:30 Name Value Range Interpretation Code Description Data Mari rce(s) Supporting Document(s) ID Date Data Source [id number] 02/29/2020 08:21:34 AM EDT [facility] INFORMATIONPatient MRN Name Date of Age Gend*PT [id number] Jay Jay Saavedra 1950 69 years F IPPT Location Admission Date/Time Visit ID Attending [id number] 02/26/20 1536 --- Joycelyn Gomez MD([id number]) EPI ID [facility] Admitting Provider [id number] Joycelyn Gomez MD([id number])DISCHARGE SUMMARYAdmission Date: 02/26/2020Discharge date: 02/29/20PRINCIPAL DIAGNOSIS: Coronary artery disease. Left ventricular systolicdysfunction. Renovascular disease.CURRENT [id number] woman with recent onset congestive heart failure with an episode ofpulmonary edema in January started on hemodialysis after she went into acute kidneyfailure. She had a stress test that was abnormal. She presented to thespital again with acute pulmonary edema. Doppler study showed renal vasculardisease.HOSPITAL COURSECoronary angiography on admission here showed severe LAD stenosis and totallyoccluded left circumflex. There was mild to moderate left ventricular systolicdysfunction. She received stents to her LAD. She was brought back to the [facility] the next day for renal angiogram and that showed occluded right kidneyartery and subtotal occlusion of the left kidney artery. She received a stentto the left kidney. Today she feels well. She is making urine as usual. Hervitals under fair control. Groin access site and radial access site areunremarkable. She will get [place] today.TODAY'S PHYSICAL EXAM:BP 138/67 (BP Location: Left upper arm, Patient Position: Lying) | Pulse 71 |Temp 98.3 F (Oral) | Resp 18 | Ht 1.6 m (5' 3") | Wt 47.8 kg (105 lb 6.1 oz)Comment: post HD | LMP (LMP Unknown) | SpO2 99% | No | BMI18.67 kg/m Alert and oriented. Lungs are clear to auscultation and heart sounds arenormal.SIGNIFICANT DIAGNOSTIC DATA:Results from last 7 daysLab Units 02/1617WBC 10*3/uL 7.3HEMOGLOBIN g/dL 8.4*HEMATOCRIT % 25.2*PLATELETS 10*3/uL 242Results from last 7 daysLab Units 02/28/2002257385XMEIZU mmol/L 138POTASSIUM mmol/L 4.0CHLORIDE mmol/L 104CO2 mmol/L 29BUN mg/dL 22CREATININE mg/dL 1.99*GLUCOSE mg/dL 58*CALCIUM mg/dL 7.7*Results from last 7 daysLab Units 02/25/2017377430JUIAPVVXGMQ mg/dL 139TRIGLYCERIDES mg/dL 142HDL mg/dL 54DISCHARGE MEDICATION LIST Quentin Jay Jayaubrey Bonsd Medication Instructions AGUILAR:[id number] Printed on:02/29/20 0819Medication Informationaspirin (ASPIRIN 81) 81 MG EC tabletTake 81 mg by mouth dailyatorvastatin (LIPITOR) 40 MG tabletTake 1 tablet (40 mg total) by mouth nightlyCalcium Acetate, Phos Binder, 667 MG CAPSTake 667 mg by mouth 3 (three) times a day with mealscarvedilol (COREG) 12.5 MG tabletTake 1 tablet (12.5 mg total) by mouth 2 (two) times a dayclopidogrel (PLAVIX) 75 MG tabletTake 1 tablet (75 mg total) by mouth dailyHeparin Sodium, Porcine, (HEPARIN, PORCINE,) 1000 UNIT/ML injection1,600 Units catheter lock arterial red port every treatment at dialysisHeparin Sodium, Porcine, (HEPARIN, PORCINE,) 1000 UNIT/ML injection1,600 Units catheter lock venous blue port every treatment at dialysisHeparin Sodium, Porcine, (HEPARIN, PORCINE,) 1000 UNIT/ML injectionInfuse 2,000 Units into a venous catheter every treatment at dialysis (SystemicBolus)hydrALAZINE (APRESOLINE) 25 MG tabletTake 1 tablet (25 mg total) by mouth 3 (three) times a dayisosorbide mononitrate (ISMO,MONOKET) 10 MG tabletTake 2 tablets (20 mg total) by mouth 2 (two) times a daySignature: Joycelyn Gomez MDDate: February 29, 2020Time: 8:19 [facility]: Dr. Lyles. Dr. Antony.This document or parts of this document, were dictated using Mojostreet software. A reasonable attempt at proofreading has been made tominimize errors. Please call with any questions or corrections. Name Value Range Interpretation Code Description Data Mari rce(s) Supporting Document(s) ID Date Data Source [id number] 02/29/2020 07:27:42 AM EDT [facility] Name Value Range Interpretation Code Description Data Mari rce(s) Supporting Document(s) EKG [facility] HDMPTc1rQdJBWkTwi9ZgJhBlFXLiWA9bnpa3M2W9kTZlM5CsoQHwo6zvW8RmI0SvQRUpNKONZS1BbRZu jb2 [file] fusion operator+hJ72/tH2b37elCWKAJLuYNfvWfrYypLhAd1Nkxu/npQqM7rK3TuGc/04h+Bv+qzOSUuOGGzPW0vT [file] Dee Dee/b8GNBZwKNU/XyTERb8/pKteF3hzTtFJ18KpyxB/Rol6kO3dwthDfoHJ6hwxYoIbnfdr8ddEdq3z [file] 9fbIL3NMPtSauNDo6Qh8EueoQ1pgEeJsQ8KIuzVkAyZT9N ID Date Data Source [id number] 02/29/2020 03:54:42 AM EDT [facility] Name Value Range Interpretation Code Description Data Mari rce(s) Supporting Document(s) SODIUM 138 mmol/L (136-145) [facility] POTASSIUM 4.0 mmol/L (3.6-5.2) [facility] CHLORIDE 104 mmol/L (100-108) [facility] CO2 29 mmol/L (22-31) [facility] ANION GAP 5 mmol/L (7-16) L [facility] UREA NITROGEN 22 mg/dL (7-24) [facility] CREATININE 1.99 mg/dL (0.60-1.00) H [facility] BUN/CREAT RATIO 11.1 RATIO (10.0-20.0) [facility] GLUCOSE 58 mg/dL (70-99) L [facility] CALCIUM 7.7 mg/dL (8.4-10.2) L [facility] GFR 25 ml/min/1.73m2 (>59) L [facility] GFR ( AMER) 30 ml/min/1.73m2 (>59) L [facility] GFR INTERPRETATION [facility] --NORMAL KIDNEY FUNCTION OR MILD DISEASE - GFR >OR= 60CHRONIC KIDNEY DISEASE - GFR 15 - 59RENAL FAILURE - GFR <15 Est. GFR calculation based on the MDRDstudy equation, which assumes a steadystate for creatinine. Est. GFR should notbe used for medication dosing. ID Date Data Source [id number] 02/29/2020 03:26:57 AM EDT [facility] Name Value Range Interpretation Code Description Data Mari rce(s) Supporting Document(s) WBC 7.3 10*3/uL (4.1-11.0) [facility] RBC 2.82 10*6/uL (4.00-5.40) L [facility] HGB 8.4 g/dL (12.0-16.0) L [facility] HCT 25.2 % (36.0-47.0) L [facility] MCV 89.6 fL (80.0-95.0) [facility] MCH 29.7 pg (27.0-32.0) [facility] MCHC 33.2 g/dL (32.0-36.0) [facility] RDW 15.1 % (10.5-14.5) H [facility] PLT 242 10*3/uL (150-450) [facility] MPV 8.0 fL (7.1-10.7) [facility] ID Date Data Source [id number] 02/28/2020 04:16:30 PM EDT [facility] Name Value Range Interpretation Code Description Data Mari rce(s) Supporting Document(s) &PDF [facility] SIBTPx2yYhADIdQr78/GWFroUOYdh0BmTZoeMMd9PIfkRWGxP4ZgrMrtBHtTSM2PBABAI4YCSEewRAB7 [facility] [file] AgICAgICAgICAgICAgICAgICAgICAgICAgICAgICAgICAgICAgICAgICAgICAgICAgICAgICAgICAgIC AgICAgICAgICAgICAgICAgICAgICAgICAgICAgICAg ICANCiAgICAgICAgICAgICAgICAgICAgICAgICAgICAgICAgICAgICAgICAgICAgICAgICAgICAgICAg ICAgICAgICAgICAgICAgICAgICAgICAgICAgICAgICAgICAgICAgICAgICANCiAgICAgICAgICAgICAg ICAgICAgICAgICAgICAgICAgICAgICAgICAgICAgIC AgICAgICAgICAgICAgICAgICAgICAgICAgICAgICAgICAgICAgICAgICAgICAgICAgICAgICANCiAgIC AgICAgICAgICAgICAgICAgICAgICAgICAgICAgICAgICAgICAgICAgICAgICAgICAgICAgICAgICAgIC AgICAgICAgICAgICAgICAgICAgICAgICAgICAgICAg ICAgICANCiAgICAgICAgICAgICAgICAgICAgICAgICAgICAgICAgICAgICAgICAgICAgICAgICAgICAg ICAgICAgICAgICAgICAgICAgICAgICAgICAgICAgICAgICAgICAgICAgICAgICANCiAgICAgICAgICAg ICAgICAgICAgICAgICAgICAgICAgICAgICAgICAgIC AgICAgICAgICAgICAgICAgICAgICAgICAgICAgICAgICAgICAgICAgICAgICAgICAgICAgICAgICANCi AgICAgICAgICAgICAgICAgICAgICAgICAgICAgICAgICAgICAgICAgICAgICAgICAgICAgICAgICAgIC AgICAgICAgICAgICAgICAgICAgICAgICAgICAgICAg ICAgICAgICANCiAgICAgICAgICAgICAgICAgICAgICAgICAgICAgICAgICAgICAgICAgICAgICAgICAg ICAgICAgICAgICAgICAgICAgICAgICAgICAgICAgICAgICAgICAgICAgICAgICAgICANCiAgICAgICAg ICAgICAgICAgICAgICAgICAgICAgICAgICAgICAgIC AgICAgICAgICAgICAgICAgICAgICAgICAgICAgICAgICAgICAgICAgICAgICAgICAgICAgICAgICAgIC ANCiAgICAgICAgICAgICAgICAgICAgICAgICAgICAgICAgICAgICAgICAgICAgICAgICAgICAgICAgIC AgICAgICAgICAgICAgICAgICAgICAgICAgICAgICAg ICAgICAgICAgICANCjw/qUPgA5sqrVEflnH6Z5peUh9HSf9TAO8hv0GjDMMfMXglyaYhIdlQXdGwPIXp FexAEfx0NBccFW0VpHMdI1FzP4QsGAdmAP7HYXHuCXTkjQZiYTJuGWOcBgM7WDVuMQmpXI0RdVYzSObr GLJbHPApLhHrBYUgLG6BHEVaV149odDdId2CNg0TKw LmYN9bcw2LKtLzGTDsXadFUmm7UDblIH0VxEQmwFHmJkKoCIVTUdZyH6iss4QjPvXkKMKBBVwtAZ6Dq0 VudCAxDQo+Ic2FBA0ut8RuOWxqZsDtKQ8cgd4YHLwFHyGwX1CsoKfuBKxblJkpfzByGV3VKEWjUSTtxY CbFGgxBGIEWF6TFMsqCRF4GCguqeOipAOsOUnuMQ6P YXJlbnQgMjEgMCBSDQo+Nt7DZG6js3VaGLedKrUrVG2pqv8CDEhHUiXwU3J1fUQyZ1J4QOsxMl5VHXBx WZXwCJycJETFLRwyJE9QIO1zhaU9OU8HaDScZQFjORLalRSvOQe6K77pvNMqPPfqGA4NMZM+Monique+Pg0K YOGfAPCcEACsYtDjYXCFDdJmC8EzW6LTd0OpX2CaCT 18yPsvueKoOTpaGT8NSB8bITXrWWOEPH7OhAPnbK3bjaRxPVViEYMBKwNiB74whBWfOUEcQZSlROFwTu 5VYLPcQ0PuxaAlpGhrehVgGKQuXQFIPQ7HWGcrnbBqfVCltRxrBX99pRrlSR4JKs1DKjVzPQ7okm1YmY CeHr2EWMZyIG9HJPPwXTGsIVIoUZY2RLGsNqKyYGss EONnDFDzVSK8VQVhBOAcEG1IZcIyXWQxAXwnMOLpAIVnIZDctu4ZBWKeQYSsGZk5XkGiNCPzUZStBJlq CDRwZKZoRMibBJNbQZIsFD4IUrIoJWZpVDJoXUDcVQKuJKHbta4IVDPaHCMgNiN8WBSgPGHmLUArJPft RNCxLWI0BFZxPJPcPTLuHF7YFoSeRMVrNDA7PpBoGI IzWGLhtn2MFIHsQERnGwY8RNGjSXJhDHJmHBtjZQHfYDY6UYisWQVgMGXpBW8IMfSoRXSgNCmsOhGkVF CnIUGckq6DAXCnBJIxKBWtMCEaTNLhUXOiNPevGMIwBBK6ZmAdQEJgQFPxRQ3JBvDuAXWpNQg1IYOcSK WuKZYbnz2LFCKwRRNiBAS7LYFdTKYgDUTuUCxzDPXh CKA7UZS1LNMdBHQjPP0VUzHxSZAxFZy9ULXcMWWzFXFmsk5FUWFnOMKlZHa6DFCoPOOwXPYdLZsxGXHi JRS4CHuwHNHhNYWuLC7FWzZpWKZpDCc2SeUhWDCzQOCved0AHRWvXCMvGUJ6RkElXRUpIZUaVPeqWTCu GCLjBRS9WXCfJCDjKF0ATiBwVEIxAwXoGzAxVSZvLJ Fxim0NoTBgeAhkdb7PDOqOTt3XvVntLPK9EOfnKz3dhIItVlChDAPINm8GifLrJJCtGYFMFKuhBAUnWK ZzAkDwXkTeWLYfFfNeSKwdKeLzIZUwLdPwLbBcHnUhLeP3TpG3GOLtIxO2ZiW4HzOaAFRmBROsAONeR8 IyYTBmYmQ+KN7zBJl+Er4Mb2UeqsB4sqWmIDkgPXN7AN9HNZVDN3PHLw== ID Date Data Source [id number] 02/28/2020 04:08:24 PM EDT [facility] Name Value Range Interpretation Code Description Data Mari rce(s) Supporting Document(s) SODIUM 139 mmol/L (136-145) [facility] POTASSIUM 3.7 mmol/L (3.6-5.2) [facility] CHLORIDE 103 mmol/L (100-108) [facility] CO2 33 mmol/L (22-31) H [facility] ANION GAP 3 mmol/L (7-16) L [facility] UREA NITROGEN 9 mg/dL (7-24) [facility] CREATININE 1.45 mg/dL (0.60-1.00) H [facility] BUN/CREAT RATIO 6.2 RATIO (10.0-20.0) L [facility] GLUCOSE 111 mg/dL (70-99) H [facility] CALCIUM 8.1 mg/dL (8.4-10.2) L [facility] GFR 36 ml/min/1.73m2 (>59) L [facility] GFR ( AMER) 43 ml/min/1.73m2 (>59) L [facility] GFR INTERPRETATION [facility] --NORMAL KIDNEY FUNCTION OR MILD DISEASE - GFR >OR= 60CHRONIC KIDNEY DISEASE - GFR 15 - 59RENAL FAILURE - GFR <15 Est. GFR calculation based on the MDRDstudy equation, which assumes a steadystate for creatinine. Est. GFR should notbe used for medication dosing. ID Date Data Source [id number] 02/28/2020 03:55:03 PM EDT [facility] Name Value Range Interpretation Code Description Data Mari rce(s) Supporting Document(s) APTT 23.6 s (22.0-34.3) [facility] ID Date Data Source [id number] 02/28/2020 03:55:03 PM EDT [facility] Name Value Range Interpretation Code Description Data Mari rce(s) Supporting Document(s) PT 11.3 s (9.2-11.9) [facility] INR 1.08 [facility] SUGGESTED THERAPEUTIC RANGES USING INR F ORSTABILIZED ANTICOAGULATED PATIENTS:STANDARD DOSE THERAPY INR 2.0-3.0 DVT, PE, PREVENT DVT OR EMBOLISMHIGH DOSE THERAPY INR 2.5-3.5 PREVENT EMBOLISM FROM MECHANICAL HEART VALVE ID Date Data Source [id number] 02/28/2020 07:55:20 AM EDT [facility] Name Value Range Interpretation Code Description Data Mari rce(s) Supporting Document(s) EKG [facility] BKYYAf2qUzZFDfNja1NlRgEgIWXmNP1frhi2A4U3eBLfY3FylPYnv1uiA0MfU9OrKYPyORGRMT0PlGRh jb2 [file] on site nurse+pyx+62U5hb5maUawY2g7CpPmSbURnDh3wkGGn+X8J5L8gp79vyAXWQUw7cqsaLXjyB6b6EjKTT6S [file] Q7krZvNfVkEsZ8IiTbQP4R ID Date Data Source [id number] 02/28/2020 10:02:11 AM EDT [facility] Name Value Range Interpretation Code Description Data Mari rce(s) Supporting Document(s) PHOSPHORUS 3.0 mg/dL (2.5-4.5) [facility] ID Date Data Source [id number] 02/28/2020 10:02:11 AM EDT [facility] Name Value Range Interpretation Code Description Data Mari rce(s) Supporting Document(s) SODIUM 137 mmol/L (136-145) [facility] POTASSIUM 3.9 mmol/L (3.6-5.2) [facility] CHLORIDE 103 mmol/L (100-108) [facility] CO2 29 mmol/L (22-31) [facility] ANION GAP 5 mmol/L (7-16) L [facility] UREA NITROGEN 25 mg/dL (7-24) H [facility] CREATININE 2.04 mg/dL (0.60-1.00) H [facility] BUN/CREAT RATIO 12.3 RATIO (10.0-20.0) [facility] GLUCOSE 80 mg/dL (70-99) [facility] CALCIUM 8.2 mg/dL (8.4-10.2) L [facility] GFR 24 ml/min/1.73m2 (>59) L [facility] GFR ( AMER) 29 ml/min/1.73m2 (>59) L [facility] GFR INTERPRETATION [facility] --NORMAL KIDNEY FUNCTION OR MILD DISEASE - GFR >OR= 60CHRONIC KIDNEY DISEASE - GFR 15 - 59RENAL FAILURE - GFR <15 Est. GFR calculation based on the MDRDstudy equation, which assumes a steadystate for creatinine. Est. GFR should notbe used for medication dosing. ID Date Data Source [id number] 02/28/2020 09:24:48 AM EDT [facility] Name Value Range Interpretation Code Description Data Mari rce(s) Supporting Document(s) WBC 9.2 10*3/uL (4.1-11.0) [facility] RBC 2.91 10*6/uL (4.00-5.40) L [facility] HGB 8.6 g/dL (12.0-16.0) L [facility] HCT 26.1 % (36.0-47.0) L [facility] MCV 89.7 fL (80.0-95.0) [facility] MCH 29.4 pg (27.0-32.0) [facility] MCHC 32.8 g/dL (32.0-36.0) [facility] RDW 14.5 % (10.5-14.5) [facility] PLT 258 10*3/uL (150-450) [facility] MPV 8.3 fL (7.1-10.7) [facility] ID Date Data Source [id number] 02/27/2020 05:01:42 PM EDT [facility] NT INFORMATIONPatient MRN Name Date of Age Gend*PT [id number] Jay Jay Saavedra 1950 69 years F SDCXPT Location Admission Date/Time Visit ID Attending [id number] 02/26/20 1536 --- Joycelyn Gomez MD([id number]) EPI ID CSN Admitting Provider [id number] Joycelyn Gomez MD([id number]) Attestation signed by Joycelyn Gomez MD at 02/27/2020 5:01 PMSignature: MARIO Casianoate: February 27, 2020Time: 5:01 PM --Cardiology History and PhysicalName: Jay Jayaubrey Saavedra Gender: femaleDate of : 1950 Age: 69 yearsDate/Time of Admit: 02/26/2020 3:36 PM Code Status: Full CodePrimary Care ProviderReferring Physician: DRAKE Cooneyctmikie Complaint: Elevated TroponinHPI: Jay Jay Saavedra is a 69 year old female with a past medical historysignificant for:1. COPD2. Systolic Congestive Heart Failure with Ejection Fraction 25%3. Hypertension4. Hyperlipidemia5. End Stage Renal Disease on hemodialysis6. History of kidney stones7. Adenocarcinoma of the lung s/p left upper lobectomySumarian Kuldip Saavedra states that back on Monday she woke up and felt short of breathlike she was gasping for air. Ms. Saavedra called and was transferred [facility], while in the emergency department she receivedsteroids and was placed on CPAP which improved her breathing. In the emergencyroom she received blood work which revealed elevated cardiac enzymes and EKGchanges, she was told she was being transferred to [facility] for further cardiac work-up.During her hospitalization she developed an elevated white blood cell countwithout signs or symptoms of systemic infection. Chest x-ray revealed resolutionon previously noted interstitial infiltrates, mild underlying fibrotic change onthe left lung base with mild elevation of the left hemidiaphragm, the heart wasnot enlarged and there was significant calcification of the thoracic aorta.Renal ultrasound noted two small exophytic right renal cysts, stent wasdemonstrated in the left kidney and shadowing focus in the mid left kidneymeasuring 1.2 cm consistent with a non obstructive calculus. Urinalysis showedpositive urinary tract infection. Culture is pending. The patient was started onIV antibiotics which showed an improvement in her white blood cell count priorto admission.Of note, [facility]. [facility]aved[facility], [facility] hypertensive emergency and wasintubated and placed on mechanical ventilation. During her hospitalization shewas found to have renal artery stenosis (75% function on the left and 25% on theright). While in the hospital she developed deterioration of her kidney functionand was started on hemodialysis which she has continued 3 times a week onMonday, and Monday. Further work-up revealed a stone in the leftkidney and a stent was implanted. Echocardiogram performed on 01/22/20 revealed aseverely depressed global left ventricular systolic function estimated at 25%.She was found to have an abnormal serum troponin level and was referred to acardiologist for further work-up. Ms. Saavedra underwent pharmacological nuclearstress test on 02/14/20 which revealed an abnormal perfusion study; showinginfarction with win-infarction ischemia involving the inferior andinferolateral maurice of the left ventricle with possible ischemia involving theanterolateral wall. Wall motion study was also abnormal with a LVEF calculatedat 38% and cardiac catheterization to assess coronary anatomy was recommended.The patient did not receive her results of her nuclear stress test prior tobeing readmitted to [facility].On exam, Ms. Saavedra is sitting in bed talking with her daughter, she appears inno acute distress. She denies ever experiencing chest pain or palpitations. Shereports her breathing has improved. Denies known history of SD, heart failure,valve disease, CVA, abnormal bleeding, cancer, asthma, diabetes, or hepaticdisease. She denies recent weight gain, abdominal distension, edema, PND,orthopnea. She is a former 1 PPD smoker quitting in January of this year. Shedenies ETOH or illicit drug use. She reports a family history of diabetesmellitus and hypertension in her mother, otherwise denies known family historyof heart disease.Review of Systems:Negative for review of all 10 systems, except as noted above.HistoryPast Medical History:Diagnosis Date Acute renal failure 02/04/2020 Acute anuric require hemodialysis Adenocarcinoma 02/04/2020 Left upper lobe 2013 post radiation chemotherapy. COPD (chronic obstructive pulmonary disease) 02/04/2020 Emphysema 02/04/2020 Essential hypertension 02/05/2020 Hydronephrosis 02/04/2020 Left-side intrarenal calculus Hypercapnic respiratory failure 02/04/2020 Requiring intubation and mechanical ventilation. Hyperlipidemia 02/05/2020 Hypoxic 02/04/2020 Acute Hypoxic 02/04/2020 Acute Myocardial infarction type 2 02/04/2020 Secondary to flash pulmonary edema. Pulmonary hypertension 02/04/2020 Systolic congestive heart failure 02/04/2020Past Surgical History:Procedure Laterality Date CYSTOSCOPY 01/27/2020 w/ left syent w/ pyelogram LUNG LOBECTOMY Left 2012 upper PermCath Right placement for dialysis, vascular catherer removed.Social HistorySocioeconomic History Marital status: Spouse name: Not on file Number of children: Not on file Years of education: Not on file Highest education level: Not on fileOccupational History Not on fileSocial Needs Financial resource strain: Not on file Food insecurity: Worry: Not on file Inability: Not on file Transportation needs: Medical: Not on file Non-medical: Not on fileTobacco Use Smoking status: Former Smoker Types: Cigarettes Last attempt to quit: 01/21/2020 Years since quittin.0 Smokeless tobacco: Never UsedSubstance and Sexual Activity Alcohol use: Never Frequency: Never Drug use: Not on file Sexual activity: NeverLifestyle Physical activity: Days per week: Not on file Minutes per session: Not on file Stress: Not on fileRelationships Social connections: Talks on phone: Not on file Gets together: Not on file Attends baptist service: Not on file Active member of club or organization: Not on file Attends meetings of clubs or organizations: Not on file Relationship status: Not on file Intimate partner violence: Fear of current or ex partner: Not on file Emotionally abused: Not on file Physically abused: Not on file Forced sexual activity: Not on fileOther Topics Concern Not on fileSocial History Narrative Not on fileNo family history on file.Medications & AllergiesAllergies: No Known Drug AllergiesMedications:Medications Prior to AdmissionMedication Sig ASPIRIN 81 PO Take 1 tablet by mouth daily atorvastatin (LIPITOR) 40 MG tablet Take 1 tablet by mouth nightly Calcium Acetate, Phos Binder, 667 MG CAPS Take 1 capsule by mouth daily carvedilol (COREG) 12.5 MG tablet Take 1 tablet by mouth daily hydrALAZINE (APRESOLINE) 25 MG tablet Take 1 tablet by mouth daily isosorbide mononitrate (ISMO,MONOKET) 10 MG tablet Take 1 tablet by mouth 2(two) times a day Scheduled Meds:Continuous Infusions:PRN Meds:.PhysicalTemp (24hrs), Av.1 F, Min:98.1 F, Max:98.1 FBlood Pressure: BP: 173/78 Pulse: Heart Rate: 84Temperature: Temp: 98.1 F Respirations:Admission Weight: O2 Saturation: SpO2: 97 %Today's Weight: BMI: There is no height or weight on file to calculate BMI.No intake or output data in the 24 hours ending 02/26/20 1825Physical ExamPleasant, comfortable, not in acute distress.Awake, alert, oriented times 3.Moves all extremities.General appearance: alert, appears stated age and cooperativeNeck: no carotid bruit and no JVDLungs: Clear to auscultation bilaterally.Heart: regular rate and rhythm, S1, S2 normal, no murmur, click, rub or gallopAbdomen: Soft, nontender, bowel sounds present.Extremities: No edema.Pulses: 2+ and symmetricSkin: No rash or lumps.DiagnosticsLabs from outside facility:WBC 13.0Hgb 8.3Hct 25.4Plt 228Sodium 139Potassium 3.7Creatinine 3.04Glucose 88Calcium 8.0Magnesium 2.1CK 67, 59CKMB 4.8, 3.8, 2.8, 2.0, 2.3Troponin 2.03, 1.76, 1.13, 0.9, 0.87Blood Cultures showed no growth for 48 [id number] (COVID 19) NegativeECG: Sinus Rhythm with PACs, ST & T wave abnormality, consider anterior ischemiaAssessment and PlanPrincipal Problem: Elevated TroponinActive Problems: Systolic congestive heart failure COPD (chronic obstructive pulmonary disease) Adenocarcinoma of lung Essential hypertension Hyperlipidemia End stage renal disease1. Elevated Troponin/Likely Type II SD- Presented from outside facility withelevated troponin and abnormal nuclear stress test.Admit to telemetry.Currently without angina or equivalent symptoms.Troponin I peaked at 2.03 at outside facility and trended downward.EKG demonstrates sinus rhythm with PACs, ST and T wave abnormailty.Pt was loaded with 300 mg Plavix on 02/23 at outside facility.Lipid panel pending.Keep NPO after midnight.Plan is for cardiac catheterization tomorrow. Denies dye allergy.Continue ASA, bb, statin and nitro sl prnFurther plan pending outcome of cardiac cath.2. Systolic Congestive Heart Failure- Known ejection fraction of 25%Appears compensated on exam.Continue ischemic work up.3. COPD- Stable.Continue Duoneb4. Essential Hypertension- Blood pressure is elevated.Continue BB and nitratesStart PRN Hydralazine.5. Hyperlipidemia- Lipid panel pending.Continue statin therapy.6. End stage renal disease- Patient is on hemodialysis Monday, Monday andMonday.Obtain bilateral renal angiogram.Nephrology consult requested.7. Urinary Tract Infection- Urinalysis at outside facility revealed UTI, culturepending.Patient is asymptomatic and afebrile.IV Ceftriaxone started on 02/23.Continue IV Ceftriaxone to complete full 7 day antibiotic course.Patient follows with Dr. Lyles for outpatient cardiac care.Signature: Selena Benavidez NPDate: February 26, 2020Time: 6:25 PM Name Value Range Interpretation Code Description Data Mari rce(s) Supporting Document(s) ID Date Data Source [id number] 02/27/2020 11:22:14 AM EDT [facility] Name Value Range Interpretation Code Description Data Mari rce(s) Supporting Document(s) EKG [facility] BGTHPo0rEuZNDcQpt0EsTrRbZYJdAY4ofhp7B1G2xLFrH7MfdQGib3ltG5FrU5AfGJPkWMYZNN4RpNHn jb2 [file] i5sb1mn3w6uSQzXG4s618cTOJmd24xZ2l065vvQw2liHJzusBQjelKq+dbvk24V94uw7wHzuqGaq+Evangelist 5rXuEwv2ES0kB+VirYcG5tU8Xy53n+ekMrYlnAzY72 uwcvil9LEH2e6CAW/composer teaching artist+zxOYwKKYpBOoU6FUjeR0NY5Pcs/CHgcobG9x7/Vgr0xD1Cp6uP2vllnro87 5YcA6A+cBKziPw9GO78vK0ex1xnhP7Y+c4RLkoaNnsW+i8VEceut/X+67JjkcT87Q8jP3JyhPL5GJJS+ vtC+vtC+vtC+vtC+vwl2OJGbWKN/pqtZqXLaxfLaxf LWvABtyBB/BFlhZDHPWnh9QbbeSfzxK52ziFP/UOrs640W2N5VP5M/ZhbYYutP24WXKjtROJch18y4yq R9zpL6iwHaYdb+J+Z437a+C3YqxvHfwcvzuuO7b/eJI1Y9wAwxth17CW+qrp/7Yzrbar3eymJ1Y8jWsl 2tqkAAzhg6Z+9RkW4EI8ks+67pzXdK+/StetVbruHN nJwtcp7KFghT25VfBi+06lu4W08Su0V1KZrn652RXS4HDSv5frJ4oQmrTRqLOT0IbupRnRDNo/xqN4Hu DqR/EYcAce+X0885Y5IHHrUGuCA/NUjCtyHF6McWpG39RLzUChhpX7t2PknsNgwPpkgO6MqiiX94pqAU sMM6UBAcJLQMls+aJGeisY6Sw100dfvbqd7LKbgf25 B+J2gCzN1zR0D+BPbLowgmH7S6K/4X7F9P2Y1RGHshWd6p5grGWFZMqD0KkYYGKjouAHhsdYIx+LWfuh nqlgdKYehzbXy63G86ja+FVbbG6aA8qeuf0Sl59D+0jb6B9V4sqWAA+Ggtj10ZtXzqKMy224a7j0d0Gr uoiG/lnyYk3FHkuqEyNyUVNp/VMdWAc24ie0fGBqf3 63pgNo7th892DnPy960/k3iFu3U+XO/p1i4CrmjvzveV68yni0joCi9+sq4zL2fLreIo88su4fBr8iF/ mgC9d4uoQPG+9rGOnP82b/4Jo85DQrPp/AdintXwd4e7Ub55648nY5+4a+9hAh5W143Q4EMQUKr6obJ4 20S603G947H57fD87pcSR/teF/ugMdhm3Ogj9z0Ug/ G/otI58wA36o0qykqDc9rXuP0mZZ443oEstsxAR/0Fcb+mpDX+9UcRPs2Nq3tRIirtvbuLcn2VuG6E9w Ay/oVI9ovt6Dbg6/pl7ox1yOxyxS+/Csx6qH1+xaX29596NIkKszs+8V41E41oe3XdkySrflCuC6s5WS G/ecu0X4j9M/0I52K1em/Sf2dG60Bdv6aHTUpK/WNa Sq2ayas6dOTC+lz8WPgkSEX75f0sOdKAfVHa/v2g/e6fwqtMnOA8bONbl4hh/5VaT7ij1ZB6FcHosBjM 2sedbZCYBCYnlKCcqKysmVoNUoqfUELs2wUkRvHUu0i3nRD3odrFR8ML60rT91Aa2sPlzVg2BkwwLAjq eTm8JJpKVajhgH67IBJ/gg9pWmI3Kw3sHODDG2Efjb 6hYjKeoVbfS66jB/myaNZaA03iBMzYGOfgtXL3KMWz/QhDEXr7PlVQVR4OoFAb2lbYFtMKLmwHs0jTGd SNgO6G/7vRUF5tX+gj1FMBmH7A5eX+BlXvPXPC58uXtsbFv8RXgsdvpDJt1t6vT4jBRGkppht9ZX69nC E4tgUy0CSh5Wziv22z1WK+delivery sales worker+8nJglbYiwSvgUoN+ [file] b7x5JV7cKs3O4nCY6cXV8vkv/wWs9yCa18+vHTz5/+8f6Xj+9+Ea78hdyv+59++vD+i+Xb+0//human resources admin/5X/ [file] BSCgo+QjdmsDWjwEmzBWPDQWNxINVVDNSGD4O= ID Date Data Source [id number] 02/27/2020 10:28:53 AM EDT [facility] Name Value Range Interpretation Code Description Data Mari rce(s) Supporting Document(s) &PDF [facility] NMFJBi6cDaNQViQg18/FQQqkUWNpy8ScKByxCAf7BHbqZGJiJ3YxnKhmVRfESI2GGXEXD8FDKHetBLY5 FcG [file] ICAgICAgICAgICAgICAgICAgICAgICAgICAgICAgICAgICAgICAgICAgICAgICAgICAgICAgICAgICAg ICAgICAgICAgICAgICAgICAgICAgICAgDQogICAgIC AgICAgICAgICAgICAgICAgICAgICAgICAgICAgICAgICAgICAgICAgICAgICAgICAgICAgICAgICAgIC AgICAgICAgICAgICAgICAgICAgICAgICAgICAgICAgICAgDQogICAgICAgICAgICAgICAgICAgICAgIC AgICAgICAgICAgICAgICAgICAgICAgICAgICAgICAg ICAgICAgICAgICAgICAgICAgICAgICAgICAgICAgICAgICAgICAgICAgICAgDQogICAgICAgICAgICAg ICAgICAgICAgICAgICAgICAgICAgICAgICAgICAgICAgICAgICAgICAgICAgICAgICAgICAgICAgICAg ICAgICAgICAgICAgICAgICAgICAgICAgICAgDQogIC AgICAgICAgICAgICAgICAgICAgICAgICAgICAgICAgICAgICAgICAgICAgICAgICAgICAgICAgICAgIC AgICAgICAgICAgICAgICAgICAgICAgICAgICAgICAgICAgICAgDQogICAgICAgICAgICAgICAgICAgIC AgICAgICAgICAgICAgICAgICAgICAgICAgICAgICAg ICAgICAgICAgICAgICAgICAgICAgICAgICAgICAgICAgICAgICAgICAgICAgICAgDQogICAgICAgICAg ICAgICAgICAgICAgICAgICAgICAgICAgICAgICAgICAgICAgICAgICAgICAgICAgICAgICAgICAgICAg ICAgICAgICAgICAgICAgICAgICAgICAgICAgICAgDQ ogICAgICAgICAgICAgICAgICAgICAgICAgICAgICAgICAgICAgICAgICAgICAgICAgICAgICAgICAgIC AgICAgICAgICAgICAgICAgICAgICAgICAgICAgICAgICAgICAgICAgDQogICAgICAgICAgICAgICAgIC AgICAgICAgICAgICAgICAgICAgICAgICAgICAgICAg ICAgICAgICAgICAgICAgICAgICAgICAgICAgICAgICAgICAgICAgICAgICAgICAgICAgDQogICAgICAg ICAgICAgICAgICAgICAgICAgICAgICAgICAgICAgICAgICAgICAgICAgICAgICAgICAgICAgICAgICAg ICAgICAgICAgICAgICAgICAgICAgICAgICAgICAgIC AfDFt8C4htYQHfCUFjMZ6aXTk5Bg3+ZOoYAhIsOCB3ydCkoD3FOL1fg0SfTTzcUJFxa4ZyYZp2LR4DQS PsJZkoXE0UHDwuks3DCQLwEKKyaGRQn3atRkEpTZH9VTLvPeezKH2IIBXzQ0hmlrBvPRYqIHIHDDglTT YOAJhgFHACPBAmKXMmBsGjFyGtBNAxBGRyDCGSMQ9U FeYvY8GdxU94MTEOYq6+OYljqsArWfeYWpMaPHHlx9HpQKx3DB6YIRKmQksix3HaLdXqWEZHUMzeOP3H WDH6NCJjKXInXt0UHDZrJ793kqNxTT9NRh8RVdXqOP6uao2ZFqCtPRLcSnuQFdd7ZBvzZD8YtRJwFUcT dFAkDI72jbrSXhDxT3Qye2HbAwR6JPMaTwTuFUxgWB DaBuIsXA78fMjmUT2GFHPzNRVmPJ98OKJdTDIqEt1GQr1SKcVxIL3khn4FEaYdFDBnHdwYGts2KPqnMH 4YlJTyU7MpfUDde9qQUdVfN4TBJREiKSGuYk8JTNRbCuUeTMHqCCrmCR7tBFRuSENXxFpnqrF9WF0EBQ 1iecBfFS4KHfBtOu9vEv5KTsYrL9LvK8JmNHLiYPSM PHqaCI3HDDujHQ5dUJ1Yg9COfUVajQ0vdw8TFFJdRYMaUgdskh5SOvuqO8B0wNufMJBoEdZiLUNNZOul IH2FTQFdEUW9KBMuECXaXFBEWyRtI89bWF5SJ1Dbx32mUsM2DHRpYmWsORuaYP23qCaeqfUetMHpxHhz VP1VAb0+DQplbmRvYmoNCnhyZWYNCjAgMzUNCjAwMD YmJAJkWDMoDoQ8CdBrOz5MOTAtFYXfJXFjFeHuKHDcEBMwUFxlRKHqDVy0XjPzWHVkWIIzLE5QHaCbYP UiTLQ5JMNxPEAhXCNzxv7UHPLfZSLxWQP9QFZxHMJkGYVfUCwyFQChTBKiTAApZZTkIWXwNZ3ONyIaXP NaSACsBGKvYSVpNHGujm2PGKKtMSAeUFRiNjFqWJQy YDSqNXtcZHXkAKT3YKT0YJTtMNOoNB9GZoKxYRQgMNJ1SDNdXJTyEHTfnl0UVGPbUGDqBzc6BGQwNJXz KTRwLVkqSDVkJOJ7ViV2RXSjQLAvSD9MStFtYXWpQDt4HBGyPXMxVOGxpu9ASWTjWAJuZPb9MHKdQNNf OMBqWAfhYKVjXXOcORc9URUvSIFxIY4GJqHeHJOyQQ JuXaawFVPxXUJlad7ZLUTwAYUfNtR4LeUnKJXbGCOfGPgeEOVuRFDbKyTnCSOtYZPxEQ9XWcPhRBDrPJ O9ZmWuEZAvAYOwhx6BNFVoCEDbMtgqNvLgELRoGOTuJWufUHDcBDD9BgljETAsAPCmGA6BZtQyDDLmJL H3TcXaVHLfGHKklk9DALLgBNQdQKL3OlTpQYZpCIJq KBxsTZQwKLDiFJG6YHRfBEUrMM7HKtSmQSYnMnV5BEBfFEIdBBJncl4WPGDlHWOkOJM2DiXoOFRmSBJq GEejAUHzPMJ3TJrcGYNmIIUtAV4AWyMuQIUbOYR6OwYxEUNkWSKltq3LMIEoPTK8CMK2QMTrKOCrYRDq PGcqNCYmOSW7TUUyHOOxHQYdGG7HUwIxGEUaYUt9Gr uaVMZcKRFwff9IWUFxCNM2FNN8SRCtVYKkBEGdBBmfMRJoTDyfAeWuQBYdBVHxXU6OEmJtUYXhOGB0AS UoCBUhYYKrfx2JVKHeUSZ1KPq3CzHcXEOkCYHwSXw4foWazQMrQSj4IF6MA3RhkjVpIgLBEj6Gm706AP P9LWYjYq9FL9mlDj3bLFToAHOINc8ZCBl1F6VrXjIq CMTuXGXoOZp3TSHoDui5ETA1BiKzToR4SZR+ZCnlDdElSQZkAES2RjIhBJN6XGQfOen4PbJgJCQdKdah YB1dLKFEXc3+CWolgDNnlVkqLTXDUlttNNZ3IZdsLDAJPd7C ID Date Data Source [id number] 02/27/2020 09:50:19 AM EDT [facility] INFORMATIONPatient MRN Name Date of Age Gend*PT [id number] Jay Jay Saavedra 1950 69 years F SDCXPT Location Admission Date/Time Visit ID Attending [id number] 02/26/20 1536 --- Joycelyn Gomez MD([id number]) EPI ID CSN Admitting Provider [id number] Joycelyn Gomez MD([id number])Nephrology Consult NoteJune 2019Length of Stay:1Name: Jay Jay Saavedra Gender: femaleDOB: 1950 Age: 69 yearsDate of Admit: 02/26/2020 Code Status: Full CodeReason for consult: Patient was seen at the kind request of Dr. Jerry Mchugh.Jay Jay Saavedra is a 69 years old female who is hospitalized due to the followingproblems.Principal Problem: Elevated troponinActive Problems: Systolic congestive heart failure COPD (chronic obstructive pulmonary disease) Adenocarcinoma of lung Essential hypertension Hyperlipidemia End stage renal disease Coronary artery diseaseAssessment/Plan--ESRD. She recently [place] dialysis in [place] about a month ago. Plan forHD tomorrow. She was dialyzed yesterday. Her creatinine today is 1.98 and itappears that she may have recove red some renal function. She has a knownhistory of renal vascular disease which was diagnosed recently. Also, noted tohave hydronephrosis and needed left ureteral stent.--Non-STEMI. Going for cath today. Further plan per cardiology.--Hypertension. On carvedilol and isosorbide. May need further titration ofmedication. Will defer to cardiology.--Anemia. Likely due to CKD. Monitor and BRAD if needed.History of Present [id number] female with history of COPD, CHF, hypertension, kidney stones,adenocarcinoma of the lung [facility] She is going for cardiaccatheterization today. Her last hemodialysis was yesterday. She recentlystarted dialysis in early January. She is followed in [place] by Dr. Antony. Shewas not getting adequate predialysis nephrology care.She was [facility] on [facility] with shortness of breath,fluid overload and hypertensive emergency. She was intubated and neededmechanical ventilation. Her renal function got worse and started on dialysis.She also has renal vascular disease. She was noted to have a left kidney stoneand needed a stent. Noted to have a EF of around 25%. She had a pharmacologicnuclear stress test about 2 weeks ago which showed some ischemia.Past Medical History:Diagnosis Date Acute renal failure 02/04/2020 Acute anuric require hemodialysis Adenocarcinoma 02/04/2020 Left upper lobe 2013 post radiation chemotherapy. COPD (chronic obstructive pulmonary disease) 02/04/2020 Emphysema 02/04/2020 Essential hypertension 02/05/2020 Hydronephrosis 02/04/2020 Left-side intrarenal calculus Hypercapnic respiratory failure 02/04/2020 Requiring intubation and mechanical ventilation. Hyperlipidemia 02/05/2020 Hypoxic 02/04/2020 Acute Hypoxic 02/04/2020 Acute Myocardial infarction type 2 02/04/2020 Secondary to flash pulmonary edema. Pulmonary hypertension 02/04/2020 Systolic congestive heart failure 02/04/2020Past Surgical History:Procedure Laterality Date CYSTOSCOPY 01/27/2020 w/ left syent w/ pyelogram LUNG LOBECTOMY Left 2013 upper PermCath Right placement for dialysis, vascular catherer removed.Social HistoryTobacco Use Smoking status: Former Smoker Types: Cigarettes Last attempt to quit: 01/21/2020 Years since quittin.1 Smokeless tobacco: Never UsedSubstance Use Topics Alcohol use: Never Frequency: Never Drug use: Not on fileNo family history on file.Review of systems:General-has fatigue.HEENT-no rhinorrhea or epistaxisCardiac-currently denies any chest painPulmonary-no cough or hemoptysisGI-denies abdominal pain, nausea aikylqxhShlz-zugamxsgEP-ocqsesfwFF-no gross hematuria or dysuriaSkin-no rashNeuro-no seizures or syncopeCurrent MedicationsScheduled Meds: [START ON 02/28/2020] aspirin 81 mg Oral Daily aspirin EC 325 mg Oral Once atorvastatin 40 mg Oral Nightly carvedilol 12.5 mg Oral BID cefTRIAXone (ROCEPHIN) IV 1 g Intravenous Push Q24H clopidogrel 75 mg Oral Daily docusate sodium 100 mg Oral BID ipratropium-albuterol 3 mL Inhalation RTTID isosorbide mononitrate 10 mg Oral BID normal saline flush 3 mL Intravenous Q8H PERCY normal saline flush 3 mL Intravenous Per ProtocolContinuous Infusions: sodium chloridePRN Meds:.acetaminophen, atropine sulfate, bisacodyl, hydrALAZINE, magnesiumhydroxide, nitroglycerin, ondansetronNo Known Drug AllergiesPhysical ExamBlood Pressure: BP: 158/78 Pulse: Heart Rate: 79Temp erature: Temp: 98.3 F Respirations: Resp: 16Admission Weight: O2 Saturation: SpO2: 96 %Today's Weight: BMI: There is no height or weight on file to calculate BMI.Intake/Output Summary (Last 24 hours) at 02/27/2020 0856Last data filed at 02/27/2020 0539Gross per 24 hourIntake 0 mlOutput 0 mlNet 0 mlGeneral: Oriented x3. No acute distressHEENT: No pallor or icterusNeck: No JVD bruit or adenopath yLungs: Clear to auscultationHeart: S1-V0Osdbvbb: Soft, nondistended, nontenderExt: No edemaVascular: PermCath right chest site appears cleanLabs, Imaging, and other Diagnostics:Results from last 7 daysLab Units 02/26/2002444211BQHYZQ mmol/L 137POTASSIUM mmol/L 4.1CHLORIDE mmol/L 102CO2 mmol/L 29BUN mg/dL 29*CREATININE mg/dL 1.98*GLOM FILT RATE, EST SEE NOTESCALCIUM mg/dL 8.1*Lab ResultsComponent Value Date CREATININE 1.98 (H) 02/27/2020 CREATININE 4.48 (A) 01/31/2020No results found for: ALBUMINNo results found for: PHOSResults from last 7 daysLab Units 02/26/200221WBC 10*3/uL 9.3HEMOGLOBIN g/dL 9.1*HEMATOCRIT % 27.5*PLATELETS 10*3/uL 246Results from last 7 daysLab Units 02/25/201746INR 1.09Signature: Prieto Stephenson MDDate: February 27, 2020Time: 8:56 AMThis document or parts of this document, were dictated using [employer]. A reasonable attempt at proofreading has been made to minimize errors.Please call with any questions or corrections. Name Value Range Interpretation Code Description Data Mari rce(s) Supporting Document(s) ID Date Data Source [id number] 02/27/2020 07:08:17 AM EDT [facility] Name Value Range Interpretation Code Description Data Mari rce(s) Supporting Document(s) EKG [facility] YVCGAe9oPfSJLuKua6BsMdSzBOLqYW0ipmz6W6H5uNFnU8TdlAZww6gvG6UrQ6RqJFXkPICITX9XsOQh jb2 [file] 7D8d1N8pZMOgjpx8f1bL/BLPspSN++2AOZP9SAt [file] Destiny/0sLsa2W/u/erR784pvo4//4+70/Awp8mW87aqneeAe1Gk9vzQ/sRmd1Oe3rEq26qgbX+u3nVFU7 Im41PRSw0k50/n8E7bi743//zl6e/W741Jx2+vXl7e s4x1De0u271pted5aRp7+sXVf1/d/depsp8SDV4+harvest worker field crop//o0p9lpyhc87x/vy8sX1/XdfnP/43q08z3mb 0+Wr+6vq65hl7/Xd0+dXL68v/+Rowc/09q4Vb3qW42o5H219//jnwdXj4V046Xmm2Fg/miamSK26whn2 gwgb5z40DB479m7e076zx1d3+sXVn/zT8Qo8/unpp4 ///OnnDw8/nv7x++nFp39/gTs1d6JWw/96+Phw+v4/Q/7+r6dPH0/lqxC+3xmyWgjn3fu1Mf55k5Kk40 LHES1/+PDVL4+dlgqav4wPwi+5eqdb52Gu47A1/N/Q7MVVrVB/wmszMAnPH03Z248VN7wwNsAYYxf7zQ 2jufaa5bqASeZlKxGDH0Gehbsk0GPhQ8jRJtcc/ttm 411e9EDnd6K45SukjvCp3uuwzSKn3aIWR153/jgr06eCYa/PXUIJuiw4mj0w/7q2hVQ+P/rY+Ok38EWX Xx9+/t937//m1BKZGb0cbJ7qzcj65WSmc7i3wk7/O8f+06ePnx++F2J+hkolTi414d8ww+9/wPZzH2/Y mb0Xf4MJEO3roZ8/Z6OCtYqmWB10rx7f+r59b2W0vK hj2+snt0/uT+/+7+RZG07163SYtZTa0bgQZaj8hfJUS9zwo/7+r5/rNJ9Ulz13pCk+3WXkP17/+u63H9 559tP4h802uepM04+fPlw8O+e3f+lJF3AcJk2flW5t+WkwIcizB2tD9h1//M/Hn344/4fJ4lK3zgWMa/ 3y6/m2+tQOugt4f75yy2Hc4/3d3BPYp/152vCcdiF9 1s4Pz/new accounts clerk/l09ez+0vSgFnl571oWoCm0o0hJsmQxNIB+Z3eXT5+iD5kunxQZdIIv+dw4+c8D0xt5Ikns yaQrcBVgCB8YPM3fy0AyLhB4RGVsu0EbABpbFQz1eVKbIOonfzZtf4YeyuaiA1Xlg9HeUeLrAWLuGpDc Gob5TUJbUsI5cDIcEhGbHMYeG8FuIZIiFqO5KmCoKW PXLV0IDFKajyZxSvRkZDY+NjZjAF9vrvbpFAEeh6MrKCwxKUijQNUyQ2U9nWmaRCIoY3KzwO66WZAsB0 KmscS6VGG7SWJqLuTaKUHixNArGEYrHFH+TbTiZZ7wzqymIAAnn8HlOPlqHLV1uL0zKGuAMWRRAYzYQA ndCiJ5a00rfaCCZRZvSKMbYF6YcuVitXabymVojNHw FWQ0DmYvLEK0UUFdRfU4OZDGODIvCADkBBNrLZMpQ6GgmGdjVMfRYBNNMKnTZYbxXyLae5Y2NGOlboDN F9AFGurmU2MSEC6kSDZuGnw8AEHjLSLrY7FqbjXdtPYiRBBWQOmkHezeCIWbqG4jxPxpQ8TfUER3v8Rv QD9WN9HbTTIiBSTUXMR3z0OuTWMhvtuyhercFiLzUF MqVYZtJHPeHU3Dvk9cnKQltkXkIBGNUEqnHvfoQN2wuTluifoaI9PqfLFpWJJ+MpFaZI6bcw5+CjEgMC FaYdv7OXGjQSolACBdULSzPZFqB8vhWYUqFiPlYQXeLeBhBP3Bn4KulLApBy7obkSdAfwEjZNbRgffXK SlGDXqMUWhTpIXMXYrAQCrUFEmVBU2VYQtLFOiOWrn RUOlOOP3PmV4LVHhEXKbVN2rWsBsQNChWZQ4WLSfGXSxGXJvizTYQTDdNIO7CYR2YcVmOAYeDUXqPVos XGAqZIMnWOFqTIT3BUT2UHZpEnVcGPCaJGLgZKIeCRBfQMEqyjVULSFpNRUlGRC6QXEtBDZuQKCrUKee HEHkICKmGGnnBMChHXYiSX3xBkHgNMIrOAOaFDpgOI BtRJAapnHAVSTbUMUuNPQtJGCgDSFrYGDgBXfmOBZiAOPuHXOqIJBuTIJmAH5bJwVfVGHiLZT2SKFmYI XwCQCmlpLGKUUzJRXpNCm2XZScGIEnXUTkEDmfNDKtXRWlNEF9MACkLPSyFB5nIzZxLNVhKZJ7KgYaTM DyINNiisRNKFNlFPHuKUO0HyEoSDCfBXPbPWslTHCt WCFrCNtoVYQcFSEiAZ1sInKuATTqYHWpANbpEUNxXKQcjrOSYHVwDZOgDVInJrLrOIQbQMKfEBdxQPGu DBH3KeYcPDTrAOHjGD0rXjQfNAPjNKC4EAcyBDJwGPXmzbRSOQRaMAPbLJkaHSYiIQHgIOCvBVbpSKHh NKNhICB6PIYyOPEsZM5jFpEpCMGhYKUeVSZtUjV0Fh KwOrOGwRFwkGjdzkv3LZgiR1k9MDChOAutPS5mbnSeAMFbMjzuBi5ghKU2FHAcDaoYAb4Ld1XftuJ7qh LmCwF6YEI5OpDuEW1O ID Date Data Source [id number] 02/27/2020 04:31:59 AM EDT [facility] Name Value Range Interpretation Code Description Data Mari rce(s) Supporting Document(s) SODIUM 137 mmol/L (136-145) [facility] POTASSIUM 4.1 mmol/L (3.6-5.2) [facility] CHLORIDE 102 mmol/L (100-108) [facility] CO2 29 mmol/L (22-31) [facility] ANION GAP 6 mmol/L (7-16) L [facility] UREA NITROGEN 29 mg/dL (7-24) H [facility] CREATININE 1.98 mg/dL (0.60-1.00) H [facility] BUN/CREAT RATIO 14.6 RATIO (10.0-20.0) [facility] GLUCOSE 79 mg/dL (70-99) [facility] CALCIUM 8.1 mg/dL (8.4-10.2) L [facility] GFR 25 ml/min/1.73m2 (>59) L [facility] GFR ( AMER) 30 ml/min/1.73m2 (>59) L [facility] GFR INTERPRETATION [facility] --NORMAL KIDNEY FUNCTION OR MILD DISEASE - GFR >OR= 60CHRONIC KIDNEY DISEASE - GFR 15 - 59RENAL FAILURE - GFR <15 Est. GFR calculation based on the MDRDstudy equation, which assumes a steadystate for creatinine. Est. GFR should notbe used for medication dosing. ID Date Data Source [id number] 02/27/2020 03:39:56 AM EDT [facility] Name Value Range Interpretation Code Description Data Mari rce(s) Supporting Document(s) WBC 9.3 10*3/uL (4.1-11.0) [facility] RBC 3.08 10*6/uL (4.00-5.40) L [facility] HGB 9.1 g/dL (12.0-16.0) L [facility] HCT 27.5 % (36.0-47.0) L [facility] PERFORMED AT [address] [place] [address] [address] [place] [address] MCV 89.2 fL (80.0-95.0) [facility] MCH 29.7 pg (27.0-32.0) [facility] MCHC 33.2 g/dL (32.0-36.0) [facility] RDW 14.9 % (10.5-14.5) H [facility] PLT 246 10*3/uL (150-450) [facility] MPV 8.3 fL (7.1-10.7) [facility] ID Date Data Source [id number] 02/26/2020 09:56:45 PM EDT [facility] [place] Name Value Range Interpretation Code Description Data Mari rce(s) Supporting Document(s) CHOLESTEROL @ 139 mg/dL (0-200) [facility] TRIGLYCERIDE @ 142 mg/dL (30-200) [facility] HDL CHOLESTEROL @ 54 mg/dL (>40) [facility] PER NCEP ATP III GUIDELINES:RESULTS LOWE R THAN 40 MG/DL ARE SUGGESTIVEOF INCREASED RISK FOR CORONARY ARTERYDISEASE. RESULTS > OR = TO 60 MG/DL ARECONSIDERED A NEGATIVE RISK FACTOR. CHOL/HDL RATIO 2.6 RATIO [facility] [place] INTERPRETATION OF CHOL-HDL RATIO CHD RISK FEMALE MALEVERY HIGH >8.3 >14.3HIGH 5.6- 8.3 6.7- 14.3AVERAGE 3.7- 5.6 4.0- 6.7BELOW AVERAGE 2.5- 3.7 2.7- 4.0PROTECTED <2.5 <2.7 LDL CHOL (CALC) 57 mg/dL (<130) [facility] [place] PER NCEP ATP III GUIDELINES: OPTIMAL < 100 NEAR OPTIMAL 100 - 129BORDERLINE HIGH 130 - 159 HIGH 160 - 189 VERY HIGH > 189 ID Date Data Source [id number] 02/26/2020 08:02:14 PM EDT [facility] Name Value Range Interpretation Code Description Data Mari rce(s) Supporting Document(s) HEMOGLOBIN A1C @ 5.5 % (4.0-6.0) [facility] Performed using Siemens Anderson immunoassa y.Care must be taken when interpreting [id number] in patients with a hemoglobin variantor decreased erythrocyte lifespan. Values 5.7 - 6.4% suggest prediabetes.Values >=6.5% are diagnostic for diabetes.REFERENCE: DIABETES CARE 2018: 41(S13-S27).PERFORMED AT [address] [place] [id number] EST AVERAGE GLUCOSE 111 mg/dL Lab [facility] chanelle [place] ID Date Data Source [id number] 02/26/2020 07:02:23 PM EDT Lab [facility] Name Value Range Interpretation Code Description Data Mari rce(s) Supporting Document(s) PROCALCITONIN @ 15.51 ng/mL (<0.10) H [facility] [place] INTERPRETATION OF RESULT < 0.51 Sepsis is not likely.0.51-2.00 Sepsis is possible, but other conditions are known to elevate PCT.2.01-9.99 Sepsis is likely, unless other causes are known. > 9.99 Important systemic inflammatory response, almost exclusively due to severe bacterial sepsis or septic shock.PERFORMED AT [address] [place] [address] [id number] RESULTS ARE QUESTIONABLE/PLEASE RECOLLECT SAMPLE ID Date Data Source [id number] 02/26/2020 06:38:32 PM EDT [facility] Name Value Range Interpretation Code Description Data Mari rce(s) Supporting Document(s) PT 11.4 s (9.2-11.9) [facility] [place] leatha SHEN PERFORMED AT [address] [place] [address] N Y [address] INR 1.09 [facility] RANGES USING INR F ORSTABILIZED ANTICOAGULATED PATIENTS:STANDARD DOSE THERAPY INR 2.0-3.0 DVT, PE, PREVENT DVT OR EMBOLISMHIGH DOSE THERAPY INR 2.5-3.5 PREVENT EMBOLISM FROM MECHANICAL HEART VALVE ID Date Data Source [id number] 02/26/2020 06:38:32 PM EDT [facility] [place] Name Value Range Interpretation Code Description Data Mari rce(s) Supporting Document(s) APTT 51.9 s (22.0-34.3) H [facility] [place] [facility] LINNEA Kurtz PERFORMED AT [address] [facility] [place] [address] ID Date Data Source [id number] 02/26/2020 06:18:19 PM EDT [facility] [place] leatha SHEN Name Value Range Interpretation Code Description Data Mari rce(s) Supporting Document(s) LACTIC ACID 0.8 mmol/L (0.4-2.0) [facility] ID Date Data Source [id number] 02/26/2020 03:20:00 PM EDT Lab [facility] [place]MELNIDA Name Value Range Interpretation Code Description Data Mari rce(s) Supporting Document(s) SARS coronavirus 2 RNA [Presence] in Res piratory specimen by BERENICE with probe detection Lab [facility] This lab was reported by [facility]. ID Date Data Source [id number] 02/26/2020 06:20:24 PM EDT Lab [facility] HERMELINDA Name Value Range Interpretation Code Description Data Mari rce(s) Supporting Document(s) SPECIMEN DESCRIPTION Lab Allia nce [facility] COVID19 RESULT (NDET) Lab [facility] THIS ASSAY AMPLIFIES AND DETECTSTHE TARG ET RNA USING REAL-TIME PCR.NEGATIVE 2019_NCOV RT-PCR RESULTS DONOT PRECLUDE 2019_NCOV INFECTION ANDSHOULD NOT BE USED THE SOLE BASISFOR PATIENT MANAGEMENT DECISIONS. COMMENT Lab [facility] HERMELINDA UNDER AN EMERGENCY USE AUTHORIZATION(EUA ) FOR THE DETECTION AND/OR DIAGNOSISOF THE VIRUS THAT CAUSES COVID-19.RESULTS EMAILED TO [facility] AT 18:18 ON 02/26/20.12991 Procedure Social History Code Duration Value Status Description Data Source(s ) Smoking 07/30/2020 12:00:00 AM EST Former Smoker completed Former Smoker [email or web address] ([facility]) Smoking 07/03/2020 12:00:00 AM EDT Former Smoker completed Former Smoker [email or web address] ([facility]) Smoking 07/03/2020 12:00:00 AM EDT Former Smoker completed Former Smoker [email or web address] ([facility]) Smoking 07/03/2020 12:00:00 AM EDT Former Smoker completed Former Smoker [email or web address] ([facility]) Smoking 07/03/2020 12:00:00 AM EDT Former Smoker completed Former Smoker [email or web address] ([facility]) Smoking 07/03/2020 12:00:00 AM EDT Former Smoker completed Former Smoker [email or web address] ([facility]) Smoking 06/18/2020 12:00:00 AM EDT Former Smoker completed Former Smoker [email or web address] ([facility]) Smoking 03/30/2020 12:00:00 AM EDT Former Smoker completed Former Smoker eCW1 ([facility]) Smoking 03/30/2020 12:00:00 AM EDT Former Smoker completed Former Smoker eCW1 ([facility]) Smoking 03/30/2020 12:00:00 AM EDT Former Smoker completed Former Smoker [email or web address] ([facility]) Smoking 03/30/2020 12:00:00 AM EDT Former Smoker completed Former Smoker eCW1 ([facility]) Smoking 03/30/2020 12:00:00 AM EDT Former Smoker completed Former Smoker eCW1 ([facility]) Alcohol intake 02/28/2020 12:00:00 AM EDT Never completed [facility] Smoking 02/28/2020 12:00:00 AM EDT Former smoker completed Former smoker [facility] Smoking 02/17/2020 12:00:00 AM EDT Former Smoker completed Former Smoker eCW1 ([facility]) Smoking 02/17/2020 12:00:00 AM EDT Former Smoker completed Former Smoker eCW1 ([facility]) 01/21/2020 12:00:00 AM EDT Cigarette Smoker completed Cig arette Smoker [facility] 01/21/2020 12:00:00 AM EDT Current smoker completed Curre nt smoker [facility] Vital Signs ID Date Data Source UNK Name Value Range Interpretation Code Description Data Source(s) Diastolic blood pressure mm[Hg] eCW1 ([facility]) Systolic blood pressure 122 mm[Hg] 122 mm[Hg] e CW1 ([facility]) Body temperature 97.8 [degF] 97.8 [degF] eCW1 ( [facility]) Respiratory rate 17 /min 17 /min eCW1 ([facility]) Heart rate 72 /min 72 /min eCW1 ([facility]) Body mass index (BMI) [Ratio] 21.40 kg/m2 21.40 kg/m2 eCW1 ([facility]) Body height 62 [in_i] 62 [in_i] eCW1 (Count includes the [facility]) Body weight 117 [lb_av] 117 [lb_av] eCW1 ([facility]) Body weight 116.6 [lb_av] 116.6 [lb_av] eCW1 ([facility]) Diastolic blood pressure 60 mm[Hg] 60 mm[Hg] eCW1 ([facility]) Systolic blood pressure 142 mm[Hg] 142 mm[Hg] e CW1 ([facility]) Body mass index (BMI) [Ratio] 21.32 kg/m2 21.32 kg/m2 eCW1 ([facility]) Body height 62 [in_i] 62 [in_i] eCW1 (Count includes the [facility]) Diastolic blood pressure 88 mm[Hg] 88 mm[Hg] eCW1 ([facility]) Systolic blood pressure 186 mm[Hg] 186 mm[Hg] e CW1 ([facility]) Body temperature 98.1 [degF] 98.1 [degF] eCW1 ( [facility]) Respiratory rate 18 /min 18 /min eCW1 ([facility]) Heart rate 75 /min 75 /min eCW1 ([facility]) Body mass index (BMI) [Ratio] 21.32 kg/m2 21.32 kg/m2 eCW1 ([facility]) Body height 62 [in_i] 62 [in_i] eCW1 (Count includes the [facility]) Body weight 116.6 [lb_av] 116.6 [lb_av] eCW1 ([facility]) Diastolic blood pressure 84 mm[Hg] 84 mm[Hg] eCW1 ([facility]) Systolic blood pressure 132 mm[Hg] 132 mm[Hg] e CW1 ([facility]) Body temperature 98.3 [degF] 98.3 [degF] eCW1 ( [facility]) Respiratory rate 18 /min 18 /min eCW1 ([facility]) Heart rate 73 /min 73 /min eCW1 ([facility]) Body mass index (BMI) [Ratio] 20.67 kg/m2 20.67 kg/m2 eCW1 ([facility]) Body height 62 [in_i] 62 [in_i] eCW1 (Count includes the [facility]) Body weight 113 [lb_av] 113 [lb_av] eCW1 ([facility]) Oxygen saturation in Arterial blood by Pulse oximetry 100 % 100 % [facility] Respiratory rate 14 /min 14 /min [facility] Body temperature 36.61 Camryn 36.61 Camryn [facility] Diastolic blood pressure 62 mm[Hg] 62 mm[Hg] [facility] Systolic blood pressure 122 mm[Hg] 122 mm[Hg] [facility] Heart rate 78 /min 78 /min [facility] Body mass index (BMI) [Ratio] 18.67 kg/m2 18.67 kg/m2 [facility] Body weight 47.8 kg 47.8 kg [facility] post HD Body height 160 cm 160 cm [facility] Diastolic blood pressure mm[Hg] eCW1 ([facility]) Systolic blood pressure 187 mm[Hg] 187 mm[Hg] e CW1 ([facility]) Body temperature 97.9 [degF] 97.9 [degF] eCW1 ( [facility]) Respiratory rate 18 /min 18 /min eCW1 ([facility]) Heart rate 75 /min 75 /min eCW1 ([facility]) Body mass index (BMI) [Ratio] 21.58 kg/m2 21.58 kg/m2 eCW1 ([facility]) Body height 62 [in_i] 62 [in_i] eCW1 (Count includes the [facility]) Body weight 118 [lb_av] 118 [lb_av] eCW1 ([facility]) Diastolic blood pressure 74 mm[Hg] 74 mm[Hg] eCW1 ([facility]) Systolic blood pressure 122 mm[Hg] 122 mm[Hg] e CW1 ([facility]) Body temperature 97.6 [degF] 97.6 [degF] eCW1 ( [facility]) Respiratory rate 18 /min 18 /min eCW1 ([facility]) Heart rate 81 /min 81 /min eCW1 ([facility]) Body mass index (BMI) [Ratio] 20.89 kg/m2 20.89 kg/m2 eCW1 ([facility]) Body height 62 [in_i] 62 [in_i] eCW1 (Count includes the [facility]) Body weight 114.2 [lb_av] 114.2 [lb_av] eCW1 ([facility]) Patient Treatment Plan of Care Planned Activity Planned Date Details Description Data Source (s) Hydroxyzine Hydrochloride 25 MG Oral Tablet 07/30/2020 12:00:00 AM EST eCW1 ([facility]) Sulfamethoxazole 800 MG / Trimethoprim 160 MG Oral Tab let [Bactrim] 07/03/2020 12:00:00 AM EDT eCW1 ([facility]) Sulfamethoxazole 800 MG / Trimethoprim 160 MG Oral Tab let [Bactrim] 07/03/2020 12:00:00 AM EDT eCW1 ([facility]) Sulfamethoxazole 800 MG / Trimethoprim 160 MG Oral Tab let [Bactrim] 07/03/2020 12:00:00 AM EDT eCW1 ([facility]) Sulfamethoxazole 800 MG / Trimethoprim 160 MG Oral Tab let [Bactrim] 07/03/2020 12:00:00 AM EDT eCW1 ([facility]) Sulfamethoxazole 800 MG / Trimethoprim 160 MG Oral Tab let [Bactrim] 07/03/2020 12:00:00 AM EDT eCW1 ([facility]) clopidogrel 75 MG Oral Tablet 02/29/2020 12:00:00 AM EDT [facility] Hydralazine Hydrochloride 25 MG Oral Tablet 02/28/2020 12:00:00 AM EDT [facility] carvedilol 12.5 MG Oral Tablet 02/28/2020 12:00:00 AM EDT [facility] Isosorbide Mononitrate 10 MG Oral Tablet 02/28/2020 12:00:00 AM EDT [facility] atorvastatin 40 MG Oral Tablet 02/28/2020 12:00:00 AM EDT [facility] Isosorbide Mononitrate 10 MG Oral Tablet 01/30/2020 12:00:00 AM EDT [facility] Hydralazine Hydrochloride 25 MG Oral Tablet 01/30/2020 12:00:00 AM EDT [facility] carvedilol 12.5 MG Oral Tablet 01/30/2020 12:00:00 AM EDT [facility] calcium acetate 667 MG Oral Capsule 01/30/2020 12:00:00 AM EDT [facility] atorvastatin 40 MG Oral Tablet 01/30/2020 12:00:00 AM EDT [facility]
[2020-10-02] MEDS ORDERED: HYDR-3363 (19:07)
[2020-10-02] MEDS ORDERED: ISOS1TAB36 (19:07)
[2020-10-02] MEDS ORDERED: HYDR-3911 (19:07)
[2020-10-02] MEDS ORDERED: LABETALOL 100MG/20ML VIAL IV STA ×2 (19:38→21:06)
--- NOTE | 2020-10-02 20:17 | REP ---
INDICATION: CHEST PAIN. COMPARISON: None. TECHNIQUE: SINGLE PORTABLE AP VIEW OF THE CHEST WAS PERFORMED. FINDINGS: THERE IS NO ACUTE INFILTRATE OR PULMONARY EDEMA. LUNGS ARE CLEAR. HEART IS NOT SIGNIFICANTLY ENLARGED. MEDIASTINAL SILHOUETTE IS UNREMARKABLE. THE VISUALIZED OSSEOUS STRUCTURES ARE INTACT. IMPRESSION: NO ACUTE PULMONARY DISEASE. <Electronically signed by Aureliano Forman > 10/02/202013
--- OUTSIDE RECORDS SUMMARY | 2020-10-02 20:18 | CCD ---
Author Author [facility] Organization [facility] Address Unknown Phone Unavailable Care Team Providers [employer] Manager Name Role Phone Andrea Canseco MD Unavailable [...] Unavailable Ajith, Anrdea Jose MD Unavailable Unavailable Ajith, Andrea Jose [...] Unavailable Ajith, Andrea Jose MD Unavailable Unavailable JUANIS LYLES MD [...] is protected by Article 27-F of the [facility] Public Health law. If you continue you may have access to information: Regarding HIV / AIDS; Provided by facilities licensed or operated by the [facility] Office of Mental Health; or Provided by the [facility] Office for People With Developmental Disabilities. If such information is present, then the following [facility] mandated warning applies: This information has been [...] law may result in a fine or fci sentence or both. A general authorization for the release of medical or other information is NOT sufficient authorization for further disc losure. Encounters Encounter Providers Location Date Indications Data Source(s ) Unknown [address] [facility] [address] 08/27/2020 12:00:00 AM EST eCW1 ([facility]) Unknown [address] [facility] [address] 07/22/2020 12:00:00 AM EST eCW1 ([facility]) (Cysto1) Urology [address] [place] [address] 07/03/2020 12:00:00 AM EDT eCW1 ([facility]) [place] [address] [facility] [address] 07/02/2020 12:00:00 AM EDT eCW1 ([facility]) [place] [address] [facility] [address] 07/02/2020 12:00:00 AM EDT eCW1 ([facility]) [place] [address] [facility] [address] 06/22/2020 12:00:00 AM EDT eCW1 ([facility]) [place] [address] [facility] [address] 06/18/2020 12:00:00 AM EDT eCW1 ([facility]) Outpatient Attender: JUANIS LYLES MD SJP.NATHALIE-SJP.NATHALIE 0 12:00:00 AM EDT - 04/22/2020 11:35:[address] [facility] [place] [address] [facility] [address] 04/08/2020 12:00:00 AM EDT eCW1 ([facility]) [place] [address] [facility] [address] 04/03/2020 12:00:00 AM EDT eCW1 ([facility]) [place] [address] [facility] [address] 03/30/2020 12:00:00 AM EDT eCW1 ([facility]) Outpatient Referrer: Jose Canseco MD 03/11/2020 06:12:00 AM EDT [facility] Outpatient Attender: JUANIS LYLES MD SJP.NATHALIE-SJP.NATHALIE 0 12:00:00 AM EDT - 03/11/2020 11:57:[address] [facility] [place] [address] [facility] [address] 03/04/2020 12:00:00 AM EDT eCW1 ([facility]) Inpatient Attender: Joycelyn Gomez MDAdmitter: Joycelyn shaffer MD [id number] 02/26/2020 03:36:43 PM EDT - 02/29/2020 12:56:00 PM EDT [facility] Patient discharged. [place] [address] [facility] [address] 02/25/2020 12:00:00 AM EDT eCW1 ([facility]) [place] [address] [facility] [address] 02/25/2020 12:00:00 AM EDT eCW1 ([facility]) Outpatient [address] [facility] [place] [address] 02/17/2020 12:00:00 AM EDT eCW1 ([facility]) Outpatient Referrer: JUANIS LYLES MD SJELINA-SJP.NATHALIE 0 12:00:00 AM EDT - 02/14/2020 11:26:[address] [facility] Outpatient [address] [facility] [address] 02/13/2020 12:00:00 AM EDT eCW1 ([facility]) Outpatient Attender: JUANIS OWEN.NATHALIE-SJP.NATHALIE 0 12:00:00 AM EDT - 02/05/2020 09:30:[address] [facility] Outpatient Referrer: Jose Canseco MD 02/04/2020 06:04:00 AM EDT [facility] Radiology Imaging Medications Medication Brand Name Start Date Product Form Dose Route Admi nistrative Instructions Pharmacy Instructions Status Indications Reaction Description Data Source(s) 0.1 mg/24 hr 09/29/2020 12:00:00 AM EST patch weekly 4 APPLY 1 PATCH TO THE SKIN WEEKLY APPLY 1 PATCH TO THE SKIN WEEKLY SOLD: 09/30/2020 [employer] atorvastatin 40 MG Oral Tablet ATORVASTATIN CALCIUM 08/27/2020 1 2:00:00 AM EST tablet 30 TAKE 1 TABLET BY MOUTH NIGHTLY TAKE 1 TAB LET BY MOUTH NIGHTLY SOLD: 09/28/2020 [employer] atorvastatin 40 MG Oral Tablet ATORVASTATIN CALCIUM [...] {tablet_as_needed} active HydrOXYzine HCl 25 MG eCW1 ([facility]) 300 mg 07/23/2020 12:00:00 AM EST capsule [...] EDT active Bactrim DS 800-160 MG eCW1 ([facility]) Sulfamethoxazole 800 MG / Trimethoprim 1 60 MG Oral Tablet [Bactrim] Bactrim DS 800-160 MG Bactrim DS 800-160 MG 07/03/2020 12:00:00 AM EDT active Bactrim DS 800-160 MG eCW1 ([facility]) Sulfamethoxazole 800 MG / Trimethoprim 160 [...] EDT active Bactrim DS 800-160 MG eCW1 ([facility]) Sulfamethoxazole 800 MG / Trimethoprim 1 60 MG Oral Tablet [Bactrim] Bactrim DS 800-160 MG Bactrim DS 800-160 MG 07/03/2020 12:00:00 AM EDT active Bactrim DS 800-160 MG eCW1 ([facility]) Sulfamethoxazole 800 MG / Trimethoprim 1 60 MG Oral Tablet [Bactrim] Bactrim DS 800-160 MG Bactrim DS 800-160 MG 07/03/2020 12:00:00 AM EDT active Bactrim DS 800-160 MG eCW1 ([facility]) Sulfamethoxazole 800 MG / Trimethoprim 1 60 MG Oral Tablet [Bactrim] Bactrim DS 800-160 MG Bactrim DS 800-160 MG 07/03/2020 12:00:00 AM EDT active Bactrim DS 800-160 MG eCW1 ([facility]) 10 mg 06/19/2020 12:00:00 AM EDT [...] daily, First dose on 02/29/20 at 0900 [facility] Medication administered onsite carvedilol 12.5 MG [...] tablet (75 mg total) by mouth daily [facility] atorvastatin 40 MG Oral Tablet ATORVASTATIN [...] BY MOUTH EVERY DAY SOLD: 07/21/2020 [facility] normal saline flush 0.9 % injection 3 mL [id number] 02/28/2020 10:00:00 PM EDT 3 mL Intravenous active 3 mL , Intravenous, PROTOCOL, First dose on Mon02/28/20 at 2200, Pre-op
flush per protocol, D/C Main IV fluid if appropriate
[facility] Medication administered onsite Hydralazine Hydrochloride 25 MG Oral Tab let hydrALAZINE (APRESOLINE) tablet 25 mg hydrALAZINE (APRESOLINE) tablet 25 mg 02/28/2020 10:00:00 PM EDT 25 mg Oral active 25 mg, Oral, E very 8 hours (scheduled), First dose on Mon02/28/20 at 2200 [facility] Medication administered onsite sodium chloride 0.9% (NS) infusion 3053-6669-51 02/28/2020 05:00:00 P M EDT Intravenous completed at 100 mL/hr, Intravenous, Continuous, Starting Mon02/28/20 at 1700, For 3 hours, Post-op [facility] Medication administered onsite Nitroglycerin 0.4 MG Sublingual Tablet n itroglycerin (NITROSTAT) SL tablet 0.4 mg nitroglycerin (NITROSTAT) SL tablet 0.4 mg 02/28/2020 04:28:14 P M EDT 0.4 mg Sublingual active 0.4 mg, S ublingual, Every 5 min PRN, chest pain, Starting Mon02/28/20 at 1628, Post-op
May administer every 5 minutes for 3 doses and call cardio lab MD.
[facility] Medication administered onsite iopamidol (ISOVUE-370) 76 % [id number] 02/28/2020 03:59:11 PM EDT active As needed, Starting Mon02/28/20 at 1559, Intra-Procedu re [facility] Medication administered onsite 1 ML heparin sodium, porcine 1000 UNT/ML Injection hep colin (porcine) injection heparin (porcine) injection 02/28/2020 03:36:44 PM EDT active As needed, Starting Mon02/28/20 at 1536, Intra-Procedure [facility] Medication administered onsite lidocaine 1 % injection [id number] 02/28/2020 03:26:45 PM EDT active As needed, Starting Mon02/28/20 at 1526, Intra-Procedure [facility] Medication administered onsite 2 ML Midazolam 1 MG/ML Injection midazolam (VERSED) in jection midazolam (VERSED) injection 02/28/2020 03:16:12 PM EDT active As needed, Starting Mon02/28/20 at 1516, Intra-Procedure [facility] Medication administered onsite fentaNYL Citrate (PF) (SUBLIMAZE) injection 9940-1505-81 02/28/2020 03:16:02 PM EDT active As neede d, Starting Mon02/28/20 at 1516, Intra-Procedure [facility] Medication administered onsite sodium chloride 0.9% (NS) infusion 3360-0428-96 02/28/2020 03:00:00 PM EDT 100 mL/h Intravenous aborted at 100 m L/hr, 100 mL/hr, Intravenous, Continuous, Starting Mon02/28/20 at 1500, Pre-op
Start two hours prior to scheduled start time
[facility] Medication administered onsite 10 ML Atropine [...] mg or 0.04 mg/kg.Max of 6 doses
[facility] Medication administered onsite Aspirin 81 MG Chewable Tablet aspirin chewable tablet 81 mg aspirin chewable tablet 81 mg 02/28/2020 09:00:00 AM EDT 81 mg Oral activ e 81 mg, Oral, Daily, First dose on Mon02/28/20 at 0900 [facility] Medication administered onsite atorvastatin 40 MG Oral Tablet atorvastatin (LIPITOR) 40 MG tablet atorvastatin (LIPITOR) 40 MG tablet 02/28/2020 12:00:00 AM EDT 40 mg Oral active Take 1 tablet (40 mg total) by mouth nightly [facility] Isosorbide Mononitrate 10 MG Oral Tablet isosorbide mononitrate (ISMO,MONOKET) 10 MG tablet isosorbide mononitrate (ISMO,MONOKET) 10 MG tablet 08/2020 12:00:00 AM EDT 20 mg Oral active Take 2 tablets (20 mg total) by mouth 2 (two) times a day [facility] carvedilol 12.5 MG Oral Tablet carvedilol (COREG) 12.5 MG tablet carvedilol (COREG) 12.5 MG tablet 02/28/2020 12:00:00 AM EDT 12.5 mg Oral active Take 1 tablet (12.5 mg total) by mouth 2 (two) times a day [facility] Hydralazine Hydrochloride 25 MG Oral Tab let hydrALAZINE (APRESOLINE) 25 MG tablet hydrALAZINE (APRESOLINE) 25 MG tablet 02/28/2020 12:00:00 AM EDT 25 mg Oral active Take 1 tablet (25 mg total) by mouth 3 (three) times a day [facility] Aspirin 325 MG Oral Tablet aspirin tablet 325 mg aspirin tab let 325 mg 02/27/2020 11:00:00 PM EDT 325 mg Oral completed 325 mg, Oral, Once, [facility] 02/27/20 at 2300, For 1 dose, Pre-op
Give if scheduled for cardiac or peripheral angioplasty/stent or carotid stenting.Administer AM dose prior to procedure if NOT taken at home.Max of 1 dose per day.
[facility] Medication administered onsite carvedilol 25 MG Oral Tablet carvedilol (COREG) tablet 25 mg carvedilol (COREG) tablet 25 mg 02/27/2020 09:00:00 PM EDT 25 mg Oral abort ed 25 mg, Oral, 2 times daily, First dose on Evelin 02/27/20 at 2100 [facility] Medication administered onsite carvedilol 12.5 MG Oral Tablet carvedilol (COREG) tabl et 12.5 mg carvedilol (COREG) tablet 12.5 mg 02/27/2020 01:00:00 PM EDT 12.5 mg Oral completed 12.5 mg, Oral, Once, Evelin 02/27/20 at 1300 , For 1 dose [facility] Medication administered onsite Acetaminophen 325 MG [...] mg from all sources in 24 hours."
[facility] Medication administered onsite clopidogrel 75 MG Oral Tablet clopidogrel (PLAVIX) tab let 75 mg clopidogrel (PLAVIX) tablet 75 mg 02/27/2020 09:00:00 AM EDT 75 mg Oral active 75 mg, Oral, Daily, First dose on Evelin 02/27/20 at 0900 [facility] Medication administered onsite Aspirin 325 MG Delayed Release Oral Tablet aspirin EC tablet 325 mg aspirin EC tablet 325 mg 02/27/2020 09:00:00 AM EDT 325 mg Oral comp leted 325 mg, Oral, Once, Evelin 02/27/20 at 0900, For 1 dose [facility] Medication administered onsite Magnesium Hydroxide 80 MG/ML Oral Suspen aubrey magnesium hydroxide (MILK OF MAGNESIA) 400 MG/5ML suspension 30 mL magnesium hydroxide (MILK OF MAGNESIA) 4 00 MG/5ML suspension 30 mL 02/27/2020 12:00:00 AM EDT 30 mL Oral active 30 mL, Oral, Daily PRN, constipation, Starting Evelin 02/27/20 at 0000
If senna- docusate is not effective
[facility] Medication administered onsite normal saline flush 0.9 % injection 3 mL [id number] 02/26/2020 10:00:00 PM EDT 3 mL Intravenous aborted 3 mL , Intravenous, PROTOCOL, First dose on Mon02/26/20 at 2200, Pre-op
flush per protocol, D/C Main IV fluid if appropriate
[facility] Medication administered onsite Docusate Sodium 100 MG Oral Capsule docusate sodium (C OLACE) capsule 100 mg docusate sodium (COLACE) capsule 100 mg 02/26/2020 09:00:00 PM EDT 100 mg Oral active 100 mg, Oral, 2 times daily, First dose on Mon02/26/20 at 2100
hold for loose stools
[facility] Medication administered onsite carvedilol 12.5 MG Oral Tablet carvedilol (COREG) tabl et 12.5 mg carvedilol (COREG) tablet 12.5 mg 02/26/2020 09:00:00 PM EDT 12.5 mg Oral aborted 12.5 mg, Oral, 2 times daily, First dose on Mon 0 at 2100 [facility] Medication administered onsite Isosorbide Mononitrate 20 MG Oral Tablet isosorbide mononitrate (ISMO,MONOKET) tablet 10 mg isosorbide mononitrate (ISMO,MONOKET) tablet 10 mg 06/2020 09:00:00 PM EDT 10 mg Oral active 10 mg, Oral, 2 times daily, First dose on Mon02/26/20 at 2100 [facility] Medication administered onsite atorvastatin 40 MG Oral Tablet atorvastatin (LIPITOR) tablet 40 mg atorvastatin (LIPITOR) tablet 40 mg 02/26/2020 09:00:00 PM EDT 40 mg Oral active 40 mg, Oral, Nightly, First dose on Mon02/26/20 at 2100 [facility] Medication administered onsite Albuterol 0.833 MG/ML / Ipratropium Brom karishma 0.167 MG/ML Inhalant Solution ipratropium-albuterol (DUO-NEB) 0.5-2.5 mg/mL nebulizer solution 3 mL ipratropium-albuterol (DUO-NEB) 0.5-2.5 mg/mL nebulizer solution 3 mL 02/26/2020 08:00:00 PM EDT 3 mL Inhalation active 3 mL, Inhalation, 3 times daily, First dose on Mon02/26/20 at 2000 [facility] Medication administered onsite sodium chloride 0.9% (NS) infusion [id number] 02/26/2020 06:00:00 PM EDT 100 mL/h Intravenous aborted at 100 m L/hr, 100 mL/hr, Intravenous, Continuous, Starting Mon02/26/20 at 1800, Pre-op
Start two hours prior to scheduled start time
[facility] Medication administered onsite normal saline flush 0.9 % injection 3 mL [id number] 02/26/2020 06:00:00 PM EDT 3 mL Intravenous active 3 mL , Intravenous, Every 8 hours (scheduled), First dose on Mon02/26/20 at 1800, Pre-op
Rapid push positive pressure flushing shall be performed with a 10 cc normal saline syringe to check the PATENCY of a PIV site prior to any infusion therapy initiation unless resistance is met.
[facility] Medication administered onsite clopidogrel 75 MG Oral Tablet clopidogrel (PLAVIX) tab let 75 mg clopidogrel (PLAVIX) tablet 75 mg 02/26/2020 06:00:00 PM EDT 75 mg Oral completed 75 mg, Oral, Once, Mon02/26/20 at 1800, For 1 dose [facility] Medication administered onsite Ceftriaxone 1000 MG Injection cefTRIAXone (ROCEPHIN) i njection 1 g cefTRIAXone (ROCEPHIN) injection 1 g 02/26/2020 06:00:00 PM EDT 1 g active Urinary Tract Infection 1 g, Intravenous Push, Every 24 hours (relative), 5 doses, First dose on Mon02/26/20 at 1800, Last dose on Mon03/01/20 at 1800 [facility] Urinary Tract Infection Medication administered onsite [...] units: May be giv en by nursing
[facility] Medication administered onsite ondansetron (ZOFRAN) injection 4 mg [id number] 02/26/2020 04:50:2 4 PM EDT 4 mg Intravenous active 4 mg, In travenous, Every 4 hours PRN, nausea, vomiting, Starting Mon02/26/20 at 1650 [facility] Medication administered onsite Bisacodyl 10 MG Rectal Suppository bisacodyl (DULCOLAX ) suppository 10 mg bisacodyl (DULCOLAX) suppository 10 mg 02/26/2020 04:49:55 PM EDT 10 mg Rectal active 10 mg, Rectal, Daily PRN, constipation, Starting Mon02/26/20 at 1649
Hold for BM.If senna-docusate and milk of magnesia are not effective
[facility] Medication administered onsite Senna 8.6 MG Senna 8.6 MG 02/13/2020 12:00:00 AM EDT 2 .0 {tablets_at_bedtime_as_needed} active S rodrigo 8.6 MG eCW1 ([facility]) Senna 8.6 MG Senna 8.6 MG 02/13/2020 12:00:00 AM EDT 2 .0 {tablets_at_bedtime_as_needed} active S rodrigo 8.6 MG eCW1 ([facility]) Senna 8.6 MG Senna 8.6 MG 02/13/2020 12:00:00 AM EDT 2 .0 {tablets_at_bedtime_as_needed} active S rodrigo 8.6 MG eCW1 ([facility]) Senna 8.6 MG Senna 8.6 MG 02/13/2020 12:00:00 AM EDT 2 .0 {tablets_at_bedtime_as_needed} active S rodrigo 8.6 MG eCW1 ([facility]) Senna 8.6 MG Senna 8.6 MG 02/13/2020 12:00:00 AM EDT 2 .0 {tablets_at_bedtime_as_needed} active S rodrigo 8.6 MG eCW1 ([facility]) Senna 8.6 MG Senna 8.6 MG 02/13/2020 12:00:00 AM EDT 2 .0 {tablets_at_bedtime_as_needed} active S rodrigo 8.6 MG eCW1 ([facility]) Senna 8.6 MG Senna 8.6 MG 02/13/2020 12:00:00 AM EDT 2 .0 {tablets_at_bedtime_as_needed} active S rodrigo 8.6 MG eCW1 ([facility]) Senna 8.6 MG Senna 8.6 MG 02/13/2020 12:00:00 AM EDT 2 .0 {tablets_at_bedtime_as_needed} active S rodrigo 8.6 MG eCW1 ([facility]) Senna 8.6 MG Senna 8.6 MG 02/13/2020 12:00:00 AM EDT 2 .0 {tablets_at_bedtime_as_needed} active S rodrigo 8.6 MG eCW1 ([facility]) Senna 8.6 MG Senna 8.6 MG 02/13/2020 12:00:00 AM EDT 2 .0 {tablets_at_bedtime_as_needed} active S rodrigo 8.6 MG eCW1 ([facility]) Senna 8.6 MG Senna 8.6 MG 02/13/2020 12:00:00 AM EDT 2 .0 {tablets_at_bedtime_as_needed} active S rodrigo 8.6 MG eCW1 ([facility]) Senna 8.6 MG Senna 8.6 MG 02/13/2020 12:00:00 AM EDT 2 .0 {tablets_at_bedtime_as_needed} active S rodrigo 8.6 MG eCW1 ([facility]) Senna 8.6 MG Senna 8.6 MG 02/13/2020 12:00:00 AM EDT 2 .0 {tablets_at_bedtime_as_needed} active S rodrigo 8.6 MG eCW1 ([facility]) Senna 8.6 MG Senna 8.6 MG 02/13/2020 12:00:00 AM EDT 2 .0 {tablets_at_bedtime_as_needed} active S rodrigo 8.6 MG eCW1 ([facility]) Senna 8.6 MG Senna 8.6 MG 02/13/2020 12:00:00 AM EDT 2 .0 {tablets_at_bedtime_as_needed} active S rodrigo 8.6 MG eCW1 ([facility]) Hydralazine Hydrochloride 25 MG Oral Tablet HYDRALAZINE [...] TABLET [40MG] BY MOUTH DAILY SOLD: 01/31/2020 [facility] carvedilol 12.5 MG Oral Tablet carvedilol (COREG) 12.5 MG tablet carvedilol (COREG) 12.5 MG tablet 01/30/2020 12:00:00 AM EDT 12.5 mg Oral aborted Take 12.5 mg by mouth 2 (two) times a day [facility] Hydralazine Hydrochloride 25 MG Oral Tab let hydrALAZINE (APRESOLINE) 25 MG tablet hydrALAZINE (APRESOLINE) 25 MG tablet 01/30/2020 12:00:00 AM EDT 25 mg Oral aborted Take 25 mg by mouth 3 (three) times a day [facility] calcium acetate 667 MG Oral Capsule Calcium Acetate, P hos Binder, 667 MG CAPS Calcium Acetate, Phos Binder, 667 MG CAPS 01/30/2020 12:00:00 AM EDT 667 mg Oral active Take 667 mg by mouth 3 (three) times a day with meals [facility] calcium acetate 667 MG Oral Capsule [...] by mouth 2 (two) times a day [facility] 10 mg 01/30/2020 12:00:00 AM EDT [...] aborted Take 40 mg by mouth nightly [facility] Insurance Providers Payer name Policy type / Coverage type Policy ID Covered republican ID Covered republican's relationship to espinoza Policy Espinoza Plan Information MEDICARE [id number] SP [id number] [employer] [place] P[place]/307 [id number] SP [id number] [employer] [place]/307 [id number] SP [id number] [employer] B [id number] S VYA MEDICARE C [id number] S [id number] [employer] [id number] Berta VYA [id number] INSURANCE COVID-19 COVID Berta C OVID MEDICARE [id number] Berta [id number] MEDICARE [id number] SP [id number] INSURANCE COVID-19 COVID Berta C OVID EXCELLUS H [id number] Self [id number] [employer]BS [id number] MEDICARE [id number] MEDICARE [id number] SP [id number] [employer] [place] PPO 302/307 [id number] SP [id number] [employer] P [id number] S VYS Problems, Conditions, and Diagnoses Code Display Name Description Problem Type Effective Dates Data Source(s) F41.9 [id number] Anxiety Problem 07/30/2020 12:00:00 AM ES T eCW1 ([facility]) I25.10 [id number] ASCVD (arteriosclerotic cardiovascular di sease) Problem 06/18/2020 12:00:00 AM EDT eCW1 ([facility]) N18.4 [id number] Stage 4 chronic kidney disease Problem 06/18/2020 12:00:00 AM EDT eCW1 ([facility]) I50.22 [id number] Chronic systolic congestive heart failure Problem 06/18/2020 12:00:00 AM EDT eCW1 ([facility]) Z85.118 [id number] History of adenocarcinoma of lung Problem 03/24/2020 12:00:00 AM EDT eCW1 ([facility]) I50.21 [id number] Acute systolic congestive heart failure P roblem 03/24/2020 12:00:00 AM EDT eCW1 ([facility]) N18.6 199133637 End stage renal disease Problem 03/24/2020 1 2:00:00 AM EDT eCW1 ([facility]) J44.9 62845080 Chronic obstructive pulmonary di sease, unspecified COPD type Problem 03/24/2020 12:00:00 AM EDT eCW1 ([facility]) F17.200 28404869 Smoking Problem 03/24/2020 12:00:00 AM ED T eCW1 ([facility]) Z99.2 [id number] Dependence on renal dialysis Problem 020 12:00:00 AM EDT eCW1 ([facility]) R79.89 Elevated troponin Elevated troponin [id number] 02/26/2020 12:00:00 AM EDT [facility] I25.10 Coronary artery disease Coronary artery disease [id number] 02/26/2020 12:00:00 AM EDT [facility] N18.6 End stage renal disease End stage renal disease 552833 02/26/2020 12:00:00 AM EDT [facility] N20.0 Kidney stone Kidney stone Problem 02/17/2020 12:00:00 A M EDT eCW1 ([facility]) I15.0 [id number] Renovascular hypertension Problem 02/13/2020 12:00:00 AM EDT eCW1 ([facility]) K59.00 37351818 Constipation, unspecified constipation ty pe Problem 02/13/2020 12:00:00 AM EDT eCW1 ([facility]) E78.5 Hyperlipidemia Hyperlipidemia [id number] 02/05/2020 12:00: 00 AM EDT [facility] I10 Essential hypertension Essential hypertension 51892261 02/05/2020 12:00:00 AM EDT [facility] C34.90 Adenocarcinoma of lung Adenocarcinoma of lung 96180152 02/04/2020 12:00:00 AM EDT [facility] J44.9 COPD (chronic obstructive pulmonary dise ase) COPD (chronic obstructive pulmonary disease) 09781085 02/04/2020 12:00:00 AM EDT [facility] I21.A1 Myocardial infarction type 2 Myocardial infarction typ e 2 [id number] 02/04/2020 12:00:00 AM EDT [facility] N13.30 Hydronephrosis Hydronephrosis [id number] 02/04/2020 12:00: 00 AM EDT [facility] N17.9 Acute renal failure Acute renal failure [id number] 0 02/04/2020 12:00:00 AM EDT [facility] I27.20 Pulmonary hypertension Pulmonary hypertension 09684481 02/04/2020 12:00:00 AM EDT [facility] I50.20 Systolic congestive heart failure Systolic conge stive heart failure [id number] 02/04/2020 12:00:[address] [facility] Z01.810 Encounter for preprocedural cardiovascul ar examination Encounter for preprocedural cardiovascul Diagnosis 04/22/2020 10:34:53 AM EDT [facility] I50.20 Unspecified systolic (congestive) heart failure Unspecified systolic (congestive) heart Diagnosis 04/22/2020 10:34:53 AM EDT [facility] I25.10 Atherosclerotic heart diseas e of [place] coronary artery without angina pectoris Atherosclerotic heart disease of [place] Diagnosis 04/22/2020 10:34:53 AM EDT [facility] I73.9 Peripheral vascular disease, unspecified Peripheral vascular disease, unspecified Diagnosis 03/11/2020 10:38:48 AM EDT [facility] N18.6 End stage renal disease End stage renal disease Diagno sis 03/11/2020 10:38:48 AM EDT [facility] C34.92 Malignant neoplasm of unspecified part o f left bronchus or lung Malignant neoplasm of unspecified part o Diagnosis 03/11/2020 10:38:48 AM EDT [facility] J44.9 Chronic obstructive pulmonary disease, u nspecified Chronic obstructive pulmonary disease, u Diagnosis 03/11/2020 10:38:48 AM EDT [facility] I27.20 Pulmonary hypertension, unspecified Pulmonary hy pertension, unspecified Diagnosis 03/11/2020 10:38:[address] [facility] E78.2 Mixed hyperlipidemia Mixed hyperlipidemia Diagnosis 03/11/2020 10:38:48 AM EDT [facility] I10 Essential (primary) hypertension Essential (primary) h ypertension Diagnosis 03/11/2020 10:38:48 AM EDT [facility] R79.89 Other specified abnormal findings of blo od chemistry Other specified abnormal findings of blo Diagnosis 02/26/2020 03:36:43 PM EDT [facility] I21.4 Non-ST elevation (NSTEMI) myocardial inf arction Non-ST elevation (NSTEMI) myocardial inf Diagnosis 02/26/2020 03:36:43 PM EDT [facility] N17.9 Acute kidney failure, unspecified Acute kidney f ailure, unspecified Diagnosis 02/05/2020 08:55:[address] [facility] E78.5 Hyperlipidemia, unspecified Hyperlipidemia, unspecifie d Diagnosis 02/05/2020 08:55:07 AM EDT [facility] I21.A1 Myocardial infarction type 2 Myocardial infarction typ e 2 Diagnosis 02/05/2020 08:55:07 AM EDT [facility] I50.22 Chronic systolic (congestive) heart fail ure Chronic systolic (congestive) heart fail Diagnosis 02/05/2020 08:55:07 AM EDT [facility] Surgeries/Procedures Procedure Description Date Indications Data Source(s) BLOOD COUNT COMPLETE AUTOMATED CBC Routine 02/29/2020 2:17 A M EDT 02/29/2020 06:17:[address] [facility] BASIC METABOLIC PANEL CALCIUM TOTAL BASIC METABOLIC PANEL Routi ne 02/29/2020 2:17 AM EDT 02/29/2020 06:17:00 AM EDT [facility] ECG ROUTINE ECG W/LEAST 12 LDS TRCG ONLY W/O I&R ECG 12-LEAD Routine 02/28/2020 4:31 PM EDT 02/28/2020 08:31:22 PM EDT [facility] CARDIAC CATHETERIZATION CARDIAC CATHETERIZATION Routine 02/28/2020 3:59 PM EDT End stage renal disease 02/28/2020 07:59:23 PM EDT End stage alonzo al disease [facility] End stage renal disease THROMBOPLASTIN TIME PARTIAL PLASMA/WHOLE BLOOD APTT Routine 02/28/2020 2:42 PM EDT 02/28/2020 06:42:00 PM EDT [facility] PROTHROMBIN TIME PROTIME-INR Routine 02/28/2020 2:42 PM EDT 02/28/2020 06:42:00 PM EDT [facility] BASIC METABOLIC PANEL CALCIUM TOTAL BASIC METABOLIC PANEL Routi ne 02/28/2020 2:42 PM EDT 02/28/2020 06:42:00 PM EDT [facility] KU2 PANEL KU2 PANEL STAT 02/28/2020 7:08 AM EDT 02/28/2020 11:08:00 AM EDT [facility] BLOOD COUNT COMPLETE AUTOMATED CBC STAT 02/28/2020 7:08 A M EDT 02/28/2020 11:08:00 AM EDT [facility] PHOSPHORUS INORGANIC PHOSPHORUS STAT 02/28/2020 7:08 AM EDT 02/28/2020 11:08:00 AM EDT [facility] ECG ROUTINE ECG W/LEAST 12 LDS TRCG ONLY W/O I&R ECG 12-LEAD Routine 02/28/2020 4:58 AM EDT 02/28/2020 08:58:41 AM EDT [facility] Hemodialysis (procedure) HEMODIALYSIS INPATIENT TX Routine 02/27/2020 6:00 PM EDT 02/27/2020 10:00:11 PM EDT [facility] Hemodialysis (procedure) HEMODIALYSIS INPATIENT TX Routine 02/27/2020 3:29 PM EDT 02/27/2020 07:29:22 PM EDT [facility] Hemodialysis (procedure) HEMODIALYSIS INPATIENT TX Routine 02/27/2020 3:29 PM EDT 02/27/2020 07:29:22 PM EDT [facility] ECG ROUTINE ECG W/LEAST 12 LDS TRCG ONLY W/O I&R ECG 12-LEAD Routine 02/27/2020 10:55 AM EDT 02/27/2020 02:55:27 PM EDT [facility] Hemodialysis (procedure) HEMODIALYSIS INPATIENT TX Routine 02/27/2020 10:43 AM EDT 02/27/2020 02:43:58 PM EDT [facility] CARDIAC CATHETERIZATION CARDIAC CATHETERIZATION Routine 02/27/2020 10:20 AM EDT Elevated troponin 02/27/2020 02:20:45 PM EDT Elevated troponin [facility] Elevated troponin BLOOD COUNT COMPLETE AUTOMATED CBC Routine 02/27/2020 2:21 A M EDT 02/27/2020 06:21:[address] [facility] BASIC METABOLIC PANEL CALCIUM TOTAL BASIC METABOLIC PANEL Routi ne 02/27/2020 2:21 AM EDT 02/27/2020 06:21:00 AM EDT [facility] ECG ROUTINE ECG W/LEAST 12 LDS TRCG ONLY W/O I&R ECG 12-LEAD Routine 02/26/2020 5:52 PM EDT 02/26/2020 09:52:15 PM EDT [facility] PROCALCITONIN (PCT) PROCALCITONIN Routine 02/26/2020 5:46 PM EDT 02/26/2020 09:46:[address] [facility] THROMBOPLASTIN TIME PARTIAL PLASMA/WHOLE BLOOD APTT Routine 02/26/2020 5:46 PM EDT 02/26/2020 09:46:00 PM EDT [facility] PROTHROMBIN TIME PROTIME-INR Routine 02/26/2020 5:46 PM EDT 02/26/2020 09:46:00 PM EDT [facility] HEMOGLOBIN GLYCOSYLATED A1C HEMOGLOBIN A1C Add-On 02/26/2020 5:46 PM EDT 02/26/2020 09:46:[address] [facility] LIPID PANEL LIPID PANEL Add-On 02/26/2020 5:46 PM EDT 02/26/2020 09:46:00 PM EDT [facility] LACTATE LACTIC ACID Timed 02/26/2020 5:45 PM EDT 02/26/2020 09:45:00 PM EDT [facility] 2019 NCOV AMPLIFIED 2019 NCOV AMPLIFIED STAT 02/26/2020 3:20 PM EDT 02/26/2020 07:20:[address] [facility] Results ID Date Data Source [id number] 06/19/2020 11:00:00 AM EDT [facility] Name Value Range Interpretation Code Description Data Mari rce(s) Supporting Document(s) SARS coronavirus 2 RNA [facility] This lab was ordered by [facility] and reported by [facility]. ID Date Data Source [id number] 06/06/2020 11:10:00 AM EDT [facility] Name Value Range Interpretation Code Description Data Mari rce(s) Supporting Document(s) SARS coronavirus 2 RNA [facility] This lab was ordered by [facility] and reported by [facility]. ID Date Data Source [id number] 05/22/2020 12:00:00 AM EDT [facility] Jason VANG Patient Name: JAY JAY SAAVEDRA[address] [facility] 1950[facility] [place] [address] Date of Exam: 05/22/2020PH#: Fax: [phone] EXAM: ABDOMEN AP (KUB) X-RAYCLINICAL [...] is normal.Skeletal structures and soft-tissue otherwise are unremarkable.CAREN Fischer/Jules you for referring JAY JAY SAAVEDRA to our office. Electronically Signed - ELLEN VORA MD 05/22/20 14:30 Name Value Range Interpretation Code Description Data Mari rce(s) Supporting Document(s) ID Date Data Source [id number] 02/29/2020 08:21:34 AM EDT [facility] [place] NT INFORMATIONPatient MRN Name Date of Age Gend*PT [id number] Jay Jay Saavedra 1950 69 years F IPPT Location Admission Date/Time Visit ID Attending [id number] 02/26/20 1536 --- Joycelyn Gomez MD([id number]) EPI ID CSN Admitting Provider [id number] Joycelyn Gomez MD([id number])DISCHARGE SUMMARYAdmission Date: 02/26/2020Discharge date: 02/29/20PRINCIPAL DIAGNOSIS: Coronary artery disease. Left ventricular systolicdysfunction. Renovascular disease.CURRENT [id number] woman with recent onset congestive heart failure [...] [place].TODAY'S PHYSICAL EXAM:BP 138/67 (BP [...] 10*3/uL 242Results from last 7 daysLab Units 02/28/2002297725PBNEGJ mmol/L 138POTASSIUM mmol/L 4.0CHLORIDE mmol/L 104CO2 mmol/L 29BUN mg/dL 22CREATININE mg/dL 1.99*GLUCOSE mg/dL 58*CALCIUM mg/dL 7.7*Results from last 7 daysLab Units 02/25/2017099497GFDDSGOYEBW mg/dL 139TRIGLYCERIDES mg/dL 142HDL mg/dL 54DISCHARGE MEDICATION LIST Jay Jay Saavedra Medication Instructions AGUILAR:[id number] Printed on:02/29/20 0819Medication Informationaspirin (ASPIRIN 81) 81 [...] by mouth 2 (two) times a daySignature: Jyocelyn Gomez MDDate: February 29, 2020Time: 8:19 [facility]: Dr. Lyles. Dr. Antony.This document or parts of this document, were dictated using Scoopinion software. A reasonable attempt at proofreading has been made tominimize errors. Please call with any questions or corrections. Name Value Range Interpretation Code Description Data Mari rce(s) Supporting Document(s) ID Date Data Source [id number] 02/29/2020 07:27:42 AM EDT [facility] Name Value Range Interpretation Code Description Data Mari rce(s) Supporting Document(s) EKG [facility] NRWFGk3yRjMGPyYti0VsTlNuKJOfWH9wmkd1V4O1sHRcM5MuyRExe0syN1KuO4AkKISdFKUZQG1QiCUh jb2 [file] physical education specialist+hJ72/aU8x98goVBANHGiRDsfQwoQyuDqTz1Snnq/shGuM6pP0UtNu/04h+Bv+liRUPpKEArRG6hE [file] Dee Dee/o2CMPJpNCV/XyTERb8/aLemT5iqEcRK61FtvgA/Dej0cP4pkaoXiaUS6xyzXwUxvjzo3fzWur7x [file] 2ztNP8PROgPbvXMm2Ot3PxzwC2mgYvSwN3GThmZnLyDO2M ID Date Data Source [id number] 02/29/2020 03:54:42 AM EDT [facility] Name Value Range Interpretation Code Description Data Mari rce(s) Supporting Document(s) SODIUM 138 mmol/L (136-145) [facility] POTASSIUM 4.0 mmol/L (3.6-5.2) [facility] CHLORIDE 104 mmol/L (100-108) [facility] CO2 29 mmol/L (22-31) [facility] ANION GAP 5 mmol/L (7-16) L [facility] UREA NITROGEN 22 mg/dL (7-24) [facility] CREATININE 1.99 mg/dL (0.60-1.00) H [facility] BUN/CREAT RATIO 11.1 RATIO (10.0-20.0) [facility] GLUCOSE 58 mg/dL (70-99) L [facility] CALCIUM 7.7 mg/dL (8.4-10.2) L [facility] GFR 25 ml/min/1.73m2 (>59) L [facility] GFR ( AMER) 30 ml/min/1.73m2 (>59) L [facility] GFR INTERPRETATION [facility] --NORMAL KIDNEY FUNCTION OR MILD DISEASE - GFR >OR= 60CHRONIC KIDNEY DISEASE - GFR 15 - 59RENAL FAILURE - GFR <15 Est. GFR calculation based on the MDRDstudy equation, which assumes a steadystate for creatinine. Est. GFR should notbe used for medication dosing. ID Date Data Source [id number] 02/29/2020 03:26:57 AM EDT [facility] Name Value Range Interpretation Code Description Data Mari rce(s) Supporting Document(s) WBC 7.3 10*3/uL (4.1-11.0) [facility] RBC 2.82 10*6/uL (4.00-5.40) L [facility] HGB 8.4 g/dL (12.0-16.0) L [facility] HCT 25.2 % (36.0-47.0) L [facility] MCV 89.6 fL (80.0-95.0) [facility] MCH 29.7 pg (27.0-32.0) [facility] MCHC 33.2 g/dL (32.0-36.0) [facility] RDW 15.1 % (10.5-14.5) H [facility] PLT 242 10*3/uL (150-450) [facility] MPV 8.0 fL (7.1-10.7) [facility] ID Date Data Source [id number] 02/28/2020 04:16:30 PM EDT [facility] Name Value Range Interpretation Code Description Data Mari rce(s) Supporting Document(s) &PDF [facility] XIMYFc3xQsCKAtFm98/KVAcwRBGtm5AlWJrmJQa4IOoqBOVnM3PnyUzxOWbPMO5JNJPXL7XDEOdmZRH5 [facility] [file] AgICAgICAgICAgICAgICAgICAgICAgICAgICAgICAgICAgICAgICAgICAgICAgICAgICAgICAgICAgIC AgICAgICAgICAgICAgICAgICAgICAgICAgICAgICAg ICANCiAgICAgICAgICAgICAgICAgICAgICAgICAgICAgICAgICAgICAgICAgICAgICAgICAgICAgICAg ICAgICAgICAgICAgICAgICAgICAgICAgICAgICAgICAgICAgICAgICAgICANCiAgICAgICAgICAgICAg ICAgICAgICAgICAgICAgICAgICAgICAgICAgICAgIC AgICAgICAgICAgICAgICAgICAgICAgICAgICAgICAgICAgICAgICAgICAgICAgICAgICAgICANCiAgIC AgICAgICAgICAgICAgICAgICAgICAgICAgICAgICAgICAgICAgICAgICAgICAgICAgICAgICAgICAgIC AgICAgICAgICAgICAgICAgICAgICAgICAgICAgICAg ICAgICANCiAgICAgICAgICAgICAgICAgICAgICAgICAgICAgICAgICAgICAgICAgICAgICAgICAgICAg ICAgICAgICAgICAgICAgICAgICAgICAgICAgICAgICAgICAgICAgICAgICAgICANCiAgICAgICAgICAg ICAgICAgICAgICAgICAgICAgICAgICAgICAgICAgIC AgICAgICAgICAgICAgICAgICAgICAgICAgICAgICAgICAgICAgICAgICAgICAgICAgICAgICAgICANCi AgICAgICAgICAgICAgICAgICAgICAgICAgICAgICAgICAgICAgICAgICAgICAgICAgICAgICAgICAgIC AgICAgICAgICAgICAgICAgICAgICAgICAgICAgICAg ICAgICAgICANCiAgICAgICAgICAgICAgICAgICAgICAgICAgICAgICAgICAgICAgICAgICAgICAgICAg ICAgICAgICAgICAgICAgICAgICAgICAgICAgICAgICAgICAgICAgICAgICAgICAgICANCiAgICAgICAg ICAgICAgICAgICAgICAgICAgICAgICAgICAgICAgIC AgICAgICAgICAgICAgICAgICAgICAgICAgICAgICAgICAgICAgICAgICAgICAgICAgICAgICAgICAgIC ANCiAgICAgICAgICAgICAgICAgICAgICAgICAgICAgICAgICAgICAgICAgICAgICAgICAgICAgICAgIC AgICAgICAgICAgICAgICAgICAgICAgICAgICAgICAg ICAgICAgICAgICANCjw/sKHnY4qktWBkqqX4F3qnRy8IAm8QEU8md0ZmFIScTUfcmiNbQriZQwZaGKXi SseMPsp5IJzdEX8WcFPcH6UfR0XoDLlvLF3PCJAwIJFuaPQjBUVaLCFeEbN9KYJbZXvlYW1WhQIbOGxl PUJkJHKzCoUfYRJdGN3OIYAsS659kkWvUx0DCq3GMm WkLC8vbd6OWpLbEYYxQfwBOsn4EMvmTA5HcCMarLIsWaBgXVNMViKhH1taj6VuZyTpMYXGHFzfHZ0Ky6 VudCAxDQo+Yp6EYY8vd9NkILhdBuAxYW7wtq0NPVuGFzSdK0WscLloKRgcuFkltdCbHN6SLNJdTEUfpE SeYGvyVKBALI4KYCtqRAW9HWayvmCvwBBiYCaeYF9S YXJlbnQgMjEgMCBSDQo+Yr4CJA7fp2RcPXdbGnNmXA2ihe6DAErPBwUpJ2E6dJDcB1B9PUbaMn9ARXFx FIIsNQzyQHOHSIscXN9SQU9cdmS5ZP5HrDTcRDIqGMVnnIRfSKm1T79yoHSbCFxxXR5RNFW+Monique+Pg0K WFXcJYWqOLDfTxRzWHBTDtArF7MdH9EOh4EaP6CuNN 87pDbjzfVsLPtzAQ2HJD3sKJTuPGUNMO6TxNIdoF3lyyZlBYXtYXOWPuDsH34akVJfRELuIBHtIRHpLh 3EWKOyX7VqlcFozNewnmPpCFWzZVKJGT8KSGkxwvPrsTBdxJseUW72cNvaKK5CQi4CSlFgVI1vli6UpD UlDr3QCQDcKL2EWTDjIVJiHHBzCIY1JVLdPsFeTDag TWMgXUHrGJX7OJYfROMtYN1EAmToKWJvCNzkHYOmMQEhWROded6ABGTjMDMcYYp8AbGlCBFtGKBdYGqq HVKqLNMvXOvkSYLlYKGhYZ4POhUvNZGaJJWmDUWdNASwEYCpep7DTAJrMJLmIaE3OFHsREGvFZGqRFsk IRRhFWV8OTWmLMHsWHGbXS1LMrQhGIEoOPA8HnVgHE QbEGZktp8JTKZeMOYwThS5LMOuEYMkPQNoBLbzYHEqXJM2XThpTCYmDUUiAJ0XSuHwHAExXWieJwPkOG MjQUHuxg5GJCDkKPLqQINzKPUdPLCzEPCbWMgnTTQrYQL8PfWxIMMvHNCiLV0YBeDfTOWsZBp9PFEtSV ZaNVLvxh2DDYViURBtLNH4DALrHDJqDDMnLPdcROQg ARO1PXP4MDHvHOWcGB1WKkDdXNEtVTj9LQGqFKVxALQvoc7ICZOtXTKxSIt2WCKjHGItVJOpFNimXHPg MGH8XXdaAJBdLIHkAH9OJjBwXDIwKIv1VlHuDGIfSFRvpr0MLJXcDCVgAVS7XsAeTPVvYJClZArlCNAf SCOlDWD7RTWlMSYjTC0OQgHsIAPnXjZlYcGtZFRgCU Xufn0WwWTozNvkdk3METzHLs2WcGjqIMM8ADfaBv8fuMPiCdUeWPZMDz9IgaAnODHcLXFETLhsEDJeTU ItGpSqXdXkRTXaAhSkSSziZdCbMOVuNqLvJoGyFeLzQbE0XrW9UTCvYbT3YvY7GkLeZZUaQQEsLIPuM5 IyYTBmYmQ+DL1mDTt+Tx8Zs3LklaF4mnSuQUdtTNG1WX5ILHMSD8CPWy== ID Date Data Source [id number] 02/28/2020 04:08:24 PM EDT [facility] Name Value Range Interpretation Code Description Data Mari rce(s) Supporting Document(s) SODIUM 139 mmol/L (136-145) [facility] POTASSIUM 3.7 mmol/L (3.6-5.2) [facility] CHLORIDE 103 mmol/L (100-108) [facility] CO2 33 mmol/L (22-31) H [facility] ANION GAP 3 mmol/L (7-16) L [facility] UREA NITROGEN 9 mg/dL (7-24) [facility] CREATININE 1.45 mg/dL (0.60-1.00) H [facility] BUN/CREAT RATIO 6.2 RATIO (10.0-20.0) L [facility] GLUCOSE 111 mg/dL (70-99) H [facility] CALCIUM 8.1 mg/dL (8.4-10.2) L [facility] GFR 36 ml/min/1.73m2 (>59) L [facility] GFR ( AMER) 43 ml/min/1.73m2 (>59) L [facility] GFR INTERPRETATION [facility] --NORMAL KIDNEY FUNCTION OR MILD DISEASE - GFR >OR= 60CHRONIC KIDNEY DISEASE - GFR 15 - 59RENAL FAILURE - GFR <15 Est. GFR calculation based on the MDRDstudy equation, which assumes a steadystate for creatinine. Est. GFR should notbe used for medication dosing. ID Date Data Source [id number] 02/28/2020 03:55:03 PM EDT [facility] Name Value Range Interpretation Code Description Data Mair rce(s) Supporting Document(s) APTT 23.6 s (22.0-34.3) [facility] ID Date Data Source [id number] 02/28/2020 03:55:03 PM EDT [facility] Name Value Range Interpretation Code Description Data Mari rce(s) Supporting Document(s) PT 11.3 s (9.2-11.9) [facility] INR 1.08 [facility] SUGGESTED THERAPEUTIC RANGES USING INR F ORSTABILIZED ANTICOAGULATED PATIENTS:STANDARD DOSE THERAPY INR 2.0-3.0 DVT, PE, PREVENT DVT OR EMBOLISMHIGH DOSE THERAPY INR 2.5-3.5 PREVENT EMBOLISM FROM MECHANICAL HEART VALVE ID Date Data Source [id number] 02/28/2020 07:55:20 AM EDT [facility] Name Value Range Interpretation Code Description Data Mari rce(s) Supporting Document(s) EKG [facility] VQZDEd9aXbLWYgAhw1DgAdCfTXEaDH9obwu1H5S2yZHwB8EmpNLpc0fxO7IzL1FzDTLuGCRDFV6BgDZd jb2 [file] software administrator+pyx+14D8ej4egPhqH6e8BlWdFqMSyTj1qaOKq+U8Q0Y1rm76zmAQWWEd9eewjRXjoT7b4XiFJT3P [file] F8iqXcRqGjPcW2LdOnDX0H ID Date Data Source [id number] 02/28/2020 10:02:11 AM EDT [facility] Name Value Range Interpretation Code Description Data Mari rce(s) Supporting Document(s) PHOSPHORUS 3.0 mg/dL (2.5-4.5) [facility] ID Date Data Source [id number] 02/28/2020 10:02:11 AM EDT [facility] Name Value Range Interpretation Code Description Data Mari rce(s) Supporting Document(s) SODIUM 137 mmol/L (136-145) [facility] POTASSIUM 3.9 mmol/L (3.6-5.2) [facility] CHLORIDE 103 mmol/L (100-108) [facility] CO2 29 mmol/L (22-31) [facility] ANION GAP 5 mmol/L (7-16) L [facility] UREA NITROGEN 25 mg/dL (7-24) H [facility] CREATININE 2.04 mg/dL (0.60-1.00) H [facility] BUN/CREAT RATIO 12.3 RATIO (10.0-20.0) [facility] GLUCOSE 80 mg/dL (70-99) [facility] CALCIUM 8.2 mg/dL (8.4-10.2) L [facility] GFR 24 ml/min/1.73m2 (>59) L [facility] GFR ( AMER) 29 ml/min/1.73m2 (>59) L [facility] GFR INTERPRETATION [facility] --NORMAL KIDNEY FUNCTION OR MILD DISEASE - GFR >OR= 60CHRONIC KIDNEY DISEASE - GFR 15 - 59RENAL FAILURE - GFR <15 Est. GFR calculation based on the MDRDstudy equation, which assumes a steadystate for creatinine. Est. GFR should notbe used for medication dosing. ID Date Data Source [id number] 02/28/2020 09:24:48 AM EDT [facility] Name Value Range Interpretation Code Description Data Mari rce(s) Supporting Document(s) WBC 9.2 10*3/uL (4.1-11.0) [facility] RBC 2.91 10*6/uL (4.00-5.40) L [facility] HGB 8.6 g/dL (12.0-16.0) L [facility] HCT 26.1 % (36.0-47.0) L [facility] MCV 89.7 fL (80.0-95.0) [facility] MCH 29.4 pg (27.0-32.0) [facility] MCHC 32.8 g/dL (32.0-36.0) [facility] RDW 14.5 % (10.5-14.5) [facility] PLT 258 10*3/uL (150-450) [facility] MPV 8.3 fL (7.1-10.7) [facility] ID Date Data Source [id number] 02/27/2020 05:01:42 PM EDT [facility] NT INFORMATIONPatient MRN Name Date of Age Gend*PT [id number] Jay Jay Saavedra 1950 69 years F SDCXPT Location Admission Date/Time Visit ID Attending ProviderD-[id number] 02/26/20 1536 --- Joycelyn Gomez MD([id number]) EPI ID CSN Admitting Provider [id number] Joycelyn Gomez MD([id number]) Attestation signed by Joycelyn Gomez MD at 02/27/2020 5:01 PMSignature: MARIO Casianoate: February 27, 2020Time: 5:01 PM --Cardiology History and PhysicalName: Jay Jay Saavedra Gender: femaleDate of : 1950 Age: 69 yearsDate/Time of Admit: 02/26/2020 3:36 PM Code Status: Full CodePrimary Care ProviderReferring Physician: Merlyn Cooney Complaint: Elevated TroponinHPI: Jay Jay Saavedra is a 69 year old female with a past medical historysignificant for:1. COPD2. Systolic Congestive Heart Failure with Ejection Fraction 25%3. Hypertension4. Hyperlipidemia5. End Stage Renal Disease on hemodialysis6. History of kidney stones7. Adenocarcinoma of the lung s/p left upper lobectomySumarian Saavedra states that back on Monday she woke up and felt short of breathlike she was gasping for air. Ms. Saavedra called and was transferred [facility], while in the emergency department she receivedsteroids and was placed on CPAP which improved her breathing. In the emergencyroom she received blood work which revealed elevated cardiac enzymes and EKGchanges, she was told she was being transferred to [facility] for further cardiac work-up.During her hospitalization she [...] [facility], [facility], hypertensive emergency [...] nuclear stress test prior tobeing readmitted to [facility].On exam, Ms. Saavedra is sitting in bed talking with her daughter, she appears inno acute distress. She denies ever experiencing chest pain or palpitations. Shereports her breathing has improved. Denies known history of KS, heart failure,valve disease, CVA, abnormal bleeding, cancer, [...] file Gets together: Not on file Attends mu-ism service: Not on file Active member of [...] 0.87Blood Cultures showed no growth for 48 fkqaaDAZJ-FcO-0 (COVID 19) NegativeECG: Sinus Rhythm with PACs, ST & T wave abnormality, consider anterior ischemiaAssessment and PlanPrincipal Problem: Elevated TroponinActive Problems: Systolic congestive heart failure COPD (chronic obstructive pulmonary disease) Adenocarcinoma of lung Essential hypertension Hyperlipidemia End stage renal disease1. 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- Presented from outside facility withelevated troponin and [...] rce(s) Supporting Document(s) ID Date Data Source [id number] 02/27/2020 11:22:14 AM EDT [facility] Name Value Range Interpretation Code Description Data Mari rce(s) Supporting Document(s) EKG [facility] UWIEMg0kAyHUIwRlg4DaTtNwFKYeUP7hoon4C4W3vRHfN0YmiQCnn9abV4UnF3GpDOWqDFGXCK5DmZKd jb2 [file] t4dc4pv8q3zWLhNK6a567xQGDwd60gT2h937cfHt4edFFxjeITdncQd+ckvf82P04lg3vXfmxOdr+Evangelist 0lXgQyf9GI7kA+CqmMdT6fH6Pj70l+tlKbWeeRbS26 cpmhbi6TSW5i0IYU/sonoscope operator+zsORwVUDwZYdF6FUucO4XG9Hyd/ADwkdjI4w3/Ycd9oH8Ns0bD4gcbmiw76 5YcA6A+sTGqcEa1YX39dZ6fp7brsL7O+y4FGuiqLftO+z9SHstph/X+75OchuJ57W7uE4VzjFT7TVJG+ vtC+vtC+vtC+vtC+qfg5KTYtHDD/pqtZqXLaxfLaxf LWvABtyBB/IUauDRPMHqc8IkakPpszH28wtWX/EHrn563X4G9HD6O/FbdMPagE67HUKslSLVnb11n2ec Q5zdI0wtQhCkf+J+Z437a+G0ArjvMsljeassC3m/pLD2L5nRajmg39LH+qrp/0Rvdxyb0alkJ8U7kQmr 5rsyEUqbi3R+3EtN6FH0ra+67pzXdK+/StetVbruHN eKejgh3SXkvD43WjNr+70bf8T20Mf5G5DJgp972GKB9WGWc2bsP4hUvfZTnVJO2HyphVfIQRy/xqN4Hu DqR/EYcAce+X8777E1CLAnUFmBM/QPrJhmAV9HpFdR84BUbKVsbdM7l2HylaNrkUxwzL8CzqnO58wcPQ eWF5HRJkICMFfq+bJBlzrA8Ta186yydnxj4WMfee80 B+A1mGqF2uG1C+ZFyMollmY1H6A/3M2J1L1Q1DEWixSf2m6ciMTRKJxM8AeUJQLdumJWsacZEb+LWfuh fchjsYNsxdxRv02J71iq+TBddI6wQ8dcgd5Ag87Z+6sz6R0F1bcQHM+Kvgj95IbDypREm057o1i6t5Ri uoiG/fknNb3NBgmkTpNbOLCu/LCtBFz73hq6gMWhx5 20srKk4zw048RvCc262/g1rZi9A+XO/v2r2OhnimhzeK21vqo4laQn5+cc2wA2zGiyEp59wi0mBd5rV/ mtA4y4pgJPC+7eLDuY99q/0Vy58SJwUe/OkhfrSlf7q8Si88662tY3+4a+2qXy4G924M0AEGRWl1xnA5 14S225Y849T89rK46hrAT/teF/ilZdxu1Kxd7n5Dx/ G/djX28kC86m5xywaMc9mBkY4bXK927zKdhspGW/0Fcb+mpDX+6EnQXg7Zk6uURudabnoZlq7YeJ3N0j Ay/iLO9dct4Aym5/ut0xh5sZhyhG+/Hnr1jU6+zoO07855DWtWxdh+0Q59K80qy6LknhKtrdIiL5b3XU G/tkh5V2f4I/7U47F3nj/Xd0yW46Wqr6gZBEeM/WNa Gj8uavo0jPYQ+ah7IRprEGV27x3wOtAEqVRr/v2g/l8cfqnBcFB0pMHae0no/0QwS8yy8JH9YjFgiTlA 4zqolQNPYPZizUMriQsyuAsTPqmkCICh7yDuChERf7n7tXD5arpMR6MB69gT55Nq9sAubWd0DmftOZaz oNh0SQwWVpxvtX76PMU/yj4dPtY4Vi9jXIIUV5Jobi 8wOtPqdXwxG74mQ/zskVYzL65cKJsYWOivxNI5MIUi/HdVXRl0OyOKHP6ReGGm9jxSWzTOWskHm4uEGs SNgO6G/5oYIU8rH+pt7QTLhY2M2aX+PxBmWOJY22fAvkvFw5KNqpgsoMUm4y5hM8lRUBraerp8JJ80rM I5xoWr3VMe5Xnfv99n7BF+mortgage loan specialist+8nJglbYiwSvgUoN+ [file] c5y5ZL1nXn8U6tHT9nMC6dxo/zXw2dIu49+vHTz5/+8f6Xj+9+Hj61rdia+59++vD+i+Xb+0//applied behavior specialist/5X/ [file] BSCgo+YomwqCHvpQaqUDPEMSDoGNFHFRMNI8G= ID Date Data Source [id number] 02/27/2020 10:28:53 AM EDT [facility] Name Value Range Interpretation Code Description Data Mari rce(s) Supporting Document(s) &PDF [facility] KPSCTf3oNtLSYxPq13/LVCuhSWBik1BzAUdrAMd1KLjbDDOdH0ZoqTuvSKuGJY6WXWXAS8PDIYasVKC3 [facility] [file] NSYRSqb1XXcHxz28cTEBDPabiVMICPAqRBBKMQ9ru/ MbdWnGdxAnrtZ75fnAc1nbNYqOzAflo8zpMYuBQNtWeYODdebow9Koi54mwfYo1DM/LBBTGIkLZ6jSs0 SdL1FDLuiURICw2mnLz64aaqtiPqTEIe9XGGPFADWOTP2Mrq1R6KQsA+9dsysfx3T6APd6glYN+CL6rs R8EeZJf9uLiFMpbwNMaXjYoz7K95KZh5HSWkGSvvA6 5CS/AKJN6i+cqyjheVUyiK0Z4jJZoCr2jmtGzfB1G8ocSOdUdNYUvOYYIKef9HpJZ46dUhKyTmXWcUc0 L9xCO0fRBXESUQk5ACyjaVzOHCqacvGCbtBE9+4+VK5/professor of geography/htwhOdS05QdozfCOukfmGwVXdxtRpTVQ xPXJq9CLRwWmJR9xPMFeIXesdCnO757G2H/Kb0tZp8 0k+7DkZHKcdg02hK9OpJW3w4+dmj0IsE9wj9NqIqgA9H0YARFGfGOeGDZPMTEb7PJSXt70zYatEsEuFZ nd6dAOL1bgJl0edME1tDNjHHkUcg9glg9Xh/rNZD1kP2n8v9r4Y5QV+G3yeV3yGAMdmwBUclDyo0whkt SR42KJ+j9MNjOyXlcXVRgE8tcKGNmHNG3i8tyJ/Katharine [file] ICAgICAgICAgICAgICAgICAgICAgICAgICAgICAgICAgICAgICAgICAgICAgICAgICAgICAgICAgICAg ICAgICAgICAgICAgICAgICAgICAgICAgDQogICAgIC AgICAgICAgICAgICAgICAgICAgICAgICAgICAgICAgICAgICAgICAgICAgICAgICAgICAgICAgICAgIC AgICAgICAgICAgICAgICAgICAgICAgICAgICAgICAgICAgDQogICAgICAgICAgICAgICAgICAgICAgIC AgICAgICAgICAgICAgICAgICAgICAgICAgICAgICAg ICAgICAgICAgICAgICAgICAgICAgICAgICAgICAgICAgICAgICAgICAgICAgDQogICAgICAgICAgICAg ICAgICAgICAgICAgICAgICAgICAgICAgICAgICAgICAgICAgICAgICAgICAgICAgICAgICAgICAgICAg ICAgICAgICAgICAgICAgICAgICAgICAgICAgDQogIC AgICAgICAgICAgICAgICAgICAgICAgICAgICAgICAgICAgICAgICAgICAgICAgICAgICAgICAgICAgIC AgICAgICAgICAgICAgICAgICAgICAgICAgICAgICAgICAgICAgDQogICAgICAgICAgICAgICAgICAgIC AgICAgICAgICAgICAgICAgICAgICAgICAgICAgICAg ICAgICAgICAgICAgICAgICAgICAgICAgICAgICAgICAgICAgICAgICAgICAgICAgDQogICAgICAgICAg ICAgICAgICAgICAgICAgICAgICAgICAgICAgICAgICAgICAgICAgICAgICAgICAgICAgICAgICAgICAg ICAgICAgICAgICAgICAgICAgICAgICAgICAgICAgDQ ogICAgICAgICAgICAgICAgICAgICAgICAgICAgICAgICAgICAgICAgICAgICAgICAgICAgICAgICAgIC AgICAgICAgICAgICAgICAgICAgICAgICAgICAgICAgICAgICAgICAgDQogICAgICAgICAgICAgICAgIC AgICAgICAgICAgICAgICAgICAgICAgICAgICAgICAg ICAgICAgICAgICAgICAgICAgICAgICAgICAgICAgICAgICAgICAgICAgICAgICAgICAgDQogICAgICAg ICAgICAgICAgICAgICAgICAgICAgICAgICAgICAgICAgICAgICAgICAgICAgICAgICAgICAgICAgICAg ICAgICAgICAgICAgICAgICAgICAgICAgICAgICAgIC YqSJf8R0bcBCElFYZlTO9qXSr6Sg4+ABgBSkKdRIM1poJgsH4JXY6ca0LkSSvcHLLpo1SiDHb0AM6UJJ CjPLbuYO8UISagae7ZAORqQLJqqFBNj6blAuRtPNL1TGGtBdsiUS9IHSVhK5sdrkUjEJQaPHCIEQlxEW IYUNafMNIMNTPnGDWnRiArIoCaNRByMCVcKOXLZD6Z RgAhD2HtyZ45OOZZLn9+OUbiopGoIthKWwUlAYUfe7MgXWn4SK0KCVBdHhcai4CgVtKdWDBBXBkhZR2B RJT1PFSuUQNlVe7HZLUgM826vgNpKL2VHg0OUiTuMB5gfq8SYyInTURvSlpCAso3PItxOH7ClLYpQFiS xLVvFZ77awhECiJuO2Bkb6HcMwO9NELmTjWjMGwlOQ AlOnDqJY85qIkpDB5LMJLtIHNoZW90VSXuDPTxHi3BPa5TWuQsCV0hsa2UBqSyHJIlKhiABpa3JLcbFH 5ZdYLnU4MojMDax9rIFgYzM3CEQEMfJCVlHr8RNSMqZwCxEEQePGdzRW6fCDXmRJWLlSnnucN8OW9OTG 5dyaRoAV2VDfJhHt5bIj4PSxFlQ0CmR9SuIJHhNTJE VGmiEL2MEKdsPZ8hFN0Ak0SOoXWssB3gtu7VCLAoQHCmWjrsxu8HEdtnW9K2yCsdLNQqXyOqECCQOJpi VZ7FIOZiGZE3JWXgGSSrXBZFMeJkJ65sPU1EM0Ysk25eMlF1NNFbEdUbJFilVS83lYpweuWweIAjcQgk QX7QDh2+DQplbmRvYmoNCnhyZWYNCjAgMzUNCjAwMD WoUDGuOGTmMnO2EvTmKt2GADFfALDnRJVuHgTzZZWsZQUzIHbtUZPlYGf3UxRoVZNoNEImFC9BWfNqRL WvSUB7NAUxUUVeCQZdqu1FFYZzGYGfVNZ4WUDtZRDbEUUqHTmsMXDsVNYlMEKiDNQkXNLgGK2MZuBfIE SyCTOqRBKhXOKrUXIffn6QFJHfSLErEKIyNnBlYVHs OTGcAVeyJELwJTR4TJZ9MPZnQRDyXA4VNfOdTLBmYSU1EODlRNElNURzhf3CHGXqZWOpTfx2ZOAsKCVi HNVcSJusFFBhPDF0FxK2XGApYUEjFU2MAuCrOHEzKPy9QSPbUJUsWOFclh1OLNTiUHWmAHu0IMHpYFVc CNBjVCqjMYUzYYPxANw8XGDhMBQyME2NAdJbLERkMX HfVusnZFGdXIFlos0KVKPdEYJhKzB4OoBoZPSnKVAdQPmjXNKdBALqDlOdRWFfVXWbTK5QYzBwFRLtFH E6CeCiUIDgPTDrov3ERWKcMNWbKpheVtNhYJZuBOZxKIboPTGbPBM9TdtbEDKuGPFeZH8YUhWoCTQlOX J7QnMyTZEmSIFktp5VLDZtKUJaVSV9TaEmHVToEBRp CQzuREKjKRNhELX2LTJdEXDmHE0YGpEfOKCiAiW6VFSdSNSoVWEdlh1TWQXqJFQzYJZ9YqMhBISyTHKf BEisKNJqVSN1GHqsQNOaLCFqKB1HBtEuLVEqZST5FfTpCCSkBNKkvh5ZPXVqSHB2NFL0ZQUfGILhPETd EBzmBKLgXUR9WQFtYWFpHXUoEA3MPiKnWFAbVUj7Vc zoPVCbIXYxyz3JXHKcURZ2HWP3LMQpGSVuOFNcSHwhTPYkFFlpSoYzYASfSPYxFU4BEyVsTLHpJZU5JY JwBLHfASYnom8ISOYdXAV6CDi9HoStNAZrOIEbPEx2uqUrdNKcSVv7DH5RH8RfmhSwMuRLPd7Cr280NI Q8SFArUz7QU1hmJi2eKEMmJUIURz0NQGm5L8BdHhHb HOHaGMReIOg9SMNfHhq3RYA2UbWcHhS2XIY+IIhbYjFoGYKjGBU8FgPhCJJ1WZJtPqw9IiWdHOGkKgsm GW0tNAWLAo0+GAxyqXPzlDnnUREILbznZCO6DKriCMGXMa5H ID Date Data Source [id number] 02/27/2020 09:50:19 AM EDT [facility] [place]PATIE NT INFORMATIONPatient MRN Name Date of Age Gend*PT [id number] Jay Jay Saavedra 1950 69 years F SDCXPT Location Admission Date/Time Visit ID Attending ProviderD-[id number] 02/26/20 1536 --- Joycelyn Gomez MD([id number]) EPI ID CSN Admitting Provider [id number] Joycelyn Gomez MD([id number])Nephrology Consult NoteJune 2019Length of Stay:1Name: Jay Jay [...] artery diseaseAssessment/Plan--ESRD. She recently [place] in [place] about a month ago. Plan forHD tomorrow. [...] Monitor and BRAD if needed.History of Present Ckmqwpq98-hczw-fkx female with history of COPD, CHF, hypertension, kidney stones,adenocarcinoma of the lung [facility] She is going for cardiaccatheterization today. Her last hemodialysis was yesterday. She recentlystarted dialysis in early January. She is followed in [place] by Dr. Antony. Shewas not getting adequate predialysis nephrology care.She was admitted to [facility] on 01/20 with shortness of breath,fluid overload [...] painPulmonary-no cough or hemoptysisGI-denies abdominal pain, nausea qwudgknnBgaz-rstbcpcvTQ-ueimiaurDI-no gross hematuria or dysuriaSkin-no rashNeuro-no seizures or [...] bruit or adenopath yLungs: Clear to auscultationHeart: S1-A9Udjjuny: Soft, nondistended, nontenderExt: No edemaVascular: PermCath right chest site appears cleanLabs, Imaging, and other Diagnostics:Results from last 7 daysLab Units 02/26/2002693501IVRCDE mmol/L 137POTASSIUM mmol/L 4.1CHLORIDE mmol/L 102CO2 mmol/L [...] parts of this document, were dictated using Dragon dictationsoftware. A reasonable attempt at proofreading has been made to minimize errors.Please call with any questions or corrections. Name Value Range Interpretation Code Description Data Mari rce(s) Supporting Document(s) ID Date Data Source [id number] 02/27/2020 07:08:17 AM EDT [facility] Name Value Range Interpretation Code Description Data Mari rce(s) Supporting Document(s) EKG [facility] GQBTYd8mYtLOYuEzo6QdNiMgHFCdQU1ykyw7D6G3eMIvA3YdxBAgu3aeI4SlU9HpHYOdHIBVFH0ZxCIo jb2 [file] 8G9b3L3nCVStzra7u0mI/BLPspSN++1TIZB6YUs [file] Destiny/9nJhm0T/u/rxB328ann5//4+70/Dtn7uT26jidgkAg3Wk9ohQ/vBjj9Zx5bUc94msgN+o5kRTH1 Hu06VVCz7y29/w0H9tq005//zl6e/K029Zy9+vXl7e r9g6Yu5a465rtys9xQe6+sXVf1/d/oxfro1TDR2+hand crocheter//j2j5lirur74r/vy8sX1/XdfnP/74u71i4rp 0+Wr+0aq14tl2/Xd0+dXL68v/+Rowc/35q0Id7yO90y1A885//npceQc1N688Wsi2Uz/lkapRC06bnj4 rfyg8l57AZ843y1n851db7b7+sXVn/zT8Qo8/unpp4 ///OnnDw8/nv7x++nFp39/uFy5g2HJz/96+Phw+v4/Q/7+r6dPH0/lqxC+6xrwSqmf5vm9Vq75o6Jk14 LHES1/+PDVL4+lkrphu4xOvg+1khof00Cj31E6/N/K4RZFaFF/srmkWHhQZ25T894JL1caAmQBRuv4yF 9ultbz3reCOjOoAtBZA6Fjbbgh8BElQ3rYFtdm/ttm 585v4NBhi1G43MncsyDt7uyttLAn6fATF704/bgr27zZXq/VFGZRush3os1x/7q2hVQ+P/rY+Fj60EWR Xx9+/t937//c2XDJIg2dqH2ryib89NVow0y7kg4/O8f+06ePnx++F2J+hpkfTe065l2xe+9/wPZzH2/Y su5Mw8YJDZ6ggB1/P8KXoJwjDB55zi0n+c97f9E0rG hj2+snt0/uT+/+7+YHD69300EJbSAx7cqOXmh2joRPT3ysd/7+r5/xDX4Hns32lVe+3BPxO19/+u63H9 517uB9e302zqgY27+fPlw8O+e3f+qFK2KyHm3wtI6e+QudNnpvT9mF3q4//M/Hn344/7aF3hD9ayXCk/ 3y6/m2+vHShri7e19uw3Uy9/6n5MXFh/577hHlhvF0 1s4Pz/project manager process development/l09ez+5gYlMje199pIaRk5i9sFjvYeJKG+Z3eXT5+hX7reyyWUpBOu+dw4+b2R9gt5Uryb yqGvrVWvOK7IXZ5tj6LbDcQ5XZLst5ObPYxnCPx8uXQsMTvxquExc6ZtxxgbH8Ahc8NnFdHaACCgOeLl Yhq9XWYmAbB3uPWjEaTsNLIaO6VzCWYtKtB8MpXjEV ROST1AVFNlyoXsOuHhHOK+BbGjEV6rctdeWRUsl6JcLMyeKGlfRVCdI8E7yEhdEOWsG4NnfH94KXTjN1 DapfZ7BYH8KMTkXtFpDTXcjEWgHRQhEMC+BnJrPF4lqtihKVZoq1PiXWzrBLC6aJ8mAKyTKPGBLNhFMV saWwB3i96ajyMEAJWzUCOuMW7EumHhvZlikkUbcTBi EJD7AnEtMCN4VTQoYpU2VMNMNDKzXWFdGDEqMOHbA7YxeYhkVSgCUABLESqXYVltMcRef4S2GWDskrWT K6UHIacnB3IQBV9xHRVxUba4LETwKQLfW1MjmzDacAYtVJRDSOolRetcPASkoL1yrMpmT5PtZIF2x9Oa TP8TD4PkPLCiCFSILYZ2n3ScWUOjffhpizpfRtCvRA EzXPXrHNMwAX6Flv3thLTnroFhALPUTPwbEymdTC3azYbuhdllD5NgeEUiSUX+AbKvZH8yuw5+CjEgMC YiPna3IOTyXPvuPQSxGSYoAFCaQ7fwYABfSaWrXSAoQkOgLF7Qi7BinYUfKl5kibGmRvvGhZYuLkrhLW AbDYCoFFMnGlMPQPMlJZUvONCsGPE2GCFxKEYmXRvb SZVjOGH7YtF9SVNcHYYfSE5qWcJtSRKmFYS7ARKeOZTvPGRhilGGQDXtGON7XXR8LuDkVKWjGOLkSWqb XQTtFVXkGGHeEBX2ATX8LIMuOeIhKDNpDYXtJQSeCDRaHOWiprAXSUGpUTXiZYW4EDWtCWYhTEMeXPsw HVHpRPOiQFbgYQRsMQNyWU3gOpKuSYQvYPDjOVhdNE PsDAAsefZQTBXlNGZpKWXoKCRzCJXbADNmMEehQSXvELIlYENwGVZlCEPwRU1tAaVbYRSgEGI4OKTzAR MfLBFbwhSGVWNzQIJiGYs0XZQwLAEhXXExNMhfJURgZFYvQDH8OWWmZIUrPJ5nPdSfHUGlPWL8CqDnTA VzJFFjrkSBPAOeDBYuBUQ6DbGmZJUdCKVrDKlaWBSl NATuINalJCRrSEYwJN9yFzZhMMMeRLXeQSgrXQJtNJKayaEWPEJmTUZxUDKeQnCxSYCxISEcZVpbPHWr LRE5AxQrBRUdEKTpDB4tYfQsJDBsBHN1DHitZCHaLOFbcuUMELXaNBCfRFexBALrMYPkDUEvZKeuEBUm DHYmNFB6SZAjXXFeHD6qMoNpWMXpRPRwKJPhQkH5Xb VtNwSRvJWrgAantcj2FLpdU7t1GUUzYPmuPZ7nqiDdTETqLpfuSf4duAH5EISnYnrXIu9Em1DudhB1yh KoEpX6VCN1TvZeLC3B ID Date Data Source [id number] 02/27/2020 04:31:59 AM EDT [facility] Name Value Range Interpretation Code Description Data Mari rce(s) Supporting Document(s) SODIUM 137 mmol/L (136-145) [facility] POTASSIUM 4.1 mmol/L (3.6-5.2) [facility] CHLORIDE 102 mmol/L (100-108) [facility] CO2 29 mmol/L (22-31) [facility] ANION GAP 6 mmol/L (7-16) L [facility] UREA NITROGEN 29 mg/dL (7-24) H [facility] CREATININE 1.98 mg/dL (0.60-1.00) H [facility] BUN/CREAT RATIO 14.6 RATIO (10.0-20.0) [facility] GLUCOSE 79 mg/dL (70-99) [facility] CALCIUM 8.1 mg/dL (8.4-10.2) L [facility] GFR 25 ml/min/1.73m2 (>59) L [facility] GFR ( AMER) 30 ml/min/1.73m2 (>59) L [facility] GFR INTERPRETATION [facility] --NORMAL KIDNEY FUNCTION OR MILD DISEASE - GFR >OR= 60CHRONIC KIDNEY DISEASE - GFR 15 - 59RENAL FAILURE - GFR <15 Est. GFR calculation based on the MDRDstudy equation, which assumes a steadystate for creatinine. Est. GFR should notbe used for medication dosing. ID Date Data Source [id number] 02/27/2020 03:39:56 AM EDT [facility] Name Value Range Interpretation Code Description Data Mari rce(s) Supporting Document(s) WBC 9.3 10*3/uL (4.1-11.0) [facility] RBC 3.08 10*6/uL (4.00-5.40) L [facility] HGB 9.1 g/dL (12.0-16.0) L [facility] HCT 27.5 % (36.0-47.0) L [facility] PERFORMED AT [address] [place] [address] N Y [id number] MCV 89.2 fL (80.0-95.0) [facility] MCH 29.7 pg (27.0-32.0) [facility] MCHC 33.2 g/dL (32.0-36.0) [facility] RDW 14.9 % (10.5-14.5) H [facility] PLT 246 10*3/uL (150-450) [facility] MPV 8.3 fL (7.1-10.7) [facility] ID Date Data Source [id number] 02/26/2020 09:56:45 PM EDT [facility] Name Value Range Interpretation Code Description Data Mari rce(s) Supporting Document(s) CHOLESTEROL @ 139 mg/dL (0-200) [facility] TRIGLYCERIDE @ 142 mg/dL (30-200) [facility] HDL CHOLESTEROL @ 54 mg/dL (>40) [facility] PER NCEP ATP III GUIDELINES:RESULTS LOWE R THAN 40 MG/DL ARE SUGGESTIVEOF INCREASED RISK FOR CORONARY ARTERYDISEASE. RESULTS > OR = TO 60 MG/DL ARECONSIDERED A NEGATIVE RISK FACTOR. CHOL/HDL RATIO 2.6 RATIO [facility] INTERPRETATION OF CHOL-HDL RATIO CHD RISK FEMALE MALEVERY HIGH >8.3 >14.3HIGH 5.6- 8.3 6.7- 14.3AVERAGE 3.7- 5.6 4.0- 6.7BELOW AVERAGE 2.5- 3.7 2.7- 4.0PROTECTED <2.5 <2.7 LDL CHOL (CALC) 57 mg/dL (<130) [facility] PER NCEP ATP III GUIDELINES: OPTIMAL < 100 NEAR OPTIMAL 100 - 129BORDERLINE HIGH 130 - 159 HIGH 160 - 189 VERY HIGH > 189 ID Date Data Source [id number] 02/26/2020 08:02:14 PM EDT [facility] Name Value Range Interpretation Code Description Data Mari rce(s) Supporting Document(s) HEMOGLOBIN A1C @ 5.5 % (4.0-6.0) [facility] Performed using Siemens [place] immunoassa y.Care must be taken when interpreting PxB6gcaqunxp in patients with a hemoglobin variantor decreased erythrocyte lifespan. Values 5.7 - 6.4% suggest prediabetes.Values >=6.5% are diagnostic for diabetes.REFERENCE: DIABETES CARE 2018: 41(S13-S27).PERFORMED AT [address] [place] [id number] EST AVERAGE GLUCOSE 111 mg/dL [facility] ID Date Data Source [id number] 02/26/2020 07:02:23 PM EDT [facility] Name Value Range Interpretation Code Description Data Mari rce(s) Supporting Document(s) PROCALCITONIN @ 15.51 ng/mL (<0.10) H [facility] INTERPRETATION OF RESULT < 0.51 Sepsis is not likely.0.51-2.00 Sepsis is possible, but other conditions are known to elevate PCT.2.01-9.99 Sepsis is likely, unless other causes are known. > 9.99 Important systemic inflammatory response, almost exclusively due to severe bacterial sepsis or septic shock.PERFORMED AT [address] [place] [address] [id number] RESULTS ARE QUESTIONABLE/PLEASE RECOLLECT SAMPLE ID Date Data Source [id number] 02/26/2020 06:38:32 PM EDT [facility] Name Value Range Interpretation Code Description Data Mari rce(s) Supporting Document(s) PT 11.4 s (9.2-11.9) [facility] PERFORMED AT [address] [place] [address] N Y [address] INR 1.09 [facility] SUGGESTED THERAPEUTIC RANGES USING INR F ORSTABILIZED ANTICOAGULATED PATIENTS:STANDARD DOSE THERAPY INR 2.0-3.0 DVT, PE, PREVENT DVT OR EMBOLISMHIGH DOSE THERAPY INR 2.5-3.5 PREVENT EMBOLISM FROM MECHANICAL HEART VALVE ID Date Data Source [id number] 02/26/2020 06:38:32 PM EDT [facility] Name Value Range Interpretation Code Description Data Mari rce(s) Supporting Document(s) APTT 51.9 s (22.0-34.3) H [facility] PERFORMED AT [address] [place] [address] N Y [id number] ID Date Data Source [id number] 02/26/2020 06:18:19 PM EDT [facility] Name Value Range Interpretation Code Description Data Mari rce(s) Supporting Document(s) LACTIC ACID 0.8 mmol/L (0.4-2.0) [facility] ID Date Data Source [id number] 02/26/2020 03:20:00 PM EDT [facility] Name Value Range Interpretation Code Description Data Mari rce(s) Supporting Document(s) SARS coronavirus 2 RNA [Presence] in Res piratory specimen by BERENICE with probe detection [facility] This lab was reported by [facility]. ID Date Data Source [id number] 02/26/2020 06:20:24 PM EDT [facility] Name Value Range Interpretation Code Description Data Mari rce(s) Supporting Document(s) SPECIMEN DESCRIPTION [facility] COVID19 RESULT (NDET) [facility] THIS ASSAY AMPLIFIES AND DETECTSTHE TARG ET RNA USING REAL-TIME PCR.NEGATIVE 2019_NCOV RT-PCR RESULTS DONOT PRECLUDE 2019_NCOV INFECTION ANDSHOULD NOT BE USED THE SOLE BASISFOR PATIENT MANAGEMENT DECISIONS. COMMENT [facility] UNDER AN EMERGENCY USE AUTHORIZATION(EUA ) FOR THE DETECTION AND/OR DIAGNOSISOF THE VIRUS THAT CAUSES COVID-19.RESULTS EMAILED TO [facility] AT 18:18 ON 02/26/20.07419 Procedure Social History Code Duration Value Status Description Data Source(s ) Smoking 07/30/2020 12:00:00 AM EST Former Smoker completed Former Smoker eCW1 ([facility]) Smoking 07/03/2020 12:00:00 AM EDT Former Smoker completed Former Smoker eCW1 ([facility]) Smoking 07/03/2020 12:00:00 AM EDT Former Smoker completed Former Smoker eCW1 ([facility]) Smoking 07/03/2020 12:00:00 AM EDT Former Smoker completed Former Smoker eCW1 ([facility]) Smoking 07/03/2020 12:00:00 AM EDT Former Smoker completed Former Smoker eCW1 ([facility]) Smoking 07/03/2020 12:00:00 AM EDT Former Smoker completed Former Smoker eCW1 ([facility]) Smoking 06/18/2020 12:00:00 AM EDT Former Smoker completed Former Smoker eCW1 ([facility]) Smoking 03/30/2020 12:00:00 AM EDT Former Smoker completed Former Smoker eCW1 ([facility]) Smoking 03/30/2020 12:00:00 AM EDT Former Smoker completed Former Smoker eCW1 ([facility]) Smoking 03/30/2020 12:00:00 AM EDT Former Smoker completed Former Smoker eCW1 ([facility]) Smoking 03/30/2020 12:00:00 AM EDT Former Smoker completed Former Smoker eCW1 ([facility]) Smoking 03/30/2020 12:00:00 AM EDT Former Smoker completed Former Smoker eCW1 ([facility]) Alcohol intake 02/28/2020 12:00:00 AM EDT Never completed [facility] Smoking 02/28/2020 12:00:00 AM EDT Former smoker completed Former smoker [facility] Smoking 02/17/2020 12:00:00 AM EDT Former Smoker completed Former Smoker eCW1 ([facility]) Smoking 02/17/2020 12:00:00 AM EDT Former Smoker completed Former Smoker eCW1 ([facility]) 01/21/2020 12:00:00 AM EDT Cigarette Smoker completed Cig arette Smoker [facility] 01/21/2020 12:00:00 AM EDT Current smoker completed Curre nt smoker [facility] Vital Signs ID Date Data Source UNK Name Value Range Interpretation Code Description Data Source(s) Diastolic blood pressure mm[Hg] eCW1 ([facility]) Systolic blood pressure 122 mm[Hg] 122 mm[Hg] e CW1 ([facility]) Body temperature 97.8 [degF] 97.8 [degF] eCW1 ( [facility]) Respiratory rate 17 /min 17 /min eCW1 ([facility]) Heart rate 72 /min 72 /min eCW1 ([facility]) Body mass index (BMI) [Ratio] 21.40 kg/m2 21.40 kg/m2 W1 ([facility]) Body height 62 [in_i] 62 [in_i] eCW1 ([facility]) Body weight 117 [lb_av] 117 [lb_av] eCW1 ([facility]) Body weight 116.6 [lb_av] 116.6 [lb_av] [facility] Diastolic blood pressure 60 mm[Hg] 60 mm[Hg] eCW1 ([facility]) Systolic blood pressure 142 mm[Hg] 142 mm[Hg] e CW1 ([facility]) Body mass index (BMI) [Ratio] 21.32 kg/m2 21.32 kg/m2 eCW1 ([facility]) Body height 62 [in_i] 62 [in_i] eCW1 ([facility]) Diastolic blood pressure 88 mm[Hg] 88 mm[Hg] eCW1 ([facility]) Systolic blood pressure 186 mm[Hg] 186 mm[Hg] e CW1 ([facility]) Body temperature 98.1 [degF] 98.1 [degF] eCW1 ( [facility]) Respiratory rate 18 /min 18 /min eCW1 ([facility]) Heart rate 75 /min 75 /min eCW1 ([facility]) Body mass index (BMI) [Ratio] 21.32 kg/m2 21.32 kg/m2 eCW1 ([facility]) Body height 62 [in_i] 62 [in_i] eCW1 ([facility]) Body weight 116.6 [lb_av] 116.6 [lb_av] eCW1 ([facility] Diastolic blood pressure 84 mm[Hg] 84 mm[Hg] eCW1 ([facility]) Systolic blood pressure 132 mm[Hg] 132 mm[Hg] e CW1 ([facility]) Body temperature 98.3 [degF] 98.3 [degF] eCW1 ( [facility]) Respiratory rate 18 /min 18 /min eCW1 ([facility]) Heart rate 73 /min 73 /min eCW1 ([facility]) Body mass index (BMI) [Ratio] 20.67 kg/m2 20.67 kg/m2 eCW1 ([facility]) Body height 62 [in_i] 62 [in_i] eCW1 ([facility]) Body weight 113 [lb_av] 113 [lb_av] eCW1 ([facility]) Oxygen saturation in Arterial blood by Pulse oximetry 100 % 100 % [facility] Respiratory rate 14 /min 14 /min [facility] Body temperature 36.61 Camryn 36.61 Camryn [facility] Diastolic blood pressure 62 mm[Hg] 62 mm[Hg] [facility] Systolic blood pressure 122 mm[Hg] 122 mm[Hg] [facility] Heart rate 78 /min 78 /min [facility] Body mass index (BMI) [Ratio] 18.67 kg/m2 18.67 kg/m2 [facility] Body weight 47.8 kg 47.8 kg [facility] post HD Body height 160 cm 160 cm [facility] Diastolic blood pressure mm[Hg] eCW1 ([facility]) Systolic blood pressure 187 mm[Hg] 187 mm[Hg] e CW1 ([facility]) Body temperature 97.9 [degF] 97.9 [degF] eCW1 ( [facility]) Respiratory rate 18 /min 18 /min eCW1 ([facility]) Heart rate 75 /min 75 /min eCW1 ([facility]) Body mass index (BMI) [Ratio] 21.58 kg/m2 21.58 kg/m2 eCW1 ([facility]) Body height 62 [in_i] 62 [in_i] eCW1 ([facility]) Body weight 118 [lb_av] 118 [lb_av] eCW1 ([facility]) Diastolic blood pressure 74 mm[Hg] 74 mm[Hg] eCW1 ([facility]) Systolic blood pressure 122 mm[Hg] 122 mm[Hg] e CW1 ([facility]) Body temperature 97.6 [degF] 97.6 [degF] eCW1 ( [facility]) Respiratory rate 18 /min 18 /min eCW1 ([facility]) Heart rate 81 /min 81 /min eCW1 ([facility]) Body mass index (BMI) [Ratio] 20.89 kg/m2 20.89 kg/m2 eCW1 ([facility]) Body height 62 [in_i] 62 [in_i] eCW1 ([facility]) Body weight 114.2 [lb_av] 114.2 [lb_av] eCW1 ([facility] Patient Treatment Plan of Care Planned Activity Planned Date Details Description Data Source (s) Hydroxyzine Hydrochloride 25 MG Oral Tablet 07/30/2020 12:00:00 AM EST eCW1 ([facility]) Sulfamethoxazole 800 MG / Trimethoprim 160 MG Oral Tab let [Bactrim] 07/03/2020 12:00:00 AM EDT eCW1 ([facility]) Sulfamethoxazole 800 MG / Trimethoprim 160 MG Oral Tab let [Bactrim] 07/03/2020 12:00:00 AM EDT eCW1 ([facility]) Sulfamethoxazole 800 MG / Trimethoprim 160 MG Oral Tab let [Bactrim] 07/03/2020 12:00:00 AM EDT eCW1 ([facility]) Sulfamethoxazole 800 MG / Trimethoprim 160 MG Oral Tab let [Bactrim] 07/03/2020 12:00:00 AM EDT eCW1 ([facility]) Sulfamethoxazole 800 MG / Trimethoprim 160 MG Oral Tab let [Bactrim] 07/03/2020 12:00:00 AM EDT eCW1 ([facility]) clopidogrel 75 MG Oral Tablet 02/29/2020 12:00:00 AM EDT [facility] Hydralazine Hydrochloride 25 MG Oral Tablet 02/28/2020 12:00:00 AM EDT [facility] carvedilol 12.5 MG Oral Tablet 02/28/2020 12:00:00 AM EDT [facility] Isosorbide Mononitrate 10 MG Oral Tablet 02/28/2020 12:00:00 AM EDT [facility] atorvastatin 40 MG Oral Tablet 02/28/2020 12:00:00 AM EDT [facility] Isosorbide Mononitrate 10 MG Oral Tablet 01/30/2020 12:00:00 AM EDT [facility] Hydralazine Hydrochloride 25 MG Oral Tablet 01/30/2020 12:00:00 AM EDT [facility] carvedilol 12.5 MG Oral Tablet 01/30/2020 12:00:00 AM EDT [facility] calcium acetate 667 MG Oral Capsule 01/30/2020 12:00:00 AM EDT [facility] atorvastatin 40 MG Oral Tablet 01/30/2020 12:00:00 AM EDT [facility]
--- NOTE | 2020-10-02 20:28 | REPVR ---
PROCEDURE INFORMATION: Exam: CT Head Without Contrast Exam date and time: 10/02/2020 7:49 PM Age: 69 years old Clinical indication: Other: Elevated BP TECHNIQUE: Imaging protocol: Computed tomography of the head without contrast. Radiation optimization: All CT scans at this facility use at least one of these dose optimization techniques: automated exposure control; mA and/or kV adjustment per patient size (includes targeted exams where dose is matched to clinical indication); or iterative reconstruction. COMPARISON: CT Head without contrast 06/03/2014 12:43 PM FINDINGS: Brain: There is no acute cortical infarction, intracranial hemorrhage or mass. Cerebral ventricles: No ventriculomegaly. Bones/joints: Unremarkable. No acute fracture. Paranasal sinuses: Visualized sinuses are unremarkable. No fluid levels. Mastoid air cells: Visualized mastoid air cells are well aerated. Soft tissues: Unremarkable. Atherosclerosis. IMPRESSION: No acute intracranial abnormality. Electronically signed by: Katrina Patten On 10/02/2020 20:28:12 PM
[2020-10-02 20:35] LABS: BASO # 0.1 10^3/uL (0.0-0.2); BASO % 0.8 % (0.0-1.0); EOS # 0.2 10^3/uL (0.0-0.5); EOS % 2.5 % (0.0-3.0); HEMOGLOBIN 11.8 g/dl (12.0-15.5); LYMPH # 1.4 10^3/uL (1.5-5.0); MEAN CORPUSCULAR HEMOGLOBIN 28.8 pg (27.0-33.0); MEAN CORPUSCULAR HGB CONC 31.9 g/dl (32.0-36.5); MEAN CORPUSCULAR VOLUME 90.2 fl (80.0-96.0); MONO # 0.7 10^3/uL (0.0-0.8); MONO % 8.8 % (0.0-5.0); NEUTROPHILS # 5.2 10^3/uL (1.5-8.5); NEUTROPHILS % 69.4 % (36.0-66.0); PLATELET COUNT, AUTOMATED 260 10^3/uL (150-450); WHITE BLOOD COUNT 7.5 10^3/uL (4.0-10.0)
[2020-10-02 20:44] LABS: INR 1.13; PARTIAL THROMBOPLASTIN TIME 31.4 SECONDS (24.2-38.5); PROTHROMBIN TIME 14.7 SECONDS (12.5-14.3)
[2020-10-02 21:00] LABS: BLOOD UREA NITROGEN 40 MG/DL (7-18); CALCIUM LEVEL 9.3 MG/DL (8.8-10.2); CARBON DIOXIDE LEVEL 29 MEQ/L (21-32); CHLORIDE LEVEL 103 MEQ/L (98-107); CK-MB VALUE MASS 2.2 NG/ML (<3.6); CPK CREATINE PHOSPHOKINASE 71 U/L (26-192); CREATININE FOR GFR 2.23 MG/DL (0.55-1.30); GLOMERULAR FILTRATION RATE 23.2 (>45); GLUCOSE, FASTING 96 MG/DL (70-100); POTASSIUM SERUM 3.5 MEQ/L (3.5-5.1); SODIUM LEVEL 139 MEQ/L (136-145); TROPONIN I < 0.02 NG/ML (< 0.10)
[2020-10-02 21:48] VITALS: BP 170/72
[2020-10-02 23:15] VITALS: BP 158/70
--- NOTE | 2020-10-03 05:35 | ECGEPIP ---
[facility] - ED Test Date: 2020-10-02 Pat Name: JAY JAY KEATING Department: Room: - Gender: Female [employer] Worker: isauro : 1950 Requested By: SANDRO LIAO Order Number: [id number] Reading MD: Wisam Rodriguez Measurements Intervals Flasher Rate: 65 P: 71 WA: 180 QRS: 45 QRSD: 90 T: 121 QT: 413 QTc: 432 Interpretive Statements SINUS RHYTHM INCOMPLETE RIGHT BUNDLE BRANCH BLOCK ST DEVIATION AND MODERATE T-WAVE ABNORMALITY, CONSIDER LATERAL ISCHEMIA SIMILAR TO 06/18/20 Electronically Signed on 10-03-2020 5:34:47 EST by Wisam Rodriguez
== END 2020-10-02 23:25 | disposition home or self-care (01) ==
LOC: M ED 18:56
DX: I11.9 Hypertensive heart disease without heart failure (principal); R94.31 Abnormal electrocardiogram [ECG] [EKG]; I25.2 Old myocardial infarction; N18.9 Chronic kidney disease, unspecified; Z79.82 Long term (current) use of aspirin; Z79.899 Other long term (current) drug therapy

== ENCOUNTER → 2020-12-21 | Outpatient (CLI) | payer MEDICARE ==
[~2020-12-21] MED LIST changes: +ASPI-569 PO; -ASPI81TAEC PO; +HYDR-3363; +HYDR-3911; +ISOS1TAB36
--- NOTE | 2020-12-21 19:13 | REP ---
INDICATION: CKD STAGE 4 COMPARISON: None. TECHNIQUE: Real time compression and duplex Doppler evaluation of the Bilateral upper extremity deep venous system is performed. FINDINGS: The Bilateral subclavian, jugular, axillary, brachial, basilic and cephalic veins are fully compressible where accessible with transducer pressure, and demonstrate no intraluminal thrombus and normal venous waveforms. There is no evidence of deep venous thrombosis. Right: Basilic vein size (mm)/ Cephalic vein size (mm) Upper humerus: 7/2 Lower humerus:3/2 Upper forearm: 2/2 Lower forearm/wrist: Not visualized/2 Median cubital:5 Right arterial structures: Peak systolic velocity (cm/s)/waveform/size (mm) Axillary: 100.9/biphasic/7 Brachial: 157.0/biphasic/4 Radial: 75.2/triphasic/2 Ulnar:79.3/triphasic/3 Left: Basilic vein size (mm)/ Cephalic vein size (mm) Upper humerus: 7/2 Lower humerus:3/2 Upper forearm: 2/2 Lower forearm/wrist:1/2 Median cubital:3 Left arterial structures: Peak systolic velocity (cm/s)/waveform/size (mm) Axillary: 165.1/biphasic/5 Brachial: 114.6/biphasic/4 Radial: 46.3/triphasic/1 Ulnar: 90.6/triphasic/3 IMPRESSION: No evidence of deep venous thrombosis of the Bilateral upper extremity deep vein system. Arterial and venous sizes are given above. <Electronically signed by Aureliano Forman > 12/21/20 [id number]
== END ==
LOC: M RAD 12:51
PROVIDERS: ATTEND Internal Medicine Nephrology
DX: N18.4 Chronic kidney disease, stage 4 (severe) (principal); I50.22 Chronic systolic (congestive) heart failure; I15.0 Renovascular hypertension

== ENCOUNTER → 2021-01-20 | Outpatient (CLI) | payer MEDICARE ==
--- NOTE | 2021-01-21 06:32 | REPPI ---
INDICATION: N20.0 KIDNEY STONE COMPARISON: None. TECHNIQUE: Supine view of the abdomen and pelvis. FINDINGS: Bilateral nephrolithiasis (left greater than right) is suspected. Evaluation is limited due to significant fecal stasis. No bowel obstruction. No obvious bowel perforation. No organomegaly. Skeletal structures demonstrate age-related degenerative changes. IMPRESSION: Bilateral nephrolithiasis suggested. Significant fecal stasis. <Electronically signed by Loc Gallagher > 01/21/21 [id number]
== END ==
LOC: M PLAIMG 14:32
PROVIDERS: ATTEND Urology
DX: N20.0 Calculus of kidney (principal); K59.00 Constipation, unspecified

== ENCOUNTER → 2021-02-11 | Outpatient (CLI) | payer MEDICARE ==
[~2021-02-11] MED LIST changes: +ALLO100T PO; +AMLO1TAB24 PO; +AMLO2.5T3 PO; +ASPI81CH48 PO; +CALC1CAP31 PO; +CLON0.1D3 TD; -ISOS1TAB36; +ISOS1TAB36 PO; +OXYC1TAB23 PO; +SPIR-10 PO
== END ==
LOC: M LABSMTC 09:37
PROVIDERS: ATTEND Anesthesiology
DX: Z01.812 Encounter for preprocedural laboratory examination (principal); Z20.822 Contact with and (suspected) exposure to COVID-19

== ENCOUNTER 2021-02-16 08:31 | Day surgery (SDC) | payer MEDICARE ==
[~2021-02-16] VITALS: Ht 160 cm; Wt 52.1 kg
[~2021-02-16 08:31] MED LIST changes: +LIDOCAINE 1% MDV 20ML VIAL SQ PRN; -OXYC1TAB23 PO; +ceFAZolin SOD 2 GM in IV 1 EA IV ONE
[2021-02-16] MEDS ORDERED: BUPIVACAINE/EPIN 0.5% 30 ML VIAL As Ordered ONE (09:21)
[2021-02-16] MEDS ORDERED: LIDOCAINE 1% SDV 30ML VIAL As Ordered ONE (09:21)
[2021-02-16] MEDS ORDERED: HEPARIN SOD (PORCINE) 5000UNITS/ML 1ML VIAL/SYRINGE As Ordered ONE (09:22)
[2021-02-16] MEDS ORDERED: fentaNYL 100 MCG/2 ML INJECTION (J3010) As Ordered ONE (09:24)
[2021-02-16] MEDS ORDERED: ROCURONIUM BROMIDE 50 MG/5 ML VIAL As Ordered ONE (09:25)
[2021-02-16] MEDS ORDERED: D5W/0.2% SODIUM CHLORIDE 1,000 ML IV ONE (09:40)
[2021-02-16] MEDS ORDERED: MIDAZOLAM INJ 2MG/2ML VIAL (J2250 PER 1MG) As Ordered ONE (10:00)
[2021-02-16] MEDS ORDERED: ONDANSETRON 4MG/2ML VIAL As Ordered ONE (10:05)
[2021-02-16] MEDS ORDERED: dexameTHASONE 4 MG/ML 1ML VIAL (J1100 PER 1MG) As Ordered ONE (10:05)
[2021-02-16] MEDS ORDERED: propofoL 200 MG/20 ML VIAL As Ordered ONE (10:05)
[2021-02-16] MEDS ORDERED: LIDOCAINE 2% 100MG/5ML SDV (FOR ANES.) As Ordered ONE (10:05)
--- NOTE | 2021-02-16 11:36 | ROOPDOC ---
[facility] Report Of Operation Report of Operation DATE OF PROCEDURE: 02/16/21 PREPROCEDURE DIAGNOSES: Renal insufficiency POSTPROCEDURE DIAGNOSES: Same PROCEDURE: Left brachiobasilic AV fistula creation SURGEON: Cinthya Hook MD ANESTHESIA: LMA anesthesia and local INDICATION FOR PROCEDURE: This is a very pleasant 70-year-old patient requiring AV access for dialysis. After reviewing her vein mapping, we felt her best option was a left brachiobasilic AV fistula creation. Risks benefits and alternatives were explained to the patient she is agreeable to proceed. Informed consent was obtained. I did discuss with the patient that her upper extremity veins and arteries are diminutive in size, but I do feel her basilic vein in the left arm will likely be suitable for fistula creation. The patient is agreeable to proceed. She will not be able to hold her Plavix for the procedure because of recent drug-eluting cardiac stent placement, so we will do her procedure without holding the Plavix. She understands this may result in additional bruising postprocedure. REPORT OF OPERATION: The patient was brought to the OR in stable condition. Anesthesia and antibiotics were administered without complication. Her left upper extremity was prepped and draped in a sterile fashion. A timeout was performed. Local anesthesia was administered to the skin and subcutaneous tissue and a transverse incision was made 1 fingerbreadth distal to the antecubital crease with the skin knife, and carried down to the subcutaneous tissue with Bovie cautery. The basilic vein was identified and skeletonized proximally and distally within the incision. There were a great number of branches coming off at the junction with the cephalic vein, and these were suture ligated and divided. We then dissected down to the brachial artery. It was very diminutive in size. Vesseloops were placed around the artery proximally and distally. The distal aspect of the vein was transected at 2 branch points after tying them off. We then connected the branch points with a pot scissor. This will allow larger patch for anastomosis. We passed serial dilators through the [facility] including a 3 mm, 3.5 mm, 4 mm without difficulty. We flushed the vein with heparinized saline and a bulldog clamp was placed. We secured the Vesseloops and a 5 mm arteriotomy was made. The vein was then anastomosed to the artery and an end-to-side fashion using 6-0 Prolene suture. Before the final sutures were placed, we flushed the inflow and outflow and irrigated with heparinized saline. We place a sinus sutures and flow was restored through the vein in the inflow artery. Then flow was restored to the hand. A good pulse was noted at the radial artery at the left wrist, and there is a triphasic signal over the palmar arch. There was good flow on Doppler through the basilic vein as well. There was a palpable thrill. We irrigated with saline. The deep tissues were approximated with 2-0 Vicryl suture. The deep dermal layer was approximated with interrupted 4-0 Vicryl suture. The skin was closed with 4-0 Monocryl subcuticular suture. The incision was clean and dry. Mastisol and Steri-Strips were placed length the incision. A 4 x 4 and Tegaderm were placed as a final dressing. The patient was then taken to recovery in stable condition. ESTIMATED BLOOD LOSS: Approximately 20 mL. COMPLICATIONS: None. PLAN: Okay to resume home diet and medications. Okay to continue Plavix. Return to clinic in 1 week to check incision. No lifting greater than 5 pounds or strenuous exercise left upper extremity for 1 week. Use squeeze ball left hand to improve circulation and help fistula to mature. We appreciate the opportunity to participate in the care of this patient. CINTHYA HOOK MD Feb 16, 2021 11:36
[2021-02-16] MEDS ORDERED: OXYC1TAB23 PO (11:39)
[2021-02-16] MEDS ORDERED: ONDANSETRON 4MG/2ML VIAL IV PRN (12:00)
[2021-02-16] MEDS ORDERED: fentaNYL 100 MCG/2 ML INJECTION (J3010) IV PRN (12:00)
[2021-02-16] MEDS ORDERED: NS 1,000 ML IV SCH (12:00)
[2021-02-16 12:45] VITALS: BP 139/66
== END 2021-02-16 12:47 | disposition home or self-care (01) ==
LOC: M SDC 08:31
PROVIDERS: ATTEND Surgery Vascular Surgery
DX: N18.6 End stage renal disease (principal); E78.00 Pure hypercholesterolemia, unspecified; E79.0 Hyperuricemia without signs of inflammatory arthritis and tophaceous disease; I13.2 Hypertensive heart and chronic kidney disease with heart failure and with stage 5 chronic kidney disease, or end stage renal disease; I25.10 Atherosclerotic heart disease of native coronary artery without angina pectoris; I25.2 Old myocardial infarction; I50.22 Chronic systolic (congestive) heart failure; I70.1 Atherosclerosis of renal artery; J44.9 Chronic obstructive pulmonary disease, unspecified; N25.81 Secondary hyperparathyroidism of renal origin; R06.02 Shortness of breath; R06.83 Snoring; Z79.82 Long term (current) use of aspirin; Z79.899 Other long term (current) drug therapy; Z85.118 Personal history of other malignant neoplasm of bronchus and lung; Z87.442 Personal history of urinary calculi; Z95.1 Presence of aortocoronary bypass graft
CPT/HCPCS: 36821; J0690; J1100; J1644; J2250; J2405; J3010

== ENCOUNTER 2021-02-24 07:27 | Inpatient (IN) | payer MEDICARE ==
[~2021-02-24] VITALS: Ht 160 cm; Wt 57.5 kg
[~2021-02-24 07:27] MED LIST changes: -LIDOCAINE 1% MDV 20ML VIAL SQ PRN; +OXYC1TAB23 PO; -ceFAZolin SOD 2 GM in IV 1 EA IV ONE
[2021-02-24] MEDS ORDERED: COLA100C5 PO (07:38)
[2021-02-24 08:39] LABS: BASO # 0.1 10^3/uL (0.0-0.2); BASO % 0.5 % (0.0-1.0); EOS # 0.2 10^3/uL (0.0-0.5); EOS % 1.1 % (0.0-3.0); HEMATOCRIT 37.2 % (36.0-47.0); HEMOGLOBIN 12.2 g/dl (12.0-15.5); LYMPH # 1.3 10^3/uL (1.5-5.0); LYMPH % 9.1 % (24.0-44.0); MEAN CORPUSCULAR HEMOGLOBIN 29.9 pg (27.0-33.0); MEAN CORPUSCULAR HGB CONC 32.8 g/dl (32.0-36.5); MEAN CORPUSCULAR VOLUME 91.2 fl (80.0-96.0); MONO % 6.7 % (2.0-8.0); NEUTROPHILS # 11.8 10^3/uL (1.5-8.5); NEUTROPHILS % 81.7 % (36.0-66.0); PLATELET COUNT, AUTOMATED 318 10^3/uL (150-450); RED BLOOD COUNT 4.08 10^6/uL (4.00-5.40); WHITE BLOOD COUNT 14.4 10^3/uL (4.0-10.0)
[2021-02-24 09:04] LABS: ALBUMIN 3.6 GM/DL (3.2-5.2); BILIRUBIN,DIRECT 0.1 MG/DL (0.0-0.2); BILIRUBIN,TOTAL 0.5 MG/DL (0.2-1.0); TOTAL PROTEIN 7.1 GM/DL (6.4-8.2)
--- NOTE | 2021-02-24 09:24 | REP ---
INDICATION: abdl pain cr-2.7 COMPARISON: 01/22/2020 TECHNIQUE: Axial noncontrast images from the lung bases to the pubic symphysis with coronal and sagittal reformations. This CT examination was performed using the following dose reduction techniques: Automated exposure control, adjustment of mA and/or kv according to the patient's size, and use of iterative reconstruction technique. FINDINGS: Lung bases are essentially clear with mild chronic changes noted. Visualized heart and pericardium within normal limits. Liver, spleen, pancreas, and bilateral adrenal glands are normal. Cholelithiasis noted without evidence for acute cholecystitis by CT evaluation. The kidneys demonstrate considerable chronic atrophic changes bilaterally with nonobstructing bilateral nephroliths, chronic parenchymal calcifications, and findings to suggest chronic dilated left upper pole calices without obvious obstruction and without acute perinephric stranding. Bilateral ureters are normal and without obstructing calculus. Evaluation of the enteric system demonstrates small hiatal hernia. There is no evidence for bowel obstruction. Subtle pericolonic inflammatory stranding involving the mid sigmoid colon is suggested within the pelvis raising the possibility of acute colitis/diverticulitis. No evidence for perforation. Small amount of free fluid in the pelvis is nonspecific and there is no evidence for drainable collection/abscess. Pelvis demonstrates normal bladder and relatively age-appropriate uterus/adnexa. Atherosclerotic changes to the aorta and vasculature noted without aneurysm. No significant adenopathy. Musculoskeletal structures demonstrate age-related degenerative changes. IMPRESSION: 1. Cannot exclude a mild sigmoid colitis/diverticulitis. No associated bowel obstruction or perforation appreciated. Small amount of free fluid in the pelvis is nonspecific. No drainable collection/abscess. Remainder of the small and large bowel is grossly unremarkable. 2. Chronic nonacute findings as above. 3. Cholelithiasis. <Electronically signed by Loc Gallagher > 02/24/21 [id number]
--- NOTE | 2021-02-24 09:27 | REP ---
INDICATION: lower abd pain Cr=2.7 COMPARISON: 10/02/2020 TECHNIQUE: Portable AP view of the chest FINDINGS: The mediastinum and cardiac silhouette are stable and within normal limits for portable technique. The lung arroyo demonstrate chronic appearing changes without acute consolidation, effusion, or pneumothorax. Skeletal structures are intact. IMPRESSION: No acute cardiopulmonary process appreciated. <Electronically signed by Loc Gallagher > 02/24/21 0915
[2021-02-24] MEDS ORDERED: NS 1,000 ML IV ONE (09:35)
[2021-02-24] MEDS ORDERED: PIPERACILLIN/TAZOBACTAM SOD 3.375 GM in D5W MINI-BAG PLUS 50 ML IV ONE (09:35)
[2021-02-24] MEDS ORDERED: CLON0.2D6 TD (10:12)
[2021-02-24] MEDS ORDERED: HYDR-3911 PO (10:12)
[2021-02-24] MEDS ORDERED: ASPI81TA26 PO (10:12)
[2021-02-24] MEDS ORDERED: ONDANSETRON 4MG/2ML VIAL IV PRN (11:00)
[2021-02-24] MEDS ORDERED: SENOKOT S TAB PO PRN (12:55)
[2021-02-24] MEDS ORDERED: PILL CUTTER 1 EACH XX PRN (13:15)
[2021-02-24] MEDS: **hydrALAZINE** 50 MG TAB PO SCH ×3 (13:54→20:17)
[2021-02-24 14:23] VITALS: BP 142/60
[2021-02-24] MEDS: PIPERACILLIN/TAZOBACTAM SOD 2.25 GM in D5W MINI-BAG PLUS 50 ML IV SCH (16:22)
[2021-02-24] MEDS: CALCITRIOL 0.25 MCG CAP (S0169) PO SCH (16:22)
[2021-02-24] MEDS: DOCUSATE SODIUM 100MG CAPSULE PO SCH (20:14)
[2021-02-24] MEDS: ATORVASTATIN 20 MG TAB PO SCH (20:14)
[2021-02-24] MEDS: CARVedilol 12.5 MG TAB PO SCH (20:15)
[2021-02-24] MEDS: amLODIPine 5 MG TAB PO SCH (20:16)
[2021-02-24 22:00] VITALS: BP 157/65
--- NOTE | 2021-02-24 22:13 | HPE ---
HISTORY AND PHYSICAL DATE OF ADMISSION: 02/24/2021 CHIEF COMPLAINT: Abdominal pain. HISTORY OF PRESENT ILLNESS: This is a 70-year-old female with history of chronic obstructive pulmonary disease (COPD), congestive heart failure, systolic dysfunction, chronic kidney disease stage III to IV, previously received dialysis for two months, from January to February 2020, currently with left arteriovenous (AV) fistula, presents to the emergency room with acute onset of bilateral lower quadrant abdominal pain described as cramping, which she has noted for the past three days. Patient thought that she was constipated and was cramping. When she does not feel well, she goes to her daughter's house. At that time, the pain progressed on and the cramping would last for several hours, worse with any positional changes, without ameliorating factors, but denied any fever or vomiting. When her daughter was making chicken in the croCint potassium, she felt very nauseated smelling the food and had no appetite for the past three days. She did not feel hungry, but today she felt very thirsty. She had two bowel movements Susan, a hard stool at 10:00 a.m. and another one at 8:00 p.m. She continued to have bilateral lower quadrant pain and did not take any kapt-xus-izaicol medications at home and feels like it is a pulled muscle when you have exercised for a long time. Patient has no prior episode of diverticulitis. No prior colonoscopy. She denied any dysuria, urgency, frequency, flank pain, fevers, chills and has always had cloudy urine. In the emergency room, patient was found to have elevated white count, 14.4, afebrile, temperature of 98.4. CT abdomen and pelvis showed diverticulitis or mild sigmoid colitis, no bowel obstruction or perforation, a small amount of free air in the pelvis is nonspecific, no drainable collection of abscess. The remainder of the small and large bowel is grossly unremarkable. Cholelithiasis. Urinalysis showed 3+ leukocyte esterase, too numerous to count WBCs, 2+ bacteria, negative nitrites. Urine culture sent. Patient was given one dose of Zosyn. Hospitalist was called to admit the patient for diverticulitis and asymptomatic bacteruria. Patient's creatinine is 2.7. Men'S Basketball Coach was consulted for help in management of fluid balance. PAST MEDICAL HISTORY: 1. Chronic kidney disease stage IV, previously received hemodialysis for two months from December to February 2020. Currently has a left arteriovenous (AV) arm fistula, but still urinating. 2. Chronic obstructive pulmonary disease (COPD), not oxygen or steroid dependent. 3. Systolic congestive heart failure. On echocardiogram 01/22/2020, ejection fraction of 25% with global, moderately severe, hypokinesis resulting in severe impairment of global systolic function, mild to moderate aortic valvular sclerosis without stenosis and trace insufficiency. 4. Hypertension. 5. Adenocarcinoma of the lung. 6. Type 2 non-ST elevation myocardial infarction (HI). 7. Dyslipidemia. 8. Kidney stones. 9. Left upper lobectomy. PAST SURGICAL HISTORY: 1. Left upper lobectomy 2012. 2. Left ureteral stent placement. 3. Dialysis catheter line placement ALLERGIES: No known drug allergies. HOME MEDICATIONS: - allopurinol 100 mg daily - Norvasc.5 mg at bedtime - aspirin 81 mg daily - Lipitor 40 mg at bedtime - calcitriol 0.25 mcg twice a week - Coreg 12.5 mg twice a day - clonidine 0.2 mg weekly - Plavix 75 mg daily - Colace 100 mg twice a day - hydralazine 50 mg four times a day - isosorbide 60 mg daily - Senokot one tablet twice weekly as needed for constipation - spironolactone 25 mg daily - torsemide 20 mg daily FAMILY HISTORY: Mother with diabetes. SOCIAL HISTORY: One pack a day smoker for 50 years, quite in 2019. Denies alcohol, recreational drug use. Lives with boyfriend. 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 REVIEW OF SYSTEMS: A 10 point review of systems as per history of present illness (HPI). PHYSICAL EXAMINATION: Temperature 98.4, pulse 68 sinus, respiratory rate 18, blood pressure 140/62, 99% on room air. GENERAL: Patient is supine in bed. No use of respiratory accessory muscles. No pallor, icterus or jaundice. Able to speak in full sentences. HEENT: Face is symmetric. Tongue is midline. No jugular venous distention (JVD), thyromegaly or cervical lymphadenopathy. Dry mucous membranes. LUNGS: Diminished but clear to auscultation. No wheezing, rales or rhonchi. HEART: S1, S2. Sinus rhythm. No murmurs, rubs or gallops. ABDOMEN: Slightly distended, obese, soft, slightly tender bilateral lower quadrants. No rebound or guarding. No hepatosplenomegaly. No abdominal bruit. EXTREMITIES: No cyanosis or clubbing. LABORATORY DATA: White count 14.4, hemoglobin 12, hematocrit 37, platelet count 318, 81% neutrophils. Sodium 137, potassium 3.7, chloride 102, bicarbonate 26, BUN 46, creatinine 2.7, ionized calcium 4.6, glucose 125. Urinalysis: Turbid, 1+ protein, 3+ leukocyte esterase, too numerous to count WBCs, 34 RBCs, 2+ bacteria. MICROBIOLOGY: COVID-19 negative. Blood and urine cultures are pending. IMAGING: CT abdomen and pelvis: Diverticulitis, mild sigmoid colitis. No abscess. Chronic findings: Cholelithiasis. Chest x-ray 02/24/2021: No acute cardiopulmonary process. ASSESSMENT: This is a 70-year-old female with chronic kidney disease stage IV, prior hemodialysis for two months in 2019, hypertension, systolic congestive heart failure, ejection fraction (EF) 25%, adenocarcinoma of the lung with upper lobectomy, admitted due to complaint of abdominal pain, found to have mild early colitis or sigmoid diverticulitis and found to have a symptomatic bacteruria. The patient will be admitted as an inpatient for two midnights for the following acute issues: 1. Mild early colitis/sigmoid diverticulitis. Patient will be kept on a clear liquid diet, intravenous (IV) fluids, antiemetics, as needed pain medications and IV Zosyn, renal dosing. 2. Acute on chronic renal failure stage IV due to diverticulitis. Decrease oral intake. Patient's slate cutter operator has been consulted for help in management with patient's fluid balance. Patient has no acute cardiopulmonary process and she seems to be euvolemic. Strict intake and output (I and O), daily weights. Will hold patient's diuretics for now due to decrease in oral intake and abdominal pain to prevent worsening renal failure and dehydration. 3. Systolic congestive heart failure, ejection fraction 25%. Previous echocardiogram in 2019. Patient appears to be euvolemic and says that her dry weight and says that her dry weight ranges from 113 t0 118 pounds. She is kept on strict I and O, daily weights due to recent decrease in oral intake and creatinine of 2.7. Patient's diuretics have been held and she is currently on IV fluids to prevent dehydration. 4. History of adenocarcinoma of the lungs status post left upper lobectomy in 2013. Currently stable with no acute issues. 5. History of kidney stones and left ureteral stent placement. No acute issues. Creatinine is 2.7 for now. Managed by nephrology for fluid balance. 6. History of coronary artery disease (CAD). Type 2 non-ST elevation myocardial infarction (HI). No acute ischemic symptoms currently. 7. Hypertension. Patient's pain is uncontrolled. Resume home medications with holding parameters, including hydralazine, Norvasc, Coreg. Pain control with morphine and Percocet as needed. 8. Chronic obstructive pulmonary disease (COPD). At risk for hypercarbic and hypercapnic respiratory failure with opioids being used for pain as needed. Monitor patient's respiratory status and adjust medications accordingly. 9. Dyslipidemia. Resume home medications. 10. Deep venous thrombosis (DVT) prophylaxis. Compression stockings. 11. Diet. Clear liquid diet. 12. CODE STATUS: FULL CODE. MTDD
--- NOTE | 2021-02-24 22:30 | CR ---
NEPHROLOGY CONSULTATION DATE: 02/24/2021 REQUESTING PHYSICIAN: Dr. Katrina Smith CONSULTING PHYSICIAN: Dr. Nicole Ryan REASON FOR CONSULTATION: Management of chronic kidney disease stage 4. CHIEF COMPLAINT: The patient presented to the hospital with abdominal pain. HISTORY OF PRESENT ILLNESS: Nevaeh Saavedra is a 70-year-old female with a past medical history of chronic kidney disease stage 4, history of requiring dialysis for a few weeks a couple months ago. She follows up with myself in the Nephrology Clinic. She has a history of atrophic right kidney and a history of left renal artery stenosis requiring a renal artery stent, and a history of a left sided renal stone as well, requiring stone removal and ureteral stent placement. The stent has been removed. Chronic hypertension, chronic combined systolic and diastolic congestive heart failure. She presented to the hospital with progressive abdominal pain and CAT scan showed sigmoid colitis and diverticulitis. She is being admitted under the Hospitalist Service. Nephrology Service was also called for further help in the management of this patient. Her creatinine on arrival was 2.7. PAST MEDICAL HISTORY: The patient's past medical history is significant for: 1. Chronic kidney disease stage 4. 2. History of atrophic right kidney majority of the function is from the left kidney. 3. History of left renal artery stenosis. 4. Status post left renal artery stent. 5. History of nephrolithiasis. 6. Chronic combined systolic and diastolic congestive heart failure. 7. Hypertension. 8. Hyperlipidemia. 9. Secondary hyperparathyroidism. PAST SURGICAL HISTORY: The patient's past surgical history is significant for: 1. Status post left renal artery stent. 2. Status post stone removal from the left kidney and ureteral stent which was later on removed. FAMILY HISTORY: No significant family history of end-stage renal disease requiring hemodialysis. SOCIAL HISTORY: The patient denies any illicit drug abuse or alcohol abuse. REVIEW OF SYSTEMS: Constitutional: She denies any fevers or chills. Eyes: She denies any blurry vision, double vision. ENT: She denies any dysphagia or odynophagia. Cardiovascular: She denies any chest pain or palpitations. Respiratory: She denies any shortness of breath. Gastrointestinal: She reports abdominal pain. Genitourinary: She denies any dysuria or hematuria. Musculoskeletal: She denies any muscle aches and pains. Hematological/Oncological: She denies any easy bleeding or bruising. ROD AND TUBE STRAIGHTENER: She denies any strokes or seizures. SKIN: She denies any rashes or ulcers. All other review of systems is negative. ALLERGIES: No known drug allergies. PHYSICAL EXAMINATION: GENERAL APPEARANCE: The patient is awake, alert, oriented x3. VITAL SIGNS: Temperature is 97.7 degrees Fahrenheit, blood pressure 142/60, pulse is 64, respiratory rate of 16, saturating 97% on room air. INTAKE AND OUTPUT: There is no urine output recorded so far. HEAD AND NECK: Extraocular muscles intact. Pupils are equally round and reactive to light. Mucous membranes are moist. Neck is supple. There is no jugular venous distention. CARDIOVASCULAR: S1, S2, regular rate. EXTREMITIES: No edema of the bilateral lower extremities. RESPIRATORY: Chest is clear to auscultation bilaterally. Bilaterally currently no rales or rhonchi. ABDOMEN: Soft, mildly tender to deep palpation in the left lower quadrant and right lower quadrant. Positive bowel sounds. GENITOURINARY: Bladder is not palpable. MUSCULOSKELETAL: No clubbing, no cyanosis. Pulses are 2+. ROD AND TUBE STRAIGHTENER: No focal deficits. Power is 5/5 in all extremities. LAB REVIEW: CBC showed a WBC count of 14.4, hemoglobin 12.2, platelet count 318. Urinalysis showed it was turbid with 1+ protein, too numerous to count WBCs. BMP showed sodium 137, potassium 3.7, chloride 102, bicarbonate 26, BUN 46, creatinine is 2.7. Microbiology - respiratory viral panel is negative. Blood culture and urine culture is pending. IMAGING: CAT scan of the abdomen and pelvis was done which showed acute sigmoid diverticulitis. Chest x-ray was done which showed no acute cardiopulmonary process. CURRENT INPATIENT MEDICATIONS: The patient's medications include: 1. Normal saline bolus. 2. Zosyn 2.25 grams IV q. 8 hourly. 3. Allopurinol 100 mg p.o. daily. 4. Amlodipine 7.5 mg p.o. daily. 5. Aspirin 81 mg p.o. daily. 6. Lipitor 40 mg daily. 7. Calcitriol 0.25 mcg p.o. Monday, Monday, Monday. 8. Coreg 12.5 mg p.o. twice daily. 9. Clonidine patch 0.2 mg. 10. Plavix 75 mg p.o. daily. 11. Senokot one tablet p.o. p.r.n. 12. Colace 100 mg p.o. twice daily. 13. Hydralazine 50 mg p.o. four times daily. 14. Isosorbide 60 mg p.o. daily. 15. Zofran p.r.n. ASSESSMENT AND PLAN: 1. Chronic kidney disease stage 4 the patient's renal function is almost close to baseline. She recently had left upper arm AV fistula placed. No urgent need of dialysis at this time. Electrolytes are within the acceptable range. 2. Urinary tract infection - The patient has cloudy urine with too numerous to count WBCs. She is already being given Zosyn which should cover a urinary tract infection as well. 3. Hypertension with history of renal artery stenosis - The patient has a history of left renal artery stent. Continue current dose of Amlodipine, Coreg, Clonidine, Hydralazine and Isosorbide. 4. Chronic gout secondary to chronic kidney disease - continue current dose of Allopurinol 100 mg p.o. daily. 5. Secondary hyperparathyroidism - continue current dose of Calcitriol 0.25 mcg p.o. Monday, Monday, Monday. 6. Coronary artery disease - continue current dose of Aspirin, Plavix and Lipitor along with beta blockers. 7. Acute diverticulitis - The patient is currently getting IV Zosyn. Clinically she is getting better. No need of IV fluid hydration at this time.
[2021-02-25] MEDS: PIPERACILLIN/TAZOBACTAM SOD 2.25 GM in D5W MINI-BAG PLUS 50 ML IV SCH ×4 (00:03→23:09)
[2021-02-25 06:00] VITALS: BP 136/63
[2021-02-25] MEDS: allopurinoL 100 MG TAB PO SCH (08:43)
[2021-02-25] MEDS: CLOPIDOGREL 75 MG TAB PO SCH (08:43)
[2021-02-25] MEDS: ISOSORBIDE MON. (IMDUR) 60 MG XR TAB PO SCH (08:43)
[2021-02-25] MEDS: ASPIRIN 81MG ENTERIC TABLET PO SCH (08:43)
[2021-02-25] MEDS: **hydrALAZINE** 50 MG TAB PO SCH ×5 (08:43→20:56)
[2021-02-25] MEDS: DOCUSATE SODIUM 100MG CAPSULE PO SCH ×2 (08:43→20:56)
[2021-02-25] MEDS: CARVedilol 12.5 MG TAB PO SCH ×2 (08:48→20:56)
[2021-02-25 08:58] LABS: BASO # 0.1 10^3/uL (0.0-0.2); BASO % 0.7 % (0.0-1.0); EOS # 0.3 10^3/uL (0.0-0.5); EOS % 2.9 % (0.0-3.0); HEMATOCRIT 31.3 % (36.0-47.0); LYMPH # 1.3 10^3/uL (1.5-5.0); LYMPH % 14.8 % (24.0-44.0); MEAN CORPUSCULAR HEMOGLOBIN 29.3 pg (27.0-33.0); MEAN CORPUSCULAR HGB CONC 31.9 g/dl (32.0-36.5); MEAN CORPUSCULAR VOLUME 91.8 fl (80.0-96.0); MONO # 0.8 10^3/uL (0.0-0.8); NEUTROPHILS # 6.3 10^3/uL (1.5-8.5); NEUTROPHILS % 71.9 % (36.0-66.0); PLATELET COUNT, AUTOMATED 253 10^3/uL (150-450); RED BLOOD COUNT 3.41 10^6/uL (4.00-5.40); WHITE BLOOD COUNT 8.7 10^3/uL (4.0-10.0)
[2021-02-25] MEDS ORDERED: cloNIDine HCL 0.2 MG/24 HR PATCH TD SCH (09:00)
[2021-02-25 09:18] LABS: CALCIUM LEVEL 8.8 MG/DL (8.8-10.2); CREATININE FOR GFR 2.08 MG/DL (0.55-1.30); GLOMERULAR FILTRATION RATE 25.1 (>39); POTASSIUM SERUM 3.3 MEQ/L (3.5-5.1)
[2021-02-25] MEDS ORDERED: POTASSIUM CHLORIDE 10 MEQ SR TABLET PO ONE (10:00)
[2021-02-25 13:54] VITALS: BP 154/69
--- NOTE | 2021-02-25 15:40 | IPN ---
PROGRESS NOTE DATE: 02/25/2021 SUBJECTIVE: Patient denies nausea, vomiting, fever or chills overnight. Denies any shortness of breath. She received 1 liter of intravenous (IV) fluid overnight. She is anxious to start eating. She tolerated her liquid diet and has no pain at the moment. OBJECTIVE: VITAL SIGNS: Temperature 97.9, pulse 70, respiratory rate 18, blood pressure 116/59, 96% on room air. GENERAL: Awake, alert and oriented to person, place and time, answering questions appropriately. HEENT: No jugular venous distention (JVD) or thyromegaly. Mucous membranes are moist. LUNGS: Clear to auscultation. No wheezing or rales. HEART: S1, S2. Sinus rhythm. ABDOMEN: Soft. Slightly tender bilateral lower quadrants. No rebound or guarding. Positive bowel sounds. EXTREMITIES: No cyanosis or clubbing. LABORATORY DATA: Laboratory data, microbiology and imaging studies have all been reviewed. ASSESSMENT: This is a 70-year-old female with a history of end-stage renal disease, previously had dialysis from January to February 2020, currently not dialysis dependent, still urinating, left arteriovenous (AV) fistula has been placed, history of congestive heart failure, systolic dysfunction, ejection fraction (EF) of 25%, chronic obstructive pulmonary disease (COPD), presents to the emergency room with acute onset of bilateral lower quadrant abdominal pain described as cramping, found to have diverticulitis or sigmoid colitis without bowel perforation or abscess. Patient had an abnormal urinalysis, but was asymptomatic. She has been given intravenous Zosyn. CURRENT ISSUES: 1. Acute diverticulitis. 2. Chronic kidney disease stage IV with upper arm arteriovenous (AV) fistula. 3. Cloudy urine, but asymptomatic bacteruria, on Zosyn day #2. 4. History of hypertension with renal artery stenosis and left renal artery stent. 5. Gout due to chronic kidney disease. 6. Secondary hyperparathyroidism. 7. Coronary artery disease. PLAN: Patient is currently on IV Zosyn day #2, renally dosed by pharmacy. She is resumed on all her home medications, including isosorbide, Plavix, clonidine, aspirin, allopurinol, Colace, Coreg, Lipitor, Norvasc, calcitriol, hydralazine and Senokot. Patient will be advanced with a low residue diet, if tolerated. May be discharged home soon and changed to oral antibiotics with Augmentin. Awaiting the urine culture results as well. SATURNINO
[2021-02-25] MEDS: ATORVASTATIN 20 MG TAB PO SCH (20:55)
[2021-02-25] MEDS: amLODIPine 5 MG TAB PO SCH (20:56)
[2021-02-25 22:00] VITALS: BP 150/60
--- NOTE | 2021-02-25 23:54 | IPN ---
NEPHROLOGY PROGRESS NOTE DATE: 02/25/2021 SUBJECTIVE: The patient was seen and examined at the bedside today morning. She reports that she is feeling much better today. She denies any abdominal pain or abdominal cramps. She denies any dysuria. Renal function is stable. Her leukocytosis is getting better now. OBJECTIVE: VITAL SIGNS: Temperature is 98 degrees Fahrenheit, blood pressure 114/50, pulse is 69, respiratory rate of 20, saturating 96% on room air. INTAKE AND OUTPUT: Urine output recorded as 1,200 mL since overnight. Weight in the bed scale was 57.5 kg yesterday. PHYSICAL EXAMINATION: GENERAL APPEARANCE: The patient is awake, alert, oriented x3, laying in bed in no apparent distress. HEAD AND NECK: Extraocular muscles intact. Pupils are equally round and reactive to light. Mucous membranes are moist. Neck is supple. There is no jugular venous distention. CARDIOVASCULAR: S1, S2, regular rate. EXTREMITIES: No edema of the bilateral lower extremities. RESPIRATORY: Chest is clear to auscultation bilaterally. Bilaterally currently no rales or rhonchi. ABDOMEN: Soft, positive bowel sounds, nontender, no organomegaly. MUSCULOSKELETAL: No clubbing or cyanosis. She has a left upper arm AV fistula. SLITTER CUT OFF OPERATOR: No focal deficits. Power is 5/5 in all extremities. LAB REVIEW: CBC showed a WBC count of 8.7, hemoglobin is 10, platelet count 253. BMP showed sodium of 139, potassium 3.3, chloride 108, bicarbonate 25, BUN 31, creatinine is 2, GFR of 25. Microbiology blood cultures are negative so far. Urine culture is pending. CURRENT INPATIENT MEDICATIONS: The patient's medications were all reviewed by myself. She continues to be on IV Zosyn. Hydralazine has not been given because of holding parameters. I am going to decrease the dose to 25 mg p.o. three times daily. ASSESSMENT AND PLAN: 1. Chronic kidney disease stage 4 the patient's renal function is stable, close to baseline. She just had an AV fistula created in the left arm. There is no urgent need of hemodialysis. 2. Urinary tract infection - continue the Zosyn at this time. 3. Hypertension with history of left sided renal artery stenosis, status post left renal artery stent. Blood pressures are soft. Hydralazine is being decreased. Continue current dose of Coreg, Clonidine, Amlodipine and Isosorbide. 4. Chronic gout - continue current dose of Allopurinol. 5. Acute diverticulitis - The patient's symptoms are getting better with IV fluid hydration and IV antibiotics. 6. Coronary artery disease and left renal artery stent - continue Aspirin, Plavix and Lipitor along with the beta timmy. 7. Hypokalemia - The patient was given a dose of potassium chloride 20 mEq p.o. in the morning. 8. Disposition the patient's renal function is stable. Her symptoms are getting better. She would hopefully be discharged over the next 24-48 hours.
[2021-02-26 06:00] VITALS: BP 166/74
[2021-02-26] MEDS ORDERED: AUGM875T28 PO (08:40)
[2021-02-26] MEDS: PIPERACILLIN/TAZOBACTAM SOD 2.25 GM in D5W MINI-BAG PLUS 50 ML IV SCH (08:41)
[2021-02-26] MEDS: CALCITRIOL 0.25 MCG CAP (S0169) PO SCH (08:42)
[2021-02-26] MEDS: ASPIRIN 81MG ENTERIC TABLET PO SCH (08:42)
[2021-02-26] MEDS: CLOPIDOGREL 75 MG TAB PO SCH (08:43)
[2021-02-26] MEDS: allopurinoL 100 MG TAB PO SCH (08:43)
[2021-02-26] MEDS: DOCUSATE SODIUM 100MG CAPSULE PO SCH (08:43)
[2021-02-26] MEDS: CARVedilol 12.5 MG TAB PO SCH (08:43)
[2021-02-26] MEDS ORDERED: BACI1CAP PO (08:43)
[2021-02-26 08:44] VITALS: BP 150/72
[2021-02-26] MEDS: ISOSORBIDE MON. (IMDUR) 60 MG XR TAB PO SCH (08:44)
[2021-02-26] MEDS ORDERED: **hydrALAZINE HCL** 25 MG TAB PO SCH (09:00)
[2021-02-26] MEDS ORDERED: MIRA3350 PO (09:00)
[2021-02-26] MEDS ORDERED: DULC10SU2 PR (09:00)
== END 2021-02-26 11:00 | disposition home or self-care (01) | DRG 392 ==
LOC: M ED 07:27 → M ED INP 10:03 → ENRESERV 12:42 → M MSPAV 14:23
PROVIDERS: ADMIT General Practice; ATTEND General Practice
DX: K57.32 Diverticulitis of large intestine without perforation or abscess without bleeding (principal); N18.4 Chronic kidney disease, stage 4 (severe); N25.81 Secondary hyperparathyroidism of renal origin; I50.22 Chronic systolic (congestive) heart failure; I13.0 Hypertensive heart and chronic kidney disease with heart failure and stage 1 through stage 4 chronic kidney disease, or unspecified chronic kidney disease; N39.0 Urinary tract infection, site not specified; J44.9 Chronic obstructive pulmonary disease, unspecified; I25.2 Old myocardial infarction; E78.5 Hyperlipidemia, unspecified; Z85.118 Personal history of other malignant neoplasm of bronchus and lung; Z79.82 Long term (current) use of aspirin; Z79.899 Other long term (current) drug therapy; Z87.891 Personal history of nicotine dependence; Z87.442 Personal history of urinary calculi; I25.10 Atherosclerotic heart disease of native coronary artery without angina pectoris; M10.30 Gout due to renal impairment, unspecified site; B96.29 Other Escherichia coli [E. coli] as the cause of diseases classified elsewhere

== ENCOUNTER 2021-03-25 23:30 | Emergency (ER) | payer MEDICARE ==
[~2021-03-25] VITALS: Ht 160 cm; Wt 51.9 kg
[~2021-03-25 23:30] MED LIST changes: +ASPI81TA26 PO; +CLON0.2D6 TD; +COLA100C5 PO; +DULC10SU2 PR; +MIRA3350 PO
[2021-03-26 00:31] LABS: BASO # 0.1 10^3/uL (0.0-0.2); BASO % 1.1 % (0.0-1.0); EOS # 0.4 10^3/uL (0.0-0.5); EOS % 3.9 % (0.0-3.0); HEMATOCRIT 36.2 % (36.0-47.0); HEMOGLOBIN 11.7 g/dl (12.0-15.5); LYMPH # 1.5 10^3/uL (1.5-5.0); LYMPH % 15.9 % (24.0-44.0); MEAN CORPUSCULAR HEMOGLOBIN 29.5 pg (27.0-33.0); MEAN CORPUSCULAR HGB CONC 32.3 g/dl (32.0-36.5); MEAN CORPUSCULAR VOLUME 91.2 fl (80.0-96.0); MONO # 0.7 10^3/uL (0.0-0.8); MONO % 7.4 % (2.0-8.0); NEUTROPHILS # 6.5 10^3/uL (1.5-8.5); NEUTROPHILS % 70.6 % (36.0-66.0); PLATELET COUNT, AUTOMATED 272 10^3/uL (150-450); RED BLOOD COUNT 3.97 10^6/uL (4.00-5.40); WHITE BLOOD COUNT 9.2 10^3/uL (4.0-10.0)
[2021-03-26 01:25] LABS: ALBUMIN 3.9 GM/DL (3.2-5.2); ALT/SGPT 17 U/L (12-78); BILIRUBIN,DIRECT < 0.1 MG/DL (0.0-0.2); BILIRUBIN,TOTAL 0.3 MG/DL (0.2-1.0); BLOOD UREA NITROGEN 38 MG/DL (7-18); CALCIUM LEVEL 8.8 MG/DL (8.8-10.2); CARBON DIOXIDE LEVEL 26 MEQ/L (21-32); CHLORIDE LEVEL 105 MEQ/L (98-107); CK-MB VALUE MASS 1.4 NG/ML (<3.6); CPK CREATINE PHOSPHOKINASE 66 U/L (26-192); CREATININE FOR GFR 2.04 MG/DL (0.55-1.30); GLOMERULAR FILTRATION RATE 25.6 (>39); GLUCOSE, FASTING 97 MG/DL (70-100); MB/CK RELATIVE INDEX 2.12 (< OR =4); NT-PRO BNP 3037 PG/ML (<125); POTASSIUM SERUM 3.7 MEQ/L (3.5-5.1); SODIUM LEVEL 137 MEQ/L (136-145); TOTAL PROTEIN 7.1 GM/DL (6.4-8.2); TROPONIN I < 0.02 NG/ML (< 0.10)
--- NOTE | 2021-03-26 02:19 | REPVR ---
PROCEDURE INFORMATION: Exam: US Duplex Lower Extremity Veins, Bilateral Exam date and time: 03/26/2021 1:08 AM Age: 70 years old Clinical indication: Edema, localized; Lower extremity, bilateral; Additional info: Lower extremity edema right greater than left TECHNIQUE: Imaging protocol: Real-time duplex ultrasound of the extremities with 2-D diaz scale, color Doppler flow and spectral waveform analysis with image documentation. Complete exam focused on the bilateral lower extremity veins. COMPARISON: RENAL US 01/22/2020 9:46 AM FINDINGS: Right deep veins: Unremarkable. The common femoral, femoral, proximal profunda femoral and popliteal veins are patent without thrombus. Normal Doppler waveforms. Normal compressibility and/or augmentation response. Right superficial veins: Saphenofemoral junction is patent without thrombus. Left deep veins: Unremarkable. The common femoral, femoral, proximal profunda femoral and popliteal veins are patent without thrombus. Normal Doppler waveforms. Normal compressibility and/or augmentation response. Left superficial veins: Saphenofemoral junction is patent without thrombus. Soft tissues: Unremarkable. IMPRESSION: Negative bilateral lower extremity venous duplex exam without evidence of deep venous thrombosis. Electronically signed by: Erick Vasquez On 03/26/2021 02:19:12 AM
--- NOTE | 2021-03-26 02:20 | REPVR ---
PROCEDURE INFORMATION: Exam: XR Chest Exam date and time: 03/26/2021 1:39 AM Age: 70 years old Clinical indication: Other: Chest pain TECHNIQUE: Imaging protocol: XR of the chest. Views: 1 view. COMPARISON: CR Chest, 1 view 02/24/2021 9:07 AM FINDINGS: Lungs: The lungs are unchanged. There are no interval infiltrates. Pleural spaces: Unremarkable. No pleural effusion. No pneumothorax. Heart/Mediastinum: The heart and mediastinum are unchanged. Bones/joints: Unremarkable. IMPRESSION: Stable chest since 02/24/2021. No acute interval process is identified. Electronically signed by: Erick Vasquez On 03/26/2021 02:19:53 AM
[2021-03-26 04:47] VITALS: BP 160/67
--- NOTE | 2021-03-26 16:57 | ECGEPIP ---
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
== END 2021-03-26 05:06 | disposition home or self-care (01) ==
LOC: M ED 23:30
DX: R22.43 Localized swelling, mass and lump, lower limb, bilateral (principal); I13.0 Hypertensive heart and chronic kidney disease with heart failure and stage 1 through stage 4 chronic kidney disease, or unspecified chronic kidney disease; J44.9 Chronic obstructive pulmonary disease, unspecified; Z87.891 Personal history of nicotine dependence; Z79.899 Other long term (current) drug therapy; Z79.82 Long term (current) use of aspirin

== ENCOUNTER → 2021-04-14 | Outpatient (REF) | payer MEDICARE | LOC: M LAB REF 17:40 | PROVIDERS: ATTEND Internal Medicine Nephrology | DX: N18.4 Chronic kidney disease, stage 4 (severe) (principal) ==

== ENCOUNTER → 2021-04-27 | Outpatient (CLI) | payer MEDICARE ==
--- NOTE | 2021-04-27 14:25 | REP ---
INDICATION: ESRD s/p left avf, eval flow and size. COMPARISON: None. TECHNIQUE: 2D ultrasound and duplex Doppler was performed FINDINGS: A left brachial artery to basilic vein anastomosis is present. The brachial artery shows a velocity of 75 m/sec 1 cm proximal to the anastomosis with monophasic flow and low resistance. The basilic vein at the anastomosis measures 3.3 mm the flow velocity at the anastomosis is 398 cm per 2nd. 1 cm distal to the anastomosis the brachial vein measures 5.4 mm. 4 cm above the anastomosis the basilic vein measures 8.1 x 7.3 mm with velocity of 123 centimeters/second. 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 <Electronically signed by David Gaines > 04/27/21 [id number]
== END ==
LOC: M RAD 12:54
PROVIDERS: ATTEND Surgery Vascular Surgery
DX: I77.1 Stricture of artery (principal); N18.6 End stage renal disease

== ENCOUNTER → 2021-06-18 | Outpatient (REF) | payer MEDICARE ==
[~2021-06-18] MED LIST changes: +SPIR-10
[2021-06-18 14:17] LABS: CHOLESTEROL RISK RATIO 3.925 (<5); FREE T4 1.17 NG/DL (0.76-1.46); THYROID STIMULATING HORMONE 0.732 uIU/ML (0.358-3.740)
== END ==
LOC: M LAB REF 13:28
PROVIDERS: ATTEND Nurse Practitioner Family
DX: E78.5 Hyperlipidemia, unspecified (principal); N18.32 Chronic kidney disease, stage 3b; Z13.1 Encounter for screening for diabetes mellitus; Z79.899 Other long term (current) drug therapy

== ENCOUNTER → 2021-06-18 | Outpatient (REF) | payer MEDICARE | LOC: M LAB REF 13:27 | PROVIDERS: ATTEND Internal Medicine Nephrology | DX: N18.32 Chronic kidney disease, stage 3b (principal) ==

== ENCOUNTER → 2021-07-06 | Outpatient (CLI) | payer MEDICARE ==
[~2021-07-06] MED LIST changes: +ISOVUE-300 61% 50ML VIAL As Ordered ONE; +LIDOCAINE 1% MDV 20ML VIAL As Ordered ONE; +MIDAZOLAM INJ 2MG/2ML VIAL (J2250 PER 1MG) As Ordered ONE; +NS 250 ML IV ONE; +fentaNYL 100 MCG/2 ML INJECTION (J3010) As Ordered ONE
--- NOTE | 2021-07-06 13:39 | ROOPDOC ---
[facility] Report Of Operation Report of Operation DATE OF PROCEDURE: 07/06/21 PREPROCEDURE DIAGNOSES: Left AV Fistula Stenosis POSTPROCEDURE DIAGNOSES: Left AV Fistula Stenosis PROCEDURE PERFORMED: 1. Left arm Basilic vein Angioplasty 2. Ultrasound guided percutaneous entry SURGEON: Onur Meza MD ANESTHESIA: MAC and local ESTIMATED BLOOD LOSS: Approximately 3 mL COMPLICATIONS: None DESCRIPTION OF PROCEDURE: The patient was brought to the IR suite and placed on the IR table in the supine position. After adequate anesthesia was administered, the patients chest and left arm were prepped and draped in standard surgical fashion. Under ultrasound guidance, percutaneous entry into the AV Fistula was made with a micropuncture needle in the upper arm. Over guidewire exchange the microsheath was introduced and digital subtraction angiography was performed and revealed a patent brachio- basilic AV fistula with stenosis at the anastomosis and in the mid segment and good outflow into the central venous system. On closer examination of the anastomosis, the anastomosis seemed to be to the radial artery with a S-shaped pattern causing a narrowing. No intervention was performed and the sheath was removed. A separate puncture was made under ultrasound guidance just proximal to the anastomosis and a microsheath was placed. Over guidewire exchange, the microsheath was exchanged for a 7 Fr sheath and a 0.035 Glidewire was placed in the SVC. Angioplasty across the mid stenotic segment was performed with a Medtronic 7 mm x 80 mm and 7 mm x 60 mm drug-coated balloons. Post-insufflation angiography revealed 2 areas of stenosis. Angioplasty was performed with a Fifty Six 7mm x 100mm balloon and repeat angiography revealed excellent flow through the fistula. The wire and sheath were removed and the puncture site was closed with a Prolene suture. Sterile dressings were then placed. The patient had a palpable radial pulse and a good thrill in the AV fistula. ONUR MEZA MD Jul 06, 2021 13:39
[2021-07-06 14:00] VITALS: BP_DIAS 144
== END ==
LOC: M IRPRO 10:55
PROVIDERS: ATTEND Surgery Vascular Surgery
DX: T82.590A Other mechanical complication of surgically created arteriovenous fistula, initial encounter (principal); N18.4 Chronic kidney disease, stage 4 (severe); E79.0 Hyperuricemia without signs of inflammatory arthritis and tophaceous disease; I15.0 Renovascular hypertension; I50.22 Chronic systolic (congestive) heart failure; I70.1 Atherosclerosis of renal artery; N25.81 Secondary hyperparathyroidism of renal origin; X58.XXXA Exposure to other specified factors, initial encounter; Z99.2 Dependence on renal dialysis
CPT/HCPCS: 36902; 99152; 99153; C1725; C1769; C1894; C2623; J1644; J2250; J3010; Q9967

== ENCOUNTER → 2021-09-15 | Outpatient (CLI) | payer MEDICARE ==
[~2021-09-15] MED LIST changes: -ISOVUE-300 61% 50ML VIAL As Ordered ONE; -LIDOCAINE 1% MDV 20ML VIAL As Ordered ONE; -MIDAZOLAM INJ 2MG/2ML VIAL (J2250 PER 1MG) As Ordered ONE; -NS 250 ML IV ONE; -fentaNYL 100 MCG/2 ML INJECTION (J3010) As Ordered ONE
--- NOTE | 2021-09-15 15:17 | REP ---
INDICATION: CALCULUS OF KIDNEY. COMPARISON: 01/20/2021 FINDINGS: KUB shows the intestinal gas pattern to be nonspecific. The organ silhouettes insofar as delineated are unremarkable. There is no evidence of free intraperitoneal air. There are abdominal calcifications status quo. There is no change in the intestinal gas pattern. Moderate stool seen throughout the colon. There are bilateral pelvic phleboliths. The bones are demineralized. IMPRESSION: No significant change. There is evidence of bilateral nephrolithiasis status quo. There is an additional calcification in the right upper quadrant most consistent with cholelithiasis. Consider follow-up with noncontrast enhanced stone protocol CT if clinically relevant. <Electronically signed by Ace Betancourt > 09/15/21 [id number]
== END ==
LOC: M PLALAB 14:20
PROVIDERS: ATTEND Urology
DX: N20.0 Calculus of kidney (principal)

== ENCOUNTER → 2021-10-29 | Outpatient (CLI) | payer MEDICARE ==
[2021-10-29 15:32] LABS: BASO # 0.1 10^3/uL (0.0-0.2); BASO % 0.7 % (0.0-1.0); EOS # 0.2 10^3/uL (0.0-0.5); EOS % 1.7 % (0.0-3.0); HEMATOCRIT 38.2 % (36.0-47.0); HEMOGLOBIN 12.2 g/dl (12.0-15.5); LYMPH # 1.5 10^3/uL (1.5-5.0); LYMPH % 15.9 % (24.0-44.0); MEAN CORPUSCULAR HGB CONC 31.9 g/dl (32.0-36.5); MONO % 10.4 % (2.0-8.0); NEUTROPHILS # 6.6 10^3/uL (1.5-8.5); NEUTROPHILS % 70.3 % (36.0-66.0); PLATELET COUNT, AUTOMATED 329 10^3/uL (150-450); WHITE BLOOD COUNT 9.4 10^3/uL (4.0-10.0)
[2021-10-29 15:58] LABS: HEMOGLOBIN A1c 5.9 %
[2021-10-29 16:03] LABS: CHOLESTEROL RISK RATIO 4.222 (<5); FREE T4 1.23 NG/DL (0.76-1.46); THYROID STIMULATING HORMONE 0.525 uIU/ML (0.358-3.740)
== END ==
LOC: M PLALAB 13:38
PROVIDERS: ATTEND Nurse Practitioner Family
DX: I25.10 Atherosclerotic heart disease of native coronary artery without angina pectoris (principal); I50.22 Chronic systolic (congestive) heart failure; E78.5 Hyperlipidemia, unspecified; Z13.1 Encounter for screening for diabetes mellitus; Z79.899 Other long term (current) drug therapy

== ENCOUNTER → 2021-12-02 | Outpatient (REF) | payer MEDICARE, MEDICAID | LOC: M LAB REF 16:46 | PROVIDERS: ATTEND Internal Medicine Nephrology | DX: R82.81 Pyuria (principal) ==

== ENCOUNTER → 2022-06-06 | Outpatient (REF) | payer MEDICARE, MEDICAID ==
[2022-06-06 18:10] LABS: HEMOGLOBIN A1c 6.1 %
[2022-06-06 18:25] LABS: BILIRUBIN,TOTAL 0.4 MG/DL (0.2-1.0); CALCIUM LEVEL 9.1 MG/DL (8.8-10.2); CREATININE FOR GFR 1.93 MG/DL (0.55-1.30); GLOMERULAR FILTRATION RATE 27.2 (>39); POTASSIUM SERUM 3.8 MEQ/L (3.5-5.1)
[2022-06-06 18:26] LABS: ALBUMIN 3.9 GM/DL (3.2-5.2); CHOLESTEROL RISK RATIO 3.589 (<5)
== END ==
LOC: M LAB REF 16:45
PROVIDERS: ATTEND Nurse Practitioner Family
DX: I11.0 Hypertensive heart disease with heart failure (principal); I50.22 Chronic systolic (congestive) heart failure; E78.5 Hyperlipidemia, unspecified; R73.09 Other abnormal glucose

== ENCOUNTER → 2023-01-12 | Outpatient (CLI) | payer MEDICARE, MEDICAID | LOC: M RAD 14:23 | PROVIDERS: ATTEND Physician Assistant | DX: M25.532 Pain in left wrist (principal); R09.89 Other specified symptoms and signs involving the circulatory and respiratory systems; M79.602 Pain in left arm ==

== ENCOUNTER → 2023-03-09 | Outpatient (CLI) | payer MEDICARE, MEDICAID ==
[2023-03-09 15:09] LABS: ALBUMIN 3.6 G/DL (3.2-5.2); BILIRUBIN,TOTAL 0.4 MG/DL (0.3-1.2); CALCIUM LEVEL 9.7 MG/DL (8.3-10.6); CHOLESTEROL RISK RATIO 3.92 (<5); CREATININE FOR GFR 1.96 MG/DL (0.55-1.30); GLOMERULAR FILTRATION RATE 26.7 (>39); HDL CHOLESTEROL 33.1 MG/DL (>40); LDL CHOLESTEROL 72.9 MG/DL (<100); NON-HDL-C 96.9 MG/DL; POTASSIUM SERUM 3.6 MMOL/L (3.5-5.1); TOTAL PROTEIN 6.3 G/DL (5.7-8.2)
[2023-03-09 15:10] LABS: FREE T4 1.15 NG/DL (0.89-1.76)
[2023-03-09 15:11] LABS: THYROID STIMULATING HORMONE 0.681 uIU/ML (0.55-4.78)
[2023-03-09 15:12] LABS: BASO # 0.1 10^3/uL (0.0-0.2); BASO % 0.8 % (0.0-1.0); EOS # 0.1 10^3/uL (0.0-0.5); EOS % 1.5 % (0.0-3.0); HEMATOCRIT 36.3 % (36.0-47.0); HEMOGLOBIN 11.7 g/dl (12.0-15.5); LYMPH # 1.3 10^3/uL (1.5-5.0); LYMPH % 15.2 % (24.0-44.0); MEAN CORPUSCULAR HEMOGLOBIN 30.2 pg (27.0-33.0); MEAN CORPUSCULAR HGB CONC 32.2 g/dl (32.0-36.5); MEAN CORPUSCULAR VOLUME 93.6 fl (80.0-96.0); MONO # 0.7 10^3/uL (0.0-0.8); MONO % 7.8 % (2.0-8.0); NEUTROPHILS # 6.3 10^3/uL (1.5-8.5); NEUTROPHILS % 73.4 % (36.0-66.0); PLATELET COUNT, AUTOMATED 322 10^3/uL (150-450); RED BLOOD COUNT 3.88 10^6/uL (4.00-5.40); WHITE BLOOD COUNT 8.6 10^3/uL (4.0-10.0)
[2023-03-09 15:24] LABS: HEMOGLOBIN A1c 5.9 % (4.0-6.0)
== END ==
LOC: M PLALAB 10:28
PROVIDERS: ATTEND Nurse Practitioner Family
DX: I10 Essential (primary) hypertension (principal); E78.5 Hyperlipidemia, unspecified; I50.22 Chronic systolic (congestive) heart failure; R73.09 Other abnormal glucose

== ENCOUNTER → 2023-08-08 | Outpatient (CLI) | payer MEDICARE, MEDICAID ==
[~2023-08-08] MED LIST changes: +HEPARIN 1,000UNITS/ML 10ML VIAL (FOR RADIOLOGY & DIALYSIS ONLY) As Ordered ONE; +ISOVUE-300 61% 100ML VIAL As Ordered ONE; +LIDOCAINE 1% MDV 20ML VIAL As Ordered ONE; +MIDAZOLAM INJ 2MG/2ML VIAL As Ordered ONE; +ceFAZolin 2 GM/D5W 50 ML IV BAG As Ordered ONE; +ceFAZolin SOD 2 GM in IV 1 EA IV ONE; +fentaNYL 100 MCG/2 ML INJECTION As Ordered ONE
[2023-08-08 09:30] VITALS: TEMP 98
[2023-08-08 09:41] LABS: HEMATOCRIT 35.9 % (36.0-47.0); HEMOGLOBIN 11.8 g/dl (12.0-15.5); MEAN CORPUSCULAR HEMOGLOBIN 29.6 pg (27.0-33.0); MEAN CORPUSCULAR HGB CONC 32.9 g/dl (32.0-36.5); MEAN CORPUSCULAR VOLUME 90.2 fl (80.0-96.0); PLATELET COUNT, AUTOMATED 334 10^3/uL (150-450); RED BLOOD COUNT 3.98 10^6/uL (4.00-5.40); WHITE BLOOD COUNT 11.2 10^3/uL (4.0-10.0)
[2023-08-08 09:54] LABS: INR 1.09; PROTHROMBIN TIME 13.8 SECONDS (12.5-14.5)
[2023-08-08 10:17] LABS: POTASSIUM SERUM 3.5 MMOL/L (3.5-5.1)
[2023-08-08 10:20] LABS: CALCIUM LEVEL 9.4 MG/DL (8.3-10.6); CREATININE FOR GFR 2.05 MG/DL (0.55-1.30); GLOMERULAR FILTRATION RATE 25.3 (>39); MAGNESIUM LEVEL 2.2 MG/DL (1.8-2.4)
[2023-08-08 12:25] VITALS: BP 150/66; O2SAT 98
== END ==
LOC: M IRPRO 08:45
PROVIDERS: ATTEND Surgery Vascular Surgery
DX: N18.4 Chronic kidney disease, stage 4 (severe) (principal); T82.858A Stenosis of other vascular prosthetic devices, implants and grafts, initial encounter
CPT/HCPCS: 36415; 36901; 80048; 83735; 85027; 85610; 85730; 86850; 86900; 86901; 99152; J0690; J2250; J3010; Q9967

== ENCOUNTER → 2023-08-08 | Outpatient (CLI) | payer MEDICARE, MEDICAID ==
[~2023-08-08] MED LIST changes: -HEPARIN 1,000UNITS/ML 10ML VIAL (FOR RADIOLOGY & DIALYSIS ONLY) As Ordered ONE; -ISOVUE-300 61% 100ML VIAL As Ordered ONE; -LIDOCAINE 1% MDV 20ML VIAL As Ordered ONE; -MIDAZOLAM INJ 2MG/2ML VIAL As Ordered ONE; -ceFAZolin 2 GM/D5W 50 ML IV BAG As Ordered ONE; -ceFAZolin SOD 2 GM in IV 1 EA IV ONE; -fentaNYL 100 MCG/2 ML INJECTION As Ordered ONE
[2023-08-08 09:41] LABS: BASO # 0.1 10^3/uL (0.0-0.2); BASO % 0.5 % (0.0-1.0); EOS # 0.1 10^3/uL (0.0-0.5); HEMATOCRIT 35.6 % (36.0-47.0); HEMOGLOBIN 11.7 g/dl (12.0-15.5); LYMPH % 9.1 % (24.0-44.0); MEAN CORPUSCULAR HEMOGLOBIN 29.5 pg (27.0-33.0); MEAN CORPUSCULAR HGB CONC 32.9 g/dl (32.0-36.5); MEAN CORPUSCULAR VOLUME 89.7 fl (80.0-96.0); MONO # 0.9 10^3/uL (0.0-0.8); NEUTROPHILS # 9.2 10^3/uL (1.5-8.5); NEUTROPHILS % 80.7 % (36.0-66.0); PLATELET COUNT, AUTOMATED 334 10^3/uL (150-450); RED BLOOD COUNT 3.97 10^6/uL (4.00-5.40); WHITE BLOOD COUNT 11.4 10^3/uL (4.0-10.0)
[2023-08-08 10:04] LABS: HEMOGLOBIN A1c 5.8 % (4.0-6.0)
[2023-08-08 10:16] LABS: ALBUMIN 3.6 G/DL (3.2-5.2); BILIRUBIN,TOTAL 0.3 MG/DL (0.3-1.2); CALCIUM LEVEL 9.6 MG/DL (8.3-10.6); CHOLESTEROL RISK RATIO 4.64 (<5); CREATININE FOR GFR 2.06 MG/DL (0.55-1.30); FREE T4 1.42 NG/DL (0.89-1.76); GLOMERULAR FILTRATION RATE 25.2 (>39); HDL CHOLESTEROL 30.8 MG/DL (>40); LDL CHOLESTEROL 82.6 MG/DL (<100); NON-HDL-C 112.2 MG/DL; POTASSIUM SERUM 3.2 MMOL/L (3.5-5.1); THYROID STIMULATING HORMONE 0.644 uIU/ML (0.55-4.78); TOTAL PROTEIN 6.9 G/DL (5.7-8.2)
== END ==
LOC: M LAB 08:51
PROVIDERS: ATTEND Nurse Practitioner Family
DX: I50.22 Chronic systolic (congestive) heart failure (principal); I11.0 Hypertensive heart disease with heart failure; E78.5 Hyperlipidemia, unspecified; R73.09 Other abnormal glucose

== ENCOUNTER → 2024-03-29 | Outpatient (CLI) | payer MEDICARE, MEDICAID ==
[~2024-03-29] MED LIST changes: -HYDR-3910 PO; -HYDR-3911; -HYDR-3911 PO; -HYDR25TA PO; +HYDR25TA87 PO; +HYDR25TA88 PO; +HYDR50TA46; +HYDR50TA46 PO
[2024-03-29 15:56] LABS: BASO # 0.1 10^3/uL (0.0-0.2); BASO % 0.7 % (0.0-1.0); EOS # 0.2 10^3/uL (0.0-0.5); EOS % 1.9 % (0.0-3.0); HEMATOCRIT 37.7 % (36.0-47.0); HEMOGLOBIN 12.3 g/dl (12.0-15.5); LYMPH # 1.6 10^3/uL (1.5-5.0); LYMPH % 17.8 % (24.0-44.0); MEAN CORPUSCULAR HEMOGLOBIN 29.9 pg (27.0-33.0); MEAN CORPUSCULAR HGB CONC 32.6 g/dl (32.0-36.5); MEAN CORPUSCULAR VOLUME 91.5 fl (80.0-96.0); MONO # 0.7 10^3/uL (0.0-0.8); MONO % 7.5 % (2.0-8.0); NEUTROPHILS # 6.3 10^3/uL (1.5-8.5); NEUTROPHILS % 71.3 % (36.0-66.0); PLATELET COUNT, AUTOMATED 334 10^3/uL (150-450); RED BLOOD COUNT 4.12 10^6/uL (4.00-5.40); WHITE BLOOD COUNT 8.8 10^3/uL (4.0-10.0)
[2024-03-29 16:25] LABS: ALBUMIN 3.6 G/DL (3.2-5.2); BILIRUBIN,TOTAL 0.3 MG/DL (0.3-1.2); CALCIUM LEVEL 9.4 MG/DL (8.3-10.6); CHOLESTEROL RISK RATIO 4.24 (<5); CREATININE FOR GFR 1.72 MG/DL (0.55-1.30); GLOMERULAR FILTRATION RATE 30.9 (>39); HDL CHOLESTEROL 31.3 MG/DL (>40); LDL CHOLESTEROL 74.9 MG/DL (<100); NON-HDL-C 101.7 MG/DL; POTASSIUM SERUM 4.3 MMOL/L (3.5-5.1); TOTAL PROTEIN 6.4 G/DL (5.7-8.2)
[2024-03-29 16:26] LABS: THYROID STIMULATING HORMONE 0.591 uIU/ML (0.55-4.78)
[2024-03-29 16:27] LABS: FREE T4 1.27 NG/DL (0.89-1.76)
[2024-03-29 16:37] LABS: HEMOGLOBIN A1c 5.7 % (4.0-6.0)
== END ==
LOC: M PLALAB 12:21
PROVIDERS: ATTEND Nurse Practitioner Family
DX: E78.5 Hyperlipidemia, unspecified (principal); I11.0 Hypertensive heart disease with heart failure; I50.22 Chronic systolic (congestive) heart failure; R73.09 Other abnormal glucose

== ENCOUNTER → 2024-12-02 | Outpatient (CLI) | payer MEDICARE, MEDICAID ==
[~2024-12-02] MED LIST changes: +ISOS10TA69 PO; -ISOS1TAB12 PO
[2024-12-02 13:12] LABS: BASO # 0.1 10^3/uL (0.0-0.2); BASO % 0.9 % (0.0-1.0); EOS # 0.3 10^3/uL (0.0-0.5); EOS % 3.6 % (0.0-3.0); HEMATOCRIT 36.8 % (36.0-47.0); HEMOGLOBIN 11.9 g/dl (12.0-15.5); LYMPH # 1.5 10^3/uL (1.5-5.0); MEAN CORPUSCULAR HEMOGLOBIN 29.5 pg (27.0-33.0); MEAN CORPUSCULAR HGB CONC 32.3 g/dl (32.0-36.5); MEAN CORPUSCULAR VOLUME 91.3 fl (80.0-96.0); MONO # 0.7 10^3/uL (0.0-0.8); MONO % 9.3 % (2.0-8.0); NEUTROPHILS # 5.2 10^3/uL (1.5-8.5); NEUTROPHILS % 66.3 % (36.0-66.0); PLATELET COUNT, AUTOMATED 325 10^3/uL (150-450); RED BLOOD COUNT 4.03 10^6/uL (4.00-5.40); WHITE BLOOD COUNT 7.8 10^3/uL (4.0-10.0)
[2024-12-02 13:18] LABS: ALBUMIN 3.4 G/DL (3.2-5.2); BILIRUBIN,TOTAL 0.4 MG/DL (0.3-1.2); CALCIUM LEVEL 9.1 MG/DL (8.3-10.6); CHOLESTEROL RISK RATIO 3.3 (<5); CREATININE FOR GFR 1.76 MG/DL (0.55-1.30); GLOMERULAR FILTRATION RATE 30.1 (>39); HDL CHOLESTEROL 41.1 MG/DL (>40); LDL CHOLESTEROL 77.5 MG/DL (<100); NON-HDL-C 94.9 MG/DL; POTASSIUM SERUM 3.8 MMOL/L (3.5-5.1); TOTAL PROTEIN 6.6 G/DL (5.7-8.2)
[2024-12-02 13:38] LABS: HEMOGLOBIN A1c 5.5 % (4.0-6.0)
== END ==
LOC: M PLALAB 10:08
PROVIDERS: ATTEND Nurse Practitioner Family
DX: I10 Essential (primary) hypertension (principal); R73.09 Other abnormal glucose; E78.5 Hyperlipidemia, unspecified

== ENCOUNTER → 2024-12-10 | Outpatient (CLI) | payer MEDICARE, MEDICAID | LOC: M RAD 11:09 | PROVIDERS: ATTEND Radiology Diagnostic Radiology | DX: Z01.818 Encounter for other preprocedural examination (principal); N18.6 End stage renal disease; I87.1 Compression of vein; Z99.2 Dependence on renal dialysis ==

== ENCOUNTER → 2024-12-23 | Outpatient (CLI) | payer MEDICARE, MEDICAID ==
[~2024-12-23] MED LIST changes: +NS 250 ML IV SCH
[2024-12-23 13:46] VITALS: TEMP 99
[2024-12-23] MEDS: fentaNYL 100 MCG/2 ML INJECTION IV PRN (14:42)
[2024-12-23] MEDS: MIDAZOLAM INJ 2MG/2ML VIAL IV PRN (14:42)
[2024-12-23] MEDS: HEPARIN 1,000UNITS/ML 10ML VIAL (FOR RADIOLOGY & DIALYSIS ONLY) IV PRN (14:57)
[2024-12-23] MEDS: ISOVUE-300 61% 100ML VIAL IV ONE (15:51)
[2024-12-23] MEDS: LIDOCAINE 1% MDV 20ML VIAL SC ONE (15:52)
[2024-12-23 16:52] VITALS: BP 140/63; O2SAT 98
== END ==
LOC: M IRPRO 13:30
PROVIDERS: ATTEND Nurse Practitioner Family
DX: N18.6 End stage renal disease (principal); T82.59 Other mechanical complication of other cardiac and vascular devices and implants
CPT/HCPCS: 36902; 99152; 99153; C1725; C1769; C1887; C1894; C2623; J2250; J3010; Q9967

== ENCOUNTER → 2025-02-03 | Outpatient (CLI) | payer MEDICARE, MEDICAID ==
[~2025-02-03] MED LIST changes: -NS 250 ML IV SCH
== END ==
LOC: M RAD 11:37
PROVIDERS: ATTEND Internal Medicine Cardiovascular Disease
DX: I65.23 Occlusion and stenosis of bilateral carotid arteries (principal); E78.2 Mixed hyperlipidemia; I73.9 Peripheral vascular disease, unspecified; R09.89 Other specified symptoms and signs involving the circulatory and respiratory systems

== ENCOUNTER → 2025-06-10 | Outpatient (CLI) | payer MEDICARE, MEDICAID ==
[2025-06-10 19:49] LABS: BASO # 0.1 10^3/uL (0.0-0.2); BASO % 0.8 % (0.0-1.0); EOS # 0.2 10^3/uL (0.0-0.5); EOS % 1.8 % (0.0-3.0); LYMPH # 1.6 10^3/uL (1.5-5.0); LYMPH % 13.5 % (24.0-44.0); MONO # 0.9 10^3/uL (0.0-0.8); MONO % 8.0 % (2.0-8.0); NEUTROPHILS # 8.7 10^3/uL (1.5-8.5); NEUTROPHILS % 74.8 % (36.0-66.0); PLATELET COUNT, AUTOMATED 337 10^3/uL (150-450)
[2025-06-10 19:55] LABS: ALT/SGPT 15.0 U/L (7.0-40); AST/SGOT 25.0 U/L (<34); CALCIUM LEVEL 9.2 MG/DL (8.3-10.6); CARBON DIOXIDE LEVEL 31.0 MMOL/L (20-31); CHLORIDE LEVEL 99.0 MMOL/L (98-107); CHOLESTEROL LEVEL 157.0 MG/DL (<200); CHOLESTEROL RISK RATIO 4.24 (<5); CREATININE FOR GFR 2.06 MG/DL (0.55-1.30); FREE T4 1.35 NG/DL (0.89-1.76); GLOMERULAR FILTRATION RATE 24.8 (>39); LDL CHOLESTEROL 80.4 MG/DL (<100); NON-HDL-C 120.0 MG/DL; POTASSIUM SERUM 3.4 MMOL/L (3.5-5.1); SODIUM LEVEL 137.0 MMOL/L (136-145); TRIGLYCERIDES LEVEL 198.0 MG/DL (<150)
[2025-06-10 19:56] LABS: TOTAL 25(OH) VITAMIN D 8.0 NG/ML (20.0-100.0)
[2025-06-10 20:35] LABS: ESTIMATED AVERAGE GLUCOSE 137.0 MG/DL (60-110)
== END ==
LOC: M PLALAB 14:27
PROVIDERS: ATTEND Nurse Practitioner Family
DX: E55.9 Vitamin D deficiency, unspecified (principal); E78.5 Hyperlipidemia, unspecified; I10 Essential (primary) hypertension; R73.09 Other abnormal glucose